=== PATIENT | female | born 1955 | race Caucasian/White ===

== ENCOUNTER 2022-09-27 15:37 | Emergency (ER) | payer MEDICAID, SELFPAY ==
[2022-09-27 15:38] VITALS: BP 151/81; PULSE 137; RESP 18; TEMP 36.3; O2SAT 97
[2022-09-27 15:47] VITALS: BMI 43.0
--- NOTE | 2022-09-27 15:49 | EKG12_ITS ---
Test Reason : CP Blood Pressure : / mmHG Vent. Rate : 135 BPM Atrial Rate : 135 BPM P-R Int : 180 ms QRS Dur : 090 ms QT Int : 252 ms P-R-T Axes : 096 -04 092 degrees QTc Int : 378 ms Atrial tachycardia Abnormal ECG Confirmed by PLACIOD NEWELL, GENARO ([id number]), video editor TINY NAJERA ([id number]) on 09/28/2022 12:47:13 PM Referred By: MIKEL Confirmed By:GENARO CUMMINS MD
--- NOTE | 2022-09-27 15:51 | CT_ITS ---
STUDY: CTA CHEST REASON FOR EXAM: Female, 67 years old. Chest pain RADIATION DOSAGE (If Supplied By Facility): CTDIvol = ( 12.66 ) mGy, DLP = ( 566.71 ) mGycm TECHNIQUE: The examination was performed with the intravenous administration of IV 100mL Isovue-370. Post-processing of the angiographic images was performed, with multiplanar reformation and 3D reconstruction. Individualized dose optimization techniques were used for this CT. COMPARISON: Chest x-ray September 27, 2022 FINDINGS: Upper normal caliber. Normal enhancement of the main pulmonary artery and right and left pulmonary arteries. Normal enhancement of the bilateral peripheral pulmonary arteries. There is no demonstrated pulmonary embolism. Normal caliber thoracic aorta and visualized great vessels. No dissection. Mild cardiomegaly. Coronary artery calcification. No pericardial effusion. Left ventricular wall thickening. Mitral valve calcification. Prominent epicardial fat pads bilaterally. 7 mm nodule in the inferior and lateral right upper lobe. No focal airspace consolidation. Subsegmental atelectasis or scarring in the right middle lobe and right lower lobe at the base. No pleural effusion or pneumothorax. Trachea and esophagus are unremarkable. Several subcentimeter mediastinal lymph nodes. Mildly prominent hilar lymph nodes. Subcentimeter axillary lymph nodes bilaterally. No acute abnormality in the visualized upper abdomen. Bilateral low-attenuation adrenal nodules, adenomas. Degenerative changes of the thoracic spine without acute osseous injury. CT/CTA Chest W/WO Contrast IMPRESSION: No pulmonary embolism or aortic dissection. Electronically Signed: Beka Webb MD at 17:33 EDT ,
--- NOTE | 2022-09-27 15:53 | EDS_ITS ---
HPI <TRACIE Tipton - Last Filed: 09/27/22 19:24> History of Present Illness Chief Complaint: Palpitations Narrative Narrative: 67-year-old female with PMH of HTN, DVT, PAD, lung cancer on radiation, tobacco use presents with 2 weeks of exertional chest pain and shortness of breath. It seems worse since 1 AM this morning. She felt nauseated but has no vomiting. No diaphoresis. No radiation of pain. She smokes 1/2 PPD. States she is cut down since her lung cancer diagnosis a couple months ago. She just completed a cycle of palliative radiation and is not a chemotherapy candidate. She is compliant with Xarelto. She is having an increased productive cough but denies fever or chills. She wears 3 L of O2 at baseline. PFSH <TRACIE Tipton - Last Filed: 09/27/22 19:24> [facility] Medical History (Updated 09/27/22 @ 20:[address] Maximus Vasuqez DO) Afib CHF (congestive heart failure) COPD (chronic obstructive pulmonary disease) DVT (deep venous thrombosis) Lung cancer Home Medications doxycycline hyclate 100 mg capsule 100 mg PO BID 7 days #14 caps 09/27/22 [Rx Last Taken Unknown] prednisone 20 mg tablet 40 mg PO DAILY 5 days #10 tabs 09/27/22 [Rx Last Taken Unknown] Allergy/AdvReac Type Severity Reaction Status Date / Time No Known Allergies Allergy Verified 09/27/22 15:37 Social History Smoking Status: Current every day smoker tobacco type: cigarettes ROS <TRACIE Tipton - Last Filed: 09/27/22 19:24> ROS ED ROS Narrative Constitutional: Negative for fever, chills, malaise. CVS: Positive for chest pain. Negative for syncope, palpitations. Respiratory: Positive for shortness of breath, cough. GI: Positive for nausea. Negative for abdominal pain, vomiting, melena, hematochezia. Neuro: Negative for headache. Skin: Negative for rash, abscess, or wound. Musc: Negative for joint pain, swelling, trauma. EXAM <TRACIE Tipton - Last Filed: 09/27/22 19:24> Physical Exam Narrative Exam Narrative: CONST: Patient sitting in no acute distress. EYES: Normal inspection. NECK: Normal inspection. RESP: No respiratory distress, diminished lung sounds. CVS: Rapid but regular rhythm, no murmur, no gallop. ABD: Soft and nontender, no guarding or rebound. Back: Normal inspection. SKIN: Color normal, no rash, warm, dry, intact. EXTREMITIES: Normal appearance, changes of chronic venous stasis bilateral legs, no edema or calf tenderness. NEURO: Oriented x4. PSYCH: Normal affect. Const Vital Signs: 09/27/22 15:38 09/27/22 16:55 09/27/22 17:43 Temperature 97.3 F L Temperature Source Temporal Pulse Rate 137 H 125 H Respiratory Rate 18 Blood Pressure 151/81 H 126/88 H Blood Pressure Mean 104 100 Pulse Ox 97 96 Oxygen Delivery Method Room Air Nasal Cannula Oxygen Flow Rate (L/min) 3 09/27/22 17:43 09/27/22 18:41 Temperature Temperature Source Pulse Rate 124 H 82 Respiratory Rate 20 H 17 Blood Pressure 129/71 H 139/84 H Blood Pressure Mean 90 Pulse Ox 97 95 Oxygen Delivery Method Nasal Cannula Oxygen Flow Rate (L/min) 3 <Dr. Maximus Vasquez DO - Last Filed: 09/27/22 20:03> Physical Exam Const Vital Signs: 09/27/22 15:38 09/27/22 16:55 09/27/22 17:43 Temperature 97.3 F L Temperature Source Temporal Pulse Rate 137 H 125 H Respiratory Rate 18 Blood Pressure 151/81 H 126/88 H Blood Pressure Mean 104 100 Pulse Ox 97 96 Oxygen Delivery Method Room Air Nasal Cannula Oxygen Flow Rate (L/min) 3 09/27/22 17:43 09/27/22 18:41 Temperature Temperature Source Pulse Rate 124 H 82 Respiratory Rate 20 H 17 Blood Pressure 129/71 H 139/84 H Blood Pressure Mean 90 Pulse Ox 97 95 Oxygen Delivery Method Nasal Cannula Oxygen Flow Rate (L/min) 3 MDM <TRACIE Tipton - Last Filed: 09/27/22 19:24> MDM MDM Narrative Medical decision making narrative: History gathered from: Patient and family members patient here with 2 weeks of chest pressure, dyspnea, recent cough with sputum production. Has a history of COPD and lung cancer status postradiation. Chronic 3 L. Still using tobacco. She appears well and nontoxic. Initially was tachycardic in the 130s and was started Tilofyl sinus rhythm versus a flutter. Given IV metoprolol and it slowed down and does appear to be sinus tach. Improving after Lopressor and fluids. Lung sounds are diminished. No signs of lower extremity edema. EKG is nonischemic and troponin x2 negative. CTA shows no acute findings. With recent increased cough and sputum she will be treated for COPD exacerbation with doxycycline and prednisone. First dose is given here. Patient is comfortable going home and was discharged in stable condition. Differential: ACS, PE, pneumonia, COPD I considered admission but she is at her baseline oxygen requirements is appropriate for outpatient management of COPD exacerbation. Interventions / MDM: Differential diagnosis: Sinus tach, atrial flutter, chest pain, ACS, pulmonary embolism, stage III lung cancer Diagnosis considered but do not suspect: N/A My EKG interpretation: Narrow complex tachycardia 137, sinus versus atrial flutter. Imaging independently reviewed and interpreted by myself: Chest x-ray 1 view: No acute process. CTA chest: External documents reviewed: N/A Test considered but not ordered:N/A ED course: Attending note: Patient seen and evaluated with coordinator of evaluation. I perform my own [id number] evaluation. I agree with the plan of work-up. 2-week history of cough sputum chest discomfort with dyspnea. Recent diagnosis stage III lung cancer with tobacco history. Chronic 3 L oxygen with COPD. She followed by [facility] Dr. Segura for oncology. She just finished radiation therapy, states not a candidate for chemotherapy. Nonvaccinated for COVID. States home COVID testing has been negative. She is on Xarelto history of paroxysmal A-fib along with DVT. She states she is compliant. She has been cardioverted at outside hospitals due to being on Xarelto. She currently does not follow cardiology. She is tolerating oral fluids denies recent vomiting or diarrhea. Exam stable on 3 L of oxygen, heart was tachycardic and lungs are clear. EKG sinus tachycardia versus a flutter. She was given fluids we will give a beta-jeramy for further evaluation of the heart rhythm. Cardiac work-up along with CT angiogram for further evaluation and rule outs. Re-evaluation: stable Disposition discussed with patient/family/significant other: Case discussed with consulting clinician: N/A Lab Data Attestation: I reviewed the patient's lab results. Labs: Laboratory Results - last 24 hr 09/27/22 09/27/22 09/27/22 15:50 15:50 18:00 WBC 8.1 RBC 4.61 Hgb 13.4 Hct 43.2 MCV 93.7 MCH 29.1 MCHC 31.0 L RDW Std Deviation 55.3 H RDW Coeff of Baltazar 16.2 H Plt Count 354 MPV 10.1 Immature Gran % (Auto) 0.500 Neut % (Auto) 80.2 H Lymph % (Auto) 13.2 L Barrow % (Auto) 4.1 Eos % (Auto) 1.6 Baso % (Auto) 0.4 Absolute Neuts (auto) 6.5 Absolute Lymphs (auto) 1.06 Nucleated RBC % 0 Sodium 134 L Potassium 4.3 Chloride 100 Carbon Dioxide 29.0 Anion Gap 5 BUN 19 H Creatinine 1.20 H Estim Creat Clear Calc 39.28 Est GFR (MDRD) Af Amer 58 L Est GFR (MDRD) Non-Af 48 L BUN/Creatinine Ratio 15.8 Glucose 127 H Calcium 9.0 Troponin I High Sens 14 14 Radiography Diagnostic Testing: Clinical Impression(s) from Imaging Studies Chest CTA 09/27/22 15:51 IMPRESSION: No pulmonary embolism or aortic dissection. Electronically Signed: Beka Webb MD at 17:33 EDT , Chest X-Ray 09/27/22 16:00 IMPRESSION: No acute cardiopulmonary disease. CTA chest has been ordered. Electronically Signed: Beka Webb MD at 16:22 EDT , EKG Initial EKG: Attestation: I personally reviewed and interpreted this EKG as follows: Comments: ED attending interpretation of EKG is possibly atrial flutter versus sinus tachycardia at 135 bpm, no acute ischemic changes, machine read as STEMI but I disagree with this interpretation <Dr. Maximus Vasquez, DO - Last Filed: 09/27/22 20:03> [facility] MDM Narrative Medical decision making narrative: History gathered from: Patient and family members patient here with 2 weeks of chest pressure, dyspnea, recent cough with sputum production. Has a history of COPD and lung cancer status postradiation. Chr onic 3 L. Still using tobacco. She appears well and nontoxic. Initially was tachycardic in the 130s and was started Tilofyl sinus rhythm versus a flutter. Given IV metoprolol and it slowed down and does appear to be sinus tach. Improving after Lopressor and fluids. Lung sounds are diminished. No signs of lower extremity edema. EKG is nonischemic and troponin x2 negative. CTA shows no acute findings. With recent increased cough and sputum she will be treated for COPD exacerbation with doxycycline and prednisone. First dose is given here. Patient is comfortable going home and was discharged in stable condition. Differential: ACS, PE, pneumonia, COPD I considered admission but she is at her baseline oxygen requirements is appropriate for outpatient management of COPD exacerbation. Interventions / MDM: Differential diagnosis: Sinus tach, atrial flutter, chest pain, ACS, pulmonary embolism, stage III lung cancer Diagnosis considered but do not suspect: N/A My EKG interpretation: Narrow complex tachycardia 137, sinus versus atrial flutter. Imaging independently reviewed and interpreted by myself: Chest x-ray 1 view: No acute process. CTA chest: No pulmonary embolism no infiltrates no masses. Nodules were noted. This is read by radiology. External documents reviewed: N/A Test considered but not ordered:N/A ED course: Attending note: Patient seen and evaluated with coordinator of evaluation. I perform my own [id number] evaluation. I agree with the plan of work-up. 2-week history of cough sputum chest discomfort with dyspnea. Recent diagnosis stage III lung cancer with tobacco history. Chronic 3 L oxygen with COPD. She followed by [facility] Dr. Segura for oncology. She just finished radiation therapy, states not a candidate for chemotherapy. Nonvaccinated for COVID. States home COVID testing has been negative. She is on Xarelto history of paroxysmal A-fib along with DVT. She states she is compliant. She has been cardioverted at outside hospitals due to being on Xarelto. She currently does not follow cardiology. She is tolerating oral fluids denies recent vomiting or diarrhea. Exam stable on 3 L of oxygen, heart was tachycardic and lungs are clear. EKG sinus tachycardia versus a flutter. She was given fluids we will give a beta-jeramy for further evaluation of the heart rhythm. Cardiac work-up along with CT angiogram for further evaluation and rule outs. Re-evaluation: stable, heart rate was 120s appears more sinus rhythm on the monitor she continued to get fluids. CT scan negative for PE. History of COPD with productive cough reported wheezing at home. We will treat antibiotics steroids according to golds criteria. She agreed with this. Antibiotic started in the ED prescriptions were written. Prior to discharge heart rate improved down to 82. Return precautions. Disposition discussed with patient/family/significant other: Patient and family Case discussed with consulting clinician: N/A Lab Data Labs: Laboratory Results - last 24 hr 09/27/22 09/27/22 09/27/22 15:50 15:50 18:00 WBC 8.1 RBC 4.61 Hgb 13.4 Hct 43.2 MCV 93.7 MCH 29.1 MCHC 31.0 L RDW Std Deviation 55.3 H RDW Coeff of Baltazar 16.2 H Plt Count 354 MPV 10.1 Immature Gran % (Auto) 0.500 Neut % (Auto) 80.2 H Lymph % (Auto) 13.2 L Barrow % (Auto) 4.1 Eos % (Auto) 1.6 Baso % (Auto) 0.4 Absolute Neuts (auto) 6.5 Absolute Lymphs (auto) 1.06 Nucleated RBC % 0 Sodium 134 L Potassium 4.3 Chloride 100 Carbon Dioxide 29.0 Anion Gap 5 BUN 19 H Creatinine 1.20 H Estim Creat Clear Calc 39.28 Est GFR (MDRD) Af Amer 58 L Est GFR (MDRD) Non-Af 48 L BUN/Creatinine Ratio 15.8 Glucose 127 H Calcium 9.0 Troponin I High Sens 14 14 Radiography Diagnostic Testing: Clinical Impression(s) from Imaging Studies Chest CTA 09/27/22 15:51 IMPRESSION: No pulmonary embolism or aortic dissection. Electronically Signed: Beka Webb MD at 17:33 EDT , Chest X-Ray 09/27/22 16:00 IMPRESSION: No acute cardiopulmonary disease. CTA chest has been ordered. Electronically Signed: Beka Webb MD at 16:22 EDT , Discharge Plan Triage Chief Complaint: Palpitations ED Midlevel Provider: Gay Ibarra ED Provider: Maximus Vasquez Dx/Rx/DC Orders Clinical Impression: Acute exacerbation of chronic obstructive pulmonary disease, Chest pressure, History of lung cancer Instructions: COPD Quit Smoking Prescriptions: New prednisone 20 mg tablet 40 mg PO DAILY 5 Days Qty: 10 0RF doxycycline hyclate 100 mg capsule 100 mg PO BID 7 Days Qty: 14 0RF Primary Care Provider: Josesito Guthrie Referrals: Josesito Guthrie MD [Primary Care Provider] - Activity Restrictions/Additional Instructions: You are being treated for COPD exacerbation with doxycycline which is an antibiotic and steroids. Please follow-up with your primary care doctor this week. Return to the ER if symptoms worsen. Disposition Disposition: Home, Self Care Discharge Date/Time: 09/27/22 18:46
--- NOTE | 2022-09-27 15:57 | NURSING ---
NO OLD EKGS
--- NOTE | 2022-09-27 16:00 | RAD_ITS ---
INDICATION: Chest pain, palpitations. EXAMINATION/TECHNIQUE: X-RAY - XR Chest 1 View COMPARISON: None. FINDINGS: AP view, lordotic technique, mild rotation to the right. LINES/DEVICES: None. LUNGS: No consolidation, edema or effusion. Prominent right epicardial fat pad. No pneumothorax. MEDIASTINUM AND CARDIOVASCULAR STRUCTURES: Cardiac silhouette borderline enlarged. Central airways and mediastinal contour are unremarkable. BONES AND SOFT TISSUES: Degenerative changes. No acute osseous injury. RAD/Chest 1 View (Portable) IMPRESSION: No acute cardiopulmonary disease. CTA chest has been ordered. Electronically Signed: Beka Webb MD at 16:22 EDT ,
[2022-09-27] MEDS: 0.9% Normal Saline 1,000 ML 999 ML IV (16:01)
[2022-09-27] MEDS: Aspirin 81 MG TAB.CHEW 324 MG PO (16:03)
[2022-09-27] MEDS: Metoprolol Tartrate 5 MG/5 ML Vial IV (16:03)
[2022-09-27 16:10] LABS: Absolute Lymphocyte Count 1.06 X10^3/uL (0.83-4.51); Absolute Neutrophil Count 6.5 X10^3/uL (2.0-7.7); Basophil# 0.03 X10^3/uL; Basophil% 0.4 % (0-1); Eosinophil# 0.13 X10^3/uL; Eosinophils% 1.6 % (0-5); Hematocrit 43.2 % (37-47); Hemoglobin 13.4 g/dL (12.0-15.0); Lymphocyte # 1.06 X10^3/ul (0.83-4.51); Lymphocyte % 13.2 % (19-41); Mean Corpuscular Hgb 29.1 pg (27.0-32.0); Mean Corpuscular Volume 93.7 fL (81-99); Mean Platelet Vol. 10.1 fl (6.2-12.0); Monocyte# 0.33 X10^3/uL; Monocyte% 4.1 % (0-10); NRBC Flagged by Analyzer 0 % (0-5); Neutrophil # 6.47 X10^3/uL (2.7-7.7); Neutrophil % 80.2 % (47-70); Platelet Count 354 K/mm3 (150-450); RBC Distribution Width CV 16.2 % (11.6-14.6); RBC Distribution Width SD 55.3 fl (35.1-43.9); Red Blood Count 4.61 M/mm3 (4.2-5.4); White Blood Count 8.1 K/mm3 (4.4-11.0)
[2022-09-27 16:24] LABS: Anion Gap 5 (5-15); BUN 19 mg/dL (7-18); BUN/Creat Ratio 15.8 RATIO (10-20); Chloride 100 mmol/L (98-107); EST Glomerular Filtration Rate 48 mL/min (>60); Est Glom Filt Rate - Afr Amer 58 mL/min (>60); Estimated Creatinine Clearance 39.28 ml/min; Glucose 127 mg/dL (74-106); Potassium 4.3 mmol/L (3.5-5.1); Sodium Level 134 mmol/L (136-145); Troponin-I HS (w/2H Reflex) 14 pg/mL (3.0-54.0)
[2022-09-27] MEDS: Morphine 4 MG/ML Syringe IV (16:27)
[2022-09-27] MEDS: Ondansetron 4 MG/2 ML Vial IV (16:28)
[2022-09-27 16:55] VITALS: BP 126/88; PULSE 125
[2022-09-27] MEDS: predniSONE 20 MG Tablet 60 MG PO (17:42)
[2022-09-27] MEDS: Doxycycline 100 MG CAPSULE PO (17:42)
[2022-09-27 17:43] VITALS: BP 129/71; PULSE 124; RESP 20; O2SAT 96; O2SAT 97
[2022-09-27 17:59] LABS: Reflex Troponin-HS? (from REC) Y
[2022-09-27 18:32] LABS: Troponin-I HS 14 pg/mL (3.0-54.0)
[2022-09-27 18:41] VITALS: BP 139/84; PULSE 82; RESP 17; O2SAT 95
== END 2022-09-27 18:46 | disposition home or self-care (01) ==
PROVIDERS: Physician Assistant; Emergency Provider Emergency Medicine; PCP Internal Medicine; Visit Provider Emergency Medicine
DX: J44.1 Chronic obstructive pulmonary disease with (acute) exacerbation (principal); I50.9 Heart failure, unspecified; R07.89 Other chest pain; F17.210 Nicotine dependence, cigarettes, uncomplicated; Z86.718 Personal history of other venous thrombosis and embolism; Z79.01 Long term (current) use of anticoagulants
CPT/HCPCS: 71045; 71275; 80048; 84484; 85025; 87811; 93005; 96374; 96375; 99285; J7030; Q9967; A4216; J2405

== ENCOUNTER → 2022-10-14 | Outpatient (CLI) | payer MEDICAID, SELFPAY ==
--- NOTE | 2022-10-14 12:18 | MRI_ITS ---
EXAM: MR brain with and without contrast. HISTORY: UNEXPLAINED VISION LOSS TECHNIQUE: MR Brain WO/W Contrast COMPARISON: None. LIMITATIONS: Motion artifact. BRAIN: Normal cespedes/white matter differentiation. No diffusion abnormalities. No enhancing lesions. VENTRICLES: No hydrocephalus. EXTRA-AXIAL SPACES: No hemorrhages, fluid collections, or masses. CALVARIUM/SKULL BASE: Normal. FACE/SINUSES: Mucosal thickening of the left maxillary sinus with possible mild fluid. Orbits and ocular globes are grossly normal. SOFT TISSUES: Normal. OTHER: None. CONCLUSION: Motion artifact. No significant abnormality. Electronically Signed: Alex Ge MD at 5:43 EDT , MRI/Brain W/WO Contrast IMPRESSION: undefined
== END | disposition home or self-care (01) ==
PROVIDERS: PCP Internal Medicine; Referring Provider Ophthalmology; Visit Provider Ophthalmology
DX: H53.133 Sudden visual loss, bilateral (principal)
CPT/HCPCS: 70553; A9575

== ENCOUNTER 2022-10-24 15:24 | Inpatient (IN) | payer MEDICAID, SELFPAY ==
[2022-10-24] VITALS (15 sets, daily range): BP systolic 141–171; BP diastolic 50–127; PULSE 90–145; RESP 16–30; TEMP 36.6–36.9; O2SAT 96–99; BMI 43.4; BMI 41.6
--- NOTE | 2022-10-24 16:03 | EKG12_ITS ---
Test Reason : EDEMA Blood Pressure : / mmHG Vent. Rate : 141 BPM Atrial Rate : 141 BPM P-R Int : 146 ms QRS Dur : 090 ms QT Int : 248 ms P-R-T Axes : 088 -01 092 degrees QTc Int : 379 ms Atrial flutter with 2:1 AV Block Confirmed by ANDRE HUNTER ([id number]), web editor TINY NAJERA ([id number]) on 10/27/2022 7:29:08 AM Referred By: Confirmed By:ANDRE HUNTER
--- NOTE | 2022-10-24 16:05 | EX.ED.DYSGE1 ---
HPI <JOANNA Mancilla - Last Filed: 10/24/22 18:37> History of Present Illness Chief Complaint: Edema Narrative Narrative: Patient is a 67-year-old female with history of stage III lung cancer, hyperlipidemia, obesity, pulmonary embolus, DVT, COPD on 3 L nasal cannula oxygen daily presents to the emergency department for bilateral leg swelling. Patient was recently admitted to hospice at the end of September 2022. Patient was in hospice for 1 week, did not like that they just gave her pain medicine, she then stopped hospice. Patient is currently not on any of her daily medications. Patient is on no rate control medications, anticoagulation, Plavix, CHF medications. Patient has not seen her PCP and cannot see them until December 2022. Patient is here with her daughter concerning about her ongoing symptoms with her legs. Patient denies any worsening chest pain or shortness of breath. Patient has baseline on her 3 L PFSH <JOANNA Mancilla - Last Filed: 10/24/22 18:37> [facility] Medical History (Updated 10/24/22 @ 18:[address] Dixon Barboza MD) Afib CHF (congestive heart failure) COPD (chronic obstructive pulmonary disease) DVT (deep venous thrombosis) Lung cancer Home Medications NK 10/24/22 [History Last Taken Unknown] Allergy/AdvReac Type Severity Reaction Status Date / Time No Known Allergies Allergy Verified 10/24/22 15:28 Social History Smoking Status: Current every day smoker tobacco type: cigarettes ROS <JOANNA Mancilla - Last Filed: 10/24/22 18:37> ROS ED ROS Narrative Constitutional: Negative for fever, chills, weight loss. Positive for weakness Eyes: Negative for vision loss, vision change, double vision ENT: Negative for any sore throat, ear pain, congestion Cardiovascular: Negative for any chest pain, tightness, palpitations Respiratory: Negative for any cough, sputum production, hemoptysis, dyspnea on exertion, orthopnea. Positive dyspnea Gastrointestinal: Negative for any abdominal pain, nausea, vomiting, diarrhea, constipation, blood in stool, blood in vomit : Negative for any urinary frequency, dysuria, retention, blood in urine Muscle skeletal: Negative for any muscle joint pain, stiffness, myalgias, arthralgias, neck pain, back pain. Positive for bilateral lower extremity swelling, redness. Neurological: Negative for any headache, syncope, numbness or tingling, dizziness Skin: Negative for any rashes, lumps, itching, abrasions, lacerations Psychiatric: Negative for any depression, anxiety, stress, suicidal ideation, homicidal ideation Hematologic: Negative for any easy bruising, excessive bruising, easy bleeding Allergies: Negative for any eczema, hives, rash EXAM <Beka OsborneJOANNA - Last Filed: 10/24/22 18:37> Physical Exam Narrative Exam Narrative: Vital signs reviewed. Patient on her 3 L of oxygen is baseline. Patient alert and orient x4. HEET: Head normocephalic atraumatic, TMs clear bilaterally. Posterior pharynx is clear, moist mucous membranes. Nares clear bilaterally. Neck: Supple with no lymphadenopathy or tenderness. No signs of meningismus, negative jolt sign. Cardiac: Regular rate and rhythm no murmurs gallops or rubs, equal peripheral pulses bilaterally. Respiratory: Bilateral lung sounds were diminished. Patient is chronic COPD.. No chest tenderness. Abdomen: Soft, nontender, nondistended. No abdominal bruit or pulsatile masses. No hepatosplenomegaly Extremities: Patient has bilateral lower edema to the lower legs. Patient does have some redness around some superficial wounds to the right leg. Patient has obvious vascular dermatitis. Bilateral lower extremities are warm. The toes are red. The right leg is slightly larger than the left leg. Active full range of motion of all extremities. Neuro: Cranial nerves II through XII intact, no focal neurological deficits. Skin: Clean dry and intact with no rash, purpura, petechiae, vesicles or pustules. Backs/flank: No CVA tenderness, no midline spinal tenderness, no deformity. Psych: Normal mood and affect. No SI, HI or acute psychosis. Const Vital Signs: 10/24/22 15:25 10/24/22 16:01 10/24/22 16:13 Temperature 98.3 F Temperature Source Temporal Pulse Rate 144 H Respiratory Rate 18 Respiratory Effort Short of Breath Labored Respiratory Pattern Tachypnea Blood Pressure 165/90 H Blood Pressure Mean 115 Pulse Ox 97 Oxygen Delivery Method Room Air Nasal Cannula Oxygen Flow Rate (L/min) 2 10/24/22 17:15 10/24/22 17:49 Temperature Temperature Source Pulse Rate 94 142 H Respiratory Rate Respiratory Effort Respiratory Pattern Blood Pressure Blood Pressure Mean Pulse Ox Oxygen Delivery Method Oxygen Flow Rate (L/min) Positive obese Nutritional Appearance: obese <Dr. Dixon Barboza MD - Last Filed: 10/24/22 18:44> Physical Exam Const Vital Signs: 10/24/22 15:25 10/24/22 16:01 10/24/22 16:13 Temperature 98.3 F Temperature Source Temporal Pulse Rate 144 H Respiratory Rate 18 Respiratory Effort Short of Breath Labored Respiratory Pattern Tachypnea Blood Pressure 165/90 H Blood Pressure Mean 115 Pulse Ox 97 Oxygen Delivery Method Room Air Nasal Cannula Oxygen Flow Rate (L/min) 2 10/24/22 17:15 10/24/22 17:49 Temperature Temperature Source Pulse Rate 94 142 H Respiratory Rate Respiratory Effort Respiratory Pattern Blood Pressure Blood Pressure Mean Pulse Ox Oxygen Delivery Method Oxygen Flow Rate (L/min) MDM <JOANNA Mancilla - Last Filed: 10/24/22 18:37> MDM Lab Data Labs: Laboratory Results - last 24 hr 10/24/22 10/24/22 10/24/22 15:45 15:45 15:45 WBC 5.8 RBC 4.06 L Hgb 12.1 Hct 38.7 MCV 95.3 MCH 29.8 MCHC 31.3 L RDW Std Deviation 57.0 H RDW Coeff of [place]tazar 16.2 H Plt Count 319 MPV 10.0 Immature Gran % (Auto) 0.500 Neut % (Auto) 73.5 H Lymph % (Auto) 17.4 L [place] % (Auto) 6.2 Eos % (Auto) 1.9 Baso % (Auto) 0.5 Absolute Neuts (auto) 4.3 Absolute Lymphs (auto) 1.01 Nucleated RBC % 0 PT INR Sodium 139 Potassium 3.9 Chloride 108 H Carbon Dioxide 27.0 Anion Gap 4 L BUN 12 Creatinine 1.21 H Estim Creat Clear Calc 37.32 Est GFR (MDRD) Af Amer 57 L Est GFR (MDRD) Non-Af 47 L BUN/Creatinine Ratio 9.9 L Glucose 116 H Calcium 9.4 B-Natriuretic Peptide 61.0 10/24/22 15:45 WBC RBC Hgb Hct MCV MCH MCHC RDW Std Deviation RDW Coeff of [place] Plt Count MPV Immature Gran % (Auto) Neut % (Auto) Lymph % (Auto) [place] % (Auto) Eos % (Auto) Baso % (Auto) Absolute Neuts (auto) Absolute Lymphs (auto) Nucleated RBC % PT 13.1 INR 1.0 Sodium Potassium Chloride Carbon Dioxide Anion Gap BUN Creatinine Estim Creat Clear Calc Est GFR (MDRD) Af Amer Est GFR (MDRD) Non-Af BUN/Creatinine Ratio Glucose Calcium B-Natriuretic Peptide Radiography Diagnostic Testing: Clinical Impression(s) from Imaging Studies Chest X-Ray 10/24/22 16:20 IMPRESSION: No radiographic evidence of acute cardiopulmonary disease. Electronically Signed: Beka Mercado MD at 16:50 EDT , Treatment and Re-Evaluation :: All radiologic examinations were read, reviewed by the emergency department attending. From these reads, a plan of care will be put in place. Patient arrives in mild distress, patient's oxygen is baseline on 3 L nasal cannula. Patient presents to the emergency department with bilateral lower leg edema, right leg worse than left. She was recently on hospice, left now she is currently not on any medicines. Patient was on medication for her CHF, CAD, Xarelto for her history of DVT as well as a flutter. Patient is currently in a flutter with a rate of 140. She did receive a full work-up. Patient CBC was unremarkable, patient's chemistries show slight renal dysfunction which is chronic. Patient's BNP was 61 which is negative. Patient received a chest x-ray, this showed no radiographic evidence of acute cardiopulmonary disease. Patient's heart rate was 144, verified by EKG, consistent with atrial flutter which she has a history of. She was given 20 mg Cardizem bolus, this did little to help the patient's rate, she was then placed on a Cardizem drip and will be admitted to the hospital. Patient needs to be admitted for multiple diagnoses. Patient needs to be placed on anticoagulation, needs rate control, she will be admitted by Dr. Herrera. Patient and daughter are both happy with the plan of care, patient stable for admission. <Dr. Dixon Barboza MD - Last Filed: 10/24/22 18:44> [facility] Narrative Medical decision making narrative: I have personally performed a face to face assessment of the patient and have reviewed the JOSE Note. I performed a substantive portion of the visit including all aspects of the following. My carlin findings include: History is remarkable for stage III lung cancer. Review of outside records was undertaken. No path report was found to determine if this is small cell or non-small cell carcinoma. Patient was in hospice. She revoked her hospice status 1 week ago. She states she revoked it because she was doped up and asleep all the time. She is presently on no medication. Exam is remarkable for her not appear well. She is tachycardic and tachypneic and spite of vital signs documented by nursing staff. HEENT exam reveals pink conjunctive a. Heart is rapid and regular. Lungs reveal end inspiratory rales. There is no rhonchi or wheezing noted. Patient has no JVD. Patient has significant edema lower extremity exam right lower extremity is larger in size than left. There is evidence of acute venous stasis dermatitis. Patient has superficial wounds noted. Do not suspect these to be infected. There is no lymphangitis. There is no popliteal angle lymphadenopathy. Medical Decision Making patient EKG is suggestive of atrial flutter. We will need to give meds for rate control. Chest x-ray reveals no acute pathology. BBC markable. Electrolyte panel is as unremarkable mild renal insufficiency. Suspect patient has a DVT of the left lower extremity. Will need to place on anticoagulant. Presume her dyspnea may be due to PE and the fact that she has chronic diastolic heart failure and is presently in atrial flutter. Other additions or changes: [None] History & Record Review Additional record(s) reviewed:: Prior inpatient record, Prior outpatient record, Prior ED visit and Prior labs Lab Data Attestation: I reviewed the patient's lab results. Lab results narrative: CBC is normal. Coags normal. Basic metabolic panel reveals slight elevation of creatinine of 1.21 with a GFR of 47. Labs: Laboratory Results - last 24 hr 10/24/22 10/24/22 10/24/22 15:45 15:45 15:45 WBC 5.8 RBC 4.06 L Hgb 12.1 Hct 38.7 MCV 95.3 MCH 29.8 MCHC 31.3 L RDW Std Deviation 57.0 H RDW Coeff of Baltazar 16.2 H Plt Count 319 MPV 10.0 Immature Gran % (Auto) 0.500 Neut % (Auto) 73.5 H Lymph % (Auto) 17.4 L [place] % (Auto) 6.2 Eos % (Auto) 1.9 Baso % (Auto) 0.5 Absolute Neuts (auto) 4.3 Absolute Lymphs (auto) 1.01 Nucleated RBC % 0 PT INR Sodium 139 Potassium 3.9 Chloride 108 H Carbon Dioxide 27.0 Anion Gap 4 L BUN 12 Creatinine 1.21 H Estim Creat Clear Calc 37.32 Est GFR (MDRD) Af Amer 57 L Est GFR (MDRD) Non-Af 47 L BUN/Creatinine Ratio 9.9 L Glucose 116 H Calcium 9.4 B-Natriuretic Peptide 61.0 10/24/22 15:45 WBC RBC Hgb Hct MCV MCH MCHC RDW Std Deviation RDW Coeff of [place] Plt Count MPV Immature Gran % (Auto) Neut % (Auto) Lymph % (Auto) [place] % (Auto) Eos % (Auto) Baso % (Auto) Absolute Neuts (auto) Absolute Lymphs (auto) Nucleated RBC % PT 13.1 INR 1.0 Sodium Potassium Chloride Carbon Dioxide Anion Gap BUN Creatinine Estim Creat Clear Calc Est GFR (MDRD) Af Amer Est GFR (MDRD) Non-Af BUN/Creatinine Ratio Glucose Calcium B-Natriuretic Peptide Radiography Chest X-Ray - ED: Read by ED Physician (Histex reveals increased interstitial markings right lower lobe. Cardiac size is within normal limits. Hilar regions unremarkable. [place] structures unremarkable.) Diagnostic Testing: Clinical Impression(s) from Imaging Studies Chest X-Ray 10/24/22 16:20 IMPRESSION: No radiographic evidence of acute cardiopulmonary disease. Electronically Signed: Beka Mercado MD at 16:50 EDT , EKG Initial EKG: Attestation: I personally reviewed and interpreted this EKG as follows: Interpretation: Atrial Flutter (Rate is 141. There were no ossific ST-T wave changes most likely due to rate.) Management Discussion w/another healthcare provider: Hospitalist <Dr. Dixon Barboza MD - Last Filed: 10/24/22 18:44> Critical Care Time Critical Care Time: Yes Critical care time (excluding procedures): 30-74 minutes (32 minutes), Including time spent: (History, physical, documentation, review of prior records, discussion with patient regarding CODE STATUS, treatment for a flutter with RVR), Discussing w/Patient &/or Family/Supply Cataloguer, Discussing w/Consultants and Arranging Admission or Transfer Discharge Plan Dx/Rx/DC Orders Clinical Impression: Atrial fibrillation and flutter, Noncompliance with medication regimen, Leg edema, History of deep vein thrombosis, Lung cancer, Right leg DVT Disposition Disposition: Acute Care Hospital [facility]
[2022-10-24 16:20] LABS: Absolute Lymphocyte Count 1.01 X10^3/uL (0.83-4.51); Absolute Neutrophil Count 4.3 X10^3/uL (2.0-7.7); Basophil# 0.03 X10^3/uL; Basophil% 0.5 % (0-1); Eosinophil# 0.11 X10^3/uL; Eosinophils% 1.9 % (0-5); Hematocrit 38.7 % (37-47); Hemoglobin 12.1 g/dL (12.0-15.0); Lymphocyte # 1.01 X10^3/ul (0.83-4.51); Lymphocyte % 17.4 % (19-41); Mean Corp Hgb Conc 31.3 g/dL (32-36); Mean Corpuscular Hgb 29.8 pg (27.0-32.0); Mean Corpuscular Volume 95.3 fL (81-99); Monocyte# 0.36 X10^3/uL; Monocyte% 6.2 % (0-10); NRBC Flagged by Analyzer 0 % (0-5); Neutrophil # 4.28 X10^3/uL (2.7-7.7); Neutrophil % 73.5 % (47-70); Platelet Count 319 K/mm3 (150-450); RBC Distribution Width CV 16.2 % (11.6-14.6); Red Blood Count 4.06 M/mm3 (4.2-5.4); White Blood Count 5.8 K/mm3 (4.4-11.0)
--- NOTE | 2022-10-24 16:20 | RAD_ITS ---
INDICATION: Chest pain EXAMINATION/TECHNIQUE: X-RAY - XR Chest 2 Views COMPARISON: 09/27/2022 FINDINGS: LUNGS: Right lower lung scarring. No consolidation, edema or effusion. No pneumothorax. MEDIASTINUM AND CARDIOVASCULAR STRUCTURES: Cardiac silhouette borderline enlarged. Prominent epicardial fat. Central airways and mediastinal contour are unremarkable. RAD/Chest PA and Lateral IMPRESSION: No radiographic evidence of acute cardiopulmonary disease. Electronically Signed: Beka Mercado MD at 16:50 EDT ,
[2022-10-24 16:26] LABS: Prothrombin Time (Protime)PT. 13.1 SECONDS (11.7-14.9)
[2022-10-24 16:28] LABS: Anion Gap 4 (5-15); BUN 12 mg/dL (7-18); BUN/Creat Ratio 9.9 RATIO (10-20); Calcium,Total 9.4 mg/dL (8.5-10.1); Chloride 108 mmol/L (98-107); Creatinine, Serum 1.21 mg/dL (0.55-1.02); EST Glomerular Filtration Rate 47 mL/min (>60); Est Glom Filt Rate - Afr Amer 57 mL/min (>60); Estimated Creatinine Clearance 37.32 ml/min; Glucose 116 mg/dL (74-106); Potassium 3.9 mmol/L (3.5-5.1); Sodium Level 139 mmol/L (136-145)
[2022-10-24] MEDS: dilTIAZem 25 MG/5 ML Vial 20 MG IV BOLUS (17:12)
[2022-10-24] MEDS: dilTIAZem 25 MG/5 ML Vial IV BOLUS (18:38)
[2022-10-24] MEDS: APIXABAN 5 MG TABLET 10 MG PO (19:10)
[2022-10-24 19:47] LABS: Magnesium 2.3 mg/dL (1.6-2.6)
[2022-10-24 19:54] LABS: D-Dimer Quantitative (DVT/PE) 0.89 FEU/ug/m (0.27-0.49)
[2022-10-24 19:58] LABS: Erythrocyte Sedimentation Rate 68 mm/hr (0-30)
[2022-10-24 19:59] LABS: AST(SGOT) 21 U/L (15-37); Alanine Aminotransfer ALT/SGPT 26 U/L (13-56); Alkaline Phosphatase 72 U/L (45-117); Bilirubin, Direct 0.12 mg/dL (0.00-0.30); Cholesterol 148 mg/dL (200); Globulin 4.4 g/dL (2.2-4.2); High Density Lipoprotein 48 mg/dL; Protein, Total 7.4 g/dL (6.4-8.2); T4 Free Direct 0.97 ng/dL (0.76-1.46); Triglycerides 106 mg/dL; Very Low Density Lipoprotein 21 mg/dL (5-40)
--- NOTE | 2022-10-24 20:13 | PCM.HP.STD ---
HPI - General General Date of Admission: 10/24/22 Date of Service: 10/24/22 Chief Complaint: Leg pain and swelling HPI Narrative HAWA PARKER, is a 67 F with a history of PAD, CHF, DVT, lung cancer, atrial fibrillation, COPD on 3 L of O2 who presented to [facility] 10/24/2022 with increasing leg pain and swelling. She had been on hospice from the end of September 2022 and was on for 1 week when she elected to stop as she felt she was overly groggy and that the morphine and Ativan and lack of heart medication was making her feel much worse. Since that time she has been off of all of her medications and has not seen her PCP. Her main concern is leg swelling and erythema which is why she presented to the ED. In the ED however she was found to be in a flutter with a heart rate in the 150s. Slow down initially with Cardizem bolus and then required a second bolus and drip to keep heart rate close to 100. Hospitalist consulted for admission for her atrial flutter. Blood pressure stable and on her 3 L in ED with good O2 sat. Patient seen in her room and she was sitting up in her chair upset that she was being considered for admission. She was on Cardizem drip with heart rate between 90s to 140s but primarily close to 100. She reports history as above and that her main complaint is that she has been having increasing pain and redness in her legs for 1 week with swelling, the right leg also had some drainage yesterday. Due to the pain and worsening she presented to the hospital. She reports chronic cough and shortness of breath, shortness of breath is not worse than usual but does have cough and occasional hemoptysis. She reports her lung cancer was treated with radiation and she is supposed to have a PET scan in 2 months, she is unsure what type of lung cancer she has or any further information about this. She denies chest pain and cannot tell when her heart is racing quickly. Does have some constipation. Endorses she does not wish to go back on hospice and she wants to get back on her home medications as she endorses that she felt better that way. [facility] Medical History (Updated 10/24/22 @ 20:[address] Tania Herrera MD) Afib CHF (congestive heart failure) COPD (chronic obstructive pulmonary disease) DVT (deep venous thrombosis) Lung cancer PAD (peripheral artery disease) Home Medications NK 10/24/22 [History Last Taken Unknown] Allergy/AdvReac Type Severity Reaction Status Date / Time No Known Allergies Allergy Verified 10/24/22 15:28 Social History Smoking Status: Current every day smoker tobacco type: cigarettes ROS ROS Narrative General: Denies fever/chills HENT: Denies headache, denies stuffy nose, denies sore throat EYES: Chronic vision changes Resp: Chronic shortness of breath, has chronic cough that waxes and wanes with intensity and occasional hemoptysis Cardiac: Denies chest pain GI: Denies abdominal pain, some constipation denies nausea/vomiting : Denies changes in urination Extremity: Swelling in her legs with erythema right greater than left MSK: Denies weakness Neuro: Denies any numbness/tingling Heme: Denies any bleeding or bruising Skin: Erythema in her lower extremities with right leg having a spot that broke open and drained a day ago that is scabbed over, pain in her legs Psychiatric: Angry that she has been evaluated for admission Vital Signs Vital Signs Vital Signs: 10/24/22 15:25 10/24/22 16:01 10/24/22 16:13 Temperature 98.3 F Temperature Source Temporal Pulse Rate 144 H Respiratory Rate 18 Respiratory Effort Short of Breath Labored Respiratory Pattern Tachypnea Blood Pressure 165/90 H Blood Pressure Mean 115 Pulse Ox 97 Oxygen Delivery Method Room Air Nasal Cannula Oxygen Flow Rate (L/min) 2 10/24/22 17:15 10/24/22 17:49 10/24/22 19:05 Temperature 98.4 F Temperature Source Oral Pulse Rate 94 142 H 120 H Respiratory Rate 25 H Respiratory Effort Respiratory Pattern Blood Pressure 166/111 H Blood Pressure Mean 129 Pulse Ox 96 Oxygen Delivery Method Nasal Cannula Oxygen Flow Rate (L/min) 2 10/24/22 19:19 Temperature Temperature Source Pulse Rate 145 H Respiratory Rate Respiratory Effort Respiratory Pattern Blood Pressure 145/108 H Blood Pressure Mean 120 Pulse Ox 98 Oxygen Delivery Method Nasal Cannula Oxygen Flow Rate (L/min) 2 Weight Weight: 111.4 kg Body Mass Index (BMI) 43.4 Physical Exam Narrative General: Alert, oriented, no apparent distress HEENT: Atraumatic, normocephalic Eyes: Anicteric, normal conjunctiva, extraocular movements grossly intact Neck: Supple Respiratory: Scattered wheezes, somewhat diminished at the bases but may be in part secondary to body habitus, no significant increase in work of breathing Cardiovascular: Intermittently tachycardic, appears to be going between A-fib and flutter GI: Soft, nontender, nondistended Extremities: Bilateral lower extremity swelling Musculoskeletal: Moving all extremities Neuro: No overt focal neurological deficits Skin: Erythema on bilateral lower extremities right greater than left with a small 0.5 cm lesion scabbed over on anterior mondragon on right leg Psych: Irritable Results Lab / Micro Data Result Diagrams: 10/24/22 15:45 10/24/22 15:45 Labs: Laboratory Results - last 24 hr 10/24/22 15:45: WBC 5.8, RBC 4.06 L, Hgb 12.1, Hct 38.7, MCV 95.3, MCH 29.8, MCHC 31.3 L, RDW Std Deviation 57.0 H, RDW Coeff of Baltazar 16.2 H, Plt Count 319, MPV 10.0, Immature Gran % (Auto) 0.500, Neut % (Auto) 73.5 H, Lymph % (Auto) 17.4 L, [place] % (Auto) 6.2, Eos % (Auto) 1.9, Baso % (Auto) 0.5, Absolute Neuts (auto) 4.3, Absolute Lymphs (auto) 1.01, Nucleated RBC % 0 10/24/22 15:45: Sodium 139, Potassium 3.9, Chloride 108 H, Carbon Dioxide 27.0, Anion Gap 4 L, BUN 12, Creatinine 1.21 H, Estim Creat Clear Calc 37.32, Est GFR (MDRD) Af Amer 57 L, Est GFR (MDRD) Non-Af 47 L, BUN/Creatinine Ratio 9.9 L, Glucose 116 H, Calcium 9.4 10/24/22 15:45: B-Natriuretic Peptide 61.0 10/24/22 15:45: PT 13.1, INR 1.0 10/24/22 15:45: D-Dimer Quant (PE/DVT) 0.89 H* 10/24/22 15:45: Total Bilirubin 0.20, Direct Bilirubin 0.12, AST 21, ALT 26, Alkaline Phosphatase 72, C-React Prot Ext Range 13.10 H, Total Protein 7.4, Albumin 3.0 L, Globulin 4.4 H, Triglycerides 106, Cholesterol 148, LDL Cholesterol 79, VLDL Cholesterol 21, HDL Cholesterol 48, TSH 4.70 H, Free T4 0.97 10/24/22 15:45: Magnesium 2.3 10/24/22 19:50: ESR 68 H Radiology Impression Chest X-Ray 10/24/22 16:20 IMPRESSION: No radiographic evidence of acute cardiopulmonary disease. Electronically Signed: Beka Mercado MD at 16:50 EDT , Assessment & Plan Assessment/Plan (1) Atrial fibrillation and flutter: (2) History of deep vein thrombosis: (3) Lung cancer: (4) PAD (peripheral artery disease): (5) COPD (chronic obstructive pulmonary disease): (6) CHF (congestive heart failure): PLAN: Plan #A flutter seems to be 2:1 block with intermittent atrial fibrillation -Starting to improve with cardizem gtt, will continue -TSH/free T4 -Given 10 mg of Eliquis in the ED, given hemoptysis and unclear if there is DVT will only give 5 twice daily and monitor closely #Right lower extremity cellulitis -Reported she did have some drainage earlier, presently nothing to drain but given history will cover with Unasyn and Doxy #History of CHF -BNP within normal limits -We will obtain echo -Daily weights, I's and O's -We will likely need Lasix prior to discharge but will continue to manage cellulitis and atrial flutter prior to initiating #History of DVT -Ddimer 0.85 -LE duplex -Will determine dose of AC pt requires -Given hemoptysis will opt for 5 twice daily instead of loading dose #Chronic hypoxic respiratory failure on 3 L home O2/chronic COPD/lung cancer with history of radiation/hemoptysis/cough/tobacco use -COVID, flu, respiratory panel -Heparin drip for above to verify she tolerates prior to switching -Will give ipratropium and budesonide, hold on albuterol as needed until heart rate better controlled -Recent CT 09/27/2022 demonstrated mild cardiomegaly, coronary artery calcification, left ventricular wall thickening, 7 mm nodule in the inferior and lateral right upper pole with several subcentimeter mediastinal lymph nodes, mildly prominent hilar lymph nodes, subcentimeter axillary lymph nodes bilaterally. -Incentive spirometry -advise smoking cessation #PAD -Believe she was on Xarelto and Plavix before hospice -We will restart pravastatin, pending how she does with Eliquis can consider resuming Plavix -Lipid panel in the a.m. #Chronic back pain -Pain control as needed #CKD stage IIIb -Appears to be at baseline, avoid nephrotoxic agents #DVT ppx: Lisset Herrera MD Time spent in the patient's overall evaluation,decision-making process, review of diagnostic data, adjustment of management, discussion with other providers, nursing nursing and ancillary staff involved in patient's care documentation, 75 minutes Charges/Coding Visit Charges Inpatient E&M: 25040 Init Hosp L2
[2022-10-24 20:20] LABS: Procalcitonin < 0.01 ng/mL (0.00-0.09)
[2022-10-24 20:21] LABS: Hemoglobin A1c 5.6 % (3.8-5.6)
--- NOTE | 2022-10-24 20:39 | ECHOD_ITS ---
Reason For Study: AFIB Procedure This was a 2D Doppler, Color Flow transthoracic echocardiogram. Exam performed portable in patient room. Left Ventricle Normal left ventricle. The estimated ejection fraction is 55-60 %. Right Ventricle Normal right ventricle. Normal systolic function. Atria Normal left atrium. Normal right atrium. Mitral Valve The mitral valve is structurally normal. No prolapse or stenosis seen. Trivial mitral valve insufficiency. Tricuspid Valve Normal tricuspid valve. No eccentric tricuspid valve insufficiency. Aortic Valve Normal aortic valve. Pulmonic Valve The pulmonic valve is not well visualized. Great Vessels Normal aortic root. Pericardium/Pleural Small pericardial effusion. MMode/2D Measurements & Calculations LAV(MOD-bp): 64.6 ml LVAd ap4: 17.1 cm2 SV(MOD-sp4): 23.3 ml LAV(MOD-bp) Indexed: 31.1 ml/m2 LVLd ap4: 7.0 cm LAV(MOD-sp2): 46.3 ml EDV(MOD-sp4): 35.7 ml LAV(MOD-sp4): 83.4 ml EDV(sp4-el): 35.5 ml LVAs ap4: 8.8 cm2 LVLs ap4: 5.3 cm ESV(MOD-sp4): 12.5 ml ESV(sp4-el): 12.4 ml EF(MOD-sp4): 65.1 % EF(sp4-el): 65.1 % SV(sp4-el): 23.1 ml LA A4 area: 23.6 cm2 LA dimension(2D): 4.8 cm RA A4 area: 23.7 cm2 Doppler Measurements & Calculations MV E max reddy: 138.2 cm/sec MV P1/2t max reddy: 146.4 cm/sec Ao V2 max: 140.4 cm/sec MV P1/2t: 61.6 msec Ao max P.0 mmHg MV dec slope: 695.8 cm/sec2 Ao V2 mean: 105.0 cm/sec MVA(P1/2t): 3.6 cm2 Ao mean P.9 mmHg Ao V2 VTI: 28.6 cm AV (velocity ratio): 0.43 LV V1 max: 83.2 cm/sec PA V2 max: 118.1 cm/sec LV V1 max P.8 mmHg PA V2 mean: 83.1 cm/sec LV V1 mean P.4 mmHg LV V1 mean: 54.1 cm/sec LV V1 VTI: 12.2 cm ECHO/Echo Complete Interpretation Summary The estimated ejection fraction is 55-60 %. Ordering Physician: Tania Herrera Referring Physician: MD Luis Guthrie Performed By: Amara Veliz RCS
--- NOTE | 2022-10-24 20:39 | VDLE_ITS ---
Reason For Study: Swelling RIGHT LEFT GSV is normal. GSV is normal. CFV is compressible, spontaneous, phasic, CFV is compressible, spontaneous, phasic, competent and demonstrates normal competent, and demonstrates normal augmentation. augmentation. FV is compressible, spontaneous, phasic, FV is compressible, spontaneous, phasic, competent and demonstrates normal competent and demonstrates normal augmentation. augmentation. POP V is compressible, spontaneous, phasic, POP V is compressible, spontaneous, phasic, competent and demonstrates normal competent and demonstrates normal augmentation. augmentation. T/P Trunk is compressible. T/P Trunk is compressible. PTV is compressible. PTV is compressible. RT PerV is compressible. LT PerV is compressible. Procedure This is a venous duplex using B-mode, color flow and spectral Doppler. Exam performed portable in patient room. The study was technically difficult. A preliminary report was called and/or faxed to PCU senior sales executive. VL/Venous Duplex US - Trung Extrem Interpretation Summary Deep veins of the bilateral lower extremities are patent and compressible segme ntally. There is no evidence of bilateral lower extremity deep vein thrombosis. The bilateral great saphenous veins appear patent and compressible segmentally. Ordering Physician: Tania Herrera Referring Physician: Josesito Guthrie M.D. Performed By: Radha Dewey RVT
[2022-10-24] MEDS: oxyCODONE 5 MG Tablet PO (21:30)
[2022-10-24] MEDS: Pravastatin 40 MG Tablet PO (21:30)
[2022-10-24] MEDS: Doxycycline 100 MG CAPSULE PO (21:30)
[2022-10-24] MEDS: Ipratropium 0.5 MG/2.5 ML SOLUTION INHALATION (22:18)
[2022-10-24] MEDS: Budesonide Respules 0.5 MG/2 ML AMPUL.NEB. INHALATION (22:18)
[2022-10-25] VITALS (24 sets, daily range): BP systolic 86–168; BP diastolic 53–99; PULSE 78–129; RESP 14–24; TEMP 36.4–36.7; O2SAT 92–96; BMI 40.2; BMI 41.5
[2022-10-25 06:44] LABS: Hematocrit 36.4 % (37-47); Hemoglobin 11.5 g/dL (12.0-15.0); Mean Corp Hgb Conc 31.6 g/dL (32-36); Mean Corpuscular Hgb 30.3 pg (27.0-32.0); Mean Platelet Vol. 9.9 fl (6.2-12.0); Platelet Count 287 K/mm3 (150-450); RBC Distribution Width CV 16.1 % (11.6-14.6); RBC Distribution Width SD 57.5 fl (35.1-43.9); Red Blood Count 3.79 M/mm3 (4.2-5.4)
[2022-10-25 07:06] LABS: ALB/GLOB Ratio 0.6 RATIO (0.9-2.4); AST(SGOT) 22 U/L (15-37); Alanine Aminotransfer ALT/SGPT 22 U/L (13-56); Albumin, Serum 2.7 g/dL (3.2-5.0); Alkaline Phosphatase 69 U/L (45-117); Anion Gap 2 (5-15); BUN 10 mg/dL (7-18); BUN/Creat Ratio 9.4 RATIO (10-20); Calcium,Total 8.8 mg/dL (8.5-10.1); Chloride 109 mmol/L (98-107); Creatinine, Serum 1.06 mg/dL (0.55-1.02); EST Glomerular Filtration Rate 55 mL/min (>60); Est Glom Filt Rate - Afr Amer 67 mL/min (>60); Estimated Creatinine Clearance 44.47 ml/min; Globulin 4.2 g/dL (2.2-4.2); Glucose 119 mg/dL (74-106); Potassium 3.9 mmol/L (3.5-5.1); Protein, Total 6.9 g/dL (6.4-8.2); Sodium Level 136 mmol/L (136-145)
[2022-10-25] MEDS: Ipratropium 0.5 MG/2.5 ML SOLUTION INHALATION ×3 (07:22→19:38)
[2022-10-25] MEDS: Budesonide Respules 0.5 MG/2 ML AMPUL.NEB. INHALATION ×2 (07:22→19:38)
--- NOTE | 2022-10-25 08:56 | EKG12_ITS ---
Test Reason : RHYTHM CHANGE Blood Pressure : / mmHG Vent. Rate : 083 BPM Atrial Rate : 278 BPM P-R Int : 000 ms QRS Dur : 088 ms QT Int : 394 ms P-R-T Axes : 090 002 111 degrees QTc Int : 462 ms Atrial flutter with variable A-V block Abnormal ECG When compared with ECG of 24-OCT-2022 16:15, MANUAL COMPARISON REQUIRED, DATA IS UNCONFIRMED Confirmed by ANDRE HUNTER ([id number]), general expeditor TINY NAJERA ([id number]) on 10/28/2022 10:23:24 AM Referred By: Confirmed By:ANDRE HUNTER
[2022-10-25] MEDS: Doxycycline 100 MG CAPSULE PO ×2 (09:26→20:11)
[2022-10-25] MEDS: dilTIAZem 30 MG Tablet PO (09:26)
[2022-10-25] MEDS: APIXABAN 5 MG TABLET PO ×2 (09:30→20:11)
[2022-10-25] MEDS: 0.9% Saline Lock 10 ML Syringe IV ×2 (10:25→23:21)
[2022-10-25] MEDS: oxyCODONE 5 MG Tablet PO ×2 (12:04→20:11)
[2022-10-25] MEDS: Ensure Plus High Protein 120 ML LIQUID PO ×3 (15:18→20:11)
--- NOTE | 2022-10-25 15:22 | PCM.PN.HOSP ---
Reason for Visit Reason for Visit: Diagnoses Malignant neoplasm of unspecified part of unspecified bronchus or lung (10/24/22) Unspecified atrial fibrillation (10/24/22) Unspecified atrial flutter (10/24/22) Heart failure, unspecified (10/24/22) Peripheral vascular disease, unspecified (10/24/22) Chronic obstructive pulmonary disease, unspecified (10/24/22) Personal history of other venous thrombosis and embolism (10/24/22) Subjective Subjective Legs still hurt but are feeling somewhat better and she is feeling somewhat better overall, was still intermittently in fast rates this morning until rate became well controlled midmorning Objective Data Objective Data Vital Signs: Vital Signs Temp Pulse Resp BP Pulse Ox O2 Del Method O2 Flow Rate 97.7 F L 94 14 159/58 H 94 Nasal Cannula 3 10/25/22 09:39 10/25/22 15:17 10/25/22 09:39 10/25/22 10:15 10/25/22 09:39 10/25/22 15:17 10/25/22 15:17 Oxygen Flow Rate (L/min) 3 Oxygen Delivery Method Nasal Cannula Weight: 106.9 kg Body Mass Index (BMI) 40.2 Intake & Output: Intake and Output for Last 24 Hours 10/23/22 10/24/22 10/25/22 23:59 23:59 23:59 Intake Total 38.66 / 118.66 1581.67 / 1581.67 Balance 38.66 / 118.66 1581.67 / 1581.67 Medical Nutrition Assessment Dietitian: Malnutrition Criteria Met Start: 10/25/22 10:45 Freq: Status: Active Protocol: Document 10/25/22 10:45 SIDNEY (Rec: 10/25/22 10:45 SIDNEY [id number]) Nutrition Malnutrition Evidence of Malnutrition Exists Yes Malnutrition (severe): Chronic Evidenced By Suboptimal Energy Intake ( Severe),Weight Loss (Severe) Clinical Problem Chronic Disease or Condition Related Malnutrition Etiology related lung cancer w/ radiation tx and inadequate energy intake Signs/Symptoms as evidenced by pt meeting <50 % of est nutritional needs and 6.6% wt loss x 1 mo/ 9.4% wt loss x < 6months Status Active Problem Recommendation Dietitian Recommendations/Changes Will liberalize diet to Cardiac Will provide 4 oz ensure plus high protein 4x/day w/ medpass Lab / Micro Data Result Diagrams: 10/25/22 05:27 10/25/22 05:27 Labs: Laboratory Results - last 24 hr 10/24/22 15:45: WBC 5.8, RBC 4.06 L, Hgb 12.1, Hct 38.7, MCV 95.3, MCH 29.8, MCHC 31.3 L, RDW Std Deviation 57.0 H, RDW Coeff of Baltazar 16.2 H, Plt Count 319, MPV 10.0, Immature Gran % (Auto) 0.500, Neut % (Auto) 73.5 H, Lymph % (Auto) 17.4 L, [place] % (Auto) 6.2, Eos % (Auto) 1.9, Baso % (Auto) 0.5, Absolute Neuts (auto) 4.3, Absolute Lymphs (auto) 1.01, Nucleated RBC % 0 10/24/22 15:45: Sodium 139, Potassium 3.9, Chloride 108 H, Carbon Dioxide 27.0, Anion Gap 4 L, BUN 12, Creatinine 1.21 H, Estim Creat Clear Calc 37.32, Est GFR (MDRD) Af Amer 57 L, Est GFR (MDRD) Non-Af 47 L, BUN/Creatinine Ratio 9.9 L, Glucose 116 H, Calcium 9.4 10/24/22 15:45: B-Natriuretic Peptide 61.0 10/24/22 15:45: PT 13.1, INR 1.0 10/24/22 15:45: D-Dimer Quant (PE/DVT) 0.89 H* 10/24/22 15:45: Total Bilirubin 0.20, Direct Bilirubin 0.12, AST 21, ALT 26, Alkaline Phosphatase 72, C-React Prot Ext Range 13.10 H, Total Protein 7.4, Albumin 3.0 L, Globulin 4.4 H, Triglycerides 106, Cholesterol 148, LDL Cholesterol 79, VLDL Cholesterol 21, HDL Cholesterol 48, TSH 4.70 H, Free T4 0.97 10/24/22 15:45: Procalcitonin < 0.01 10/24/22 15:45: Magnesium 2.3 10/24/22 19:50: ESR 68 H 10/24/22 19:50: Hemoglobin A1c 5.6 10/24/22 19:50: Lactic Acid 1.0 10/25/22 05:27: WBC 5.0, RBC 3.79 L, Hgb 11.5 L, Hct 36.4 L, MCV 96.0, MCH 30.3, MCHC 31.6 L, RDW Std Deviation 57.5 H, RDW Coeff of Baltazar 16.1 H, Plt Count 287, MPV 9.9 10/25/22 05:27: Sodium 136, Potassium 3.9, Chloride 109 H, Carbon Dioxide 25.0, Anion Gap 2 L, BUN 10, Creatinine 1.06 H, Estim Creat Clear Calc 44.47, Est GFR (MDRD) Af Amer 67, Est GFR (MDRD) Non-Af 55 L, BUN/Creatinine Ratio 9.4 L, Glucose 119 H, Calcium 8.8, Total Bilirubin 0.40, AST 22, ALT 22, Alkaline Phosphatase 69, Total Protein 6.9, Albumin 2.7 L, Globulin 4.2, Albumin/Globulin Ratio 0.6 L Micro: Microbiology 10/24/22 22:05 Mucosa - Nasopharyngeal Respiratory Panel (PCR) - Final 10/24/22 21:20 Nasal Secretion SARS-CoV-2 & FLU Antigen (Rapid) - Final Radiography Diagnostic Testing: Radiology Impression Chest X-Ray 10/24/22 16:20 IMPRESSION: No radiographic evidence of acute cardiopulmonary disease. Electronically Signed: Beka Mercado MD at 16:50 EDT Reading Location ID and State: [address] [place] [address] Tel , Service support , Physical Exam Narrative General: Alert, oriented, no apparent distress HEENT: Atraumatic, normocephalic Eyes: Anicteric, normal conjunctiva, extraocular movements grossly intact Neck: Supple Respiratory: Somewhat diminished at the bases, slight wheezes in upper lobes, normal respiratory effort Cardiovascular: Rate improved GI: Soft, nontender, nondistended Extremities: Edema bilateral lower extremities, appears slightly better than yesterday Musculoskeletal: Moving all extremities Neuro: No overt focal neurological deficits Skin: Erythema bilateral lower extremities right greater than left, improving Psych: Cooperative Assessment & Plan Assessment/Plan (1) Atrial fibrillation and flutter: (2) History of deep vein thrombosis: (3) Lung cancer: (4) PAD (peripheral artery disease): (5) COPD (chronic obstructive pulmonary disease): (6) CHF (congestive heart failure): PLAN: Plan #A flutter seems to be 2:1 block with intermittent atrial fibrillation -Starting to improve with cardizem gtt, will continue -TSH/free T4 -Given 10 mg of Eliquis in the ED, given hemoptysis and unclear if there is DVT will only give 5 twice daily and monitor closely -10/25: Heart rate now 80s to 90s, transitioned to oral diltiazem and will uptitrate this. Tolerating Eliquis. Echo pending #Right lower extremity cellulitis -Reported she did have some drainage earlier, presently nothing to drain but given history will cover with Unasyn and Doxy -10/25: Is improving, bilateral lower extremity duplex pending as well #History of CHF -BNP within normal limits -We will obtain echo -Daily weights, I's and O's -We will likely need Lasix prior to discharge but will continue to manage cellulitis and atrial flutter prior to initiating -10/25: Continue daily weights, will attempt to add small dose of oral Lasix. Awaiting echo #History of DVT -Ddimer 0.85 -LE duplex -Will determine dose of AC pt requires -Given hemoptysis will opt for 5 twice daily instead of loading dose -10/25: Awaiting lower extremity duplex, is on Eliquis 5 mg twice daily, if DVT read as acute will need to consider increasing to 10 mg for loading as long as she continues to tolerate 5 mg Eliquis #Chronic hypoxic respiratory failure on 3 L home O2/chronic COPD/lung cancer with history of radiation/hemoptysis/cough/tobacco use -COVID, flu, respiratory panel -Heparin drip for above to verify she tolerates prior to switching -Will give ipratropium and budesonide, hold on albuterol as needed until heart rate better controlled -Recent CT 09/27/2022 demonstrated mild cardiomegaly, coronary artery calcification, left ventricular wall thickening, 7 mm nodule in the inferior and lateral right upper pole with several subcentimeter mediastinal lymph nodes, mildly prominent hilar lymph nodes, subcentimeter axillary lymph nodes bilaterally. -Incentive spirometry -advise smoking cessation -10/25: She described her hemoptysis as scant streaks, has not worsened since starting Eliquis or been significant. If new VTE likely okay to increase #PAD -Believe she was on Xarelto and Plavix before hospice -On Eliquis, started pravastatin due to age and comorbidities, if tolerating can consider increasing intensity of statin -We will need to slowly have home medications resumed, unclear when she last took Plavix but can consider prior to discharge again pending on bleeding and how she is doing #Chronic back pain -Pain control as needed #CKD stage IIIb -Appears to be at baseline, avoid nephrotoxic agents -10/25: Improving #DVT ppx: Lisset Herrera MD Time spent in the patient's overall evaluation,decision-making process, review of diagnostic data, adjustment of management, discussion with other providers, nursing nursing and ancillary staff involved in patient's care documentation, 30 minutes Charges/Coding Visit Charges Inpatient E&M: 24856 Subs Hosp L2
[2022-10-25] MEDS: Furosemide 20 MG Tablet PO (15:45)
[2022-10-25] MEDS: Psyllium 1 PACKET PO (15:45)
[2022-10-25] MEDS: dilTIAZem 60 MG Tablet PO ×2 (16:56→23:19)
--- NOTE | 2022-10-25 20:10 | NURSING ---
Pt requesting meds to be given at this time so she can soon go to sleep.
[2022-10-25] MEDS: Polyethylene Glycol 3350 17 GM PACKET PO (20:11)
[2022-10-25] MEDS: MELATONIN 3 MG TABLET PO (20:11)
[2022-10-25] MEDS: Pravastatin 40 MG Tablet PO (20:11)
[2022-10-26] VITALS (7 sets, daily range): BP systolic 130–157; BP diastolic 71–80; PULSE 89–111; RESP 18–20; TEMP 36.7–36.8; O2SAT 80–95; BMI 42.3
[2022-10-26] MEDS: dilTIAZem 60 MG Tablet PO ×2 (05:29→11:59)
--- NOTE | 2022-10-26 06:04 | PCA ---
RN notified of weight differential
[2022-10-26 06:47] LABS: Hematocrit 36.2 % (37-47); Hemoglobin 11.2 g/dL (12.0-15.0); Mean Corp Hgb Conc 30.9 g/dL (32-36); Mean Corpuscular Hgb 29.9 pg (27.0-32.0); Mean Corpuscular Volume 96.8 fL (81-99); Mean Platelet Vol. 9.8 fl (6.2-12.0); Platelet Count 272 K/mm3 (150-450); RBC Distribution Width SD 57.5 fl (35.1-43.9); Red Blood Count 3.74 M/mm3 (4.2-5.4); White Blood Count 5.5 K/mm3 (4.4-11.0)
[2022-10-26 07:22] LABS: ALB/GLOB Ratio 0.6 RATIO (0.9-2.4); AST(SGOT) 23 U/L (15-37); Alanine Aminotransfer ALT/SGPT 25 U/L (13-56); Albumin, Serum 2.6 g/dL (3.2-5.0); Alkaline Phosphatase 68 U/L (45-117); Anion Gap 4 (5-15); BUN 15 mg/dL (7-18); BUN/Creat Ratio 14.4 RATIO (10-20); Calcium,Total 8.6 mg/dL (8.5-10.1); Chloride 105 mmol/L (98-107); Creatinine, Serum 1.04 mg/dL (0.55-1.02); EST Glomerular Filtration Rate 56 mL/min (>60); Est Glom Filt Rate - Afr Amer 68 mL/min (>60); Estimated Creatinine Clearance 45.33 ml/min; Globulin 4.2 g/dL (2.2-4.2); Glucose 117 mg/dL (74-106); Potassium 4.2 mmol/L (3.5-5.1); Protein, Total 6.8 g/dL (6.4-8.2); Sodium Level 136 mmol/L (136-145)
[2022-10-26] MEDS: Ipratropium 0.5 MG/2.5 ML SOLUTION INHALATION ×2 (07:27→13:50)
[2022-10-26] MEDS: Budesonide Respules 0.5 MG/2 ML AMPUL.NEB. INHALATION (07:27)
[2022-10-26] MEDS: Furosemide 20 MG Tablet PO (10:12)
[2022-10-26] MEDS: Polyethylene Glycol 3350 17 GM PACKET PO (10:13)
[2022-10-26] MEDS: Psyllium 1 PACKET PO ×2 (10:13→12:03)
[2022-10-26] MEDS: Doxycycline 100 MG CAPSULE PO (10:13)
[2022-10-26] MEDS: Ensure Plus High Protein 120 ML LIQUID PO ×2 (10:13→12:06)
[2022-10-26] MEDS: APIXABAN 5 MG TABLET PO (10:13)
--- NOTE | 2022-10-26 11:20 | CASEMGMT ---
Addendum entered by Sofi Hough 10/30/22 09:25: On Thursday 10/26, BINA BROWNE informed by Brisa, laboratory secretary, that an appt was made for pt w/STRAPPER OPERATOR @ Dr Guthrie's office for 11/09 as she was not aware of the appt already scheduled w/Dr Guthrie on 11/05. BINA BROWNE called Dr Guthrie's office @ this time to inquire if pt is scheduled for both appts, or just one. Per track man, the appt w/Dr Guthrie for 11/05 has been cancelled and the appt w/STRAPPER OPERATOR on 11/09 is still present. Original Note: RN?CM?COSTUMER?CM?to room to meet with patient for initial transition planning/care coordination?assessment.?RN?CM?introduced self and role at [facility].? Pt voices understanding and consents to?assessment?at this time.? Pt sitting up in chair in room in no distress at this time.? Pt is A/O at this time and answers all questions appropriately.?? Care providers, pharmacy, and demographics verified/updated at this time. PCP: Dr Guthrie. Pt states was not able to get in to an appt w/him until December. Specialists: Oncologist @ [facility]/Jessie, Dr Segura-[facility]-radiation oncology, Dr Easton Rodrigez-[facility] opthalmology, Dr Carter[facility] pulmonology. Preferred Pharmacy:[facility] Retail Insurance: [facility] Prescription Benefit:?Yes Living Will/HPOA:?Pt states she thinks she has done these in the past, but does not know where any copies are and she would like to complete them again. She states would like her son, Eulogio Myers, to be her HCPOA, and her sister, Deanne, to be 1st alternative. MIAN, Sheron, made aware. LNOK: 3 sons. One son is Eulogio Myers. Sister, Deanne. Living Arrangements: Lives w/her nephew and nephew's girlfriend in one-story home w/no steps to enter. Indep w/ADL's and manages her own medications. Nephews GF does home mgmt tasks. Pt's sister, Deanne, lives next door. Transportation: Sister, Deanne. DME: ?Has the following DME:?BSC, shower chair, grab bars, pulse ox, rollator, medical alert button, nebulizer, O2 through [employer] @ 3 l/m continuously. Pt has concentrator and portable O2 tanks and states family can bring one in to go home on @ d/c. Pt states she still has some other medical equipment @ her home from Hospice and states They are supposed to be coming to pick it up.??? Pt states no need for further DME at this time.? HHC/SNF: No hx of either [facility] Home: Pt states she has a CM through [facility], Arianne. She states she receives home delivered meals and has a medical alert button. She states she qualifies for [facility], but they do not have staffing for one at this time. Hospice: Pt states she was on [facility], but revoked it about a month ago. She does not wish to go back on hospice at this time. She is interested in HHC. ADJUNCT BUSINESS INSTRUCTOR CM, Radha, made aware. A list of HHC providers including quality and resource use data and consistent with the patient?s preferred geographic region, medical needs, and insurance network were provided from the [facility] Guide. Pt wishes to return home and states has no concerns with going home at time of discharge.? CM?to follow for any increase in home oxygen needs and any further discharge planning/needs.? Pt voices no further concerns/needs at this time.? Advised pt to ask for?CM?if any further questions/concerns/needs arise.? Voices understanding. PLAN:??Home w/HHC Yung BSN?RN?CM
[2022-10-26] MEDS: 0.9% Saline Lock 10 ML Syringe IV (11:58)
--- NOTE | 2022-10-26 15:17 | CASEMGMT ---
Addendum entered by Radha Pappas 10/26/22 16:12: BINA BROWNE received call back from [facility] and they are able to accept the patient with planned start of care for Wednesday. BINA BROWNE updated the patient, patient had no further questions or concerns at this time. Original Note: BINA CM in to discuss [facility] with patient. Patient reviewed list and would like [facility]. BINA BROWNE placed call to [facility] and awaiting acceptance. CM will continue to follow this patient and plan for a safe discharge.
--- NOTE | 2022-10-26 15:44 | DCINST_ITS ---
Discharge Instructions Diet Discharge Diet: Low fat / Low cholesterol Activity Discharge Activity: Return to Normal Activity Weight Bearing Status: Weight bearing as tolerated Dressing / Incision Call your doctor if you observe: Fever of 101 or Higher, Shortness of breath, Dizziness, Swelling in the ankles, Chest pain and Increased palpitations (irregular heartbeat) Follow Up Care Test Results: Test results from this visit will be discussed in further detail at your follow- up appointment, if applicable. Discharge Plan Admission Admit Date/Time: 10/24/22 19:15 Primary Reason for Your Visit: afib with RVR Attending Provider: Valencia Funes Primary Care Provider: Josesito Guthrie Consulting Providers: Tania Herrera Instructions Patient Instructions: AFib Dc Additional Instructions / Restrictions: Use oxygen for shortness of breath as needed. Discharge Orders/Prescriptions Prescriptions: New doxycycline monohydrate 100 mg Capsule 100 mg PO BID Qty: 10 0RF Eliquis 5 mg Tablet 5 mg PO BID Qty: 60 1RF metoprolol tartrate 50 mg tablet 50 mg PO BID Qty: 60 1RF Referrals / Follow Up: Maury Granados MD [Med Staff - Active Staff] - Within 2 Weeks (see to establish care for afib) Josesito Guthrie MD [Primary Care Provider] - Within 2 Weeks (Please bring Insurance card and photo ID to appt. ) Disposition Disposition (needs filled in before D/C Order can be placed): Home, Self Care
--- NOTE | 2022-10-26 15:49 | PCM.DC.SUM ---
Providers Date of Admission: 10/24/22 Date of Discharge: 10/26/22 Primary Care Physician: Dr. Josesito Guthrie MD Reason For Visit: ACCLERATED AFLUTTER Diagnosis Discharge Diagnosis (1) Atrial fibrillation and flutter: Status: Acute Code(s): I48.91 - Unspecified atrial fibrillation; I48.92 - Unspecified atrial flutter (2) History of deep vein thrombosis: Status: Acute Code(s): Z86.718 - Personal history of other venous thrombosis and embolism (3) Lung cancer: Status: Acute Code(s): C34.90 - Malignant neoplasm of unspecified part of unspecified bronchus or lung (4) PAD (peripheral artery disease): Status: Acute Code(s): I73.9 - Peripheral vascular disease, unspecified (5) COPD (chronic obstructive pulmonary disease): Status: Chronic Code(s): J44.9 - Chronic obstructive pulmonary disease, unspecified (6) CHF (congestive heart failure): Status: Acute Code(s): I50.9 - Heart failure, unspecified Medications at Discharge Home Medications apixaban 5 mg tablet (Eliquis) 5 mg PO BID #60 tabs 10/26/22 doxycycline monohydrate 100 mg capsule 100 mg PO BID #10 caps 10/26/22 furosemide 20 mg tablet 20 mg PO DAILY #30 tabs 10/26/22 metoprolol tartrate 50 mg tablet 50 mg PO BID #60 tabs 10/26/22 Hospital Course Operations None Procedures 2-D Echocardiogram Summary of Care Provided Minutes Spent on Discharge: 50 Hospital Course: Patient is a 67-year-old female with a past medical history as outlined which includes peripheral artery disease, CHF, DVT and lung cancer as well as atrial fibrillation and COPD on 3 L of oxygen. She was admitted through the ED on 10/24/2022 with a complaint of increasing leg pain and swelling. She had been in hospice at the end of September for about a week but subsequently decided to stop as she was feeling overmedicated with the pain meds. She complained of lower leg edema and erythema and so she came into the ED. On admission she was found to be in atrial flutter with heart rate in the 150s. She was given Cardizem bolus. Heart rate subsequently slowed down and she was placed on Cardizem drip. Says she had had some drainage from her right leg. She also had a history of lung cancer and was supposed to have had a PET scanning about 2 months but did not have any more information about this. Patient stated that she did not want to go back to hospice. She was admitted and managed for atrial flutter and A-fib with RVR as well as right lower extremity cellulitis. She was started on Eliquis. Heart rate subsequently improved and she was switched to p.o. Cardizem. She was initially placed on heparin drip but subsequently switched to Eliquis. She had duplex of the lower extremities which was negative for any evidence of DVT. Her heart rate control improved and she felt better. She remained stable and was discharged home on 10/26/2022. She was discharged on p.o. Eliquis 5 mg twice daily as well as p.o. metoprolol 50 mg twice daily for A-fib and also placed on p.o. doxycycline 100 mg twice daily for 5 days to treat lower extremity cellulitis. She is to follow-up with cardiology within 1 to 2 weeks. Patient seen and examined prior to discharge. She felt much better and had no active complaints. She had an uneventful night and review of systems otherwise negative. Labs and vitals reviewed. Home medication reviewed and reconciled. Physical Exam Const alert, oriented x3 and no apparent distress Constitutional Narrative: Obese General Appearance: cooperative, comfortable and well kempt Orientation / Consciousness: awake Exam Limitations: no limitations HEENT normocephalic, head/scalp atraumatic, hearing grossly normal bilaterally and moist oral mucous membranes Mouth: oral and palatal mucosa normal Eyes PERRL, EOMs intact bilaterally and conjunctivae normal Neck no lymphadenopathy and supple Resp normal respiratory effort, no retractions, no use of accessory muscles and clear to auscultation bilaterally Cardio regular rate, regular rhythm, S1 normal heart sound, S2 normal heart sound and no murmurs GI normal to inspection, nondistended, normoactive bowel sounds, soft to palpation, non-tender and non-distended Extremity normal to inspection, full ROM and no clubbing, cyanosis or edema General Extremity: edema Skin no rashes or lesions noted Neuro oriented x3, CN's II-XII intact bilaterally, moves all extremities and no focal motor deficits Sensorium / Orientation: awake and alert Motor Exam: strength 5/5 throughout Psych affect normal Medical Records Data Medical Nutrition Assessment Dietitian: Malnutrition Criteria Met Start: 10/25/22 10:45 Freq: Status: Active Protocol: Document 10/25/22 10:45 SIDNEY (Rec: 10/25/22 10:45 SLA [id number]) Nutrition Malnutrition Evidence of Malnutrition Exists Yes Malnutrition (severe): Chronic Evidenced By Suboptimal Energy Intake ( Severe),Weight Loss (Severe) Clinical Problem Chronic Disease or Condition Related Malnutrition Etiology related lung cancer w/ radiation tx and inadequate energy intake Signs/Symptoms as evidenced by pt meeting <50 % of est nutritional needs and 6.6% wt loss x 1 mo/ 9.4% wt loss x < 6months Status Active Problem Recommendation Dietitian Recommendations/Changes Will liberalize diet to Cardiac Will provide 4 oz ensure plus high protein 4x/day w/ medpass Weight / BMI Weight Weight: 246 lb 4.101 oz Body Mass Index (BMI) 42.3 ABG / Lab / Microbiology Data Result Diagrams: 10/26/22 05:19 10/26/22 05:19 Laboratory: Laboratory Results - last 24 hr 10/26/22 05:19: WBC 5.5, RBC 3.74 L, Hgb 11.2 L, Hct 36.2 L, MCV 96.8, MCH 29.9, MCHC 30.9 L, RDW Std Deviation 57.5 H, RDW Coeff of Baltazar 16.0 H, Plt Count 272, MPV 9.8 10/26/22 05:19: Sodium 136, Potassium 4.2, Chloride 105, Carbon Dioxide 27.0, Anion Gap 4 L, BUN 15, Creatinine 1.04 H, Estim Creat Clear Calc 45.33, Est GFR (MDRD) Af Amer 68, Est GFR (MDRD) Non-Af 56 L, BUN/Creatinine Ratio 14.4, Glucose 117 H, Calcium 8.6, Total Bilirubin 0.30, AST 23, ALT 25, Alkaline Phosphatase 68, Total Protein 6.8, Albumin 2.6 L, Globulin 4.2, Albumin/Globulin Ratio 0.6 L Microbiology: Microbiology 10/24/22 22:05 Mucosa - Nasopharyngeal Respiratory Panel (PCR) - Final 10/24/22 21:20 Nasal Secretion SARS-CoV-2 & FLU Antigen (Rapid) - Final Radiography Diagnostic Testing: Radiology Impression Echocardiogram 10/24/22 20:39 Interpretation Summary The estimated ejection fraction is 55-60 %. Ordering Physician: Tania Herrera Referring Physician: MD Luis Guthrie Performed By: Amara Veliz RCS Venous Doppler Study 10/24/22 20:39 Interpretation Summary Deep veins of the bilateral lower extremities are patent and compressible segmentally. There is no evidence of bilateral lower extremity deep vein thrombosis. The bilateral great saphenous veins appear patent and compressible segmentally. Ordering Physician: Tania Herrera Referring Physician: Josesito Guthrie M.D. Performed By: Radha Dewey RVT D/C Instructions Discharge Diet: Low fat / Low cholesterol Discharge Activity: Return to Normal Activity Weight Bearing Status: Weight bearing as tolerated Call your doctor if you observe: Fever of 101 or Higher, Shortness of breath, Dizziness, Swelling in the ankles, Chest pain and Increased palpitations (irregular heartbeat) Meaningful Use Info Meaningful Use Diagnoses (Choose all that apply): None applicable Discharge Plan Admission Admit Date/Time: 10/24/22 19:15 Primary Reason for Your Visit: afib with RVR Attending Provider: Valencia Funes Primary Care Provider: Josesito Guthrie Consulting Providers: Tania Herrera Instructions Patient Instructions: AFib Dc Additional Instructions / Restrictions: Use oxygen for shortness of breath as needed. Discharge Orders/Prescriptions Prescriptions: New doxycycline monohydrate 100 mg Capsule 100 mg PO BID Qty: 10 0RF Eliquis 5 mg Tablet 5 mg PO BID Qty: 60 1RF metoprolol tartrate 50 mg tablet 50 mg PO BID Qty: 60 1RF furosemide 20 mg tablet 20 mg PO DAILY Qty: 30 1RF Referrals / Follow Up: Maury Granados MD [Med Staff - Active Staff] - 11/09/22 1:45 pm (see to establish care for afib) Josesito Guthrie MD [Primary Care Provider] - 11/09/22 10:45 am (Please bring Insurance card and photo ID to appt. Your appt is with Chloe Sierra) Disposition Disposition (needs filled in before D/C Order can be placed): Home, Self Care Charges/Coding Visit Charges Inpatient E&M: 69085 Disch Hosp >30min
--- NOTE | 2022-10-30 09:36 | NURSING ---
BINA CM Discharge follow-up phone call LACE:11 Strata:3 Date of call:10/30/22 Time of Call:934 Admitting diagnosis:Accelerated AFlutter Summary of call: Spoke with patient regarding recent hospitalization. Pt denies questions or concerns regarding recent care. Pt instructed to contact PCP with any questions or concerns should they arise
== END 2022-10-26 17:10 | disposition home or self-care (01) | DRG 201 ==
LOC: ED 18:37 → PCU 19:54
PROVIDERS: Nurse Practitioner; Admitting Provider Internal Medicine; Emergency Provider Emergency Medicine; PCP Internal Medicine; Visit Provider Student in an Organized Health Care Education/Training Program
DX: I48.91 Unspecified atrial fibrillation (principal); E43 Unspecified severe protein-calorie malnutrition; J96.11 Chronic respiratory failure with hypoxia; L03.115 Cellulitis of right lower limb; C34.90 Malignant neoplasm of unspecified part of unspecified bronchus or lung; I50.32 Chronic diastolic (congestive) heart failure; I48.92 Unspecified atrial flutter; J44.9 Chronic obstructive pulmonary disease, unspecified; I73.9 Peripheral vascular disease, unspecified; N18.32 Chronic kidney disease, stage 3b; Z68.41 Body mass index [BMI] 40.0-44.9, adult; E78.5 Hyperlipidemia, unspecified; F17.210 Nicotine dependence, cigarettes, uncomplicated; I87.2 Venous insufficiency (chronic) (peripheral); E66.9 Obesity, unspecified; Z91.148 Patient's other noncompliance with medication regimen for other reason; Z99.81 Dependence on supplemental oxygen; Z79.01 Long term (current) use of anticoagulants; Z79.899 Other long term (current) drug therapy; Z86.718 Personal history of other venous thrombosis and embolism
CPT/HCPCS: 36415; 71046; 80048; 80053; 80061; 80076; 83036; 83605; 83735; 83880; 84145; 84439; 84443; 85025; 85027; 85379; 85610; 85652; 86140; 87428; 87633; 93005; 93306; 93970; 94640; 94668; 97110; 97162; 97165; 97530; 97535; 97802; 99252; 99284; J7050; Q9957; A4216; G0463; J0295

== ENCOUNTER 2022-12-17 17:55 | Outpatient (RCR) | payer MEDICAID, SELFPAY ==
[2022-12-17 18:16] LABS: Anion Gap 6 (5-15); BUN 17 mg/dL (7-18); BUN/Creat Ratio 16.5 RATIO (10-20); Calcium,Total 9.2 mg/dL (8.5-10.1); Chloride 106 mmol/L (98-107); Creatinine, Serum 1.03 mg/dL (0.55-1.02); EST Glomerular Filtration Rate 57 mL/min (>60); Est Glom Filt Rate - Afr Amer 69 mL/min (>60); Glucose 109 mg/dL (74-106); Potassium 4.4 mmol/L (3.5-5.1); Sodium Level 139 mmol/L (136-145)
== END 2022-12-17 18:00 | disposition home or self-care (01) ==
LOC: HHLAB 17:55
PROVIDERS: PCP Internal Medicine; Visit Provider Internal Medicine Cardiovascular Disease
DX: I48.91 Unspecified atrial fibrillation (principal); I48.92 Unspecified atrial flutter; L03.115 Cellulitis of right lower limb
CPT/HCPCS: 80048

== ENCOUNTER 2022-12-18 10:58 | Day surgery (SDC) | payer MEDICAID, SELFPAY ==
[2022-11-09 15:31] LABS: Anion Gap 4 (5-15); BUN 18 mg/dL (7-18); BUN/Creat Ratio 16.5 RATIO (10-20); Calcium,Total 9.4 mg/dL (8.5-10.1); Chloride 105 mmol/L (98-107); Creatinine, Serum 1.09 mg/dL (0.55-1.02); EST Glomerular Filtration Rate 53 mL/min (>60); Est Glom Filt Rate - Afr Amer 64 mL/min (>60); Glucose 107 mg/dL (74-106); Potassium 4.2 mmol/L (3.5-5.1); Sodium Level 138 mmol/L (136-145)
[2022-11-25 07:19] VITALS: BMI 42.0
--- NOTE | 2022-12-15 15:36 | PCM.HP.BLA ---
History and Physical Date of Admission: 12/18/22 This is a 67-year-old lady who presents to the cardiac cath lab radiological technologist for DC cardioversion. She has a history of paroxysmal palpitations, peripheral vascular disease, congestive heart failure, lung cancer and DVT.? She was admitted to the emergency room on October 24 with leg pain and swelling.? In the emergency room she was noted to be in atrial flutter with a rate of 150 bpm and was given intravenous diltiazem.? Her heart rate slowed and she was managed as atrial fibrillation flutter as well as right lower extremity cellulitis.? She was started on Eliquis and switch to p.o. diltiazem.? She appeared to have tolerated this well.? An echocardiogram was performed which demonstrated an ejection fraction of 55 to 60% and venous duplex studies were performed which demonstrated no evidence of deep vein thrombosis.? She was subsequently discharged home on Eliquis, metoprolol and to follow-up with cardiology.?She has had no dizziness or diaphoresis, no near syncope or syncope.?Her EKG on 11/09/2022 demonstrated atrial flutter with 2-1, heart rate 139 bpm. Intake Vital Signs See EMR Allergies See EMR Medications See EMR Ejection fraction %: 55 to 59 PFS Medical History? Afib Atrial fibrillation and flutter CHF (congestive heart failure) Chronic respiratory failure with hypoxia COPD (chronic obstructive pulmonary disease) DVT (deep venous thrombosis) Essential hypertension History of deep vein thrombosis History of stroke Leg edema Lung cancer Lung cancer Noncompliance with medication regimen PAD (peripheral artery disease) Preoperative cardiovascular examination Right leg DVT Surgical History? History of angioplasty of peripheral vessel History of ankle surgery History of cardioversion (03/03/22) History of hysterectomy History of removal of cyst History of skin graft Family History? Mother Heart disease Hypertension Diabetes DVT (deep venous thrombosis)Father Colon cancer,? Onset Age: 50Brother Colon cancer,? Onset Age: 30 Lung cancerGrandmother Diabetes Social History? Smoking Status:? Current every day smoker tobacco type: cigarettes alcohol intake:? never substance use type:? does not use caffeine:? Yes Type: coffee Number of servings: 4 ROS Const Const: Positive for fatigue and weakness; Negative for headache(s), frequent falls, difficulty sleeping or excessive sweating Eyes Eyes: Negative for loss of peripheral vision, transient loss of vision, blurry vision, double vision or tunnel vision ENT ENT: Positive for balance problems (ambulates with a walker); Negative for headache(s), dizziness or Nosebleed/epistaxis Cardio Chest Pain: Yes Character: other (heaviness) Onset: at rest and exercise Location: other (across the chest) Duration: hours Relieving: rest Palpitations: No Edema: None Muscle aches with walking: Bilateral (HX PAD) Resp Respiratory: Positive for SOB with activity (increased, wears continuous oxygen @ 3LNC), SOB at rest (increased, wears continuous oxygen @ 3LNC), SOB orthopnea\SOB lying down (occasional, wears continuous oxygen @ 3LNC), Cough (moist cough , productive yellowish) and wheezing (occasional); Negative for Coughing up blood/hemoptysis, chest congestion, pain on inspiration, snoring, stridor, crackles, paroxysmal nocturnal dyspnea or other GI GI: Negative nausea, vomiting, heartburn or black,tarry stools : Negative for hematuria Musc Musc: Positive for muscle aches/ myalgia (HX PAD) and balance problems (ambulates with a walker); Negative for muscle weakness or joint pain Skin Skin: Negative non-healing lesions, rash or unusual bruising Neuro Neuro: Positive for lightheadedness (post ambulation, showering) and weakness; Negative for dizziness, near syncope, syncope, frequent falls, headache(s), blurry vision, double vision or lack of coordination Javi Hematologic/Lymphatic: Negative for easy bleeding or easy bruising Endo Endo: Positive for fatigue; Negative for excessive sweating or increased thirst/drinking Psych Psych: Negative for anxiety or depression Allergy Allergy/Immunology: Negative for hives and Negative for rash Cardiology Exam Const Appearance: cooperative, healthy appearing, no acute distress, well developed and well groomed Nutritional Appearance: average body habitus and well nourished Orientation: alert, awake and oriented x3 Head Head: normal to inspection, normocephalic and atraumatic Ears: hearing grossly normal bilaterally and external ears normal Nose: external nose normal, nares normal, nasal mucous membranes and turbinates normal, septum normal and no nasal discharge Face and Sinus: face symmetric Mouth: oral mucosae normal, tongue normal, oropharynx normal and moist mucous membranes Teeth and gingiva: dentition normal Throat: posterior oropharynx normal, tonsils normal and uvula midline Eyes General: appearance normal, both eyes and all related structures Eyelids: eyelids normal Conjunctivae: conjunctivae normal Pupils: PERRL, normal by confrontation and accommodation normal EOM: EOM intact bilaterally Neck Neck: normal visual inspection, trachea midline and no JVD JVD: +5 Carotids: normal carotid upstroke and bounding pulses Chest Chest inspection: normal inspection of the chest, symmetric chest movement and normal respiratory effort Auscultation: Bilateral: Clear to Auscultation Cardio Palpation: normal PMI Rate: tachycardic Rhythm: regular rhythm Heart sounds: S1 normal, S2 normal and normal, physiologic split S2; Negative rub, gallop or murmur GI GI: normal to inspection, soft, no hepatosplenomegaly and bowel sounds present Neuro General: patient alert, patient awake, patient oriented x3, gait normal, moves all extremities and no focal sensory deficit Skin Skin: no rashes or lesions noted Extremities Pulses: Normal: Right Femoral Pulse, Left Femoral Pulse, Right Dorsalis Pedis Pulse, Left Dorsalis Pedis Pulse, Right Posterior Tibial Pulse, Left Posterior Tibial Pulse, Right Radial Pulse and Left Radial Pulse Lower Extremity Edema: +1: Bilateral Musculoskel Musculoskeletal: No joint tenderness Psych Psychological: normal affect Supplemental Info Supplemental Information Echocardiogram 10/24/2022 Interpretation Summary The estimated ejection fraction is 55-60 %. Echocardiogram 03/04/2022 Conclusions: Technically difficult exam due to body habitus, suboptimal positioning and respiratory interference. Exam indication: SVT The left ventricle is normal in size.? There is mild septal left ventricular hypertrophy.? Left ventricular systolic function is normal.? EF equals 69?5% (2D 4?CH.)? Definity contrast used for endocardia border detection.? Normal left ventricular diastolic function. The right ventricle is dilated.? Right ventricular systolic function is normal. Estimated right ventricular systolic pressure is 37 mmHg consistent with mild pulmonary hypertension.? Estimated right atrial pressure is 15 mmHg based on IVC assessment. Exam was compared with the prior outside echocardiographic exam performed on 10/18/2017.? There is no significant change. Venous Doppler Study 10/26/2022 Interpretation Summary Deep veins of the bilateral lower extremities are patent and compressible segmentally. There is no evidence of bilateral lower extremity deep vein thrombosis. The bilateral great saphenous veins appear patent and compressible segmentally. Assessment and Plan Assessment and Plan (1) Atrial fibrillation and flutter: ?Status:?Acute ?Plan: She appears to be in atrial flutter with an uncontrolled ventricular response rate.? She is anticoagulated.? She will proceed with DC cardioversion. Risk benefits alternatives have been explained to her. She understands and agrees to proceed. (2) Essential hypertension: ?Status:?Acute ?Plan: She does have a history of hypertension her blood pressure appears to be under good control at this time I would not recommend that we make any major changes.
--- NOTE | 2022-12-18 12:32 | OP.PCM_ITS ---
Operative Report Date of Procedure: 12/18/22 DC cardio version. 67-year-old lady with a history of atrial flutter. Patient has been on an ticoagulation. The patient was brought to the cardiac catheterization lab in the postabsorptive nonsedated state. The patient was seen by Dr. Song of the critical care division. Informed consent was obtained. Anterior-posterior pads were applied. The patient was then administered 40 mg of intravenous propofol. 200 J of synchronized DC cardioversion energy were applied with prompt reversal to sinus rhythm. Patient tolerated the procedure well. Conclusion: Successful DC cardioversion from atrial flutter to sinus rhythm. Follow-up as per office protocol.
--- NOTE | 2022-12-18 13:03 | PRO.PCM_ITS ---
Assessment & Plan Assessment/Plan (1) Atrial fibrillation and flutter: Procedure Report Date of Procedure: 12/18/22 CONSCIOUS SEDATION REPORT BRIEF HISTORY OF PRESENT ILLNESS: The patient is a 67-year-old female who presented to [facility] for an elective outpatient cardioversion due to underlying atrial fibrillation. The patient reports no PO intake since midnight, but is currently therapeutic on anticoagulation. The patient does have a history of obstructive sleep apnea and was recently diagnosed with lung cancer. The patient reports a history of smoking and COPD. The patient denies any recent constitutional symptoms such as fevers, chills, nausea or vomiting. The patient denies previous applicable anesthetic complications. Patient reports taking Eliquis on the day of the procedure. Patient's last known ejection fraction was 55% PHYSICAL EXAMINATION: VITAL SIGNS: Reviewed and were acceptable. GENERAL: The patient is a female, in no apparent distress, speaking in full sentences. HEENT: Normocephalic, atraumatic. Mucous membranes are moist and pink. Good mouth opening noted. Trachea is midline. Good neck mobility. MP IV CHEST: S1, S2 irregularly irregular. No murmurs, rubs or gallops were noted. LUNGS: Clear to auscultation bilaterally without appreciable wheezes, rales or rhonchi. ABDOMEN: Soft, nontender, nondistended. Positive bowel sounds. EXTREMITIES: There is no clubbing, cyanosis or edema. ASA Class: II DESCRIPTION OF PROCEDURE: After confirmation of informed consent, the patient's anesthesia plan was reviewed in detail. Propofol was chosen. Risks and benefits were reviewed and the patient agreed to proceed. At 12:20 PM, the patient was given 40 mg of propofol. The patient achieved an appropriate level of sedation and received 1 attempt synchronized cardioversion, at [address] Granados at the bedside. This was successful in achieving normal sinus rhythm. The patient was monitored until 12:34 PM, at which time the patient reached their baseline mental status and function. The patient tolerated the procedure well. COMPLICATIONS: None ESTIMATED BLOOD LOSS: None RECOMMENDATIONS: Okay to recover in usual fashion. Procedures Pulmonary 9xxxx: [id number] Con Sedation
== END 2022-12-18 13:30 | disposition home or self-care (01) ==
LOC: CLSP 11:01
PROVIDERS: PCP Internal Medicine; Referring Provider Internal Medicine Cardiovascular Disease; Visit Provider Internal Medicine Cardiovascular Disease
DX: I48.91 Unspecified atrial fibrillation (principal); I50.9 Heart failure, unspecified; I48.92 Unspecified atrial flutter; F17.210 Nicotine dependence, cigarettes, uncomplicated; Z86.718 Personal history of other venous thrombosis and embolism; Z86.73 Personal history of transient ischemic attack (TIA), and cerebral infarction without residual deficits; Z79.01 Long term (current) use of anticoagulants
CPT/HCPCS: 36415; 80048; 92960; 93005; J7040

== ENCOUNTER 2022-12-20 12:30 | Observation (INO) | payer MEDICAID, SELFPAY ==
[2022-12-20] VITALS (10 sets, daily range): BP systolic 110–146; BP diastolic 58–78; PULSE 76–102; RESP 15–100; TEMP 36–36.8; O2SAT 88–100; BMI 43.9; BMI 41.8
--- NOTE | 2022-12-20 12:54 | EKG12_ITS ---
Test Reason : SOB/CP Blood Pressure : / mmHG Vent. Rate : 106 BPM Atrial Rate : 107 BPM P-R Int : 000 ms QRS Dur : 078 ms QT Int : 326 ms P-R-T Axes : 000 077 085 degrees QTc Int : 433 ms Multifocal atrial tachycardia Otherwise normal ECG Confirmed by BEENA NEWELL, ELINA ([id number]), research editor TINY NAJERA ([id number]) on 12/22/2022 7:47:52 AM Referred By: CHANDRAKANT/JOAQUIN Confirmed By:WESLY HARGROVE MD
--- NOTE | 2022-12-20 12:55 | ED.VIS.DYS ---
HPI History of Present Illness Chief Complaint: Shortness of Breath Detail of Chief Complaint: Shortness of breath Informant: patient Narrative Narrative: Patient presents with shortness of breath that started 2 days ago. Patient was seen as an outpatient and was cardioverted from her A-fib by Dr. Maury Granados. Since that time she is complaining of feeling short of breath with chest pressure that radiates into her neck. Patient normally wears 3 to 4 L of home O2 for history of COPD and history of lung cancer. Patient also with prior history of CHF. She describes leg edema that is chronic. She describes exertional dyspnea. She complains of a headache. Patient is on Eliquis. She does have a cough. No fever. Cough mostly nonproductive. [facility] Medical History Afib Atrial fibrillation and flutter CHF (congestive heart failure) Chronic respiratory failure with hypoxia COPD (chronic obstructive pulmonary disease) DVT (deep venous thrombosis) Essential hypertension History of deep vein thrombosis History of stroke Leg edema Lung cancer Lung cancer Noncompliance with medication regimen PAD (peripheral artery disease) Preoperative cardiovascular examination Right leg DVT Home Medications apixaban 5 mg tablet (Eliquis) 5 mg PO BID #60 tabs 10/26/22 [Rx Last Taken 12/18/22] furosemide 20 mg tablet 20 mg PO DAILY #30 tabs 10/26/22 [Rx Last Taken Unknown] metoprolol tartrate 50 mg tablet 50 mg PO BID #60 tabs 10/26/22 [Rx Last Taken 12/18/22] ofloxacin 0.3 % eye drops See Rx Instructions ophthalmic (eye) .COMPLEX 11/09/22 [History Last Taken Unknown] diltiazem HCl 240 mg capsule,24 hr,extended release 240 mg PO DAILY #90 caps 11/24/22 [Rx Last Taken 12/18/22] Allergy/AdvReac Type Severity Reaction Status Date / Time No Known Allergies Allergy Verified 12/20/22 12:31 Family History Mother Heart disease Hypertension Diabetes DVT (deep venous thrombosis) Father Colon cancer, Onset Age: 50 Brother Colon cancer, Onset Age: 30 Lung cancer Grandmother Diabetes Surgical History History of angioplasty of peripheral vessel History of ankle surgery History of cardioversion (03/03/22) History of hysterectomy History of removal of cyst History of skin graft Social History Smoking Status: Current every day smoker tobacco type: cigarettes alcohol intake: never substance use type: does not use caffeine: Yes Type: coffee Number of servings: 4 ROS ROS ED Review of Systems ROS Unobtainable: other Constitutional Constitutional ED: Reports lethargy; Denies chills, fever(s), sweats or weight loss Eyes Eyes: Denies blurry vision, change in vision or diplopia ENT ENT ED: Denies rhinorrhea or sore throat Cardiovascular Cardiovascular: Reports chest pain; Denies orthopnea or racing heartbeat Respiratory/Chest Respiratory/Chest: Reports dyspnea and dyspnea on exertion; Denies cough, orthopnea or sputum Gastrointestinal Gastrointestinal: Denies abdominal pain, diarrhea, nausea or vomiting Genitourinary Genitourinary ED: Denies dysuria, hematuria or urinary frequency Musculoskeletal Musculoskeletal: Denies arthralgias, back pain, myalgias or neck pain Integumentary Reports other Details: Leg edema ; Denies abscess, Abrasions or rash Neurologic Neurologic: Denies headache(s) or weakness Psychiatric Psychiatric: Denies anxiety, depression or suicidal thoughts Endocrine Endocrinology: Denies polydipsia, polyphagia or polyuria Hematologic/Lymphatic Hematologic/Lymphatic: Denies easy bleeding, easy bruising or lymphadenopathy Allergic/Immunologic Allergic/Immunologic ED: Denies mouth swelling, tongue swelling or urticaria EXAM Physical Exam Const Vital Signs: 12/20/22 12:31 12/20/22 12:34 12/20/22 13:03 Temperature 96.8 F L Temperature Source Temporal Pulse Rate 102 H Respiratory Rate 18 Respiratory Effort Short of Breath Respiratory Pattern Blood Pressure 110/76 Blood Pressure Mean 87 Pulse Ox 90 100 Oxygen Delivery Method Room Air Nasal Cannula Oxygen Flow Rate (L/min) 5 12/20/22 13:03 12/20/22 13:12 12/20/22 13:10 Temperature Temperature Source Pulse Rate 101 H Respiratory Rate 23 H Respiratory Effort Respiratory Pattern Blood Pressure Blood Pressure Mean Pulse Ox 97 98 Oxygen Delivery Method Nasal Cannula Nasal Cannula Oxygen Flow Rate (L/min) 3 4 12/20/22 14:06 Temperature Temperature Source Pulse Rate 99 Respiratory Rate 26 H Respiratory Effort Respiratory Pattern Tachypnea Blood Pressure Blood Pressure Mean Pulse Ox Oxygen Delivery Method Oxygen Flow Rate (L/min) Positive well nourished and well developed General Appearance ED: well developed and NAD HEENT Reports TM's clear and moist mucous membranes normocephalic and atraumatic; Negative for trauma or tenderness Tympanic Membrane ED: Yes TM's clear Eyes PERRL and EOMs intact bilaterally General Eye ED: Negative for pale conjunctiva or scleral icterus Neck no lymphadenopathy, supple and no JVD General: Negative for tenderness Chest Wall inspection of chest normal and palpation of chest normal Chest: Negative for tenderness Resp Resp Narrative: Patient with tachypnea and mild conversational dyspnea. Patient has diminished breath sounds bilaterally with rales and faint expiratory wheezes bilaterally. Effort and Inspection: Negative for respiratory distress or pain with movement Auscultation: Negative for rhonchi, wheezes or diminished lung sounds Cardio regular rate, regular rhythm, S1 normal heart sound, S2 normal heart sound and no murmurs Peripheral Pulses: pulses 2+ throughout GI normal to inspection, nondistended, normoactive bowel sounds, soft to palpation, non-tender, non-distended and no masses Back/Spine no CVA tenderness and no thoracic nor lumbar tenderness Extremity normal to inspection Extremity Narrative: +2 edema both lower extremities. General Extremety ED: Negative for edema General Extremity: Negative for edema Neuro oriented x3, CN's II-XII intact bilaterally, no sensory deficits noted and gait normal Sensorium / Orientation: awake, alert, oriented to person, oriented to place and oriented to time Motor Exam: strength 5/5 throughout and strength abnormal Psych mental status grossly normal Skin no rashes or lesions noted and no wounds MDM MDM MDM Narrative Medical decision making narrative: Patient presents with chest pain and shortness of breath. Recent cardioversion for A-fib. Initial EKG obtained on arrival showed a sinus rhythm with a rate of 106 bpm with no acute ST segment changes. Clinically concern for CHF versus COPD exacerbation versus acute coronary syndrome. Less likely PE given that she is anticoagulated. Patient was given a DuoNeb aerosol. Lab work up will be undertaken and chest x-ray will be obtained. Chest x-ray initially interpreted by myself as pulmonary congestion although radiology felt there was no acute disease process. Patient CBC with differential showed a white count of 12.5 with hemoglobin 12.3 and platelet count of 321. Chemistries unremarkable. Lactate normal at 0.8. Troponin was normal at 29. BNP elevated 189. Being that patient is anticoagulated felt PE was not likely. Patient received DuoNeb aerosol and did have some improvement but continues to feel tachypneic. She was then given albuterol aerosols and was started on Solu-Medrol. Patient also given Lasix 40 mg IV. Case discussed with hospitalist to evaluate patient for admission as she continues to feel dyspneic. Patient continues with some tachypnea. I suspect she has exacerbation of COPD as well as a component of CHF. Lab Data Attestation: I reviewed the patient's lab results. Labs: Laboratory Results - last 24 hr 12/20/22 12/20/22 12/20/22 12:55 12:55 12:55 WBC 12.5 H RBC 4.03 L Hgb 12.3 Hct 38.2 MCV 94.8 MCH 30.5 MCHC 32.2 RDW Std Deviation 49.1 H RDW Coeff of Baltazar 14.1 Plt Count 321 MPV 9.6 Immature Gran % (Auto) 0.400 Neut % (Auto) 88.7 H Lymph % (Auto) 5.5 L [place] % (Auto) 4.5 Eos % (Auto) 0.6 Baso % (Auto) 0.3 Absolute Neuts (auto) 11.1 H Absolute Lymphs (auto) 0.69 L Nucleated RBC % 0 Sodium 136 Potassium 4.2 Chloride 102 Carbon Dioxide 32.0 Anion Gap 2 L BUN 14 Creatinine 0.91 Est GFR (MDRD) Af Amer 79 Est GFR (MDRD) Non-Af 65 BUN/Creatinine Ratio 15.3 Glucose 132 H Lactic Acid Calcium 9.1 Troponin I High Sens 29 B-Natriuretic Peptide 189.0 H 12/20/22 13:00 WBC RBC Hgb Hct MCV MCH MCHC RDW Std Deviation RDW Coeff of Baltazar Plt Count MPV Immature Gran % (Auto) Neut % (Auto) Lymph % (Auto) [place] % (Auto) Eos % (Auto) Baso % (Auto) Absolute Neuts (auto) Absolute Lymphs (auto) Nucleated RBC % Sodium Potassium Chloride Carbon Dioxide Anion Gap BUN Creatinine Est GFR (MDRD) Af Amer Est GFR (MDRD) Non-Af BUN/Creatinine Ratio Glucose Lactic Acid 0.8 Calcium Troponin I High Sens B-Natriuretic Peptide Radiography Diagnostic Testing: Clinical Impression(s) from Imaging Studies Chest X-Ray 12/20/22 13:15 IMPRESSION: Degenerative changes, as described above. No demonstrated acute cardiopulmonary process. Electronically Signed: Dontae Jones MD at 14:04 EDT , 1 view chest x-ray obtained interpreted by myself is vascular congestion with some mild cardiomegaly. Radiology felt there was no acute cardiopulmonary process. EKG Initial EKG: Attestation: I personally reviewed and interpreted this EKG as follows: Comments: Sinus rhythm with a rate of 106 bpm with no acute ST segment changes. Patient had occasional PACs Discharge Plan Dx/Rx/DC Orders Clinical Impression: Dyspnea, Asthma exacerbation in COPD, CHF (congestive heart failure) Disposition Disposition: Acute Care Hospital [facility]
[2022-12-20] MEDS: Ipratropium/Albuterol Sulfate 3 ML AMPUL.NEB INHALATION ×2 (13:02→20:11)
[2022-12-20 13:03] LABS: Absolute Lymphocyte Count 0.69 X10^3/uL (0.83-4.51); Absolute Neutrophil Count 11.1 X10^3/uL (2.0-7.7); Basophil# 0.04 X10^3/uL; Basophil% 0.3 % (0-1); Eosinophil# 0.07 X10^3/uL; Eosinophils% 0.6 % (0-5); Hematocrit 38.2 % (37-47); Hemoglobin 12.3 g/dL (12.0-15.0); Lymphocyte # 0.69 X10^3/ul (0.83-4.51); Lymphocyte % 5.5 % (19-41); Mean Corp Hgb Conc 32.2 g/dL (32-36); Mean Corpuscular Hgb 30.5 pg (27.0-32.0); Mean Corpuscular Volume 94.8 fL (81-99); Mean Platelet Vol. 9.6 fl (6.2-12.0); Monocyte# 0.56 X10^3/uL; Monocyte% 4.5 % (0-10); NRBC Flagged by Analyzer 0 % (0-5); Neutrophil # 11.11 X10^3/uL (2.7-7.7); Neutrophil % 88.7 % (47-70); Platelet Count 321 K/mm3 (150-450); RBC Distribution Width CV 14.1 % (11.6-14.6); RBC Distribution Width SD 49.1 fl (35.1-43.9); Red Blood Count 4.03 M/mm3 (4.2-5.4); White Blood Count 12.5 K/mm3 (4.4-11.0)
--- NOTE | 2022-12-20 13:15 | RAD_ITS ---
STUDY: X-RAY CHEST REASON FOR EXAM: Female, 67 years old. SOB/chest pain, states was cardioverted for afib on wednesday and has been SOB since. daughter reports she keeps passing out HX LUNG CA TECHNIQUE: Single AP portable view of the chest. COMPARISON: October 24, 2022 FINDINGS: There are interstitial fibrotic changes of the lungs. There is no demonstrated pleural abnormality. Normal size heart. Normal mediastinum and mario alberto. Normal visualized pulmonary arteries. There is atherosclerotic calcification of the aortic arch with tortuosity. Normal visualized thoracic spine. Normal visualized ribs, clavicles, and shoulders. There is no demonstrated abnormality of the visualized soft tissue structures of the upper abdomen. RAD/Chest 1 View (Portable) IMPRESSION: Degenerative changes, as described above. No demonstrated acute cardiopulmonary process. Electronically Signed: Dontae Jones MD at 14:04 EDT ,
[2022-12-20 13:21] LABS: Anion Gap 2 (5-15); BUN 14 mg/dL (7-18); BUN/Creat Ratio 15.3 RATIO (10-20); Calcium,Total 9.1 mg/dL (8.5-10.1); Chloride 102 mmol/L (98-107); Creatinine, Serum 0.91 mg/dL (0.55-1.02); EST Glomerular Filtration Rate 65 mL/min (>60); Est Glom Filt Rate - Afr Amer 79 mL/min (>60); Glucose 132 mg/dL (74-106); Potassium 4.2 mmol/L (3.5-5.1); Sodium Level 136 mmol/L (136-145); Troponin-I HS 29 pg/mL (3.0-54.0)
[2022-12-20 13:35] LABS: Lactic Acid 0.8 mmol/L (0.4-1.9)
[2022-12-20] MEDS: Albuterol 2.5 MG/3 ML VIAL.NEB. INHALATION ×2 (14:04→14:06)
[2022-12-20] MEDS: Furosemide 40 MG/4 ML Vial IV (14:13)
[2022-12-20] MEDS: Acetaminophen 500 MG Tablet 1000 MG PO (14:13)
[2022-12-20] MEDS: MethylPREDNISolone 125 MG/2 ML Vial IV (14:13)
--- NOTE | 2022-12-20 15:31 | PCM.HP.STD ---
HPI - General General Date of Admission: 12/20/22 HPI Narrative HAWA PARKER, is a 67 F who presents to the hospital with increased shortness of breath. She is on her baseline oxygen however she says that she feels very short of breath with ambulation. On 09/17/2022 she did have an outpatient procedure for cardioversion for A-fib which was successful. In the ER her BNP was a little bit elevated to 189 and she was given a dose of IV Lasix, she does have a history of COPD and was also given a dose of Solu-Medrol and DuoNebs. She denies any fevers or chills recently and no one is sick at home. She states that she started feeling more short of breath since she had the cardioversion. EKG is rate controlled and appears to have intermittent PACs. [facility] Medical History Afib Atrial fibrillation and flutter CHF (congestive heart failure) Chronic respiratory failure with hypoxia COPD (chronic obstructive pulmonary disease) DVT (deep venous thrombosis) Essential hypertension History of deep vein thrombosis History of stroke Leg edema Lung cancer Lung cancer Noncompliance with medication regimen PAD (peripheral artery disease) Preoperative cardiovascular examination Right leg DVT Home Medications apixaban 5 mg tablet (Eliquis) 5 mg PO BID #60 tabs 10/26/22 [Rx Last Taken 12/19/22] ofloxacin 0.3 % eye drops See Rx Instructions ophthalmic (eye) .COMPLEX 11/09/22 [History Last Taken Unknown] diltiazem HCl 240 mg capsule,24 hr,extended release 240 mg PO DAILY heart 12/20/22 [History Last Taken Unknown] furosemide 20 mg tablet 20 mg PO DAILY water pill 12/20/22 [History Last Taken Unknown] metoprolol tartrate 50 mg tablet 50 mg PO BID heart 12/20/22 [History Last Taken 12/20/22] Allergy/AdvReac Type Severity Reaction Status Date / Time No Known Allergies Allergy Verified 12/20/22 12:31 Family History Mother Heart disease Hypertension Diabetes DVT (deep venous thrombosis) Father Colon cancer, Onset Age: 50 Brother Colon cancer, Onset Age: 30 Lung cancer Grandmother Diabetes Surgical History History of angioplasty of peripheral vessel History of ankle surgery History of cardioversion (03/03/22) History of hysterectomy History of removal of cyst History of skin graft Social History Smoking Status: Current every day smoker tobacco type: cigarettes alcohol intake: never substance use type: does not use caffeine: Yes Type: coffee Number of servings: 4 ROS Constitutional Constitutional: Denies chills, fatigue, fever(s) or malaise Eyes Eyes: Denies blurry vision ENT HEENT: Denies headache(s) or nasal discharge Cardiovascular Cardiovascular: Denies chest pain, dyspnea on exertion or syncope Respiratory/Chest Respiratory/Chest: Reports dyspnea and shortness of breath at rest; Denies cough or shortness of breath with exertion Gastrointestinal Gastrointestinal: Denies constipation, diarrhea, nausea or vomiting Genitourinary Genitourinary: Denies dysuria Neurologic Neurologic: Denies focal weakness, numbness or tremor(s) Psychiatric Psychiatric: Denies anxiety or depression Vital Signs Vital Signs Vital Signs: 12/20/22 12:31 12/20/22 12:34 12/20/22 13:03 Temperature 96.8 F L Temperature Source Temporal Pulse Rate 102 H Respiratory Rate 18 Respiratory Effort Short of Breath Respiratory Pattern Blood Pressure 110/76 Blood Pressure Mean 87 Blood Pressure Source Blood Pressure Position Blood Pressure Location Pulse Ox 90 100 Oxygen Delivery Method Room Air Nasal Cannula Oxygen Flow Rate (L/min) 5 12/20/22 13:03 12/20/22 13:12 12/20/22 13:10 Temperature Temperature Source Pulse Rate 101 H Respiratory Rate 23 H Respiratory Effort Respiratory Pattern Blood Pressure Blood Pressure Mean Blood Pressure Source Blood Pressure Position Blood Pressure Location Pulse Ox 97 98 Oxygen Delivery Method Nasal Cannula Nasal Cannula Oxygen Flow Rate (L/min) 3 4 12/20/22 14:06 12/20/22 14:57 12/20/22 15:12 Temperature 97.8 F 98.3 F Temperature Source Temporal Temporal Pulse Rate 99 76 100 Respiratory Rate 26 H 16 18 Respiratory Effort Respiratory Pattern Tachypnea Blood Pressure 146/78 H 131/78 H Blood Pressure Mean 100 95 Blood Pressure Source Monitor Blood Pressure Position Semi-Fowlers Blood Pressure Location Left Arm Pulse Ox 97 97 Oxygen Delivery Method Nasal Cannula Nasal Cannula Oxygen Flow Rate (L/min) 3 4 Weight Weight: 243 lb 6.245 oz Body Mass Index (BMI) 41.8 Physical Exam Narrative General: Alert, Oriented x3, Cooperative, No apparent distress HEENT: Atraumatic, PERRLA, EOMI, Normocephalic Oral: Moist Mucosa Neck: Supple, No JVD Lungs: Diminished, Normal air movement, No rhonchi, bilateral wheeze, No rales Cardiovascular: Tachycardic, irregular rhythm, Normal S1, Normal S2, No murmurs Abdomen: Soft, Non Tender, Non-Distended, No Hepato-splenomegaly Extremities: Edema, Capillary Refill Less than 3 Seconds Skin: No rashes, No breakdown Musculoskeletal: No Tenderness to Palpation of Joints or Extremities Neurological: Motor Exam 5/5 strength throughout, Sensory exam intact to light touch and pain Psych/Mental Status: Normal Affect, Appropriate Results Lab / Micro Data Result Diagrams: 12/20/22 12:55 12/20/22 12:55 Labs: Laboratory Results - last 24 hr 12/20/22 12:55: WBC 12.5 H, RBC 4.03 L, Hgb 12.3, Hct 38.2, MCV 94.8, MCH 30.5, MCHC 32.2, RDW Std Deviation 49.1 H, RDW Coeff of Baltazar 14.1, Plt Count 321, MPV 9.6, Immature Gran % (Auto) 0.400, Neut % (Auto) 88.7 H, Lymph % (Auto) 5.5 L, Cotton % (Auto) 4.5, Eos % (Auto) 0.6, Baso % (Auto) 0.3, Absolute Neuts (auto) 11.1 H, Absolute Lymphs (auto) 0.69 L, Nucleated RBC % 0 12/20/22 12:55: Sodium 136, Potassium 4.2, Chloride 102, Carbon Dioxide 32.0, Anion Gap 2 L, BUN 14, Creatinine 0.91, Est GFR (MDRD) Af Amer 79, Est GFR (MDRD) Non-Af 65, BUN/Creatinine Ratio 15.3, Glucose 132 H, Calcium 9.1, Troponin I High Sens 29 12/20/22 12:55: B-Natriuretic Peptide 189.0 H 12/20/22 13:00: Lactic Acid 0.8 Micro: Microbiology 12/20/22 13:30 Nasal Secretion SARS-CoV-2 & FLU Antigen (Rapid) - Final Radiology Impression Chest X-Ray 12/20/22 13:15 IMPRESSION: Degenerative changes, as described above. No demonstrated acute cardiopulmonary process. Electronically Signed: Dontae Jones MD at 14:04 EDT Reading Location ID and State: [facility] / [place] , Service support , Assessment & Plan Assessment/Plan (1) CHF (congestive heart failure): (2) Chronic respiratory failure with hypoxia: (3) COPD (chronic obstructive pulmonary disease): PLAN: Plan 1. Increased shortness of breath and chronic hypoxia secondary to COPD exacerbation versus CHF exacerbation/A-fib/HTN ? Echo on 10/24/2022 with an EF of 55 to 60% ? She is on a daily Lasix, she did receive IV Lasix in the ER will increase her daily Lasix from 20 mg to 40 mg p.o. ? We will continue with her blood pressure medications ? Continue with Eliquis ? We will also place her on a daily steroid and DuoNebs ? She is not requiring increased oxygen requirements and chest x-ray today is not abnormal DVT: [place] 55 minutes was spent on direct patient care as well as chart review and collaboration with colleagues Charges/Coding Visit Charges Inpatient E&M: 60113 Init Hosp L2
[2022-12-20] MEDS: APIXABAN 5 MG TABLET PO (21:20)
[2022-12-20] MEDS: Metoprolol Tartrate 50 MG Tablet PO (21:20)
[2022-12-21] VITALS (8 sets, daily range): BP systolic 135–153; BP diastolic 49–66; PULSE 77–119; RESP 18–20; TEMP 36.8; O2SAT 92–99; BMI 42.0
[2022-12-21 05:56] LABS: Absolute Lymphocyte Count 0.39 X10^3/uL (0.83-4.51); Absolute Neutrophil Count 10.3 X10^3/uL (2.0-7.7); Basophil# 0.01 X10^3/uL; Basophil% 0.1 % (0-1); Hematocrit 35.4 % (37-47); Lymphocyte # 0.39 X10^3/ul (0.83-4.51); Lymphocyte % 3.6 % (19-41); Mean Corp Hgb Conc 31.1 g/dL (32-36); Mean Corpuscular Hgb 30.1 pg (27.0-32.0); Mean Corpuscular Volume 96.7 fL (81-99); Mean Platelet Vol. 9.9 fl (6.2-12.0); Monocyte% 0.9 % (0-10); NRBC Flagged by Analyzer 0 % (0-5); Neutrophil # 10.34 X10^3/uL (2.7-7.7); Neutrophil % 94.8 % (47-70); POSITIVE DIFFERENTIAL YES; Platelet Count 335 K/mm3 (150-450); RBC Distribution Width CV 13.8 % (11.6-14.6); RBC Distribution Width SD 49.2 fl (35.1-43.9); Red Blood Count 3.66 M/mm3 (4.2-5.4); White Blood Count 10.9 K/mm3 (4.4-11.0)
[2022-12-21 06:11] LABS: Differential Indicated SCAN CRITERIA MET
[2022-12-21 06:28] LABS: Anion Gap 4 (5-15); BUN 22 mg/dL (7-18); BUN/Creat Ratio 22.1 RATIO (10-20); Calcium,Total 8.6 mg/dL (8.5-10.1); Chloride 101 mmol/L (98-107); EST Glomerular Filtration Rate 59 mL/min (>60); Est Glom Filt Rate - Afr Amer 72 mL/min (>60); Estimated Creatinine Clearance 47.14 ml/min; Glucose 178 mg/dL (74-106); Potassium 4.3 mmol/L (3.5-5.1); Sodium Level 136 mmol/L (136-145)
[2022-12-21 06:51] LABS: Differential Comment SCANNED
[2022-12-21] MEDS: Ipratropium/Albuterol Sulfate 3 ML AMPUL.NEB INHALATION ×2 (07:05→13:00)
[2022-12-21] MEDS: Metoprolol Tartrate 50 MG Tablet PO (09:34)
[2022-12-21] MEDS: APIXABAN 5 MG TABLET PO (09:34)
[2022-12-21] MEDS: predniSONE 20 MG Tablet 40 MG PO (09:34)
[2022-12-21] MEDS: Furosemide 40 MG Tablet PO (09:34)
[2022-12-21] MEDS: dilTIAZem CD 240 MG Capsule PO (09:34)
[2022-12-21] MEDS: Acetaminophen 325 MG Tablet 650 MG PO (10:38)
--- NOTE | 2022-12-21 13:05 | DS.PCM_ITS ---
Providers Date of Admission: 12/20/22 Primary Care Physician: Dr. Josesito Guthrie MD Reason For Visit: CHF VS COPD Diagnosis Discharge Diagnosis (1) CHF (congestive heart failure): Status: Acute Code(s): I50.9 - Heart failure, unspecified (2) Chronic respiratory failure with hypoxia: Status: Chronic Code(s): J96.11 - Chronic respiratory failure with hypoxia (3) COPD (chronic obstructive pulmonary disease): Status: Chronic Code(s): J44.9 - Chronic obstructive pulmonary disease, unspecified Medications at Discharge Home Medications apixaban 5 mg tablet (Eliquis) 5 mg PO BID #60 tabs 10/26/22 ofloxacin 0.3 % eye drops See Rx Instructions ophthalmic (eye) .COMPLEX 11/09/22 diltiazem HCl 240 mg capsule,24 hr,extended release 240 mg PO DAILY heart 12/20/22 metoprolol tartrate 50 mg tablet 50 mg PO BID heart 12/20/22 furosemide 40 mg tablet 40 mg PO DAILY #90 tabs 12/21/22 Hospital Course Summary of Care Provided Minutes Spent on Discharge: 35 Hospital Course: Patient is a 67-year-old lady with multiple comorbidities including chronic hypoxic respiratory failure secondary to COPD on baseline home oxygen presented with shortness of breath 1. Acute on chronic congestive heart failure with preserved ejection fraction ? Chest a monitored bed managed with diuretics patient did improve with therapy 2. Paroxysmal A-fib ? Rate controlled on metoprolol and diltiazem did continue also on systemic anticoagulation with apixaban 3. Chronic hypoxic respiratory failure ? Secondary to COPD patient is on baseline home oxygen 3 L at rest 4. Hypertension - Blood pressure controlled, home medications continued with dose adjustment as needed 5. Class III obesity with BMI of 42.1 ? Complicating patient's care 6. History of previous DVT ? On apixaban 7. History of lung cancer ? Apparently remission 8. Peripheral arterial disease ? Per history 9. DVT prophylaxis ? On apixaban Physical Exam Narrative GENERAL: cooperative HEENT: Atraumatic; normocephalic EYES; Anicteric, Normal Conjunctiva NECK; supple, normal thyroid, RESPIRATORY: Diminished to auscultation CARDIOVASCULAR: Regular S1 S2, GI: soft, normoactive bowel sounds, : No Renal angle tenderness; EXTREMITIES: No edema, no clubbing, MUSCULOSKELETAL: no muscle wasting NEURO: Awake; no lateralizing signs. SKIN: No Rash PSYCH; Flat affect Weight / BMI Weight Weight: 111.2 kg Body Mass Index (BMI) 42.0 ABG / Lab / Microbiology Data Result Diagrams: 12/21/22 05:35 12/21/22 05:35 Laboratory: Laboratory Results - last 24 hr 12/20/22 12:55: Sodium 136, Potassium 4.2, Chloride 102, Carbon Dioxide 32.0, Anion Gap 2 L, BUN 14, Creatinine 0.91, Est GFR (MDRD) Af Amer 79, Est GFR (MDRD) Non-Af 65, BUN/Creatinine Ratio 15.3, Glucose 132 H, Calcium 9.1, Troponin I High Sens 29 12/20/22 12:55: B-Natriuretic Peptide 189.0 H 12/20/22 13:00: Lactic Acid 0.8 12/21/22 05:35: WBC 10.9, RBC 3.66 L, Hgb 11.0 L, Hct 35.4 L, MCV 96.7, MCH 30.1, MCHC 31.1 L, RDW Std Deviation 49.2 H, RDW Coeff of Baltazar 13.8, Plt Count 335, MPV 9.9, Immature Gran % (Auto) 0.600, Neut % (Auto) 94.8 H, Lymph % (Auto) 3.6 L, [place] % (Auto) 0.9, Eos % (Auto) 0.0, Baso % (Auto) 0.1, Absolute Neuts (auto) 10.3 H, Absolute Lymphs (auto) 0.39 L, Nucleated RBC % 0, Differential Comment SCANNED 12/21/22 05:35: Sodium 136, Potassium 4.3, Chloride 101, Carbon Dioxide 31.0, Anion Gap 4 L, BUN 22 H, Creatinine 1.00, Estim Creat Clear Calc 47.14, Est GFR (MDRD) Af Amer 72, Est GFR (MDRD) Non-Af 59 L, BUN/Creatinine Ratio 22.1 H, Glucose 178 H, Calcium 8.6 Microbiology: Microbiology 12/20/22 13:30 Nasal Secretion SARS-CoV-2 & FLU Antigen (Rapid) - Final Radiography Diagnostic Testing: Radiology Impression Chest X-Ray 12/20/22 13:15 IMPRESSION: Degenerative changes, as described above. No demonstrated acute cardiopulmonary process. Electronically Signed: Dontae Jones MD at 14:04 EDT Reading Location ID and State: [address] [place] [address] , Service support , D/C Instructions Discharge Diet: 8 Cup Fluid Restriction and 2000 mg Sodium Diet Discharge Activity: Return to Normal Activity Call your doctor if you observe: Fever of 101 or Higher, Shortness of breath, Fainting spells and Chest pain Meaningful Use Info Meaningful Use Diagnoses (Choose all that apply): CHF CHF TATA/ARB ordered at discharge?: Yes Reason TATA/ARB not ordered?: Normal EF Documented LVEF (%): 55 Discharge Plan Admission Admit Date/Time: 12/20/22 14:20 Attending Provider: Luis Lemus Primary Care Provider: Josesito Guthrie Consulting Providers: Pro Paz Discharge Orders/Prescriptions Prescriptions: New furosemide 40 mg Tablet 40 mg PO DAILY Qty: 90 0RF Continued ofloxacin 0.3 % drops See Rx Instructions ophthalmic (eye) .COMPLEX Rx Instructions: put 1-2 drps into affected eye(s) every 2-4 h x 2 days, then 1-2 drps 4 times/day days 3-7 ophthalmic (eye) Eliquis 5 mg Tablet 5 mg PO BID Qty: 60 1RF diltiazem HCl 240 mg capsule,extended release 24 hr 240 mg PO DAILY metoprolol tartrate 50 mg tablet 50 mg PO BID Discontinued furosemide 20 mg tablet 20 mg PO DAILY Referrals / Follow Up: Josesito Guthrie MD [Primary Care Provider] - Within 1 Week Disposition Disposition (needs filled in before D/C Order can be placed): Home, Self Care Charges/Coding Visit Charges Inpatient E&M: 32844 Disch Hosp >30min
--- NOTE | 2022-12-21 13:29 | PHA.DC.MR ---
Pharmacy Service has performed discharge medication reconciliation for this patient. The patient's discharge medication list was reviewed for discrepancies and discrepancies were resolved. Home Medications apixaban 5 mg tablet (Eliquis) 5 mg PO BID #60 tabs 10/26/22 ofloxacin 0.3 % eye drops See Rx Instructions ophthalmic (eye) .COMPLEX 11/09/22 diltiazem HCl 240 mg capsule,24 hr,extended release 240 mg PO DAILY heart 12/20/22 metoprolol tartrate 50 mg tablet 50 mg PO BID heart 12/20/22 furosemide 40 mg tablet 40 mg PO DAILY #90 tabs 12/21/22
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
--- NOTE | 2022-12-21 14:14 | CHAPLAIN ---
Type of Pastoral Visit _x__ Initial Visit ___ Follow-up Visit ___ On-call Visit ___ General Patient Visit ___ Spiritual Assessment ___ Family Conference ___ Bereavement ___ Rapid Response ___ Code Blue ___ Other (describe below) Pastoral Care Referral From _x__ Patient ___ Family ___ Nurse ___ Physician ___ Clinical Dietician ___ Financial Operations Consultant ___ Other (describe below) Sacrament/Intervention _x__ Active listening ___ Anointing ___ Mandaeism ___ Bereavement ___ Communion ___ Hermila exploration ___ ___ Life review ___ Prayer ___ Reconciliation ___ Sacrament of Sick ___ Supportive presence ___ Wedding ___ Other (describe below) Pastoral Comments patient states that she is feeling better and expects to be discharged today; pt says she has help at home and no concerns at this time
[2022-12-21] MEDS: Menthol/Lanolin/Calamine/Znox 113 GM Tube 1 APPLIC TOPICAL (14:44)
[2022-12-21] MEDS: Nystatin Powder 15gm Bottle 1 APPLIC TOPICAL (14:45)
--- NOTE | 2022-12-21 16:00 | NURSING ---
This RN went to prepare pt for DC, asked pt about her home o2 as her son came up to get her. Pt and son replied that he didn't bring it and that pt never wears in the car. This RN replied you came to the hospital for sob but you didn't bring your oxygen to the hospital to DC, pt stated she will be going home without oxygen and she takes full responsibility she doesn't care what any of us say that's what she does all the time, her home is only 15 minutes away and she will be fine. This RN asked pt to sit without oxygen for 20 to 30 minutes while watching her oxygen, lowest o2 got was 89% while coughing but maintained 94%. Wheeled down to vehicle on oxygen from hospital and let pt get into truck on oxygen and then let pt go without o2 as again pt and pts son refused to go get oxygen.
== END 2022-12-21 13:13 | disposition home or self-care (01) ==
LOC: ED 14:23 → PCU 14:57
PROVIDERS: Admitting Provider Family Medicine; Emergency Provider Emergency Medicine; PCP Internal Medicine; Visit Provider Internal Medicine
DX: I11.0 Hypertensive heart disease with heart failure (principal); J44.9 Chronic obstructive pulmonary disease, unspecified; I50.33 Acute on chronic diastolic (congestive) heart failure; I73.9 Peripheral vascular disease, unspecified; J96.11 Chronic respiratory failure with hypoxia; I48.0 Paroxysmal atrial fibrillation; Z68.41 Body mass index [BMI] 40.0-44.9, adult; Z79.01 Long term (current) use of anticoagulants; Z79.899 Other long term (current) drug therapy; Z86.718 Personal history of other venous thrombosis and embolism; Z99.81 Dependence on supplemental oxygen; F17.210 Nicotine dependence, cigarettes, uncomplicated; E66.9 Obesity, unspecified
CPT/HCPCS: 36415; 71045; 80048 ×2; 83605; 83880; 84484; 85025 ×2; 87040; 87428; 93005; 94640 ×4; 96374; 96375; 99285; A4216; G0378 ×2; J1940; 99221

== ENCOUNTER 2022-12-24 14:14 | Inpatient (IN) | payer MEDICAID, SELFPAY ==
[2022-12-24] VITALS (16 sets, daily range): BP systolic 114–145; BP diastolic 54–131; PULSE 77–96; RESP 18–33; TEMP 36.1–36.8; O2SAT 94–99; BMI 42.2; BMI 41.2
--- NOTE | 2022-12-24 14:28 | EKG12_ITS ---
Test Reason : SOB/CP Blood Pressure : / mmHG Vent. Rate : 081 BPM Atrial Rate : 081 BPM P-R Int : 162 ms QRS Dur : 070 ms QT Int : 354 ms P-R-T Axes : 059 042 085 degrees QTc Int : 411 ms Normal sinus rhythm Nonspecific ST and T wave abnormality Abnormal ECG Confirmed by BEENA NEWELL, ELINA ([id number]), associate entertainment editor TINY NAJERA ([id number]) on 12/28/2022 10:42:14 A M Referred By: KYLIE Confirmed By:WESLY HARGROVE MD
--- NOTE | 2022-12-24 14:31 | ED.VIS.DYS ---
HPI History of Present Illness Chief Complaint: Shortness of Breath Informant: patient and family (multiple) Narrative Narrative: 67-year-old female progressively worsening chest heaviness nonpleuritic and dyspnea over the past month. Several ER visits, was in A-fib and cardioverted at cardiology office, was admitted here for acute on chronic hypoxic respiratory failure thought to be more due to her heart failure with preserved ejection fraction and has been diuresed, has had no steroids or antibiotics recently. She states that she has been coughing a lot with increased sputum and color change as well for the past 3 to 4 weeks, now it is dark color, she has seen very small amounts of blood but nothing major with regards to the bleeding. No fevers or chills. She is completely out of breath, even at rest but much worse with any little attempted exertion. The last time she was here was about 2 or 3 days ago, and things are worse now including her leg edema which is worse. She is urinating a lot due to the diuretic, and occasionally incontinent of urine but without dysuria or hematuria. She is anticoagulated on Eliquis because of the history of A-fib. She continues to take that. She is chronically on 3 L of oxygen at home. She has been extremely short of breath and worsening despite using her oxygen as directed. [facility] Medical History Afib Atrial fibrillation and flutter CHF (congestive heart failure) Chronic respiratory failure with hypoxia COPD (chronic obstructive pulmonary disease) DVT (deep venous thrombosis) Essential hypertension History of deep vein thrombosis History of stroke Leg edema Lung cancer Lung cancer Noncompliance with medication regimen PAD (peripheral artery disease) Preoperative cardiovascular examination Right leg DVT Home Medications apixaban 5 mg tablet (Eliquis) 5 mg PO BID #60 tabs 10/26/22 [Rx Last Taken 12/24/22] diltiazem HCl 240 mg capsule,24 hr,extended release 240 mg PO DAILY heart 12/20/22 [History Last Taken 12/24/22] metoprolol tartrate 50 mg tablet 50 mg PO BID heart 12/20/22 [History Last Taken 12/24/22] furosemide 40 mg tablet 40 mg PO DAILY #90 tabs 12/21/22 [Rx Last Taken 12/24/22] acetaminophen 500 mg tablet 1,000 mg PO DAILY PRN Pain 12/24/22 [History Last Taken 12/24/22] dextromethorphan polistirex 30 mg/5 mL oral susp ext.release 12hr (Delsym 12 hour) 5 ml PO Q12H PRN Cough 12/24/22 [History Last Taken 12/24/22] Allergy/AdvReac Type Severity Reaction Status Date / Time No Known Allergies Allergy Verified 12/24/22 15:20 Family History Mother Heart disease Hypertension Diabetes DVT (deep venous thrombosis) Father Colon cancer, Onset Age: 50 Brother Colon cancer, Onset Age: 30 Lung cancer Grandmother Diabetes Surgical History History of angioplasty of peripheral vessel History of ankle surgery History of cardioversion (03/03/22) History of hysterectomy History of removal of cyst History of skin graft Social History Smoking Status: Current every day smoker tobacco type: cigarettes alcohol intake: never substance use type: does not use caffeine: Yes Type: coffee Number of servings: 4 ROS ROS ED Constitutional Constitutional ED: Reports fatigue; Denies chills or fever(s) Eyes Eyes: Denies change in vision or diplopia ENT ENT ED: Denies rhinorrhea or sore throat Cardiovascular Cardiovascular: Reports chest pain, orthopnea and pedal edema; Denies palpitations Respiratory/Chest Respiratory/Chest: Reports cough, dyspnea, dyspnea on exertion, hemoptysis, orthopnea and sputum Gastrointestinal Gastrointestinal: Denies abdominal pain, diarrhea, nausea or vomiting Genitourinary Genitourinary ED: Reports urinary frequency; Denies dysuria or hematuria Musculoskeletal Musculoskeletal: Denies back pain or neck pain Integumentary Denies abscess or rash Neurologic Neurologic: Denies headache(s), paresthesias or weakness Psychiatric Psychiatric: Reports anxiety; Denies suicidal thoughts EXAM Physical Exam Const Vital Signs: 12/24/22 14:14 12/24/22 14:38 12/24/22 14:38 Temperature 96.9 F L Temperature Source Temporal Pulse Rate 79 84 Respiratory Rate 22 H 19 H Respiratory Effort Respiratory Depth Respiratory Pattern Blood Pressure 125/79 H Blood Pressure Mean 94 Pulse Ox 98 98 Oxygen Delivery Method Nasal Cannula Nasal Cannula Oxygen Flow Rate (L/min) 4 5 12/24/22 15:13 12/24/22 15:08 12/24/22 15:12 Temperature Temperature Source Pulse Rate 78 Respiratory Rate 18 Respiratory Effort Short of Breath Labored Respiratory Depth Normal Respiratory Pattern Tachypnea Blood Pressure 132/54 H Blood Pressure Mean 80 Pulse Ox 98 97 Oxygen Delivery Method Nasal Cannula Nasal Cannula Nasal Cannula Oxygen Flow Rate (L/min) 4 4 4 12/24/22 16:07 12/24/22 16:08 12/24/22 16:00 Temperature Temperature Source Pulse Rate 77 90 Respiratory Rate 20 H Respiratory Effort Respiratory Depth Respiratory Pattern Blood Pressure 134/63 H Blood Pressure Mean 86 Pulse Ox 95 97 Oxygen Delivery Method Nasal Cannula Room Air Oxygen Flow Rate (L/min) 3 Positive well nourished and well developed Constitutional Narrative: Morbidly obese; mild respiratory distress General Appearance ED: well developed HEENT Reports moist mucous membranes normocephalic and atraumatic Eyes PERRL and EOMs intact bilaterally Neck full ROM, supple and no meningeal signs Neck Narrative: Limited evaluation for JVD due to obesity Resp Resp Narrative: Mild respiratory distress, bibasilar rhonchi, and expiratory wheezes throughout Cardio regular rate and regular rhythm GI non-tender and non-distended Auscultation: normoactive bowel sounds Palpation: soft Back/Spine no CVA tenderness General Back: other FROM Extremity normal to inspection General Extremety ED: Yes edema; Negative for pulses abnormal or tenderness General Extremity: edema bilateral lower extremity Details: moderate; Negative for pulses abnormal Neuro oriented x3, CN's II-XII intact bilaterally and no sensory deficits noted Sensorium / Orientation: awake and alert Motor Exam: strength 5/5 throughout Psych Mood & Affect: anxious Skin no rashes or lesions noted and no wounds MDM MDM MDM Narrative Medical decision making narrative: While working the patient up she was treated with multiple nebulizer treatments, which really seem to help. I gave her a dose of Lasix as well. She is a significant leukocytosis of 19.7, and the 1 view chest x-ray my interpretation shows a new left upper lobe infiltrate. Radiology in agreement. It does not necessarily show fluid overload, and accordingly her BNP is actually lower than the last time she was here and she is breathing worse, suggesting this is not acute decompensated congestive heart failure. She is breathing better on reevaluation, on her home 3 L she is 95%, on ambulation she did not get very far was very dyspneic and dropped to 85% on her 3 L. She is still dyspneic. I think she will benefit from admission, Zosyn started after blood cultures and lactate obtained. Discussed with hospitalist I do not think she needs to be admitted to the ICU right now, her blood pressure has been good and her pulse has been good as well. Lab Data Attestation: I reviewed the patient's lab results. Labs: Laboratory Results - last 24 hr 12/24/22 12/24/22 12/24/22 14:30 14:30 14:30 WBC 19.7 H RBC 3.86 L Hgb 11.7 L Hct 36.6 L MCV 94.8 MCH 30.3 MCHC 32.0 RDW Std Deviation 49.0 H RDW Coeff of Baltazar 14.2 Plt Count 350 MPV 9.5 Immature Gran % (Auto) 0.800 Neut % (Auto) 91.1 H Lymph % (Auto) 4.7 L [place] % (Auto) 2.8 Eos % (Auto) 0.4 Baso % (Auto) 0.2 Absolute Neuts (auto) 18.0 H Absolute Lymphs (auto) 0.92 Nucleated RBC % 0 Sodium 135 L Potassium 3.6 Chloride 101 Carbon Dioxide 30.0 Anion Gap 4 L BUN 22 H Creatinine 1.22 H Estim Creat Clear Calc 38.64 Est GFR (MDRD) Af Amer 57 L Est GFR (MDRD) Non-Af 47 L BUN/Creatinine Ratio 18.0 Glucose 182 H Calcium 9.0 Troponin I High Sens 15 B-Natriuretic Peptide 157.4 H Radiography Diagnostic Testing: Clinical Impression(s) from Imaging Studies Chest X-Ray 12/24/22 15:17 IMPRESSION: New left upper lobe infiltrate. Follow-up is recommended. Increased markings at the right lung base. Electronically Signed: Jake Gonzalez MD at 15:38 EDT , Rhythm Strip Rhythm Strip: Sinus Rhythm Rate: 80 Ectopy: None EKG Initial EKG: Attestation: I personally reviewed and interpreted this EKG as follows: Interpretation: Sinus Rhythm and No Acute Injury Pattern Prior EKG tracings: available for review Prior: Unchanged Discharge Plan Dx/Rx/DC Orders Clinical Impression: Acute on chronic respiratory failure with hypoxia, CHF (congestive heart failure), Pneumonia, Acute exacerbation of chronic obstructive pulmonary disease (COPD) Disposition Disposition: Acute Care Hospital [facility]
[2022-12-24] MEDS: Ipratropium/Albuterol Sulfate 3 ML AMPUL.NEB INHALATION ×2 (14:37→23:47)
[2022-12-24 14:52] LABS: Absolute Lymphocyte Count 0.92 X10^3/uL (0.83-4.51); Basophil# 0.03 X10^3/uL; Basophil% 0.2 % (0-1); Eosinophil# 0.07 X10^3/uL; Eosinophils% 0.4 % (0-5); Hematocrit 36.6 % (37-47); Hemoglobin 11.7 g/dL (12.0-15.0); Lymphocyte # 0.92 X10^3/ul (0.83-4.51); Lymphocyte % 4.7 % (19-41); Mean Corpuscular Hgb 30.3 pg (27.0-32.0); Mean Corpuscular Volume 94.8 fL (81-99); Mean Platelet Vol. 9.5 fl (6.2-12.0); Monocyte# 0.56 X10^3/uL; Monocyte% 2.8 % (0-10); NRBC Flagged by Analyzer 0 % (0-5); Neutrophil # 18.01 X10^3/uL (2.7-7.7); Neutrophil % 91.1 % (47-70); Platelet Count 350 K/mm3 (150-450); RBC Distribution Width CV 14.2 % (11.6-14.6); Red Blood Count 3.86 M/mm3 (4.2-5.4); White Blood Count 19.7 K/mm3 (4.4-11.0)
[2022-12-24] MEDS: Albuterol 2.5 MG/3 ML VIAL.NEB. INHALATION ×2 (15:04→16:06)
[2022-12-24] MEDS: Furosemide 40 MG/4 ML Vial IV (15:06)
[2022-12-24 15:16] LABS: Anion Gap 4 (5-15); BUN 22 mg/dL (7-18); Chloride 101 mmol/L (98-107); Creatinine, Serum 1.22 mg/dL (0.55-1.02); EST Glomerular Filtration Rate 47 mL/min (>60); Est Glom Filt Rate - Afr Amer 57 mL/min (>60); Estimated Creatinine Clearance 38.64 ml/min; Glucose 182 mg/dL (74-106); Potassium 3.6 mmol/L (3.5-5.1); Sodium Level 135 mmol/L (136-145); Troponin-I HS 15 pg/mL (3.0-54.0)
--- NOTE | 2022-12-24 15:17 | RAD_ITS ---
STUDY: X-RAY CHEST REASON FOR EXAM: Female, 67 years old. Dyspnea, cp TECHNIQUE: Single AP portable view of the chest. COMPARISON: Comparison is made with prior study dated 08/22/2022. FINDINGS: EKG electrodes are seen. Infiltrate in the left upper lobe. Radiographic follow-up is recommended. Mild increased markings at the right lung base. There is mild cardiac enlargement. Normal mediastinum and mario alberto. Normal visualized pulmonary arteries. Normal visualized aortic arch and descending thoracic aorta. There are diffuse degenerative changes of the visualized thoracic spine. Normal visualized ribs, clavicles, and shoulders. There is no demonstrated abnormality of the visualized soft tissue structures of the upper abdomen. RAD/Chest 1 View (Portable) IMPRESSION: New left upper lobe infiltrate. Follow-up is recommended. Increased markings at the right lung base. Electronically Signed: Jake Gonzalez MD at 15:38 EDT ,
[2022-12-24 15:24] LABS: BNP,B-Type NATRIURETIC PEPTIDE 157.4 pg/mL (0-100)
--- NOTE | 2022-12-24 17:04 | NURSING ---
DR JAIMES FOR DR ACOSTA
--- NOTE | 2022-12-24 17:16 | NURSING ---
PCU [facility] ACUTE ON CHRONIC HYPOXIC RESP FAILURE, PNEUMONIA, COPD, CHF
--- NOTE | 2022-12-24 17:18 | PCM.HP.STD ---
[facility] - General General Date of Admission: 12/24/22 Date of Service: 12/24/22 Chief Complaint: Worsening or shortness of breath 1 day after discharge. [facility] Narrative HAWA PARKER, is a 67 F who was discharged on 12/21/2022 after 1 day of admission for shortness of breath due to acute on chronic HFpEF came back to ED for shortness of breath. She stated that she was short of breath after 1 day of discharge. She is on 3-4 L of home oxygen 01/02 for history of COPD with lung cancer. She follows Dr. Carter and her oncologist is Dr. Lentz. She also completed radiotherapy by Dr. Segura. She states her shortness of breath is worsened for last 3 days, constantly even on rest. She is also cough which is acute worsening for 3 to 4 weeks on chronic with productive yellowish-brown, thick sputum. Sometimes streak of blood present. She has chest heaviness, feels like elephant with radiation to back for last 3 months. She feels more during cough mainly on anterior and upper abdomen, pleuritic in nature. Denies any fever or chills. She still smokes 3 to 4 cigarettes/day. In ED, patient is on 3 to 4 L of oxygen pulse ox 95%. Tachypneic, labored breathing. No fever. Patient is started on IV Zosyn after blood cultures x2 drawn. Troponin is normal. BNP elevated. Lactic acid normal. Chest x-ray mutilative reviewed and shows left upper lobe infiltrate. Twelve-lead EKG shows normal sinus rhythm at 81 bpm. QTc 411 ms. Her previous EKG was MAT at 106 bpm during previous admission. [facility] Medical History Afib Atrial fibrillation and flutter CHF (congestive heart failure) Chronic respiratory failure with hypoxia COPD (chronic obstructive pulmonary disease) DVT (deep venous thrombosis) Essential hypertension History of deep vein thrombosis History of stroke Leg edema Lung cancer Lung cancer Noncompliance with medication regimen PAD (peripheral artery disease) Preoperative cardiovascular examination Right leg DVT Home Medications apixaban 5 mg tablet (Eliquis) 5 mg PO BID #60 tabs 10/26/22 [Rx Last Taken 12/24/22] diltiazem HCl 240 mg capsule,24 hr,extended release 240 mg PO DAILY heart 12/20/22 [History Last Taken 12/24/22] metoprolol tartrate 50 mg tablet 50 mg PO BID heart 12/20/22 [History Last Taken 12/24/22] furosemide 40 mg tablet 40 mg PO DAILY #90 tabs 12/21/22 [Rx Last Taken 12/24/22] acetaminophen 500 mg tablet 1,000 mg PO DAILY PRN Pain 12/24/22 [History Last Taken 12/24/22] dextromethorphan polistirex 30 mg/5 mL oral susp ext.release 12hr (Delsym 12 hour) 5 ml PO Q12H PRN Cough 12/24/22 [History Last Taken 12/24/22] Allergy/AdvReac Type Severity Reaction Status Date / Time No Known Allergies Allergy Verified 12/24/22 15:20 Family History Mother Heart disease Hypertension Diabetes DVT (deep venous thrombosis) Father Colon cancer, Onset Age: 50 Brother Colon cancer, Onset Age: 30 Lung cancer Grandmother Diabetes Surgical History History of angioplasty of peripheral vessel History of ankle surgery History of cardioversion (03/03/22) History of hysterectomy History of removal of cyst History of skin graft Social History Smoking Status: Current every day smoker tobacco type: cigarettes alcohol intake: never substance use type: does not use caffeine: Yes Type: coffee Number of servings: 4 ROS ROS Narrative Constitutional: Reports fatigue and weakness. No fever. HEENT: Reports systems reviewed and no addt'l complaints, except as documented Respiratory/Chest: As described in HPI. CVS: As described in HPI. Gastrointestinal: Mild upper abdominal pain due to coughing. Denies coffee ground emesis, hematemesis or vomiting Genitourinary: Denies burning urination or new urinary tract symptoms Musculoskeletal: Denies acute joint pain or limited range of motion. No acute injury Neurologic: Denies seizure-like symptoms. No acute strokelike symptoms. skin: No ulcer. No rash Endocrinology: Reports systems reviewed and no addt'l complaints, except as documented Hematologic/Lymphatic: Reports systems reviewed and no addt'l complaints, except as documented Rest 14 ROS are negative except as mentioned in HPI Vital Signs Vital Signs Vital Signs: 12/24/22 14:14 12/24/22 14:38 12/24/22 14:38 Temperature 96.9 F L Temperature Source Temporal Pulse Rate 79 84 Respiratory Rate 22 H 19 H Respiratory Effort Respiratory Depth Respiratory Pattern Blood Pressure 125/79 H Blood Pressure Mean 94 Pulse Ox 98 98 Oxygen Delivery Method Nasal Cannula Nasal Cannula Oxygen Flow Rate (L/min) 4 5 12/24/22 15:13 12/24/22 15:08 12/24/22 15:12 Temperature Temperature Source Pulse Rate 78 Respiratory Rate 18 Respiratory Effort Short of Breath Labored Respiratory Depth Normal Respiratory Pattern Tachypnea Blood Pressure 132/54 H Blood Pressure Mean 80 Pulse Ox 98 97 Oxygen Delivery Method Nasal Cannula Nasal Cannula Nasal Cannula Oxygen Flow Rate (L/min) 4 4 4 12/24/22 16:07 12/24/22 16:08 12/24/22 16:00 Temperature Temperature Source Pulse Rate 77 90 Respiratory Rate 20 H Respiratory Effort Respiratory Depth Respiratory Pattern Blood Pressure 134/63 H Blood Pressure Mean 86 Pulse Ox 95 97 Oxygen Delivery Method Nasal Cannula Room Air Oxygen Flow Rate (L/min) 3 Weight Weight: 246 lb 0.574 oz Body Mass Index (BMI) 42.2 Physical Exam Narrative General: Alert, Oriented x3, Cooperative. BMI obesity grade 3, 42.2 kg per metered square HEENT: Atraumatic, PERRLA, EOMI, Normocephalic Oral: Oral mucosa dry. No Gingival or Mucosal Lesions/ Ulcerations Neck: Supple, No JVD, Negative Carotid Bruits Chest wall/lungs: Reproducible anterior chest wall tenderness. Air entry diminished in bilateral lung bases. Bilateral coarse crepitation and wheezing. Dyspnea at rest. Tachypneic. Cardiovascular: Regular rate, Regular Rhythm, Normal S1, Normal S2, No murmurs Abdomen: Bowel Sounds Present, Soft, Non Tender, Non-Distended : No renal angle tenderness. No suprapubic tenderness. Extremities: Bilateral leg edema, better than before, Capillary Refill Less than 3 Seconds Skin: No rashes, No breakdown Musculoskeletal: No Tenderness to Palpation of Joints or Extremities. ROM full and intact. Bilateral knee joints arthritis. Neurological: Cranial nerves II-XII grossly intact, DTR 2+/4 and Symmetrical, Neuro grossly intact Psych/Mental Status: Flat affect. Results Lab / Micro Data Result Diagrams: 12/24/22 14:30 12/24/22 14:30 Labs: Laboratory Results - last 24 hr 12/24/22 14:30: WBC 19.7 H, RBC 3.86 L, Hgb 11.7 L, Hct 36.6 L, MCV 94.8, MCH 30.3, MCHC 32.0, RDW Std Deviation 49.0 H, RDW Coeff of Baltazar 14.2, Plt Count 350, MPV 9.5, Immature Gran % (Auto) 0.800, Neut % (Auto) 91.1 H, Lymph % (Auto) 4.7 L, [place] % (Auto) 2.8, Eos % (Auto) 0.4, Baso % (Auto) 0.2, Absolute Neuts (auto) 18.0 H, Absolute Lymphs (auto) 0.92, Nucleated RBC % 0 12/24/22 14:30: Sodium 135 L, Potassium 3.6, Chloride 101, Carbon Dioxide 30.0, Anion Gap 4 L, BUN 22 H, Creatinine 1.22 H, Estim Creat Clear Calc 38.64, Est GFR (MDRD) Af Amer 57 L, Est GFR (MDRD) Non-Af 47 L, BUN/Creatinine Ratio 18.0, Glucose 182 H, Calcium 9.0, Troponin I High Sens 15 12/24/22 14:30: B-Natriuretic Peptide 157.4 H Rhythm Strip Rhythm Strip: Sinus Rhythm Rate: 80 Ectopy: None Radiology Impression Chest X-Ray 12/24/22 15:17 IMPRESSION: New left upper lobe infiltrate. Follow-up is recommended. Increased markings at the right lung base. Electronically Signed: Jake Gonzalez MD at 15:38 EDT , Assessment & Plan Assessment/Plan (1) Pneumonia: (2) Acute exacerbation of chronic obstructive pulmonary disease (COPD): PLAN: Plan This 67-year-old female being admitted for COPD exacerbation due to pneumonia 1. COPD exacerbation due to left upper lobe pneumonia: Patient is being admitted in PCU. Patient high risk for Pseudomonas and MRSA because of history of lung cancer and recent admission. Started on IV vancomycin and Zosyn. Chest x-ray individually reviewed and agree with left upper lobe infiltrate. Lactic acid normal. At this time I do not think patient has sepsis with normal lactic acid although she has leukocytosis with neutrophilia. Started on DuoNeb every 4 hourly, IV Solu-Medrol, incentive spirometry, chest physiotherapy and Mucinex DM. 2. Chronic hypoxic respiratory failure: Patient at home on 3 to 4 L of oxygen in ED patient on same amount of oxygen. BiPAP as needed ordered at night and during naps. 3. Chronic congestive heart failure with preserved ejection fraction: Patient leg swelling is better than last admission. Continue home dose of diuretic. Heart failure core measures including intake and output, fluid restriction less than 1500 mL, daily weight monitoring, kidney and electrolytes monitoring 4.? Paroxysmal A-fib on apixaban. Heart rate is controlled currently normal sinus rhythm. Continue metoprolol and Cardizem CD and apixaban. Previous EKG during last admission showed multifocal atrial tachycardia. 5.? Hypertension: Blood pressure in normal range. Continue home medication with lower GI regimen as per BP parameters. 6.? Morbid obesity with BMI 42.2 kg/m?. Weight loss counseling done. Environmental Conservation Professor consult. 7.? History of previous DVT: On apixaban 8.? History of lung cancer: Patient follows Dr. Lentz, trashman Dr. Carter and radiotherapist Dr. Segura. It seems that she is in remission. 9.? Peripheral arterial disease ? DVT prophylaxis ? On apixaban Living will/advanced directive/end of life care: Patient does not have living will or advanced directive. She does not have designated power of disability attorney for health. Her sister is sitting next to her in ED. After discussion of benefits/risks procedures involved with full code, DNR CC arrest and DNR CC, the patient opted for full code but does not want to be in a vegetative condition on life support for long time. Patient does want artificial life support in the beginning including intubation, tube feed, ventilator and/chest compression, central venous catheter, vasopressor and DC shock if needed Total time spent in [id number] encounter in discussion of advanced directive 17 minutes. Clinical Impression(s) from Imaging Studies Chest X-Ray 12/24/22 15:17 IMPRESSION: New left upper lobe infiltrate. Follow-up is recommended. Increased markings at the right lung base. Laboratory Results 12/24/22 14:30: WBC 19.7 H, RBC 3.86 L, Hgb 11.7 L, Hct 36.6 L, MCV 94.8, MCH 30.3, MCHC 32.0, RDW Std Deviation 49.0 H, RDW Coeff of Baltazar 14.2, Plt Count 350, MPV 9.5, Immature Gran % (Auto) 0.800, Neut % (Auto) 91.1 H, Lymph % (Auto) 4.7 L, [place] % (Auto) 2.8, Eos % (Auto) 0.4, Baso % (Auto) 0.2, Absolute Neuts (auto) 18.0 H, Absolute Lymphs (auto) 0.92, Nucleated RBC % 0 12/24/22 14:30: Sodium 135 L, Potassium 3.6, Chloride 101, Carbon Dioxide 30.0, Anion Gap 4 L, BUN 22 H, Creatinine 1.22 H, Estim Creat Clear Calc 38.64, Est GFR (MDRD) Af Amer 57 L, Est GFR (MDRD) Non-Af 47 L, BUN/Creatinine Ratio 18.0, Glucose 182 H, Calcium 9.0, Troponin I High Sens 15 12/24/22 14:30: B-Natriuretic Peptide 157.4 H 12/24/22 16:35: Lactic Acid 1.3 Charges/Coding Visit Charges Inpatient E&M: 80063 Init Hosp L3 Procedures Hospitalists Procedures: 87553 Advncd Care Plan 30 Min
[2022-12-24 17:23] LABS: Lactic Acid 1.3 mmol/L (0.4-1.9)
[2022-12-24] MEDS: MethylPREDNISolone 125 MG/2 ML Vial IV (17:55)
[2022-12-24 18:23] LABS: Magnesium 2.5 mg/dL (1.6-2.6)
[2022-12-24] MEDS: 0.9% Saline Lock 10 ML Syringe IV ×2 (20:25→23:15)
--- NOTE | 2022-12-24 22:06 | CPS ---
Patient refuses to wear hospital bipap H.S. and states she is non-compliant with home Bipap usage
--- NOTE | 2022-12-24 22:45 | PCM.RX.CS ---
Consult Pharmacy has been consulted to manage selected antiobiotic: Vancomycin Type of Consult: New start Labs: Sodium 135 mmol/L (136-145) L 12/24/22 14:30 Potassium 3.6 mmol/L (3.5-5.1) 12/24/22 14:30 Chloride 101 mmol/L (98-107) 12/24/22 14:30 Carbon Dioxide 30.0 mmol/L (21.0-32.0) 12/24/22 14:30 Anion Gap 4 (5-15) L 12/24/22 14:30 BUN 22 mg/dL (7-18) H 12/24/22 14:30 Creatinine 1.22 mg/dL (0.55-1.02) H 12/24/22 14:30 Est GFR (MDRD) Af Amer 57 mL/min (>60) L 12/24/22 14:30 Est GFR (MDRD) Non-Af 47 mL/min (>60) L 12/24/22 14:30 BUN/Creatinine Ratio 18.0 RATIO (10-20) 12/24/22 14:30 Glucose 182 mg/dL (74-106) H 12/24/22 14:30 Microbiology: Microbiology 12/24/22 19:10 Sputum, Expectorated/Coughed Gram Stain - Preliminary Goal Trough: 15-20 mcg/mL Pharmacy Plan for Drug Dosing: Pharmacy Service will continue to monitor and adjust dosing as required. Medications Vancomycin HCl 1,500 mg/ (Sodium Chloride) 530 mls @ 250 mls/hr IV Q24H ALICE Discontinued Medications Vancomycin HCl 1,750 mg/ (Sodium Chloride) 535 mls @ 250 mls/hr IV X1 ONE Stop: 12/24/22 22:38 Last Admin: 12/24/22 22:34 Dose: Infused Follow-Up Labs: Trough Vancomycin Labs to be done on [date and time ordered]: 12/26 @ 1999
[2022-12-24] MEDS: APIXABAN 5 MG TABLET PO (23:14)
[2022-12-24] MEDS: Metoprolol Tartrate 50 MG Tablet PO (23:14)
[2022-12-24] MEDS: guaiFENesin/D-Methorphan TAB.SR.12H 1 TABLET PO (23:14)
[2022-12-24] MEDS: Methylprednisolone Sod Succ 40 MG/ML VIAL IV (23:15)
[2022-12-24 23:19] LABS: Probe Check PASS; Specimen Processing Control PASS
[2022-12-25] VITALS (10 sets, daily range): BP systolic 131–160; BP diastolic 60–80; PULSE 70–89; RESP 18–22; TEMP 36.3–36.8; O2SAT 91–96; BMI 41.2
[2022-12-25] MEDS: 0.9% Saline Lock 10 ML Syringe IV ×4 (05:21→22:47)
[2022-12-25] MEDS: Methylprednisolone Sod Succ 40 MG/ML VIAL IV ×3 (05:21→21:51)
[2022-12-25 05:51] LABS: Absolute Lymphocyte Count 0.47 X10^3/uL (0.83-4.51); Absolute Neutrophil Count 20.6 X10^3/uL (2.0-7.7); Basophil# 0.04 X10^3/uL; Basophil% 0.2 % (0-1); Hematocrit 36.5 % (37-47); Hemoglobin 11.5 g/dL (12.0-15.0); Lymphocyte # 0.47 X10^3/ul (0.83-4.51); Lymphocyte % 2.2 % (19-41); Mean Corp Hgb Conc 31.5 g/dL (32-36); Mean Corpuscular Hgb 30.3 pg (27.0-32.0); Mean Corpuscular Volume 96.1 fL (81-99); Mean Platelet Vol. 9.7 fl (6.2-12.0); Monocyte# 0.15 X10^3/uL; Monocyte% 0.7 % (0-10); NRBC Flagged by Analyzer 0 % (0-5); Neutrophil # 20.61 X10^3/uL (2.7-7.7); Neutrophil % 95.8 % (47-70); POSITIVE DIFFERENTIAL YES; Platelet Count 348 K/mm3 (150-450); RBC Distribution Width CV 14.1 % (11.6-14.6); RBC Distribution Width SD 49.5 fl (35.1-43.9); White Blood Count 21.5 K/mm3 (4.4-11.0)
[2022-12-25 06:19] LABS: Differential Indicated SCAN CRITERIA MET
[2022-12-25 06:23] LABS: Anion Gap 6 (5-15); BUN 22 mg/dL (7-18); Calcium,Total 8.7 mg/dL (8.5-10.1); Chloride 104 mmol/L (98-107); Creatinine, Serum 1.05 mg/dL (0.55-1.02); EST Glomerular Filtration Rate 56 mL/min (>60); Est Glom Filt Rate - Afr Amer 67 mL/min (>60); Glucose 180 mg/dL (74-106); Sodium Level 138 mmol/L (136-145)
[2022-12-25 06:34] LABS: Differential Comment SCANNED
--- NOTE | 2022-12-25 06:54 | PCM.RX.CS ---
Consult Type of Consult: Follow-up Suspected Infection: Pneumonia Labs: Sodium 138 mmol/L (136-145) 12/25/22 05:23 Potassium 4.0 mmol/L (3.5-5.1) 12/25/22 05:23 Chloride 104 mmol/L (98-107) 12/25/22 05:23 Carbon Dioxide 28.0 mmol/L (21.0-32.0) 12/25/22 05:23 Anion Gap 6 (5-15) 12/25/22 05:23 BUN 22 mg/dL (7-18) H 12/25/22 05:23 Creatinine 1.05 mg/dL (0.55-1.02) H 12/25/22 05:23 Est GFR (MDRD) Af Amer 67 mL/min (>60) 12/25/22 05:23 Est GFR (MDRD) Non-Af 56 mL/min (>60) L 12/25/22 05:23 BUN/Creatinine Ratio 21.0 RATIO (10-20) H 12/25/22 05:23 Glucose 180 mg/dL (74-106) H 12/25/22 05:23 Microbiology: Microbiology 12/24/22 22:09 Mucosa - Nasopharyngeal Respiratory Panel (PCR) - Final 12/24/22 19:10 Sputum, Expectorated/Coughed Gram Stain - Preliminary Goal Trough: 15-20 mcg/mL Pharmacy Plan for Drug Dosing: DAILY ASSESSMENT Current Vancomycin Dose: 1500mg Q24H Number of Doses Received: 1750mg x1 loading dose Current Renal Function: sCr 1.05 and CrCl 62.9 ml/min (AdjBW 76.6kg) Renal Function Trend: stable Any Change in Vanc Plan: Yes - adjust Vancomycin dosing regimen to 1000mg Q12H Pending Level: Vancomycin trough @ 0730 12/26/22 Pharmacy Service will continue to monitor and adjust dosing as required. Labs to be done on [date and time ordered]: Vancomycin trough @ 0730 12/26/22
[2022-12-25] MEDS: Ipratropium/Albuterol Sulfate 3 ML AMPUL.NEB INHALATION ×4 (07:07→19:26)
[2022-12-25 07:28] LABS: M R Staph aureus DNA By PCR Negative (Negative); Probe Check PASS; Specimen Processing Control PASS
[2022-12-25] MEDS: CLARIFY ORDER 1 EACH NOTE (08:00)
[2022-12-25] MEDS: Vancomycin IV 1,000 MG/200 ML BAG 200 MG IV ×2 (10:25→21:51)
[2022-12-25] MEDS: dilTIAZem CD 240 MG Capsule PO (10:26)
[2022-12-25] MEDS: guaiFENesin/D-Methorphan TAB.SR.12H 1 TABLET PO ×2 (10:27→21:51)
[2022-12-25] MEDS: APIXABAN 5 MG TABLET PO ×2 (10:27→21:51)
[2022-12-25] MEDS: Furosemide 40 MG Tablet PO (10:27)
[2022-12-25] MEDS: Metoprolol Tartrate 50 MG Tablet PO ×2 (10:28→21:51)
[2022-12-25] MEDS: guaiFENesin/Codeine 5 ML UDC 10 ML PO ×2 (12:16→19:13)
[2022-12-25] MEDS: Benzonatate 100 MG Capsule PO ×3 (12:16→23:46)
[2022-12-25] MEDS: Senna/Docusate Sodium 1 Tablet 2 TABLET PO (13:36)
--- NOTE | 2022-12-25 17:06 | PCM.PROGNOTE ---
Subjective Subjective Patient seen and examined. She was admitted with a complaint of shortness of breath. She has been managed for acute exacerbation of COPD. Patient still feels short of breath. She feels her breathing has started improving a bit. She is coughing. She denies any wheezing, nausea or vomiting or any other symptoms. Review of systems otherwise negative.She is on 3L of oxygen by nasal canula. Objective Data Objective Data Vital Signs: Vital Signs Temp Pulse Resp BP Pulse Ox O2 Del Method O2 Flow Rate 97.4 F L 89 20 H 139/62 H 92 Nasal Cannula 3 12/25/22 11:00 12/25/22 14:59 12/25/22 14:59 12/25/22 11:00 12/25/22 11:00 12/25/22 11:00 12/25/22 13:06 Oxygen Flow Rate (L/min) 3 Oxygen Delivery Method Nasal Cannula Weight: 241 lb 6.499 oz Body Mass Index (BMI) 41.2 Intake & Output: Intake and Output for Last 24 Hours 12/23/22 12/24/22 12/25/22 23:59 23:59 23:59 Intake Total 635 / 635 300 / 300 Output Total 1000 / 1000 Balance 635 / 35 -700 / -700 Lab / Micro Data Result Diagrams: 12/25/22 05:23 12/25/22 05:23 Labs: Laboratory Results - last 24 hr 12/24/22 14:30: Magnesium 2.5 12/24/22 16:35: Lactic Acid 1.3 12/24/22 22:09: COVID-19 (CECILIO) Negative 12/25/22 05:15: MRSA (PCR) Negative 12/25/22 05:23: WBC 21.5 H, RBC 3.80 L, Hgb 11.5 L, Hct 36.5 L, MCV 96.1, MCH 30.3, MCHC 31.5 L, RDW Std Deviation 49.5 H, RDW Coeff of Baltazar 14.1, Plt Count 348, MPV 9.7, Immature Gran % (Auto) 1.100 H, Neut % (Auto) 95.8 H, Lymph % (Auto) 2.2 L, [place] % (Auto) 0.7, Eos % (Auto) 0.0, Baso % (Auto) 0.2, Absolute Neuts (auto) 20.6 H, Absolute Lymphs (auto) 0.47 L, Nucleated RBC % 0, Differential Comment SCANNED 12/25/22 05:23: Sodium 138, Potassium 4.0, Chloride 104, Carbon Dioxide 28.0, Anion Gap 6, BUN 22 H, Creatinine 1.05 H, Estim Creat Clear Calc 44.90, Est GFR (MDRD) Af Amer 67, Est GFR (MDRD) Non-Af 56 L, BUN/Creatinine Ratio 21.0 H, Glucose 180 H, Calcium 8.7 Micro: Microbiology 12/24/22 19:10 Sputum, Expectorated/Coughed Gram Stain - Final 12/24/22 19:10 Sputum, Expectorated/Coughed Respiratory Culture - Preliminary Appears to be normal respiratory oliver. Further studies to follow. 12/24/22 21:50 Urine Catheter - Catheter Legionella Antigen - Final 12/24/22 21:50 Urine Catheter - Catheter Streptococcus pneumoniae Antigen (M - Final 12/24/22 22:09 Mucosa - Nasopharyngeal Respiratory Panel (PCR) - Final Rhythm Strip Rhythm Strip: Sinus Rhythm Rate: 80 Ectopy: None Physical Exam Const alert, oriented x3 and no apparent distress General Appearance: cooperative HEENT normocephalic, head/scalp atraumatic and moist oral mucous membranes Eyes PERRL and EOMs intact bilaterally Neck no lymphadenopathy and supple Lymph Lymphatic: no lymphadenopathy noted and no lymphedema noted Resp Resp Narrative: mildly diminished breath sounds bibasally, mild wheezing, no crackles. On 2L of oxygen. Cardio regular rate, regular rhythm, S1 normal heart sound, S2 normal heart sound and no murmurs GI normal to inspection, nondistended, normoactive bowel sounds, soft to palpation, non-tender and non-distended Extremity normal capillary refill Skin General Skin Exam: no breakdown Neuro CN's II-XII intact bilaterally, no focal motor deficits and no sensory deficits noted Motor Exam: strength 5/5 throughout Psych thought process normal and cooperative Appearance: appropriate Assessment & Plan Assessment/Plan (1) Asthma exacerbation in COPD: (2) Dyspnea: PLAN: Plan #Community acquired pneumonia Has a history of lung cancer and was also recently admitted. Chest x-ray showed left upper lobe infiltrate On IV vancomycin and Zosyn due to concerns about Pseudomonas. Also on IV Solu-Medrol. Breathing treatments of bronchodilators. Titrate oxygen to maintain saturation above 90%. WBC is elevated at 21.5 though steroids also likely playing a role. MRSA PCR was negative so will DC vancomycin Respiratory panel was negative. #Acute COPD exacerbation: On Solu-Medrol and antibiotics as above #Heart failure preserved ejection fraction: Not in exacerbation. Currently on Lasix. Monitor intake and output. #Hypertension: on metoprolol and cardizem #History of afib: on metoprolol and cardizem. On eliquis #History of lung cancer: S/p chemotherapy and radiation. Follow-up with Dr. Lentz oncologist on outpatient basis. DVT prophylaxis: On Eliquis Charges/Coding Visit Charges Inpatient E&M: 39218 Subs Hosp L2
--- NOTE | 2022-12-25 17:20 | CASEMGMT ---
BINA BROWNE Face to Face with patient for initial transition planning/care coordination assessment. RN HOLLIE introduced self and role at [facility]. Patient lying in bed, alert and oriented. Patient willing to participate in assessment and is able to answer all questions appropriately. Care providers, pharmacy, and demographics verified. Patient [facility], RN HOLLIE called and left message on referral line. Patient states she has no further needs or concerns at this time. CM to follow for discharge planning needs that may arise. PCP: [place] Specialists: Darwin, stone mason; Fred Carter tying machine operator Preferred Pharmacy: [facility] Insurance: [employer] Prescription Benefit: yes Living Will/HPOA: yes, loyd Carver LNOK: son, sister Living Arrangements: Patient states she lives with son in a single story home with ramp to enter the home. Patient states she is independent at home. Transportation: son, sister DME/HHC: Patient states she has shower chair, BSC, grab bars, walker, nebulizer, pulse ox and home oxygen through [facility] with portability at 3lpm continuously. No previous SNF. Patient is active with [facility] for SN, will add PT/OT Disposition Plan: Patient to discharge home with resumption of HHC, family support, and follow-up plans in place. Radha PALMA, RN, CM
[2022-12-25] MEDS: Sodium Chloride 0.65% 1 SPRAY SPRAY.BTL 2 SPRAY NASAL (21:52)
[2022-12-25] MEDS: Ondansetron 4 MG/2 ML Vial IV (22:46)
[2022-12-26] VITALS (15 sets, daily range): BP systolic 138–150; BP diastolic 58–95; PULSE 78–92; RESP 16–20; TEMP 36.2–36.9; O2SAT 3–96; BMI 41.6
[2022-12-26] MEDS: Ipratropium/Albuterol Sulfate 3 ML AMPUL.NEB INHALATION ×5 (03:16→19:41)
[2022-12-26 07:06] LABS: Absolute Neutrophil Count 16.6 X10^3/uL (2.0-7.7); Basophil# 0.03 X10^3/uL; Basophil% 0.2 % (0-1); Hematocrit 34.6 % (37-47); Hemoglobin 10.9 g/dL (12.0-15.0); Lymphocyte % 2.8 % (19-41); Mean Corp Hgb Conc 31.5 g/dL (32-36); Mean Corpuscular Hgb 30.3 pg (27.0-32.0); Mean Corpuscular Volume 96.1 fL (81-99); Mean Platelet Vol. 9.6 fl (6.2-12.0); Monocyte# 0.31 X10^3/uL; Monocyte% 1.7 % (0-10); NRBC Flagged by Analyzer 0 % (0-5); Neutrophil # 16.63 X10^3/uL (2.7-7.7); Neutrophil % 93.8 % (47-70); POSITIVE DIFFERENTIAL YES; Platelet Count 386 K/mm3 (150-450); RBC Distribution Width CV 13.9 % (11.6-14.6); RBC Distribution Width SD 49.6 fl (35.1-43.9); White Blood Count 17.7 K/mm3 (4.4-11.0)
[2022-12-26 07:08] LABS: Differential Indicated SCAN CRITERIA MET
[2022-12-26 07:26] LABS: Differential Comment SCANNED
[2022-12-26 07:37] LABS: Anion Gap 4 (5-15); BUN 35 mg/dL (7-18); BUN/Creat Ratio 28.9 RATIO (10-20); Calcium,Total 8.4 mg/dL (8.5-10.1); Chloride 102 mmol/L (98-107); Creatinine, Serum 1.21 mg/dL (0.55-1.02); EST Glomerular Filtration Rate 47 mL/min (>60); Est Glom Filt Rate - Afr Amer 57 mL/min (>60); Estimated Creatinine Clearance 38.96 ml/min; Glucose 179 mg/dL (74-106); Potassium 4.3 mmol/L (3.5-5.1); Sodium Level 135 mmol/L (136-145)
[2022-12-26] MEDS: guaiFENesin/D-Methorphan TAB.SR.12H 1 TABLET PO ×2 (08:46→20:48)
[2022-12-26] MEDS: Metoprolol Tartrate 50 MG Tablet PO ×2 (08:47→20:48)
[2022-12-26] MEDS: dilTIAZem CD 240 MG Capsule PO (08:47)
[2022-12-26] MEDS: Furosemide 40 MG Tablet PO (08:48)
[2022-12-26] MEDS: APIXABAN 5 MG TABLET PO ×2 (08:48→20:48)
[2022-12-26] MEDS: guaiFENesin/Codeine 5 ML UDC 10 ML PO ×2 (08:55→17:34)
[2022-12-26 10:25] LABS: Vancomycin, Trough Level 17.1 ug/mL (5.0-15.0)
[2022-12-26] MEDS: Vancomycin IV 1,000 MG/200 ML BAG 200 MG IV ×2 (12:38→21:27)
--- NOTE | 2022-12-26 13:22 | PCM.RX.CS ---
Consult Pharmacy has been consulted to manage selected antiobiotic: Vancomycin Type of Consult: Follow-up Suspected Infection: Pneumonia Prior Doses of Antibiotics Received/Current Regimen: 1000MG IV Q12H Labs: Sodium 135 mmol/L (136-145) L 12/26/22 06:34 Potassium 4.3 mmol/L (3.5-5.1) 12/26/22 06:34 Chloride 102 mmol/L (98-107) 12/26/22 06:34 Carbon Dioxide 29.0 mmol/L (21.0-32.0) 12/26/22 06:34 Anion Gap 4 (5-15) L 12/26/22 06:34 BUN 35 mg/dL (7-18) H 12/26/22 06:34 Creatinine 1.21 mg/dL (0.55-1.02) H 12/26/22 06:34 Est GFR (MDRD) Af Amer 57 mL/min (>60) L 12/26/22 06:34 Est GFR (MDRD) Non-Af 47 mL/min (>60) L 12/26/22 06:34 BUN/Creatinine Ratio 28.9 RATIO (10-20) H 12/26/22 06:34 Glucose 179 mg/dL (74-106) H 12/26/22 06:34 Vancomycin Trough 17.1 ug/mL (5.0-15.0) H 12/26/22 09:30 Microbiology: Microbiology 12/24/22 19:10 Sputum, Expectorated/Coughed Gram Stain - Final 12/24/22 19:10 Sputum, Expectorated/Coughed Respiratory Culture - Preliminary GNR non ophthalmic pathologist 12/24/22 21:50 Urine Catheter - Catheter Legionella Antigen - Final 12/24/22 21:50 Urine Catheter - Catheter Streptococcus pneumoniae Antigen (M - Final 12/24/22 22:09 Mucosa - Nasopharyngeal Respiratory Panel (PCR) - Final Weight used for dosin kg Estimated Creatinine Clearance: 55 ML/MIN Goal Trough: 15-20 mcg/mL Pharmacy Plan for Drug Dosing: TROUGH TODAY 17.1 AND IN GOAL RANGE OF 15-20 MCG/ML. RENAL FUNCTION REVIEWED. CR CL ~55 USING ADJUSTED BODY WEIGHT 76.8KG. WILL CONTINUE SAME DOSE. REPEAT TROUGH ORDERED FOR 6.18 BEFORE ANOTHER 4TH DOSE PER POLICY. Pharmacy Service will continue to monitor and adjust dosing as required. Follow-Up Labs: Trough Vancomycin - 6.18.23 @2130 BEFORE 2200 DOSE
--- NOTE | 2022-12-26 14:02 | PCM.PROGNOTE ---
Subjective Subjective Patient seen and examined. He states he was feeling better today almost on 3 L of oxygen. She denied any fever, chills, palpitations, dizziness, nausea vomiting or any other symptoms. Review of systems otherwise negative. She has remained hemodynamically stable. Objective Data Objective Data Vital Signs: Vital Signs Temp Pulse Resp BP Pulse Ox O2 Del Method O2 Flow Rate 97.8 F 88 16 146/95 H 94 Nasal Cannula 3 12/26/22 10:44 12/26/22 10:44 12/26/22 10:44 12/26/22 10:44 12/26/22 10:44 12/26/22 10:44 12/26/22 10:44 Oxygen Flow Rate (L/min) [ 5 AMBULATING with Oxygen #3] Oxygen Flow Rate (L/min) [ 4 AMBULATING with Oxygen #2] Oxygen Flow Rate (L/min) [ 3 AMBULATING with Oxygen #1] Oxygen Flow Rate (L/min) [At 3 REST with Oxygen] Oxygen Flow Rate (L/min) 3 Oxygen Delivery Method Nasal Cannula Weight: 242 lb 8.136 oz Body Mass Index (BMI) 41.6 Intake & Output: Intake and Output for Last 24 Hours 12/24/22 12/25/22 12/26/22 23:59 23:59 23:59 Intake Total 635 / 635 1390 / 1390 540 / 540 Output Total 2400 / 2400 1100 / 1100 Balance 635 / 35 -1010 / -1010 -560 / -560 Lab / Micro Data Result Diagrams: 12/26/22 06:34 12/26/22 06:34 Labs: Laboratory Results - last 24 hr 12/26/22 06:34: WBC 17.7 H, RBC 3.60 L, Hgb 10.9 L, Hct 34.6 L, MCV 96.1, MCH 30.3, MCHC 31.5 L, RDW Std Deviation 49.6 H, RDW Coeff of Baltazar 13.9, Plt Count 386, MPV 9.6, Immature Gran % (Auto) 1.500 H, Neut % (Auto) 93.8 H, Lymph % (Auto) 2.8 L, [place] % (Auto) 1.7, Eos % (Auto) 0.0, Baso % (Auto) 0.2, Absolute Neuts (auto) 16.6 H, Absolute Lymphs (auto) 0.50 L, Nucleated RBC % 0, Differential Comment SCANNED 12/26/22 06:34: Sodium 135 L, Potassium 4.3, Chloride 102, Carbon Dioxide 29.0, Anion Gap 4 L, BUN 35 H, Creatinine 1.21 H, Estim Creat Clear Calc 38.96, Est GFR (MDRD) Af Amer 57 L, Est GFR (MDRD) Non-Af 47 L, BUN/Creatinine Ratio 28.9 H, Glucose 179 H, Calcium 8.4 L 12/26/22 09:30: Vancomycin Trough 17.1 H Micro: Microbiology 12/24/22 19:10 Sputum, Expectorated/Coughed Gram Stain - Final 12/24/22 19:10 Sputum, Expectorated/Coughed Respiratory Culture - Preliminary GNR non personnel adviser 12/24/22 21:50 Urine Catheter - Catheter Legionella Antigen - Final 12/24/22 21:50 Urine Catheter - Catheter Streptococcus pneumoniae Antigen (M - Final 12/24/22 22:09 Mucosa - Nasopharyngeal Respiratory Panel (PCR) - Final Rhythm Strip Rhythm Strip: Sinus Rhythm Rate: 80 Ectopy: None Physical Exam Const alert, oriented x3 and no apparent distress General Appearance: cooperative HEENT normocephalic, head/scalp atraumatic and moist oral mucous membranes Eyes PERRL and EOMs intact bilaterally Neck no lymphadenopathy and supple Lymph Lymphatic: no lymphadenopathy noted and no lymphedema noted Resp Resp Narrative: mildly diminished breath sounds bibasally, mild wheezing, no crackles. On 2L of oxygen. Cardio regular rate, regular rhythm, S1 normal heart sound, S2 normal heart sound and no murmurs GI normal to inspection, nondistended, normoactive bowel sounds, soft to palpation, non-tender and non-distended Extremity normal capillary refill Skin General Skin Exam: no breakdown Neuro CN's II-XII intact bilaterally, no focal motor deficits and no sensory deficits noted Motor Exam: strength 5/5 throughout Psych thought process normal and cooperative Appearance: appropriate Assessment & Plan Assessment/Plan (1) Asthma exacerbation in COPD: (2) Dyspnea: PLAN: Plan #Community acquired pneumonia Has a history of lung cancer. Chest x-ray showed left upper lobe infiltrate On IV vancomycin and Zosyn due to concerns about Pseudomonas. Also on IV Solu-Medrol. Breathing treatments of bronchodilators. Titrate oxygen to maintain saturation above 90%. WBC is down to 17 today MRSA PCR was negative so will DC vancomycin Respiratory panel was negative. Sputum cultures growing gram-negative rods none personnel adviser, speciation is pending. Urine for strep and Legionella negative Continue IV Zosyn today. She did have a walking pulse ox which showed that required up to 5 L of oxygen with ambulation. We will therefore continue treatment today to optimize her further. #Acute COPD exacerbation: On Solu-Medrol and antibiotics as above #Heart failure preserved ejection fraction: Not in exacerbation. Currently on Lasix. Monitor intake and output. #Hypertension: on metoprolol and cardizem #History of afib: on metoprolol and cardizem. On eliquis #History of lung cancer: S/p chemotherapy and radiation. Follow-up with Dr. Lentz oncologist on outpatient basis. DVT prophylaxis: On Eliquis Charges/Coding Visit Charges Inpatient E&M: 65499 Subs Hosp L2
[2022-12-26] MEDS: Senna/Docusate Sodium 1 Tablet 2 TABLET PO (18:05)
[2022-12-26] MEDS: 0.9% Saline Lock 10 ML Syringe IV (20:49)
[2022-12-26] MEDS: Ondansetron 4 MG/2 ML Vial IV (20:49)
[2022-12-27] VITALS (7 sets, daily range): BP systolic 141–150; BP diastolic 54–56; PULSE 77–92; RESP 16–24; TEMP 36.6–36.7; O2SAT 91–98; BMI 42.6
[2022-12-27 06:12] LABS: Absolute Lymphocyte Count 1.08 X10^3/uL (0.83-4.51); Absolute Neutrophil Count 9.1 X10^3/uL (2.0-7.7); Basophil# 0.07 X10^3/uL; Basophil% 0.6 % (0-1); Eosinophil# 0.01 X10^3/uL; Eosinophils% 0.1 % (0-5); Hematocrit 36.4 % (37-47); Lymphocyte # 1.08 X10^3/ul (0.83-4.51); Lymphocyte % 9.6 % (19-41); Mean Corp Hgb Conc 30.2 g/dL (32-36); Mean Corpuscular Hgb 29.8 pg (27.0-32.0); Mean Corpuscular Volume 98.6 fL (81-99); Mean Platelet Vol. 9.7 fl (6.2-12.0); Monocyte# 0.58 X10^3/uL; Monocyte% 5.1 % (0-10); NRBC Flagged by Analyzer 0 % (0-5); Neutrophil # 9.07 X10^3/uL (2.7-7.7); Neutrophil % 80.4 % (47-70); Platelet Count 401 K/mm3 (150-450); RBC Distribution Width CV 14.1 % (11.6-14.6); RBC Distribution Width SD 51.3 fl (35.1-43.9); Red Blood Count 3.69 M/mm3 (4.2-5.4); White Blood Count 11.3 K/mm3 (4.4-11.0)
[2022-12-27 06:38] LABS: Anion Gap 4 (5-15); BUN 37 mg/dL (7-18); BUN/Creat Ratio 32.7 RATIO (10-20); Calcium,Total 8.2 mg/dL (8.5-10.1); Chloride 103 mmol/L (98-107); Creatinine, Serum 1.13 mg/dL (0.55-1.02); EST Glomerular Filtration Rate 51 mL/min (>60); Est Glom Filt Rate - Afr Amer 62 mL/min (>60); Estimated Creatinine Clearance 41.72 ml/min; Glucose 197 mg/dL (74-106); Potassium 4.2 mmol/L (3.5-5.1); Sodium Level 136 mmol/L (136-145)
[2022-12-27] MEDS: Ipratropium/Albuterol Sulfate 3 ML AMPUL.NEB INHALATION ×2 (08:37→12:08)
[2022-12-27] MEDS: dilTIAZem CD 240 MG Capsule PO (10:46)
[2022-12-27] MEDS: APIXABAN 5 MG TABLET PO (10:46)
[2022-12-27] MEDS: Furosemide 40 MG Tablet PO (10:46)
[2022-12-27] MEDS: Metoprolol Tartrate 50 MG Tablet PO (10:46)
[2022-12-27] MEDS: guaiFENesin/D-Methorphan TAB.SR.12H 1 TABLET PO (10:47)
[2022-12-27] MEDS: guaiFENesin/Codeine 5 ML UDC 10 ML PO (10:48)
[2022-12-27] MEDS: Vancomycin IV 1,000 MG/200 ML BAG 200 MG IV (10:55)
--- NOTE | 2022-12-27 11:47 | PCM.DC.SUM ---
Providers Date of Admission: 12/24/22 Date of Discharge: 12/27/22 Primary Care Physician: Dr. Josesito Guthrie MD Reason For Visit: ACUTE ON CHR HYPOXIA RESP FAILURE Diagnosis Discharge Diagnosis (1) Asthma exacerbation in COPD: Status: Resolved Code(s): J44.1 - Chronic obstructive pulmonary disease with (acute) exacerbation; J45.901 - Unspecified asthma with (acute) exacerbation (2) Dyspnea: Status: Resolved Code(s): R06.00 - Dyspnea, unspecified Plan #Community acquired pneumonia Has a history of lung cancer. Chest x-ray showed left upper lobe infiltrate On IV vancomycin and Zosyn due to concerns about Pseudomonas. Also on IV Solu-Medrol. Breathing treatments of bronchodilators. Titrate oxygen to maintain saturation above 90%. WBC is down to 17 today MRSA PCR was negative so will DC vancomycin Respiratory panel was negative. Sputum cultures growing gram-negative rods none operations support professionals, speciation is pending. Urine for strep and Legionella negative Continue IV Zosyn today. She did have a walking pulse ox which showed that required up to 5 L of oxygen with ambulation. We will therefore continue treatment today to optimize her further. #Acute COPD exacerbation: On Solu-Medrol and antibiotics as above #Heart failure preserved ejection fraction: Not in exacerbation. Currently on Lasix. Monitor intake and output. #Hypertension: on metoprolol and cardizem #History of afib: on metoprolol and cardizem. On eliquis #History of lung cancer: S/p chemotherapy and radiation. Follow-up with Dr. Lentz oncologist on outpatient basis. DVT prophylaxis: On Eliquis Medications at Discharge Home Medications apixaban 5 mg tablet (Eliquis) 5 mg PO BID #60 tabs 10/26/22 diltiazem HCl 240 mg capsule,24 hr,extended release 240 mg PO DAILY heart 12/20/22 metoprolol tartrate 50 mg tablet 50 mg PO BID heart 12/20/22 furosemide 40 mg tablet 40 mg PO DAILY #90 tabs 12/21/22 acetaminophen 500 mg tablet 1,000 mg PO DAILY PRN Pain 12/24/22 dextromethorphan polistirex 30 mg/5 mL oral susp ext.release 12hr (Delsym 12 hour) 5 ml PO Q12H PRN Cough 12/24/22 cefdinir 300 mg capsule 300 mg PO BID #14 caps 12/27/22 Hospital Course Operations None Procedures None Summary of Care Provided Minutes Spent on Discharge: 45 Hospital Course: Patient is a 67-year-old female with a past medical history as outlined who is on today through the ED on 12/24/2022 with a complaint of shortness of breath. He had just been admitted and discharged the day before after being treated for acute on chronic heart failure preserved ejection fraction. She went home and felt short of breath so she came back to the ED. She had a history of chronic respiratory failure on 3 to 4 L of oxygen at home for COPD and lung cancer. She had completed radiation. Said her shortness of breath had worsened and she had a cough which is productive of yellowish-brown sputum. Chest x-ray showed left upper lobe infiltrates. She was admitted and managed for community-acquired pneumonia. She was started on IV vancomycin and Zosyn due to concerns about Pseudomonas and also placed on breathing treatments with bronchodilators and steroids. Respiratory panel was negative. Sputum culture did grow Proteus mirabilis. His shortness of breath gradually improved and she went down to her baseline requiring 3 L of oxygen with ambulation. She was discharged on 12/27/2022 on p.o. cefdinir 300 mg twice daily for 1 week, based on the sensitivity results from the sputum culture. She is to follow-up with her primary care doctor and her archaeology professor as well as oncologist within 1 to 2 weeks. Patient seen and examined prior to discharge. She felt much better. She felt her breathing had improved and she was ready to go home. Review of systems otherwise negative. Labs and vitals reviewed. Home medication reviewed and reconciled. Physical Exam Const alert, oriented x3 and no apparent distress General Appearance: cooperative, comfortable and well kempt HEENT normocephalic, head/scalp atraumatic, hearing grossly normal bilaterally, moist oral mucous membranes and oropharynx normal Mouth: oral and palatal mucosa normal Eyes PERRL and EOMs intact bilaterally Neck no lymphadenopathy and supple Lymph Lymphatic: no lymphadenopathy noted and no lymphedema noted Resp Resp Narrative: mildly diminished breath sounds bibasally, mild wheezing, no crackles. On 3L of oxygen. Cardio regular rate, regular rhythm, S1 normal heart sound, S2 normal heart sound and no murmurs GI normal to inspection, nondistended, normoactive bowel sounds, soft to palpation, non-tender and non-distended Extremity normal to inspection, full ROM and normal capillary refill Skin no rashes or lesions noted General Skin Exam: no breakdown Neuro oriented x3, CN's II-XII intact bilaterally, moves all extremities, no focal motor deficits and no sensory deficits noted Sensorium / Orientation: awake and alert Motor Exam: strength 5/5 throughout Psych thought process normal and cooperative Appearance: appropriate Weight / BMI Weight Weight: 248 lb 7.375 oz Body Mass Index (BMI) 42.6 ABG / Lab / Microbiology Data Result Diagrams: 12/27/22 05:45 12/27/22 05:45 Laboratory: Laboratory Results - last 24 hr 12/27/22 05:45: WBC 11.3 H, RBC 3.69 L, Hgb 11.0 L, Hct 36.4 L, MCV 98.6, MCH 29.8, MCHC 30.2 L, RDW Std Deviation 51.3 H, RDW Coeff of Baltazar 14.1, Plt Count 401, MPV 9.7, Immature Gran % (Auto) 4.200 H, Neut % (Auto) 80.4 H, Lymph % (Auto) 9.6 L, [place] % (Auto) 5.1, Eos % (Auto) 0.1, Baso % (Auto) 0.6, Absolute Neuts (auto) 9.1 H, Absolute Lymphs (auto) 1.08, Nucleated RBC % 0 12/27/22 05:45: Sodium 136, Potassium 4.2, Chloride 103, Carbon Dioxide 29.0, Anion Gap 4 L, BUN 37 H, Creatinine 1.13 H, Estim Creat Clear Calc 41.72, Est GFR (MDRD) Af Amer 62, Est GFR (MDRD) Non-Af 51 L, BUN/Creatinine Ratio 32.7 H, Glucose 197 H, Calcium 8.2 L Microbiology: Microbiology 12/24/22 19:10 Sputum, Expectorated/Coughed Gram Stain - Final 12/24/22 19:10 Sputum, Expectorated/Coughed Respiratory Culture - Final Proteus mirabilis 12/24/22 16:30 Blood Culture (Wb) - Anticubital Left Blood Culture - Preliminary No growth in 48 hours. 12/24/22 16:35 Blood Culture (Wb) - Anticubital Right Blood Culture - Preliminary No growth in 48 hours. 12/24/22 21:50 Urine Catheter - Catheter Legionella Antigen - Final 12/24/22 21:50 Urine Catheter - Catheter Streptococcus pneumoniae Antigen (M - Final 12/24/22 22:09 Mucosa - Nasopharyngeal Respiratory Panel (PCR) - Final D/C Instructions Discharge Diet: Low fat / Low cholesterol Discharge Activity: Return to Normal Activity Weight Bearing Status: Weight bearing as tolerated Call your doctor if you observe: Fever of 101 or Higher, Shortness of breath, Dizziness, Swelling in the ankles, Chest pain and Increased palpitations (irregular heartbeat) Meaningful Use Info Meaningful Use Diagnoses (Choose all that apply): None applicable Discharge Plan Admission Admit Date/Time: 12/24/22 17:18 Primary Reason for Your Visit: Acute COPD exacerbation, pneumonia Attending Provider: Valencia Funes Primary Care Provider: Josesito Guthrie Consulting Providers: Luis Robledo Instructions Patient Instructions: ED Pneumonia (Adult) Additional Instructions / Restrictions: Patient counseled to quit smoking. Discharge Orders/Prescriptions Prescriptions: New cefdinir 300 mg capsule 300 mg PO BID Qty: 14 0RF Continued Eliquis 5 mg Tablet 5 mg PO BID Qty: 60 1RF diltiazem HCl 240 mg capsule,extended release 24 hr 240 mg PO DAILY metoprolol tartrate 50 mg tablet 50 mg PO BID furosemide 40 mg Tablet 40 mg PO DAILY Qty: 90 0RF dextromethorphan polistirex [Delsym 12 hour] 30 mg/5 mL Suspension,Extended Rel 12 Hr 5 ml PO Q12H PRN (Reason: Cough) acetaminophen 500 mg Tablet 1,000 mg PO DAILY PRN (Reason: Pain) Referrals / Follow Up: Josesito Guthrie MD [Primary Care Provider] - Within 2 Weeks Disposition Disposition (needs filled in before D/C Order can be placed): Home, Self Care Charges/Coding Visit Charges Inpatient E&M: 21501 Disch Hosp >30min
--- NOTE | 2022-12-27 11:50 | NURSING ---
I spoke with Marla at [facility] to inform her that the pt will be d/c today. I also faxed over the d/c instructions.
== END 2022-12-27 14:18 | disposition home or self-care (01) | DRG 137 ==
LOC: ED 16:59 → PCU 18:04
PROVIDERS: Admitting Provider Internal Medicine; Emergency Provider Emergency Medicine; PCP Internal Medicine; Visit Provider Student in an Organized Health Care Education/Training Program
DX: J15.6 Pneumonia due to other Gram-negative bacteria (principal); J96.11 Chronic respiratory failure with hypoxia; I11.0 Hypertensive heart disease with heart failure; I50.32 Chronic diastolic (congestive) heart failure; J44.1 Chronic obstructive pulmonary disease with (acute) exacerbation; J44.0 Chronic obstructive pulmonary disease with (acute) lower respiratory infection; I73.9 Peripheral vascular disease, unspecified; I48.0 Paroxysmal atrial fibrillation; E66.01 Morbid (severe) obesity due to excess calories; Z68.41 Body mass index [BMI] 40.0-44.9, adult; F17.210 Nicotine dependence, cigarettes, uncomplicated; Z79.01 Long term (current) use of anticoagulants; Z99.81 Dependence on supplemental oxygen; Z79.899 Other long term (current) drug therapy; Z85.118 Personal history of other malignant neoplasm of bronchus and lung; Z86.718 Personal history of other venous thrombosis and embolism
CPT/HCPCS: 36415; 51702; 71045; 80048; 80202; 83605; 83735; 83880; 84484; 85025; 87040; 87070; 87077; 87186; 87205; 87428; 87449; 87633; 87635; 87641; 93005; 94640; 94668; 96374; 96375; 97110; 97162; 97166; 97530; 99221; 99285; J7040; A4216; G0378; J1940; J2405

== ENCOUNTER 2023-01-05 18:09 | Outpatient (RCR) | payer MEDICAID, SELFPAY ==
[2023-01-05 18:32] LABS: Color, Urine Yellow (Yellow); Glucose, Dipstick Normal (Normal); Ketone-Dipstick Negative (Negative); Leukocyte Esterase-Dipstick 25 /ul (Negative); Nitrite-Dipstick Negative (Negative); Occult Blood-Urine Negative /ul (Negative); Protein-Dipstick Negative (Negative); Specific Gravity, Urine 1.025 (1.002-1.030); Urine Bilirubin Dipstick Negative (Negative); Urine Clarity Clear (Clear); Urine Urobilinogen Normal (Normal)
== END 2023-01-05 18:30 | disposition home or self-care (01) ==
LOC: HHLAB 18:09
PROVIDERS: PCP Internal Medicine; Visit Provider Internal Medicine
DX: J44.1 Chronic obstructive pulmonary disease with (acute) exacerbation (principal); J44.0 Chronic obstructive pulmonary disease with (acute) lower respiratory infection; J18.9 Pneumonia, unspecified organism
CPT/HCPCS: 81002; 87086; 87088

== ENCOUNTER → 2023-01-06 | Outpatient (CLI) | payer MEDICAID, SELFPAY ==
[2023-01-06 16:23] LABS: Absolute Lymphocyte Count 0.92 X10^3/uL (0.83-4.51); Absolute Neutrophil Count 6.2 X10^3/uL (2.0-7.7); Basophil# 0.03 X10^3/uL; Basophil% 0.4 % (0-1); Eosinophil# 0.08 X10^3/uL; Hematocrit 35.5 % (37-47); Hemoglobin 10.9 g/dL (12.0-15.0); Lymphocyte # 0.92 X10^3/ul (0.83-4.51); Mean Corp Hgb Conc 30.7 g/dL (32-36); Mean Corpuscular Hgb 29.9 pg (27.0-32.0); Mean Corpuscular Volume 97.5 fL (81-99); Mean Platelet Vol. 9.8 fl (6.2-12.0); Monocyte# 0.39 X10^3/uL; Monocyte% 5.1 % (0-10); NRBC Flagged by Analyzer 0 % (0-5); Neutrophil # 6.19 X10^3/uL (2.7-7.7); Neutrophil % 80.8 % (47-70); Platelet Count 382 K/mm3 (150-450); RBC Distribution Width CV 14.3 % (11.6-14.6); RBC Distribution Width SD 50.7 fl (35.1-43.9); Red Blood Count 3.64 M/mm3 (4.2-5.4); White Blood Count 7.7 K/mm3 (4.4-11.0)
[2023-01-06 17:03] LABS: BNP,B-Type NATRIURETIC PEPTIDE 201.3 pg/mL (0-100)
[2023-01-06 17:08] LABS: Anion Gap 2 (5-15); BUN 17 mg/dL (7-18); BUN/Creat Ratio 14.9 RATIO (10-20); Calcium,Total 8.7 mg/dL (8.5-10.1); Chloride 108 mmol/L (98-107); Creatinine, Serum 1.14 mg/dL (0.55-1.02); EST Glomerular Filtration Rate 51 mL/min (>60); Est Glom Filt Rate - Afr Amer 61 mL/min (>60); Glucose 117 mg/dL (74-106); Potassium 4.1 mmol/L (3.5-5.1); Sodium Level 139 mmol/L (136-145)
== END | disposition home or self-care (01) ==
LOC: LAB 15:48
PROVIDERS: PCP Internal Medicine; Referring Provider Nurse Practitioner Gerontology; Visit Provider Nurse Practitioner Gerontology
DX: R06.00 Dyspnea, unspecified (principal)
CPT/HCPCS: 36415; 80048; 83880; 85025

== ENCOUNTER → 2023-03-10 | Outpatient (CLI) | payer MEDICAID, SELFPAY ==
--- NOTE | 2023-03-10 15:20 | RAD_ITS ---
INDICATION: SOB, Cough EXAMINATION/TECHNIQUE: X-RAY - XR Chest 2 Views COMPARISON: 12/24/2022. FINDINGS: LINES/DEVICES: None. LUNGS: No consolidation, edema or effusion. No pneumothorax. MEDIASTINUM AND CARDIOVASCULAR STRUCTURES: Cardiac silhouette mildly enlarged. Central airways and mediastinal contour are unremarkable. Atherosclerosis of aorta. BONES AND SOFT TISSUES: Possible osteopenia with degenerative disease of the spine. RAD/Chest PA and Lateral IMPRESSION: No acute cardiopulmonary disease. Electronically Signed: Lucrecia Donovan MD at 17:23 EDT ,
[2023-03-10 15:54] LABS: Absolute Lymphocyte Count 0.96 X10^3/uL (0.83-4.51); Absolute Neutrophil Count 5.5 X10^3/uL (2.0-7.7); Basophil# 0.04 X10^3/uL; Basophil% 0.6 % (0-1); Eosinophil# 0.14 X10^3/uL; Hemoglobin 11.7 g/dL (12.0-15.0); Lymphocyte # 0.96 X10^3/ul (0.83-4.51); Lymphocyte % 13.8 % (19-41); Mean Corp Hgb Conc 30.8 g/dL (32-36); Mean Corpuscular Hgb 29.1 pg (27.0-32.0); Mean Corpuscular Volume 94.5 fL (81-99); Mean Platelet Vol. 9.9 fl (6.2-12.0); Monocyte# 0.37 X10^3/uL; Monocyte% 5.3 % (0-10); NRBC Flagged by Analyzer 0 % (0-5); Neutrophil # 5.45 X10^3/uL (2.7-7.7); Platelet Count 349 K/mm3 (150-450); RBC Distribution Width CV 15.4 % (11.6-14.6); RBC Distribution Width SD 53.4 fl (35.1-43.9); Red Blood Count 4.02 M/mm3 (4.2-5.4)
[2023-03-10 16:17] LABS: Anion Gap 4 (5-15); BUN 20 mg/dL (7-18); BUN/Creat Ratio 16.7 RATIO (10-20); Calcium,Total 9.1 mg/dL (8.5-10.1); Chloride 100 mmol/L (98-107); EST Glomerular Filtration Rate 48 mL/min (>60); Est Glom Filt Rate - Afr Amer 58 mL/min (>60); Glucose 111 mg/dL (74-106); Potassium 3.7 mmol/L (3.5-5.1); Sodium Level 136 mmol/L (136-145)
[2023-03-10 16:19] LABS: BNP,B-Type NATRIURETIC PEPTIDE 207.7 pg/mL (0-100)
== END | disposition home or self-care (01) ==
PROVIDERS: PCP Internal Medicine; Referring Provider Nurse Practitioner Gerontology; Visit Provider Nurse Practitioner Gerontology
DX: R06.02 Shortness of breath (principal); R05.9 Cough, unspecified
CPT/HCPCS: 36415; 71046; 80048; 83880; 85025

== ENCOUNTER → 2023-03-17 | Outpatient (CLI) | payer MEDICAID, SELFPAY ==
[2023-03-17 16:18] LABS: Anion Gap 5 (5-15); BUN 20 mg/dL (7-18); BUN/Creat Ratio 19.6 RATIO (10-20); Calcium,Total 8.9 mg/dL (8.5-10.1); Chloride 107 mmol/L (98-107); Creatinine, Serum 1.02 mg/dL (0.55-1.02); EST Glomerular Filtration Rate 57 mL/min (>60); Est Glom Filt Rate - Afr Amer 69 mL/min (>60); Glucose 145 mg/dL (74-106); Potassium 3.9 mmol/L (3.5-5.1); Sodium Level 141 mmol/L (136-145)
== END | disposition home or self-care (01) ==
LOC: LAB 14:16
PROVIDERS: PCP Internal Medicine; Referring Provider Nurse Practitioner Gerontology; Visit Provider Nurse Practitioner Gerontology
DX: R06.02 Shortness of breath (principal)
CPT/HCPCS: 36415; 80048

== ENCOUNTER 2023-03-22 10:26 | Day surgery (SDC) | payer MEDICAID, SELFPAY ==
[2023-03-19 09:33] VITALS: BMI 39.4
--- NOTE | 2023-03-22 12:17 | PCM.OP.PRO ---
Procedure Report Date of Procedure: 03/22/23 DC cardioversion 67-year-old lady with a history of atrial fibrillation. It was confirmed that the patient has been on appropriate anticoagulation. She was brought to the cardiac catheterization lab in the postabsorptive nonsedated state. The patient was seen by Dr. Suazo of the pulmonary critical care division. Informed consent was obtained. Anterior-posterior pads were applied. 30 mg of intravenous propofol was administered in 200 J of synchronized DC cardioversion biphasic energy were applied with prompt reversal to sinus rhythm. Patient tolerated the procedure well. Postprocedure EKG demonstrated sinus rhythm. Conclusion: Successful DC cardioversion from atrial fibrillation to sinus rhythm.
--- NOTE | 2023-03-22 12:21 | PRO.PCM_ITS ---
Procedure Report CONSCIOUS SEDATION REPORT BRIEF HISTORY OF PRESENT ILLNESS: The patient is a 67-year-old female who presented to [facility] for an elective outpatient cardioversion due to underlying atrial fibrillation. The patient reports no PO intake since midnight, but is currently therapeutic on anticoagulation. The patient does have a history of obstructive sleep apnea and was recently diagnosed with lung cancer. The patient reports a history of smoking and COPD. The patient denies any recent constitutional symptoms such as fevers, chills, nausea or vomiting. The patient denies previous applicable anesthetic complications. Patient reports taking Eliquis on the day of the procedure. Patient's last known ejection fraction was 55% PHYSICAL EXAMINATION: VITAL SIGNS: Reviewed and were acceptable. GENERAL: The patient is a female, in no apparent distress, speaking in full sentences. HEENT: Normocephalic, atraumatic. Mucous membranes are moist and pink. Good mouth opening noted. Trachea is midline. Good neck mobility. MP IV CHEST: S1, S2 irregularly irregular. No murmurs, rubs or gallops were noted. LUNGS: Clear to auscultation bilaterally without appreciable wheezes, rales or rhonchi. ABDOMEN: Soft, nontender, nondistended. Positive bowel sounds. EXTREMITIES: There is no clubbing, cyanosis or edema. ASA Class: II DESCRIPTION OF PROCEDURE: After confirmation of informed consent, the patient's anesthesia plan was reviewed in detail. Propofol was chosen. Risks and benefits were reviewed and the patient agreed to proceed. At 12:09 PM, the patient was given 40 mg of propofol. The patient achieved an appropriate level of sedation and received 1 attempt synchronized cardioversion, at [address] Granados at the bedside. This was successful in achieving normal sinus rhythm. The patient was monitored until 12:24 PM, at which time the patient reached their baseline mental status and function. The patient tolerated the procedure well. COMPLICATIONS: None ESTIMATED BLOOD LOSS: None RECOMMENDATIONS: Okay to recover in usual fashion. Assessment & Plan Assessment/Plan (1) Atrial fibrillation and flutter: Procedures Pulmonary 9xxxx: [id number] Con Sedation
== END 2023-03-22 13:20 | disposition home or self-care (01) ==
PROVIDERS: PCP Internal Medicine; Referring Provider Internal Medicine Cardiovascular Disease; Visit Provider Internal Medicine Cardiovascular Disease
DX: I48.91 Unspecified atrial fibrillation (principal); I11.0 Hypertensive heart disease with heart failure; I50.9 Heart failure, unspecified; I73.9 Peripheral vascular disease, unspecified; I48.92 Unspecified atrial flutter; I25.10 Atherosclerotic heart disease of native coronary artery without angina pectoris; F17.210 Nicotine dependence, cigarettes, uncomplicated; I25.2 Old myocardial infarction; R06.00 Dyspnea, unspecified; Z79.899 Other long term (current) drug therapy; Z86.718 Personal history of other venous thrombosis and embolism; Z86.73 Personal history of transient ischemic attack (TIA), and cerebral infarction without residual deficits; Z79.01 Long term (current) use of anticoagulants; Z99.81 Dependence on supplemental oxygen
CPT/HCPCS: 92960; 93005; J7040

== ENCOUNTER → 2023-04-02 | Outpatient (CLI) | payer MEDICAID, SELFPAY ==
--- NOTE | 2023-04-02 08:49 | VDLE_ITS ---
Reason For Study: BLE Edema RIGHT LEFT GSV is normal. GSV is normal. CFV is compressible, spontaneous, competent CFV is compressible, spontaneous, competent, and demonstrates pulsatile venous flow. and demonstrates pulsatile venous flow. FV is compressible, spontaneous, competent FV is compressible, spontaneous, competent and demonstrates pulsatile venous flow. and demonstrates pulsatile venous flow. POP V is compressible, spontaneous, competent POP V is compressible, spontaneous, competent and demonstrates pulsatile venous flow. and demonstrates pulsatile venous flow. T/P Trunk is compressible. T/P Trunk is compressible. PTV is compressible. PTV is compressible. RT PerV is compressible. LT PerV is compressible. Proximal calf vessels not visualized due to Proximal calf vessels not visualized due to swelling and edema. swelling and edema. Pitting edema noted in calf. Pitting edema noted in calf. Procedure This is a venous duplex using B-mode, color flow and spectral Doppler. Exam performed in department. The study was technically difficult. A preliminary report was called and/or faxed to Dr Guthrie at [facility]. VL/Venous Duplex US - Trung Extrem Interpretation Summary Deep veins of the bilateral lower extremities are patent and compressible segme ntally. There is no evidence of bilateral lower extremity deep vein thrombosis. The bilateral great saphenous veins appear patent and compressible segmentally. Limited study below knee bilateral Ordering Physician: Josesito Guthrie Referring Physician: Josesito Guthrie Performed By: Trevin Rojas, RVT
== END | disposition home or self-care (01) ==
LOC: CVS 08:47
PROVIDERS: PCP Internal Medicine; Referring Provider Internal Medicine; Visit Provider Internal Medicine
DX: M79.89 Other specified soft tissue disorders (principal)
CPT/HCPCS: 93970

== ENCOUNTER → 2023-04-14 | Outpatient (CLI) | payer MEDICAID, SELFPAY ==
[2023-04-14 12:50] LABS: Anion Gap 3 (5-15); BUN 24 mg/dL (7-18); BUN/Creat Ratio 23.5 RATIO (10-20); Calcium,Total 9.4 mg/dL (8.5-10.1); Chloride 102 mmol/L (98-107); Creatinine, Serum 1.02 mg/dL (0.55-1.02); EST Glomerular Filtration Rate 57 mL/min (>60); Est Glom Filt Rate - Afr Amer 69 mL/min (>60); Glucose 126 mg/dL (74-106); Potassium 3.5 mmol/L (3.5-5.1); Sodium Level 138 mmol/L (136-145); T4 Free Direct 1.04 ng/dL (0.76-1.46); Thyroid Stim Hormone (TSH) 2.64 uIU/mL (0.358-3.74)
== END | disposition home or self-care (01) ==
LOC: LAB 11:14
PROVIDERS: PCP Internal Medicine; Referring Provider Nurse Practitioner Family; Visit Provider Nurse Practitioner Family
DX: Z01.810 Encounter for preprocedural cardiovascular examination (principal); C34.90 Malignant neoplasm of unspecified part of unspecified bronchus or lung; J44.9 Chronic obstructive pulmonary disease, unspecified; I73.9 Peripheral vascular disease, unspecified; J96.11 Chronic respiratory failure with hypoxia; I48.91 Unspecified atrial fibrillation; I48.92 Unspecified atrial flutter; I10 Essential (primary) hypertension; R60.0 Localized edema; Z86.718 Personal history of other venous thrombosis and embolism
CPT/HCPCS: 36415; 80048; 84439; 84443

== ENCOUNTER 2023-04-19 10:14 | Day surgery (SDC) | payer MEDICAID, SELFPAY ==
--- NOTE | 2023-04-15 16:38 | PCM.HP.BLA ---
History and Physical Date of Admission: 04/19/23 This is a 67-year-old lady who presents today for a cardioversion. She underwent a cardioversion on 04/02/2023, unfortunately this was unsuccessful. She has a history of paroxysmal palpitations, peripheral vascular disease, congestive heart failure, lung cancer and DVT. She was admitted to the emergency room on October 24 with leg pain and swelling. In the emergency room she was noted to be in atrial flutter with a rate of 150 bpm and was given intravenous diltiazem. Her heart rate slowed and she was managed as atrial fibrillation flutter as well as right lower extremity cellulitis. She was started on Eliquis and switched to p.o. diltiazem. She appeared to have tolerated this well. An echocardiogram was performed which demonstrated an ejection fraction of 55 to 60% and venous duplex studies were performed which demonstrated no evidence of deep vein thrombosis. She was subsequently discharged home on Eliquis, metoprolol and to follow-up with cardiology. From a cardiac standpoint, the patient is doing well. She denies any palpitations. She does acknowledge chest heaviness. She does have SOB with exertion and at rest. She is on 3-4L of oxygen. She does have a cough. She does have Orthopnea. She denies PND. She does not have bleeding issues; no blood in urine, stool or nosebleeds. She does acknowledge fatigue. She denies myalgias, or claudication. She does acknowledge bilateral lower extremity edema. She denies sudden weight gain. She does have dizziness/lightheadedness with positional changes. She denies syncopal or near syncopal episodes, and headaches. She states that she has not missed any doses of Eliquis. Intake Vital Signs See EMR Allergies See EMR Medications See EMR [facility] Medical History Afib Anxiety Asthma Atrial fibrillation and flutter Cancer Chest pain CHF (congestive heart failure) CHF (congestive heart failure) Chronic respiratory failure with hypoxia COPD (chronic obstructive pulmonary disease) Coronary artery disease Depression DVT (deep venous thrombosis) Essential hypertension History of deep vein thrombosis History of stroke Hypertension Leg edema Lung cancer Lung cancer Myocardial infarct Noncompliance with medication regimen On home oxygen therapy PAD (peripheral artery disease) Pneumonia Preoperative cardiovascular examination Rheumatoid arthritis Right leg DVT Smoker Surgical History History of angioplasty of peripheral vessel History of ankle surgery History of cardioversion (03/03/22) History of hysterectomy History of removal of cyst History of skin graft Family History Mother Heart disease Hypertension Diabetes DVT (deep venous thrombosis)Father Colon cancer, Onset Age: 50Brother Colon cancer, Onset Age: 30 Lung cancerGrandmother Diabetes Social History Smoking Status: Current every day smoker tobacco type: cigarettes alcohol intake: never substance use type: does not use caffeine: Yes Type: coffee Number of servings: 4 ROS Const Const: Positive for fatigue; Negative for weakness, fever(s), headache(s), chills, frequent falls, weight gain or weight loss Eyes Eyes: Negative for blind spots, loss of peripheral vision, transient loss of vision, blurry vision, change in vision, double vision, floaters or tunnel vision ENT ENT: Positive for dizziness; Negative for headache(s), Nosebleed/epistaxis, balance problems or neck pain Cardio Chest Pain: No Frequency: daily Character: other (heaviness) Onset: at rest Location: mid sternal Duration: continuous Palpitations: No Edema: Bilateral Muscle aches with walking: None Resp Respiratory: Positive for SOB with activity, SOB at rest and Cough; Negative for SOB orthopnea\SOB lying down GI GI: Negative nausea, vomiting, heartburn, bloating, vomiting blood/hematemesis, bright, red blood in stools or black,tarry stools Musc Musc: Negative for muscle aches/ myalgia, muscle weakness, joint pain or balance problems Neuro Neuro: Positive for dizziness and lightheadedness (Occasional with positional changes); Negative for near syncope, syncope, orthostatic symptoms, frequent falls, headache(s), weakness, blurry vision or double vision Javi Hematologic/Lymphatic: Negative for easy bleeding or easy bruising Endo Endo: Positive for fatigue Cardiology Exam Const Appearance: cooperative, healthy appearing, no acute distress, well developed and well groomed Nutritional Appearance: average body habitus, well nourished and obese Orientation: alert, awake and oriented x3 Head Head: normal to inspection, normocephalic and atraumatic Ears: hearing grossly normal bilaterally and external ears normal Nose: external nose normal and nares normal Face and Sinus: face symmetric Eyes General: appearance normal, both eyes and all related structures Eyelids: eyelids normal Conjunctivae: conjunctivae normal Pupils: PERRL, normal by confrontation and accommodation normal EOM: EOM intact bilaterally Neck Neck: normal visual inspection, trachea midline and no JVD JVD: +5 Carotids: normal carotid upstroke and bounding pulses Chest Chest inspection: normal inspection of the chest, symmetric chest movement and normal respiratory effort Auscultation: Bilateral: Crackles Cardio Palpation: normal PMI Rate: regular rate Rhythm: irregularly irregular Heart sounds: S1 normal, S2 normal and normal, physiologic split S2; Negative rub, gallop or murmur GI GI: normal to inspection, soft and obese Neuro General: patient alert, patient awake, patient oriented x3, gait normal, moves all extremities and no focal sensory deficit Skin Skin: no rashes or lesions noted Extremities Pulses: Normal: Right Posterior Tibial Pulse, Left Posterior Tibial Pulse, Right Radial Pulse and Left Radial Pulse Lower Extremity Edema: +2: Bilateral and Color Changes: Bilateral Musculoskel Musculoskeletal: No joint tenderness Psych Psychological: normal affect Supplemental Info Supplemental Information Echocardiogram 10/24/2022 Interpretation Summary The estimated ejection fraction is 55-60 %. Echocardiogram 03/04/2022 Conclusions: Technically difficult exam due to body habitus, suboptimal positioning and respiratory interference. Exam indication: SVT The left ventricle is normal in size. There is mild septal left ventricular hypertrophy. Left ventricular systolic function is normal. EF equals 69?5% (2D 4?CH.) Definity contrast used for endocardia border detection. Normal left ventricular diastolic function. The right ventricle is dilated. Right ventricular systolic function is normal. Estimated right ventricular systolic pressure is 37 mmHg consistent with mild pulmonary hypertension. Estimated right atrial pressure is 15 mmHg based on IVC assessment. Exam was compared with the prior outside echocardiographic exam performed on 10/18/2017. There is no significant change. Venous Doppler Study 10/26/2022 Interpretation Summary Deep veins of the bilateral lower extremities are patent and compressible segmentally. There is no evidence of bilateral lower extremity deep vein thrombosis. The bilateral great saphenous veins appear patent and compressible segmentally. ? Assessment and Plan Assessment and Plan (1) Atrial fibrillation and flutter: Status: Acute Plan: Patient has a history of atrial fibrillation/flutter. Her echocardiogram from 10/24/2022 demonstrated an ejection fraction of 55 to 60%, and normal atrial size. She underwent a cardioversion on 04/02/2023, and unfortunately this was unsuccessful. Her EKG from 04/14/2023 demonstrated atrial fibrillation at a rate of 147 bpm. She was started on amiodarone 200mg twice daily x 1 week at that time. She will proceed with a cardioversion to attempt to maintain sinus rhythm. She has remained on Eliquis, without any missed doses.
[2023-04-19 10:37] VITALS: BMI 45.4
--- NOTE | 2023-04-19 11:08 | PCM.OP.PRO ---
Procedure Report Date of Procedure: 04/19/23 DC cardioversion. 67-year-old lady with a history of significant pulmonary disease with persistent atrial fibrillation which is symptomatic. Patient is here for DC cardioversion from atrial fibrillation. The patient was seen by Dr. Carter of the critical care division. Informed consent was obtained. Anterior-posterior pads were applied. The patient was then administered 40 mg of intravenous propofol and 200 J of synchronized DC biphasic cardioversion energy were applied which was unsuccessful in restoring sinus rhythm. 300 J of DC cardioversion energy were applied which was also unsuccessful. An additional 30 mg for a total of 70 mg of propofol was given and then 360 J of biphasic DC cardioversion energy were also applied which was unsuccessful in restoring sinus rhythm. Conclusion: Unsuccessful DC cardioversion from atrial fibrillation to sinus rhythm. Continue current medical therapy. We will continue amiodarone for rate control only. Consider pulmonary optimization and then further recommendations will be made regarding atrial fibrillation. For now we will relegated to rate control and anticoagulation.
--- NOTE | 2023-04-19 11:53 | PRO.PCM_ITS ---
Procedure Report Date of Procedure: 04/19/23 CONSCIOUS SEDATION REPORT DATE OF SERVICE: April 19, 2023 BRIEF HISTORY OF PRESENT ILLNESS: The patient is a 67-year-old female who presented to [facility] for an elective outpatient cardioversion due to underlying atrial fibrillation. The patient did undergo a prior cardioversion in March 2023, during which time, the patient required 40 mg of propofol to achieve an appropriate level of sedation. The patient has a known history of COPD and chronic hypoxemic respi ratory failure with a baseline 3 L/min oxygen requirement. In addition, she stated that she has been diagnosed with obstructive sleep apnea, but does not currently utilize any form of nocturnal PAP therapy. She is systemically anticoagulated on Eliquis. Her last surface echocardiogram demonstrated an ejection fraction of 55 to 60%. PHYSICAL EXAMINATION: VITAL SIGNS: Reviewed and were acceptable. GENERAL: The patient is an obese female, in no apparent distress, speaking in full sentences. HEENT: Normocephalic, atraumatic. Mucous membranes are moist and pink. Good mouth opening noted. Trachea is midline. CHEST: S1, S2 irregularly irregular. No murmurs, rubs or gallops were noted. LUNGS: Clear to auscultation bilaterally without appreciable wheezes, rales or rhonchi. ABDOMEN: Soft, nontender, nondistended. Positive bowel sounds. EXTREMITIES: There is no clubbing, cyanosis or edema. ASA Class: II DESCRIPTION OF PROCEDURE: After confirmation of informed consent, the patient's anesthesia plan was reviewed in detail. Propofol was chosen. Risks and benefits were reviewed and the patient agreed to proceed. At 1100, the patient was given her first bolus of propofol. In total, the patient required 70 mg of propofol to facilitate 3 separate attempts at cardioversion, the first at 200 J, the second at 300 J and the third at 360 J. Unfortunately, none of the aforementioned interventions was successful in restoring normal sinus rhythm. The patient was monitored until 1113, at which time she reached her baseline mental status and function. The patient tolerated the procedure well. COMPLICATIONS: None ESTIMATED BLOOD LOSS: None RECOMMENDATIONS: Okay to recover in usual fashion. Procedures Pulmonary 9xxxx: [id number] Con Sedation
== END 2023-04-19 12:10 | disposition home or self-care (01) ==
LOC: CLSP 10:17
PROVIDERS: PCP Internal Medicine; Referring Provider Internal Medicine Cardiovascular Disease; Visit Provider Internal Medicine Cardiovascular Disease
DX: I48.91 Unspecified atrial fibrillation (principal); I11.0 Hypertensive heart disease with heart failure; I50.9 Heart failure, unspecified; I25.10 Atherosclerotic heart disease of native coronary artery without angina pectoris; I25.2 Old myocardial infarction; F17.210 Nicotine dependence, cigarettes, uncomplicated; Z79.899 Other long term (current) drug therapy; Z79.01 Long term (current) use of anticoagulants; Z86.718 Personal history of other venous thrombosis and embolism; Z86.73 Personal history of transient ischemic attack (TIA), and cerebral infarction without residual deficits; Z99.81 Dependence on supplemental oxygen
CPT/HCPCS: 92960; 93005; J7040

== ENCOUNTER 2023-04-26 12:26 | Inpatient (IN) | payer MEDICAID, SELFPAY ==
[2023-04-26] VITALS (12 sets, daily range): BP systolic 128–154; BP diastolic 72–88; PULSE 78–136; RESP 14–28; TEMP 36.4–36.7; O2SAT 94–98; BMI 44.1; BMI 44.0
--- NOTE | 2023-04-26 12:39 | EDS_ITS ---
HPI History of Present Illness Chief Complaint: Shortness of Breath Informant: patient Onset/Context/Timing Onset: Days Context: gradual Timing: Continuous Quality: Positive for Wheezing Worsened by: Exertion Relieved by: Nothing Associated Symptoms cough, subjective, chills and yellow sputum; Negative for rhinorrhea, post nasal drip, ear pain, fever, sore throat, sweats, clear sputum, white sputum or green sputum Narrative Narrative: Patient presents with shortness of breath that has been getting worse over the past several days. Patient states it is gradually getting worse. Patient states it has been constant. Patient states she feels like she is wheezing. Patient states her breathing is worse with any exertion. Patient states nothing seems to help with it. Patient states she is having some cough with some yellow sputum production. Patient admits to chills but denies any fevers. Patient also admits to some chest heaviness over the substernal area since last night. Patient admits to some pain into her back and a mild headache. Patient denies a ny nausea or vomiting. PE Risk Factors: Positive for Cancer and Prior DVT or PE; Negative for OCP + Smoking + > 35, Recent immobilization or Recent surgery PFSH PFSH Medical History Afib Anxiety Asthma Atrial fibrillation and flutter Cancer Chest pain CHF (congestive heart failure) CHF (congestive heart failure) Chronic respiratory failure with hypoxia COPD (chronic obstructive pulmonary disease) Coronary artery disease Depression DVT (deep venous thrombosis) Essential hypertension History of deep vein thrombosis History of stroke Hypertension Leg edema Lung cancer Lung cancer Myocardial infarct Noncompliance with medication regimen On home oxygen therapy PAD (peripheral artery disease) Pneumonia Preoperative cardiovascular examination Rheumatoid arthritis Right leg DVT Smoker Home Medications diltiazem HCl 240 mg capsule,24 hr,extended release 240 mg PO DAILY heart 12/20/22 [History Last Taken 04/25/23] acetaminophen 500 mg tablet 1,000 mg PO DAILY PRN Pain 12/24/22 [History Last Taken 12/24/22] apixaban 5 mg tablet (Eliquis) 5 mg PO BID #180 tabs 01/06/23 [Rx Last Taken 04/25/23] metoprolol succinate 100 mg tablet,extended release 24 hr 100 mg PO DAILY increased to 100 mg once daily due to insurance #90 tabs 01/08/23 [Rx Last Taken 04/25/23] amiodarone 200 mg tablet 200 mg PO DAILY #90 tabs 04/14/23 [Rx Last Taken 04/25/23] potassium chloride 20 mEq tablet,extended release 20 meq PO DAILY #90 tabs 04/15/23 [Rx Last Taken 04/25/23] cephalexin 500 mg capsule 500 mg PO DAILY 04/26/23 [History Last Taken 04/25/23] furosemide 40 mg tablet 40 mg PO Q8H 04/26/23 [History Last Taken 04/25/23] gabapentin 300 mg capsule 300 mg PO Q8H 04/26/23 [History Last Taken 04/25/23] latanoprost 0.005 % eye drops 1 drp ophthalmic (eye) QPM 04/26/23 [History Last Taken 04/25/23] Allergy/AdvReac Type Severity Reaction Status Date / Time No Known Allergies Allergy Verified 04/26/23 12:26 Family History Mother Heart disease Hypertension Diabetes DVT (deep venous thrombosis) Father Colon cancer, Onset Age: 50 Brother Colon cancer, Onset Age: 30 Lung cancer Grandmother Diabetes Surgical History History of angioplasty of peripheral vessel History of ankle surgery History of cardioversion (03/03/22) History of hysterectomy History of removal of cyst History of skin graft Social History Smoking Status: Current every day smoker tobacco type: cigarettes alcohol intake: never substance use type: does not use caffeine: Yes Type: coffee Number of servings: 4 ROS ROS ED Constitutional Constitutional ED: Reports chills; Denies fever(s) Eyes Eyes: Denies blurry vision or change in vision ENT ENT ED: Denies rhinorrhea or sore throat Cardiovascular Cardiovascular: Reports chest pain; Denies palpitations Respiratory/Chest Respiratory/Chest: Reports cough and dyspnea Gastrointestinal Gastrointestinal: Denies nausea or vomiting Genitourinary Genitourinary ED: Denies dysuria or hematuria Musculoskeletal Musculoskeletal: Reports back pain; Denies neck pain Integumentary Denies abscess or rash Neurologic Neurologic: Reports headache(s); Denies weakness Allergic/Immunologic Allergic/Immunologic ED: Denies mouth swelling or urticaria EXAM Physical Exam Const Vital Signs: 04/26/23 12:26 04/26/23 13:20 04/26/23 13:23 Temperature 97.8 F Temperature Source Temporal Pulse Rate 136 H 99 Respiratory Rate 16 25 H Respiratory Effort Respiratory Depth Respiratory Pattern Tachypnea Blood Pressure 132/85 H Blood Pressure Mean 100 Pulse Ox 98 Oxygen Delivery Method Room Air Room Air Oxygen Flow Rate (L/min) 04/26/23 13:25 04/26/23 15:36 Temperature Temperature Source Pulse Rate 95 Respiratory Rate 19 H Respiratory Effort Short of Breath Respiratory Depth Normal Respiratory Pattern Tachypnea Blood Pressure 154/88 H Blood Pressure Mean 110 Pulse Ox 95 Oxygen Delivery Method Room Air Nasal Cannula Oxygen Flow Rate (L/min) 3 Positive well nourished, well developed and obese General Appearance ED: well developed and NAD Nutritional Appearance: obese HEENT Reports moist mucous membranes Neck supple, no meningeal signs and no JVD Resp Auscultation: wheezes Cardio regular rate Rhythm: abnormal rhythm irregularly irregular GI non-distended Palpation: soft and tender epigastric, LLQ, RLQ, LUQ, RUQ, periumbilical and suprapubic; Negative for guarding or rebound tenderness present Extremity General Extremety ED: Yes edema General Extremity: edema Neuro oriented x3, CN's II-XII intact bilaterally and no sensory deficits noted Min Coma Scale: document GCS findings Spontaneous Obeys Commands Oriented 15 Sensorium / Orientation: alert Speech: speech normal Motor Exam: strength 5/5 throughout Psych mental status grossly normal MDM MDM MDM Narrative Medical decision making narrative: Differential diagnosis includes cardiac dysrhythmia, cardiac ischemia, congestive heart failure, pneumonia, COVID-19 infection, influenza infection, RSV infection, and COPD exacerbation. Chest x-ray will be obtained to assess for pneumonia, pneumothorax, and congestive heart failure. EKG will be obtained to assess for cardiac dysrhythmia and cardiac ischemia. CBC will be obtained to assess for leukocytosis and anemia. Basic metabolic profile will be obtained to assess for electrolyte abnormality and renal function. PT with INR and PTT will be obtained to assess for coagulopathy. BNP will be obtained to assess for congestive heart failure. High-sensitivity troponin will be obtained to assess for cardiac ischemia. 2-hour repeat high-sensitivity troponin will be obtained to assess for ongoing cardiac ischemia. RSV rapid antigen will be obtained to assess for RSV infection. COVID-19 rapid antigen will be obtained to assess for COVID-19 infection. Influenza A and influenza B antigens will be obtained to assess for influenza infection. Lab Data Attestation: I reviewed the patient's lab results. Lab results narrative: CBC was reviewed and showed a mild anemia with a hemoglobin of 11.3. Basic metabolic profile was reviewed and was essentially within normal limits. High- sensitivity troponin was reviewed and was normal at 12. B-natriuretic peptide was reviewed and was normal at 84.1. PT with INR and PTT were reviewed and were within normal limits. Labs: Laboratory Results - last 24 hr 04/26/23 13:15 WBC 8.1 RBC 4.02 L Hgb 11.3 L Hct 37.6 MCV 93.5 MCH 28.1 MCHC 30.1 L RDW Std Deviation 53.5 H RDW Coeff of Baltazar 15.7 H Plt Count 333 MPV 9.7 Immature Gran % (Auto) 0.500 Neut % (Auto) 76.8 H Lymph % (Auto) 13.6 L Esmeralda % (Auto) 6.5 Eos % (Auto) 2.2 Baso % (Auto) 0.4 Absolute Neuts (auto) 6.3 Absolute Lymphs (auto) 1.11 Nucleated RBC % 0 PT 13.1 INR 1.0 APTT 25.3 Sodium 139 Potassium 4.0 Chloride 102 Carbon Dioxide 35.0 H Anion Gap 2 L BUN 22 H Creatinine 1.14 H Estim Creat Clear Calc 41.35 Est GFR (MDRD) Af Amer 61 Est GFR (MDRD) Non-Af 50 L BUN/Creatinine Ratio 19.3 Glucose 105 Calcium 9.0 Troponin I High Sens 12 B-Natriuretic Peptide 84.1 Radiography Chest X-Ray - ED: 1 View, Read by ED Physician, Read by Radiologist and No Acute Disease Diagnostic Testing: Clinical Impression(s) from Imaging Studies Chest X-Ray 04/26/23 13:40 IMPRESSION: No radiographic evidence of acute cardiopulmonary disease. Electronically Signed: Leonard Mcwilliams MD at 14:06 EDT , Portable 1 view chest x-ray was obtained. On my independent interpretation, lung fraser are clear. There is normal cardiac silhouette. Bony thorax is normal. There is no acute process noted. Radiologist also interpreted the x-ray and agrees. EKG Initial EKG: Interpretation: Atrial Fibrillation (103) and Non-Specific ST Changes Comments: EKG was obtained. On my independent interpretation, it shows atrial fibrillation with a rate of 103. QRS interval was normal at 80 ms. QTc interval was normal at 442 ms. [place] was normal at 27. There are nonspecific ST-T wave changes noted. Prior EKG tracings: available for review Prior: Unchanged (04/19/2023) Management Discussion w/another healthcare provider: Hospitalist Treatment and Re-Evaluation :: Patient was given a DuoNeb aerosol here. Patient was given Solu-Medrol. Patient was advised of her findings. Patient ambulated in the room and dropped to 88% saturation on her normal oxygen with brief ambulation. Because of this, I recommended admission to the hospital. Patient is agreeable with this. Case will be discussed with the hospitalist for admission. Patient will be admitted to the hospital. Discharge Plan Dx/Rx/DC Orders Clinical Impression: COPD with acute exacerbation, Chronic respiratory failure with hypoxia, Atrial fibrillation and flutter Disposition Disposition: Acute Care Hospital [facility]
--- NOTE | 2023-04-26 13:01 | EKG12_ITS ---
Test Reason : PALPITATIONS Blood Pressure : / mmHG Vent. Rate : 103 BPM Atrial Rate : 000 BPM P-R Int : 000 ms QRS Dur : 080 ms QT Int : 338 ms P-R-T Axes : 000 027 109 degrees QTc Int : 442 ms Atrial fibrillation with rapid ventricular response Nonspecific ST and T wave abnormality Abnormal ECG When compared with ECG of 19-APR-2023 10:32, No significant change was found Confirmed by PLACIDO NEWELL, GENARO ([id number]), news assignment editor VU ZAMORA ([id number]) on 04/29/2023 1:50:38 PM Referred By: DEANNA Confirmed By:GENARO CUMMINS MD
[2023-04-26] MEDS: Ipratropium/Albuterol Sulfate 3 ML AMPUL.NEB INHALATION (13:18)
[2023-04-26 13:29] LABS: Absolute Lymphocyte Count 1.11 X10^3/uL (0.83-4.51); Absolute Neutrophil Count 6.3 X10^3/uL (2.0-7.7); Basophil# 0.03 X10^3/uL; Basophil% 0.4 % (0-1); Eosinophil# 0.18 X10^3/uL; Eosinophils% 2.2 % (0-5); Hematocrit 37.6 % (37-47); Hemoglobin 11.3 g/dL (12.0-15.0); Lymphocyte # 1.11 X10^3/ul (0.83-4.51); Lymphocyte % 13.6 % (19-41); Mean Corp Hgb Conc 30.1 g/dL (32-36); Mean Corpuscular Hgb 28.1 pg (27.0-32.0); Mean Corpuscular Volume 93.5 fL (81-99); Mean Platelet Vol. 9.7 fl (6.2-12.0); Monocyte# 0.53 X10^3/uL; Monocyte% 6.5 % (0-10); NRBC Flagged by Analyzer 0 % (0-5); Neutrophil # 6.25 X10^3/uL (2.7-7.7); Neutrophil % 76.8 % (47-70); Platelet Count 333 K/mm3 (150-450); RBC Distribution Width CV 15.7 % (11.6-14.6); RBC Distribution Width SD 53.5 fl (35.1-43.9); Red Blood Count 4.02 M/mm3 (4.2-5.4); White Blood Count 8.1 K/mm3 (4.4-11.0)
[2023-04-26 13:37] LABS: Prothrombin Time (Protime)PT. 13.1 SECONDS (11.7-14.9)
[2023-04-26 13:38] LABS: Partial Thromboplast Time 25.3 Seconds (24.1-36.2)
[2023-04-26] MEDS: MethylPREDNISolone 125 MG/2 ML Vial 60 MG IV (13:39)
--- NOTE | 2023-04-26 13:40 | RAD_ITS ---
INDICATION: Dyspnea EXAMINATION/TECHNIQUE: X-RAY - XR Chest 1 View COMPARISON: Prior study dated: 03/10/2023. FINDINGS: LINES/DEVICES: None. LUNGS: No consolidation, edema or effusion. No pneumothorax. MEDIASTINUM AND CARDIOVASCULAR STRUCTURES: Cardiac silhouette not enlarged. Central airways and mediastinal contour are unremarkable. BONES AND SOFT TISSUES: Unremarkable. RAD/Chest 1 View (Portable) IMPRESSION: No radiographic evidence of acute cardiopulmonary disease. Electronically Signed: Leonard Mcwilliams MD at 14:06 EDT ,
[2023-04-26 13:45] LABS: BNP,B-Type NATRIURETIC PEPTIDE 84.1 pg/mL (0-100)
[2023-04-26 13:46] LABS: Anion Gap 2 (5-15); BUN 22 mg/dL (7-18); BUN/Creat Ratio 19.3 RATIO (10-20); Chloride 102 mmol/L (98-107); Creatinine, Serum 1.14 mg/dL (0.55-1.02); EST Glomerular Filtration Rate 50 mL/min (>60); Est Glom Filt Rate - Afr Amer 61 mL/min (>60); Estimated Creatinine Clearance 41.35 ml/min; Glucose 105 mg/dL (74-106); Sodium Level 139 mmol/L (136-145); Troponin-I HS (w/2H Reflex) 12 pg/mL (3.0-54.0)
[2023-04-26 15:26] LABS: Reflex Troponin-HS? (from REC) Y
--- NOTE | 2023-04-26 15:53 | PCM.HP.STD ---
HPI - General General Date of Admission: 04/26/23 Date of Service: 04/26/23 Chief Complaint: Dyspnea, wheezing, productive cough, worsening. HPI Narrative The patient is a 67 y/o F w/ PMHx: BURKE not able to tolerate CPAP/BIPAP, CKD stage III unclear subtype, Chronic anemia, Anxiety and Depression, Chronic BL LE Lymphedema, Morbid Obesity, PAF/Flutter, COPD/Asthma with Chronic Hypoxic Respiratory Failure (3-4L NC), Presumed HFpEF, CAD/PAD s/p angioplasty peripheral vessels, Squamous cell Lung Cancer recently completing radiation therapy and not felt an appropriate candidate for chemotherapy per her report, Hx CVA, Hx VTE (RLE DVT), Tobacco use, recent 04/19/23 cardioversion that was unsuccessful maintained on oral Eliquis and oral diltiazem with eventual addition of metoprolol with persistent issues with dizziness/lightheadedness with positional changes with plan to continue medical therapy with also addition of amiodarone for rate control only and ongoing anticoagulation especially given unsuccessful cardioversion attempts who now presents to the [facility] ED on 04/26/23 with history of worsening dyspnea, productive cough of green and yellow sputum, subjective chills, wheezing, worse with exertion with onset of chest tightness and heaviness sensation over the substernal region starting the evening prior as well as back discomfort and neck strain prompting eventual ED evaluation. She denies any recent ill contacts. Work-up in the ED included T97.8, heart rate initially 136 with most recent repeat 99, BP 132/85, respiratory rate 16, 98% on room air, CBC with WC 8.1, hemoglobin 11.3, platelet 333 without marked shift, unremarkable coags, BMP with 35, BUN/creatinine 22/1.14, troponin 12 with repeat delta pending upon evaluation, BNP 84.1, chest x-ray no acute cardiopulmonary finding, RSV rapid antigen negative, rapid COVID antigen negative, rapid influenza antigen negative, EKG atrial fibrillation with rate 103 however rate had been increased previously with concern for RVR concurrently with nonspecific ST-T wave changes unchanged from previous. In the ED patient ministered DuoNeb therapy as well as Solu-Medrol 60 mg IV x1. PFSH Medical History Afib Anxiety Asthma Atrial fibrillation and flutter Cancer Chest pain CHF (congestive heart failure) CHF (congestive heart failure) Chronic respiratory failure with hypoxia COPD (chronic obstructive pulmonary disease) Coronary artery disease Depression DVT (deep venous thrombosis) Essential hypertension History of deep vein thrombosis History of stroke Hypertension Leg edema Lung cancer Lung cancer Myocardial infarct Noncompliance with medication regimen On home oxygen therapy PAD (peripheral artery disease) Pneumonia Preoperative cardiovascular examination Rheumatoid arthritis Right leg DVT Smoker Home Medications diltiazem HCl 240 mg capsule,24 hr,extended release 240 mg PO DAILY heart 12/20/22 [History Last Taken 04/25/23] acetaminophen 500 mg tablet 1,000 mg PO DAILY PRN Pain 12/24/22 [History Last Taken 12/24/22] apixaban 5 mg tablet (Eliquis) 5 mg PO BID #180 tabs 01/06/23 [Rx Last Taken 04/25/23] metoprolol succinate 100 mg tablet,extended release 24 hr 100 mg PO DAILY increased to 100 mg once daily due to insurance #90 tabs 01/08/23 [Rx Last Taken 04/25/23] amiodarone 200 mg tablet 200 mg PO DAILY #90 tabs 04/14/23 [Rx Last Taken 04/25/23] potassium chloride 20 mEq tablet,extended release 20 meq PO DAILY #90 tabs 04/15/23 [Rx Last Taken 04/25/23] cephalexin 500 mg capsule 500 mg PO DAILY 04/26/23 [History Last Taken 04/25/23] furosemide 40 mg tablet 40 mg PO Q8H 04/26/23 [History Last Taken 04/25/23] gabapentin 300 mg capsule 300 mg PO Q8H 04/26/23 [History Last Taken 04/25/23] latanoprost 0.005 % eye drops 1 drp ophthalmic (eye) QPM 04/26/23 [History Last Taken 04/25/23] Allergy/AdvReac Type Severity Reaction Status Date / Time No Known Allergies Allergy Verified 04/26/23 12:26 Family History Mother Heart disease Hypertension Diabetes DVT (deep venous thrombosis) Father Colon cancer, Onset Age: 50 Brother Colon cancer, Onset Age: 30 Lung cancer Grandmother Diabetes Surgical History History of angioplasty of peripheral vessel History of ankle surgery History of cardioversion (03/03/22) History of hysterectomy History of removal of cyst History of skin graft Social History (Updated 04/26/23 @ 16:[address] Tonya Kimbrough MD) household members: other details: Her nephew lives with her and her sister lives next door. Smoking Status: Current every day smoker tobacco type: cigarettes Smoking packs per day: 0.5 Smoking cigarettes per day: 10.0 alcohol intake: never substance use type: does not use caffeine: Yes Type: coffee Number of servings: 4 ROS ROS Narrative Admission Review of Systems: CONSTITUTIONAL: No weight loss, fever, + chills, weakness or fatigue. HEENT: Eyes: No visual loss, blurred vision, double vision or yellow sclerae. Ears, Nose, Throat: No hearing loss, sneezing, congestion, runny nose or sore throat. SKIN: + Bilateral lower extremity chronic venous stasis skin changes. CARDIOVASCULAR: + Chest heaviness/tightness, chronic edema, chronic lightheadedness/dizziness. No orthopnea, syncopal events. RESPIRATORY: + Shortness of breath, cough with increased sputum, wheezing. No hemoptysis. GASTROINTESTINAL: No anorexia, nausea, vomiting or diarrhea, abdominal pain, melena, BRBPR. GENITOURINARY: No dysuria, frequency, urgency or retention. NEUROLOGICAL: + Chronic LH/Dizziness. No syncope, paralysis, ataxia, numbness or tingling in the extremities, focal weakness, change in bowel or bladder control, seizure. MUSCULOSKELETAL: + muscle, back pain, joint pain or stiffness. HEMATOLOGIC: + anemia, easy bleeding or bruising. LYMPHATICS: No enlarged nodes. No history of splenectomy. PSYCHIATRIC: + history of depression or anxiety. ENDOCRINOLOGIC: No reports of sweating, cold or heat intolerance. No polyuria or polydipsia. ALLERGIES: + history of asthma. Vital Signs Vital Signs Vital Signs: 04/26/23 12:26 04/26/23 13:20 04/26/23 13:23 Temperature 97.8 F Temperature Source Temporal Pulse Rate 136 H 99 Respiratory Rate 16 25 H Respiratory Effort Respiratory Depth Respiratory Pattern Tachypnea Blood Pressure 132/85 H Blood Pressure Mean 100 Pulse Ox 98 Oxygen Delivery Method Room Air Room Air Oxygen Flow Rate (L/min) 04/26/23 13:25 04/26/23 15:36 Temperature Temperature Source Pulse Rate 95 Respiratory Rate 19 H Respiratory Effort Short of Breath Respiratory Depth Normal Respiratory Pattern Tachypnea Blood Pressure 154/88 H Blood Pressure Mean 110 Pulse Ox 95 Oxygen Delivery Method Room Air Nasal Cannula Oxygen Flow Rate (L/min) 3 Weight Weight: 257 lb Body Mass Index (BMI) 44.1 Physical Exam Narrative Physical Examination: General: Awake, alert, oriented x 3 and cooperative, seated upright in the ED bed, fatigued, increased respiratory rate and some accessory muscle usage but no distress noted. Skin: Normal color, normal turgor, no icterus, no cyanosis except BL LE chronic venous stasis skin changes. HEENT: AT/NC, EOMI, PERRLA, mildly dry MM, no carotid bruits, difficult to discern JVD given thickened neck. Lungs: Diffusely diminished, greater bases, very distant, mildly increased respiratory rates and some accessory muscle usage but no distress, and expiratory wheezing, no rales or rhonchi. Heart: Regular, rate currently improved; no gallop, rub audible. Abdomen: Soft, morbidly obese, NTTP, distant normal BS, no obvious evidence of distention or HSM; however habitus makes evaluation difficult. Extremities: No cyanosis, no clubbing, significant bilateral pedal to proximal mondragon chronic pitting edema unchanged as well as chronic venous stasis skin changes Neurological: Patient awake, alert, oriented as noted, cognitive function intact; pupils equally reactive to light and accommodation, cranial nerves II-XII grossly normal, moving all 4 extremities, no focal deficits, strength moderately to severely globally decreased secondary to acute presentation complicated by underlying comorbidities. Psychiatric: Affect appears flat, fatigued, no acute evidence of depressive or anxiety feelings but does have underlying previous chart history reported. Results Lab / Micro Data 04/26/23 13:15 04/26/23 13:15 Labs: Laboratory Results - last 24 hr 04/26/23 13:15: WBC 8.1, RBC 4.02 L, Hgb 11.3 L, Hct 37.6, MCV 93.5, MCH 28.1, MCHC 30.1 L, RDW Std Deviation 53.5 H, RDW Coeff of Baltazar 15.7 H, Plt Count 333, MPV 9.7, Immature Gran % (Auto) 0.500, Neut % (Auto) 76.8 H, Lymph % (Auto) 13.6 L, Hamlin % (Auto) 6.5, Eos % (Auto) 2.2, Baso % (Auto) 0.4, Absolute Neuts (auto) 6.3, Absolute Lymphs (auto) 1.11, Nucleated RBC % 0, PT 13.1, INR 1.0, APTT 25.3, Sodium 139, Potassium 4.0, Chloride 102, Carbon Dioxide 35.0 H, Anion Gap 2 L, BUN 22 H, Creatinine 1.14 H, Estim Creat Clear Calc 41.35, Est GFR (MDRD) Af Amer 61, Est GFR (MDRD) Non-Af 50 L, BUN/Creatinine Ratio 19.3, Glucose 105, Calcium 9.0, Troponin I High Sens 12, B-Natriuretic Peptide 84.1 Micro: Microbiology 04/26/23 13:15 Nasal Secretion SARS-CoV-2 & FLU Antigen (Rapid) - Final 04/26/23 13:15 Interface Orders Rapid RSV (DFA) - Final Radiology Impression Chest X-Ray 04/26/23 13:40 IMPRESSION: No radiographic evidence of acute cardiopulmonary disease. Electronically Signed: Leonard Mcwilliams MD at 14:06 EDT , Assessment & Plan Assessment/Plan (1) COPD with acute exacerbation: PLAN: Plan The patient is a 67 y/o F w/ PMHx: BURKE not able to tolerate CPAP/BIPAP, CKD stage III unclear subtype, Chronic anemia, Anxiety and Depression, Chronic BL LE Lymphedema, Morbid Obesity, PAF/Flutter, COPD/Asthma with Chronic Hypoxic Respiratory Failure (3-4L NC), Presumed HFpEF, CAD/PAD s/p angioplasty peripheral vessels, Squamous cell Lung Cancer recently completing radiation therapy and not felt an appropriate candidate for chemotherapy per her report, Hx CVA, Hx VTE (RLE DVT), Tobacco use, recent 04/19/23 cardioversion that was unsuccessful maintained on oral Eliquis and oral diltiazem with eventual addition of metoprolol with persistent issues with dizziness/lightheadedness with positional changes with plan to continue medical therapy with also addition of amiodarone for rate control only and ongoing anticoagulation especially given unsuccessful cardioversion attempts who now presents to the [facility] ED on 04/26/23 with history of worsening dyspnea, productive cough of green and yellow sputum, subjective chills, wheezing, worse with exertion. #1. Acute on Chronic COPD/Asthma exacerbation w/ Chronic Hypoxic Respiratory Failure (3-4L NC): Will admit to PCU given also #2, maintain on oxygen with wean as tolerated to room air/home oxygen supplementation, continue ATC budesonide especially given #2, if absolutely necessary PRN albuterol, IV methylprednisolone, HOB, IS parameters, will obtain sputum Cx, respiratory viral panel, procalcitonin, will hold on immediately abx therapy but low threshold to add if appropriate. #2. PAF/Flutter with suspected transient RVR, improved in the ED: Likely secondary to acute presentation #1 with aerosol usage as well, improved following initial ED presentation, EKG with rate improved noted to be 103, recent attempted cardioversion as noted which is unsuccessful, we will continue patient home diltiazem, metoprolol, amiodarone, Eliquis regimen, magnesium and TSH level requested, to be cautious will cycle cardiac enzymes, will maintain on telemetry monitoring, will attempt utilization of budesonide only with as needed albuterol only if absolutely necessary. 10/26/2022 echocardiogram with EF 55 to 60% with a small pericardial effusion with no significant valvular disease. #3. Squamous cell carcinoma of the lung, unclear stage: Last note in the system from [facility] hematology/oncology with Dr. Neal with noted squamous cell carcinoma of the lung with pending staging work-up with biomarkers noted PD-L1 50% with history of a 3 cm left lower lobe mass along with indeterminate 5 mm left lower lobe nodules with CT abdomen pelvis with IV contrast with a slight increase in size of the left adrenal nodule compared to 2015 as well as subcentimeter low-density lesions in the liver too small to characterize, MRI of the brain without IV contrast with no acute evidence of any intracranial metastases, bronchoscopy 03/09/2022 with biopsy of the left lower lobe mass consistent with squamous cell carcinoma with planned PET/CT of unclear result, recently completed radiation therapy, not candidate for chemotherapy per her report, encourage continued outpatient follow-up with hematology/oncology. She notes she will have upcoming repeat imaging but that the lesions have enlarged. #4. Presumed HFpEF: Appears compensated, complicated by current presentation, will judiciously hydrate only if necessary, continue apixaban, metoprolol, not on NICOLAS inhibitor/ARB nor statin therapy, following with cardiology, encourage continued outpatient follow-up. #5. PAD: Per records status post previous right common femoral artery, abdominal aortogram and bilateral lower extremity angiograms with previous MAGNETIC LOCATER/stent to the common iliac as well as left SFA, we will continue patient home apixaban, hypertensive regimen, not on statin therapy with no allergy listed but following with cardiology, encourage continued outpatient follow-up with both cardiology and vascular surgery. #6. CAD: From review of records it appears that patient has nonobstructive coronary disease, continue apixaban, hypertensive regimen, not on statin therapy with no allergy listed but following with cardiology, encourage continued outpatient follow-up. #7. Chronic Kidney Disease Stage III, unclear subtype (per review of GFR history): Admission BUN/Cr 22/1.14, baseline renal function primarily 1.0-1.2, repeat CMP in AM. #8. Hypertension: Continue home regimen including diltiazem, metoprolol, PRN hydralazine. #9. Hyperlipidemia: Not on regimen, encourage continued outpatient follow-up. #10. Morbid Obesity: Weight loss and lifestyle changes encouraged. #11. Chronic bilateral extremity lymphedema, chronic venous stasis: Placement Nicolas wraps with bilateral lower extremity elevation, recently treated for bilateral lower extremity cellulitis however suspect this is likely her venous stasis with no obvious evidence currently of cellulitis, will hold any further Keflex at this time. #12. History CVA: Patient with history of remote CVA in the , will continue Eliquis, hypertensive regimen, not on statin therapy with no allergy listed, encourage continued outpatient follow-up. #13. Anxiety and depression: Noted in history, not on regimen, encourage continued outpatient follow-up. #14. History VTE: Patient with history of DVT, right lower extremity noted in history, continue Eliquis regimen. #15. Tobacco Abuse: Encouraged cessation, inpatient consultation per RT, NR if desired. #16. BURKE: Unable to tolerate PAP therapy, uses her chronic oxygen supplementation. #17. DVT Prophylaxis: Continue home eliquis regimen. #17. CODE status: Patient ZAFAR is her son and sister, living will is not currently in place but discussed and she is interested therefore recommended discussions with case management/social work for assistance in setting up. Discussed CODE status at length including difference between FULL code, DNR-CCA and DNR-CC status. Following discussions about the differences in these status, requested DNR-CCA but following lengthy discussion specified only short term intubation to allow her family to arrive and see her before extubating. Advanced Care Planning Face to Face Time: 16 minutes. Charges/Coding Visit Charges Inpatient E&M: 07035 Init Hosp L3 Procedures Hospitalists Procedures: 48544 Advncd Care Plan 30 Min
[2023-04-26 15:59] LABS: Troponin-I HS 12 pg/mL (3.0-54.0)
[2023-04-26 16:22] LABS: Magnesium 2.4 mg/dL (1.6-2.6)
[2023-04-26] MEDS: Budesonide Respules 0.5 MG/2 ML AMPUL.NEB. INHALATION (20:00)
[2023-04-26] MEDS: Albuterol 2.5 MG/3 ML VIAL.NEB. INHALATION (20:00)
[2023-04-26 20:12] LABS: Troponin-I HS 10 pg/mL (3.0-54.0)
[2023-04-26] MEDS: Latanoprost 0.005% 1 Bottle 1 DRP OPHTHALMIC (20:54)
[2023-04-26] MEDS: guaiFENesin 1,200 MG Tablet 1200 MG PO (20:56)
[2023-04-26] MEDS: Miconazole Nitrate 43 GM Bottle 1 APPLIC TOPICAL (21:02)
[2023-04-26] MEDS: Methylprednisolone Sod Succ 40 MG/ML VIAL IV (21:02)
[2023-04-26] MEDS: APIXABAN 5 MG TABLET PO (21:03)
[2023-04-26] MEDS: Furosemide 40 MG Tablet PO (21:03)
[2023-04-26] MEDS: Gabapentin 300 MG Capsule PO (21:15)
[2023-04-27] VITALS (9 sets, daily range): BP systolic 115–157; BP diastolic 79–90; PULSE 99–124; RESP 18–26; TEMP 36.6–36.8; O2SAT 93–96; BMI 43.4
[2023-04-27] MEDS: Miconazole Nitrate 43 GM Bottle 1 APPLIC TOPICAL ×3 (06:22→21:08)
[2023-04-27 06:23] LABS: Absolute Lymphocyte Count 0.44 X10^3/uL (0.83-4.51); Absolute Neutrophil Count 8.5 X10^3/uL (2.0-7.7); Basophil# 0.01 X10^3/uL; Basophil% 0.1 % (0-1); Hematocrit 39.6 % (37-47); Hemoglobin 11.8 g/dL (12.0-15.0); Lymphocyte # 0.44 X10^3/ul (0.83-4.51); Lymphocyte % 4.8 % (19-41); Mean Corp Hgb Conc 29.8 g/dL (32-36); Mean Corpuscular Hgb 28.3 pg (27.0-32.0); Monocyte# 0.06 X10^3/uL; Monocyte% 0.7 % (0-10); NRBC Flagged by Analyzer 0 % (0-5); Neutrophil # 8.54 X10^3/uL (2.7-7.7); Neutrophil % 93.3 % (47-70); POSITIVE DIFFERENTIAL YES; Platelet Count 363 K/mm3 (150-450); RBC Distribution Width CV 15.3 % (11.6-14.6); RBC Distribution Width SD 53.1 fl (35.1-43.9); Red Blood Count 4.17 M/mm3 (4.2-5.4); White Blood Count 9.2 K/mm3 (4.4-11.0)
[2023-04-27] MEDS: Furosemide 40 MG Tablet PO ×3 (06:23→21:08)
[2023-04-27] MEDS: Gabapentin 300 MG Capsule PO ×3 (06:23→21:08)
[2023-04-27] MEDS: Methylprednisolone Sod Succ 40 MG/ML VIAL IV ×3 (06:23→21:09)
[2023-04-27 06:28] LABS: Differential Indicated SCAN CRITERIA MET
[2023-04-27 06:44] LABS: Anisocytosis 1+
[2023-04-27 07:01] LABS: ALB/GLOB Ratio 0.5 RATIO (0.9-2.4); AST(SGOT) 12 U/L (15-37); Alanine Aminotransfer ALT/SGPT 17 U/L (13-56); Albumin, Serum 2.6 g/dL (3.2-5.0); Alkaline Phosphatase 87 U/L (45-117); Anion Gap 3 (5-15); BUN 22 mg/dL (7-18); BUN/Creat Ratio 19.5 RATIO (10-20); Calcium,Total 8.8 mg/dL (8.5-10.1); Chloride 103 mmol/L (98-107); Creatinine, Serum 1.13 mg/dL (0.55-1.02); EST Glomerular Filtration Rate 51 mL/min (>60); Est Glom Filt Rate - Afr Amer 62 mL/min (>60); Estimated Creatinine Clearance 41.72 ml/min; Globulin 5.5 g/dL (2.2-4.2); Glucose 161 mg/dL (74-106); Potassium 4.7 mmol/L (3.5-5.1); Protein, Total 8.1 g/dL (6.4-8.2); Sodium Level 139 mmol/L (136-145); Thyroid Stim Hormone (TSH) 1.33 uIU/mL (0.358-3.74)
[2023-04-27] MEDS: Budesonide Respules 0.5 MG/2 ML AMPUL.NEB. INHALATION ×2 (07:19→18:59)
[2023-04-27] MEDS: guaiFENesin 1,200 MG Tablet 1200 MG PO ×2 (08:37→21:08)
[2023-04-27] MEDS: Potassium Chloride Oral Tablet 20 MEQ PO (08:37)
[2023-04-27] MEDS: Amiodarone 200 MG Tablet PO (08:37)
[2023-04-27] MEDS: dilTIAZem CD 240 MG Capsule PO (08:38)
[2023-04-27] MEDS: Metoprolol(XL)Succ 100 MG Tablet PO (08:38)
[2023-04-27] MEDS: APIXABAN 5 MG TABLET PO ×2 (08:38→21:08)
[2023-04-27] MEDS: Acetaminophen 325 MG Tablet 650 MG PO ×2 (08:58→13:55)
--- NOTE | 2023-04-27 11:00 | CASEMGMT ---
RN?CM?ORDER PICKER/ASSEMBLER?CM?to room to meet with patient for initial transition planning/care coordination?assessment.?RN?CM?introduced self and role at [facility].? Pt voices understanding and consents to?assessment?at this time.? Pt sitting up in chair in room in no distress at this time.? Pt is A/O at this time and answers all questions appropriately.?? Care providers, pharmacy, and demographics verified/updated at this time. PCP: Dr Guthrie Specialists: Dr Granados, feedlot manager; Dr Fred Carter, meat selector; Dr Neal, [facility] heme/onc Preferred Pharmacy: [facility] Insurance: [facility] Prescription Benefit: yes Living Will/HPOA: Has both LW and HCPOA, who is her son, Eulogio Carver. Noted Euloigo is not listed on pt's contact list. Pt was going to have RN CM add him, but she states she does not know his phone number. LNOK: son, Eulogio Carver; sister, Deanne Living Arrangements: Patient states she lives with nephew in a single story home with ramp to enter the home. Pt's sister lives in mobile home in front of pt's home. Patient states she was independent at home up until a few weeks ago and then the past couple of days she has been needing more help. She states her best friend, Kimberly, has been staying w/her for the past few weeks and has been helping to take care of her, stating she has been doing all home mgnt tasks and has been helping her w/getting dressed and managing her medications the past couple of days. She states Kimberly is currently staying @ her home while she is in the hospital, is taking care of her dog while she is away, and will be able to stay w/her to help to take care of her when she returns home. Transportation: son, sister DME: Patient states she has shower chair, BSC, hospital bed, grab bars, rollator, electric W/C, medical alert button, nebulizer, and home oxygen through [facility] with portability at 3lpm continuously. Pt states she had a pulse ox, but it is not working, that she needs a new one, but unable to afford it at this time. Pt provided w/a new pulse ox at this time. SNF/HHC: No previous SNF. Patient is active with [facility] and would like to discharge home w/CRISTIN w/them. She declines wanting list of other HHC options. Pt active w/SN, will add PT/OT, as pt states she is weak and would like therapy again. Maya @ [facility] made aware. Passport: Pt states she has Passport services through [employer] and has a CM, but she does not remember her name. She states she receives 14 home delivered meals Q 2 weeks and that she qualifies for aides, but they do not have any available at this time. MIAN, Sheron aware. Palliative care: Pt states she was active w/[facility] but some narcotics were missing from her home, and they have not f/u with her since then, so she is not sure when they will be coming back. She confirms she would like to have them continue to see her. BINA BROWNE placed call to Fred @ [facility] who verifies pt is active w/them, but state they are not able to prescribe any narcotics to pt. She was made aware pt would like to resume w/them and she states they will schedule an appt w/pt once she is discharged from the hospital. Discussed discharge planning. Pt does not want to go to a SNF, she wishes to return home w/resumption of HHC and states has no concerns with going home at time of discharge.??CM?to follow for any increase in home oxygen needs and any further discharge planning/needs.? Pt voices no further concerns/needs at this time.? Advised pt to ask for?CM?if any further questions/concerns/needs arise.? Voices understanding. PLAN:??Home w/family and friend support and [facility], and resumption of Palliative care. Yung WILSONN?RN?CM
--- NOTE | 2023-04-27 11:28 | CASEMGMT ---
Social Work LW and Healthcare POA both scanned into [email or web address], son Eulogio Myerse Mehul is listed as healthcare POA. BISI Yousif
--- NOTE | 2023-04-27 12:34 | CASEMGMT ---
Discharge Planning Resumption HH referral sent via [employer] to [facility]. Alessia Johnson, Discharge Planning Asst.
[2023-04-27] MEDS: Menthol/Lanolin/Calamine/Znox 113 GM Tube 1 APPLIC TOPICAL ×2 (13:39→21:07)
[2023-04-27] MEDS: 0.9% Saline Lock 10 ML Syringe IV (13:40)
[2023-04-27] MEDS: Flu Vacc QS2023-24(65YR UP)/PF 240 MCG/0.7 ML Syringe IM (13:55)
--- NOTE | 2023-04-27 14:37 | PCM.PROGNOTE ---
Subjective Subjective Patient seen and examined. She still complains of shortness of breath and a cough. She denies any chest pain, palpitations, dizziness, nausea, vomiting or any other symptoms. Review of systems is otherwise negative. Objective Data Objective Data Vital Signs: Vital Signs Temp Pulse Resp BP Pulse Ox O2 Del Method O2 Flow Rate 98.3 F 111 H 18 115/79 94 Nasal Cannula 3 04/27/23 13:46 04/27/23 13:46 04/27/23 13:46 04/27/23 13:46 04/27/23 13:46 04/27/23 13:46 04/27/23 13:46 Oxygen Flow Rate (L/min) 3 Oxygen Delivery Method Nasal Cannula Weight: 253 lb 8.505 oz Body Mass Index (BMI) 43.4 Intake & Output: Intake and Output for Last 24 Hours 04/25/23 04/26/23 04/27/23 23:59 23:59 23:59 Intake Total 360 / 560 300 / 300 Output Total 200 / 200 350 / 350 Balance 160 / 360 -50 / -50 Lab / Micro Data 04/27/23 05:58 04/27/23 05:58 Labs: Laboratory Results - last 24 hr 04/26/23 15:35: Magnesium 2.4, Troponin I High Sens 12 04/26/23 16:10: Procalcitonin 0.10 H 04/26/23 19:30: Troponin I High Sens 10 04/27/23 05:58: WBC 9.2, RBC 4.17 L, Hgb 11.8 L, Hct 39.6, MCV 95.0, MCH 28.3, MCHC 29.8 L, RDW Std Deviation 53.1 H, RDW Coeff of Baltazar 15.3 H, Plt Count 363, MPV 10.0, Immature Gran % (Auto) 1.100 H, Neut % (Auto) 93.3 H, Lymph % (Auto) 4.8 L, [place] % (Auto) 0.7, Eos % (Auto) 0.0, Baso % (Auto) 0.1, Absolute Neuts (auto) 8.5 H, Absolute Lymphs (auto) 0.44 L, Nucleated RBC % 0, Anisocytosis 1+, Sodium 139, Potassium 4.7, Chloride 103, Carbon Dioxide 33.0 H, Anion Gap 3 L, BUN 22 H, Creatinine 1.13 H, Estim Creat Clear Calc 41.72, Est GFR (MDRD) Af Amer 62, Est GFR (MDRD) Non-Af 51 L, BUN/Creatinine Ratio 19.5, Glucose 161 H, Calcium 8.8, Total Bilirubin 0.30, AST 12 L, ALT 17, Alkaline Phosphatase 87, Total Protein 8.1, Albumin 2.6 L, Globulin 5.5 H, Albumin/Globulin Ratio 0.5 L, TSH 1.33 Micro: Microbiology 04/26/23 19:50 Mucosa - Nasopharyngeal Coronavirus COVID-19 PCR - Final 04/26/23 19:50 Mucosa - Nasopharyngeal Respiratory Panel (PCR) - Final 04/26/23 13:15 Nasal Secretion SARS-CoV-2 & FLU Antigen (Rapid) - Final 04/26/23 13:15 Interface Orders Rapid RSV (DFA) - Final Physical Exam Const alert, oriented x3 and no apparent distress Constitutional Narrative: obese General Appearance: cooperative and well developed HEENT normocephalic, head/scalp atraumatic, moist oral mucous membranes and oropharynx normal Eyes PERRL and EOMs intact bilaterally Neck no lymphadenopathy, supple and no JVD Lymph Lymphatic: no lymphadenopathy noted and no lymphedema noted Resp Resp Narrative: diminished breath sounds bibasally, bilateral crackles. On 3L of oxygen by nasal canula Cardio regular rate, regular rhythm, S1 normal heart sound, S2 normal heart sound and no murmurs GI normal to inspection, nondistended, normoactive bowel sounds, soft to palpation, non-tender and non-distended Extremity normal capillary refill, no clubbing, cyanosis or edema and no calf tenderness General Extremity: no tenderness to palpation of joints or extremities Skin General Skin Exam: no breakdown and turgor normal Neuro CN's II-XII intact bilaterally, no focal motor deficits, no sensory deficits noted and deep tendon reflexes 2+ bilaterally Psych thought process normal and cooperative Appearance: appropriate Assessment & Plan Assessment/Plan (1) COPD with acute exacerbation: PLAN: Plan #Acute exacerbation of COPD patient still coughing. on 3L of oxygen. on IV solumedrol. Breathing treatment with bronchodilators. titrate oxygen to maintain sats>90% Respiratory panel is negative. #Paroxysmal afib HR poorly controlle. HR today is 111. Had recent attempt at cardioversion which was unsuccessful. on cardizem, metoprolol, amiodarone and eliquis cardiac enzymes negative had 2D echo from October 2022 which showed EF of 55 to 60% with no evidence of valvular heart disease. #Squamous cell carcinoma of the lung. Follows with [facility] oncology. Has completed radiation therapy. Not a candidate for chemotherapy. Says she is due for follow-up chest CT this week. She is wondering if this imaging can be done while she is in the hospital. Follow-up with oncology on outpatient basis. #Peripheral artery disease: Has had aortogram send angiograms with stent to the, magnetic as well as left SFA. Not on statin. On Eliquis. #Hypertension: On metoprolol and Cardizem. #History of venous thromboembolism: Had previous DVT of the right lower extremity. On Eliquis. #BURKE: Unable to tolerate CPAP: On oxygen supplementation. #Nicotine dependence: Counseled to quit. Nicotine patch as needed. #CKD stage IIIa: Baseline creatinine is in the high 40s and 50s. Stable. DVT prophylaxis: Eliquis Charges/Coding Visit Charges Inpatient E&M: 17891 [facility] Hosp L3
[2023-04-27] MEDS: Albuterol 2.5 MG/3 ML VIAL.NEB. INHALATION (18:59)
[2023-04-27] MEDS: Ibuprofen 600 MG Tablet PO (20:13)
[2023-04-27] MEDS: Latanoprost 0.005% 1 Bottle 1 DRP OPHTHALMIC (20:14)
[2023-04-28] VITALS (11 sets, daily range): BP systolic 133–192; BP diastolic 54–167; PULSE 94–110; RESP 18–20; TEMP 36.6–37.1; O2SAT 90–96; BMI 43.4
[2023-04-28] MEDS: Furosemide 40 MG Tablet PO ×3 (05:50→21:32)
[2023-04-28] MEDS: Methylprednisolone Sod Succ 40 MG/ML VIAL IV ×3 (05:50→21:32)
[2023-04-28] MEDS: Miconazole Nitrate 43 GM Bottle 1 APPLIC TOPICAL ×3 (05:50→21:23)
[2023-04-28] MEDS: Gabapentin 300 MG Capsule PO ×3 (05:50→21:25)
[2023-04-28] MEDS: Menthol/Lanolin/Calamine/Znox 113 GM Tube 1 APPLIC TOPICAL ×3 (05:51→21:23)
[2023-04-28 06:13] LABS: Absolute Lymphocyte Count 0.47 X10^3/uL (0.83-4.51); Absolute Neutrophil Count 15.3 X10^3/uL (2.0-7.7); Basophil# 0.03 X10^3/uL; Basophil% 0.2 % (0-1); Hematocrit 36.1 % (37-47); Hemoglobin 10.7 g/dL (12.0-15.0); Lymphocyte # 0.47 X10^3/ul (0.83-4.51); Lymphocyte % 2.9 % (19-41); Mean Corp Hgb Conc 29.6 g/dL (32-36); Mean Corpuscular Hgb 28.3 pg (27.0-32.0); Mean Corpuscular Volume 95.5 fL (81-99); Mean Platelet Vol. 9.8 fl (6.2-12.0); Monocyte# 0.23 X10^3/uL; Monocyte% 1.4 % (0-10); NRBC Flagged by Analyzer 0 % (0-5); Neutrophil # 15.34 X10^3/uL (2.7-7.7); Neutrophil % 94.9 % (47-70); POSITIVE DIFFERENTIAL YES; Platelet Count 344 K/mm3 (150-450); RBC Distribution Width CV 15.6 % (11.6-14.6); RBC Distribution Width SD 53.6 fl (35.1-43.9); Red Blood Count 3.78 M/mm3 (4.2-5.4); White Blood Count 16.2 K/mm3 (4.4-11.0)
[2023-04-28 06:14] LABS: Differential Indicated SCAN CRITERIA MET
[2023-04-28 06:29] LABS: Anisocytosis 1+
[2023-04-28 06:38] LABS: Anion Gap 3 (5-15); BUN 34 mg/dL (7-18); BUN/Creat Ratio 28.3 RATIO (10-20); Calcium,Total 8.1 mg/dL (8.5-10.1); Chloride 103 mmol/L (98-107); EST Glomerular Filtration Rate 48 mL/min (>60); Est Glom Filt Rate - Afr Amer 58 mL/min (>60); Estimated Creatinine Clearance 39.28 ml/min; Glucose 165 mg/dL (74-106); Potassium 4.4 mmol/L (3.5-5.1); Sodium Level 138 mmol/L (136-145)
[2023-04-28] MEDS: Pantoprazole Sodium 40 MG Tablet PO (08:37)
[2023-04-28] MEDS: dilTIAZem CD 240 MG Capsule PO (08:37)
[2023-04-28] MEDS: Potassium Chloride Oral Tablet 20 MEQ PO (08:37)
[2023-04-28] MEDS: APIXABAN 5 MG TABLET PO ×2 (08:37→21:32)
[2023-04-28] MEDS: Amiodarone 200 MG Tablet PO (08:37)
[2023-04-28] MEDS: guaiFENesin 1,200 MG Tablet 1200 MG PO ×2 (08:37→21:32)
[2023-04-28] MEDS: Metoprolol(XL)Succ 100 MG Tablet PO (08:38)
[2023-04-28] MEDS: Acetaminophen 325 MG Tablet 650 MG PO ×3 (08:38→21:32)
[2023-04-28] MEDS: Furosemide 40 MG/4 ML Vial IV (10:07)
[2023-04-28] MEDS: 0.9% Saline Lock 10 ML Syringe IV ×3 (10:07→21:25)
--- NOTE | 2023-04-28 10:37 | CASEMGMT ---
MIAN received a message from Blaire with [facility]. MIAN called Blaire back. MIAN updated Blaier on patient's admission and diagnosis. MIAN also explained d/c plan is to resume [facility] nursing and add PT and OT. Blaire did share with MIAN that patient's nephew oJe lives with patient. Joe has people in and out of the home all of the time. Patient does not want to move to [place], she is happy where she lives. Sheron Jackson MSW LUZ
--- NOTE | 2023-04-28 14:38 | PN_ITS ---
Subjective Subjective Patient seen and examined. She is still coughing. She has no other active complaints. She feels her breathing is improving. Review of systems otherwise negative. Objective Data Objective Data Vital Signs: Vital Signs Temp Pulse Resp BP Pulse Ox O2 Del Method O2 Flow Rate 98.8 F 94 18 147/78 H 96 Nasal Cannula 3 04/28/23 14:10 04/28/23 14:10 04/28/23 14:10 04/28/23 14:10 04/28/23 14:10 04/28/23 14:10 04/28/23 14:10 Oxygen Flow Rate (L/min) 3 Oxygen Delivery Method Nasal Cannula Weight: 253 lb 8.505 oz Body Mass Index (BMI) 43.4 Intake & Output: Intake and Output for Last 24 Hours 04/26/23 04/27/23 04/28/23 23:59 23:59 23:59 Intake Total 360 / 560 1575 / 2075 1210 / 1210 Output Total 200 / 200 1075 / 1275 1300 / 1300 Balance 160 / 360 500 / 800 -90 / -90 Lab / Micro Data 04/28/23 05:32 04/28/23 05:32 Labs: Laboratory Results - last 24 hr 04/28/23 05:32: WBC 16.2 H, RBC 3.78 L, Hgb 10.7 L, Hct 36.1 L, MCV 95.5, MCH 28.3, MCHC 29.6 L, RDW Std Deviation 53.6 H, RDW Coeff of Baltazar 15.6 H, Plt Count 344, MPV 9.8, Immature Gran % (Auto) 0.600, Neut % (Auto) 94.9 H, Lymph % (Auto) 2.9 L, [place] % (Auto) 1.4, Eos % (Auto) 0.0, Baso % (Auto) 0.2, Absolute Neuts (auto) 15.3 H, Absolute Lymphs (auto) 0.47 L, Nucleated RBC % 0, Anisocytosis 1+, Sodium 138, Potassium 4.4, Chloride 103, Carbon Dioxide 32.0, Anion Gap 3 L, BUN 34 H, Creatinine 1.20 H, Estim Creat Clear Calc 39.28, Est GFR (MDRD) Af Amer 58 L, Est GFR (MDRD) Non-Af 48 L, BUN/Creatinine Ratio 28.3 H, Glucose 165 H, Calcium 8.1 L Micro: Microbiology 04/27/23 19:10 Sputum, Expectorated/Coughed Gram Stain - Final 04/26/23 19:50 Mucosa - Nasopharyngeal Coronavirus COVID-19 PCR - Final 04/26/23 19:50 Mucosa - Nasopharyngeal Respiratory Panel (PCR) - Final 04/26/23 13:15 Nasal Secretion SARS-CoV-2 & FLU Antigen (Rapid) - Final 04/26/23 13:15 Interface Orders Rapid RSV (DFA) - Final Physical Exam Const alert, oriented x3 and no apparent distress Constitutional Narrative: obese General Appearance: cooperative and well developed HEENT normocephalic, head/scalp atraumatic, moist oral mucous membranes and oropharynx normal Eyes PERRL and EOMs intact bilaterally Neck no lymphadenopathy, supple and no JVD Lymph Lymphatic: no lymphadenopathy noted and no lymphedema noted Resp Resp Narrative: diminished breath sounds bibasally, bilateral crackles. On 3L of oxygen by nasal canula Cardio regular rate, regular rhythm, S1 normal heart sound, S2 normal heart sound and no murmurs GI normal to inspection, nondistended, normoactive bowel sounds, soft to palpation, non-tender and non-distended Extremity normal capillary refill, no clubbing, cyanosis or edema and no calf tenderness General Extremity: no tenderness to palpation of joints or extremities Skin General Skin Exam: no breakdown and turgor normal Neuro CN's II-XII intact bilaterally, no focal motor deficits, no sensory deficits noted and deep tendon reflexes 2+ bilaterally Psych thought process normal and cooperative Appearance: appropriate Assessment & Plan Assessment/Plan (1) COPD with acute exacerbation: PLAN: Plan #Acute exacerbation of COPD * patient still coughing and expectorating sputum * on 3L of oxygen. * on IV solumedrol. Breathing treatment with bronchodilators. * titrate oxygen to maintain sats>90% * Respiratory panel is negative. * #Paroxysmal afib * Had recent attempt at cardioversion which was unsuccessful. HR control has improved and HR as 94 at time of review today. * on cardizem, metoprolol, amiodarone and eliquis * cardiac enzymes negative * had 2D echo from October 2022 which showed EF of 55 to 60% with no evidence of valvular heart disease. #Squamous cell carcinoma of the lung. * Follows with [facility] oncology. Has completed radiation therapy. * Not a candidate for chemotherapy. Says she is due for follow-up chest CT this week. * due for Chest CT at [facility] [place] tomorrow. * Follow-up with oncology on outpatient basis. #Peripheral artery disease: Has had aortogram and angiograms with stent to the, magnetic as well as left SFA. Not on statin. On Eliquis. #Hypertension: On metoprolol and Cardizem. #History of venous thromboembolism: Had previous DVT of the right lower ex tremity. On Eliquis. #BURKE: Unable to tolerate CPAP: On oxygen supplementation. #Nicotine dependence: Counseled to quit. Nicotine patch as needed. #CKD stage IIIa: Cr is stable. Will monitor. DVT prophylaxis: Eliquis Disposition: for dc tomorrow if shes medically stable. Charges/Coding Visit Charges Inpatient E&M: 78627 Subs Hosp L2
[2023-04-28] MEDS: Albuterol 2.5 MG/3 ML VIAL.NEB. INHALATION (20:06)
[2023-04-28] MEDS: Budesonide Respules 0.5 MG/2 ML AMPUL.NEB. INHALATION (20:06)
[2023-04-28] MEDS: hydrALAZINE 20 MG/ML Vial 10 MG IV (21:19)
[2023-04-28] MEDS: Latanoprost 0.005% 1 Bottle 1 DRP OPHTHALMIC (21:25)
[2023-04-29] MEDS: MELATONIN 3 MG TABLET PO (00:31)
[2023-04-29 05:00] VITALS: BP 134/52; PULSE 97; RESP 18; TEMP 36.7; O2SAT 98
[2023-04-29 05:43] VITALS: BMI 43.9
[2023-04-29] MEDS: Furosemide 40 MG Tablet PO (06:00)
[2023-04-29] MEDS: Methylprednisolone Sod Succ 40 MG/ML VIAL IV (06:00)
[2023-04-29] MEDS: Menthol/Lanolin/Calamine/Znox 113 GM Tube 1 APPLIC TOPICAL (06:00)
[2023-04-29] MEDS: 0.9% Saline Lock 10 ML Syringe IV ×2 (06:01→09:26)
[2023-04-29] MEDS: Miconazole Nitrate 43 GM Bottle 1 APPLIC TOPICAL (06:01)
[2023-04-29] MEDS: Gabapentin 300 MG Capsule PO (06:07)
[2023-04-29 06:12] LABS: Absolute Neutrophil Count 14.5 X10^3/uL (2.0-7.7); Basophil# 0.02 X10^3/uL; Basophil% 0.1 % (0-1); Hemoglobin 11.2 g/dL (12.0-15.0); Mean Corp Hgb Conc 29.5 g/dL (32-36); Mean Corpuscular Hgb 28.5 pg (27.0-32.0); Mean Corpuscular Volume 96.7 fL (81-99); Mean Platelet Vol. 9.6 fl (6.2-12.0); NRBC Flagged by Analyzer 0 % (0-5); Neutrophil # 14.46 X10^3/uL (2.7-7.7); Neutrophil % 94.1 % (47-70); POSITIVE DIFFERENTIAL YES; Platelet Count 364 K/mm3 (150-450); RBC Distribution Width CV 15.7 % (11.6-14.6); RBC Distribution Width SD 55.1 fl (35.1-43.9); Red Blood Count 3.93 M/mm3 (4.2-5.4); White Blood Count 15.4 K/mm3 (4.4-11.0)
[2023-04-29 06:19] LABS: Differential Indicated SCAN CRITERIA MET
[2023-04-29 06:42] LABS: Anisocytosis 1+
[2023-04-29 06:47] LABS: Anion Gap 3 (5-15); BUN 39 mg/dL (7-18); Calcium,Total 7.9 mg/dL (8.5-10.1); Chloride 98 mmol/L (98-107); Creatinine, Serum 1.26 mg/dL (0.55-1.02); EST Glomerular Filtration Rate 45 mL/min (>60); Est Glom Filt Rate - Afr Amer 54 mL/min (>60); Estimated Creatinine Clearance 37.41 ml/min; Glucose 234 mg/dL (74-106); Potassium 3.9 mmol/L (3.5-5.1); Sodium Level 138 mmol/L (136-145)
[2023-04-29] MEDS: Budesonide Respules 0.5 MG/2 ML AMPUL.NEB. INHALATION (06:59)
[2023-04-29] MEDS: Albuterol 2.5 MG/3 ML VIAL.NEB. INHALATION (06:59)
[2023-04-29 07:00] VITALS: BP 134/84; PULSE 99; RESP 18; TEMP 36.4; O2SAT 94
[2023-04-29 07:23] VITALS: PULSE 106; RESP 20; O2SAT 91
--- NOTE | 2023-04-29 09:17 | DS.PCM_ITS ---
Providers Date of Admission: 04/26/23 Date of Discharge: 04/29/23 Primary Care Physician: Dr. Josesito Guthrie MD Reason For Visit: COPD EXAC, PAF RVR Diagnosis Discharge Diagnosis (1) COPD with acute exacerbation: Status: Chronic Code(s): J44.1 - Chronic obstructive pulmonary disease with (acute) exacerbation Plan #Acute exacerbation of COPD * patient still coughing and expectorating sputum * on 3L of oxygen. * on IV solumedrol. Breathing treatment with bronchodilators. * titrate oxygen to maintain sats>90% * Respiratory panel is negative. * #Paroxysmal afib * Had recent attempt at cardioversion which was unsuccessful. HR control has improved and HR as 94 at time of review today. * on cardizem, metoprolol, amiodarone and eliquis * cardiac enzymes negative * had 2D echo from October 2022 which showed EF of 55 to 60% with no evidence of valvular heart disease. #Squamous cell carcinoma of the lung. * Follows with [facility] oncology. Has completed radiation therapy. * Not a candidate for chemotherapy. Says she is due for follow-up chest CT this week. * due for Chest CT at [facility] [place] tomorrow. * Follow-up with oncology on outpatient basis. #Peripheral artery disease: Has had aortogram and angiograms with stent to the, magnetic as well as left SFA. Not on statin. On Eliquis. #Hypertension: On metoprolol and Cardizem. #History of venous thromboembolism: Had previous DVT of the right lower extremity. On Eliquis. #BURKE: Unable to tolerate CPAP: On oxygen supplementation. #Nicotine dependence: Counseled to quit. Nicotine patch as needed. #CKD stage IIIa: Cr is stable. Will monitor. DVT prophylaxis: Eliquis Disposition: for mo tomorrow if shes medically stable. Medications at Discharge Home Medications diltiazem HCl 240 mg capsule,24 hr,extended release 240 mg PO DAILY heart 12/20/22 acetaminophen 500 mg tablet 1,000 mg PO DAILY PRN Pain 12/24/22 apixaban 5 mg tablet (Eliquis) 5 mg PO BID #180 tabs 01/06/23 metoprolol succinate 100 mg tablet,extended release 24 hr 100 mg PO DAILY increased to 100 mg once daily due to insurance #90 tabs 01/08/23 amiodarone 200 mg tablet 200 mg PO DAILY #90 tabs 04/14/23 potassium chloride 20 mEq tablet,extended release 20 meq PO DAILY #90 tabs 04/15/23 furosemide 40 mg tablet 40 mg PO Q8H 04/26/23 gabapentin 300 mg capsule 300 mg PO Q8H 04/26/23 latanoprost 0.005 % eye drops 1 drp ophthalmic (eye) QPM 04/26/23 levofloxacin 750 mg tablet 750 mg PO Q48@0600 #4 tabs 04/29/23 prednisone 20 mg tablet 40 mg (2 x 20 mg) PO DAILY 5 days #10 tabs 04/29/23 Hospital Course Operations None Procedures None Summary of Care Provided Minutes Spent on Discharge: 55 Hospital Course: Patient is a 67-year-old female with an extensive past medical history as outlined which includes squamous cell lung cancer having recently completed radiation therapy and not felt to be an appropriate candidate for chemotherapy, sleep apnea, paroxysmal A-fib and chronic respiratory failure due to COPD and asthma. She was admitted through the ED on 04/26/2023 with a complaint of worsening shortness of breath and productive cough. Her cough is productive of green and yellow sputum. She had assisted chills and wheezing which worsened with exertion. She denied any ill contacts. Chest x-ray showed no acute cardiopulmonary finding. COVID and RSV as well as flu test were negative. EKG showed A-fib which was fairly rate controlled. She was admitted and managed for hypoxia due to acute on chronic COPD exacerbation. She was started on IV Solu- Medrol. She was also placed on breathing treatments bronchodilators. Her breathing improved and she felt much better. Sputum Gram stain and culture showed 4+ white cell count so she was placed on p.o. levofloxacin 750 mg q. 48 hourly due to her kidney function. Patient usually wore 3 L of oxygen at home. She was ambulatory in the home and community and required oxygen with portability. She was discharged home on 04/29/2023 on p.o. levofloxacin 750 mg every 48 hours for total of 4 doses. She was due to follow-up with her oncology team at [facility]. For follow-up CT chest to be done to evaluate her lung cancer. Patient was to go the to that appointment [facility]. Patient seen and examined prior to discharge. She felt well and had no active complaints. She had an uneventful night and review of systems otherwise negative. Labs and vitals reviewed. Home medication reviewed and reconciled. She was also discharged on p.o. prednisone 40 mg daily for 5 days. Physical Exam Const alert, oriented x3 and no apparent distress Constitutional Narrative: obese General Appearance: cooperative, comfortable, well kempt and well developed HEENT normocephalic, head/scalp atraumatic, hearing grossly normal bilaterally, moist oral mucous membranes and oropharynx normal Mouth: oral and palatal mucosa normal Eyes PERRL and EOMs intact bilaterally Neck no lymphadenopathy, supple and no JVD Lymph Lymphatic: no lymphadenopathy noted and no lymphedema noted Resp Resp Narrative: diminished breath sounds bibasally, bilateral crackles. On 3L of oxygen by nasal canula Cardio regular rate, regular rhythm, S1 normal heart sound, S2 normal heart sound and no murmurs GI normal to inspection, nondistended, normoactive bowel sounds, soft to palpation, non-tender and non-distended Extremity normal capillary refill, no clubbing, cyanosis or edema and no calf tenderness General Extremity: no tenderness to palpation of joints or extremities Skin no rashes or lesions noted General Skin Exam: no breakdown and turgor normal Neuro oriented x3, CN's II-XII intact bilaterally, moves all extremities, no focal motor deficits, no sensory deficits noted and deep tendon reflexes 2+ bilaterally Sensorium / Orientation: awake and alert Psych thought process normal, cooperative and affect normal Appearance: appropriate Weight / BMI Weight Weight: 256 lb 2.834 oz Body Mass Index (BMI) 43.9 ABG / Lab / Microbiology Data 04/29/23 05:41 04/29/23 05:41 Laboratory: Laboratory Results - last 24 hr 04/29/23 05:41: WBC 15.4 H, RBC 3.93 L, Hgb 11.2 L, Hct 38.0, MCV 96.7, MCH 28.5, MCHC 29.5 L, RDW Std Deviation 55.1 H, RDW Coeff of Baltazar 15.7 H, Plt Count 364, MPV 9.6, Immature Gran % (Auto) 1.800 H, Neut % (Auto) 94.1 H, Lymph % (Auto) 2.0 L, [place] % (Auto) 2.0, Eos % (Auto) 0.0, Baso % (Auto) 0.1, Absolute Neuts (auto) 14.5 H, Absolute Lymphs (auto) 0.30 L, Nucleated RBC % 0, Anisocytosis 1+, Sodium 138, Potassium 3.9, Chloride 98, Carbon Dioxide 37.0 H, Anion Gap 3 L, BUN 39 H, Creatinine 1.26 H, Estim Creat Clear Calc 37.41, Est GFR (MDRD) Af Amer 54 L, Est GFR (MDRD) Non-Af 45 L, BUN/Creatinine Ratio 31.0 H , Glucose 234 H, Calcium 7.9 L Microbiology: Microbiology 04/27/23 19:10 Sputum, Expectorated/Coughed Gram Stain - Final 04/27/23 19:10 Sputum, Expectorated/Coughed Respiratory Culture - Preliminary Gram negative mario 04/26/23 19:50 Mucosa - Nasopharyngeal Coronavirus COVID-19 PCR - Final 04/26/23 19:50 Mucosa - Nasopharyngeal Respiratory Panel (PCR) - Final 04/26/23 13:15 Nasal Secretion SARS-CoV-2 & FLU Antigen (Rapid) - Final 04/26/23 13:15 Interface Orders Rapid RSV (DFA) - Final D/C Instructions Discharge Diet: Low fat / Low cholesterol Discharge Activity: Return to Normal Activity Weight Bearing Status: Weight bearing as tolerated Call your doctor if you observe: Fever of 101 or Higher, Shortness of breath, Dizziness, Swelling in the ankles and Chest pain Meaningful Use Info Meaningful Use Diagnoses (Choose all that apply): None applicable Discharge Plan Admission Admit Date/Time: 04/26/23 15:54 Primary Reason for Your Visit: COPD exacerbation Attending Provider: Valencia Funes Primary Care Provider: Josesito Guthrie Consulting Providers: Tonya Kimbrough Instructions Patient Instructions: Discharge Instructions: COPD, COPD: Using Inhalers Additional Instructions / Restrictions: follow up at [facility] for CT chest as scheduled today to follow up on lung cancer Discharge Orders/Prescriptions Prescriptions: New levofloxacin 750 mg Tablet 750 mg PO Q48@0600 Qty: 4 0RF prednisone 20 mg tablet 40 mg PO DAILY 5 Days Qty: 10 0RF Continued Eliquis 5 mg tablet 5 mg PO BID Qty: 180 3RF diltiazem HCl 240 mg capsule,extended release 24 hr 240 mg PO DAILY acetaminophen 500 mg Tablet 1,000 mg PO DAILY PRN (Reason: Pain) furosemide 40 mg Tablet 40 mg PO Q8H latanoprost 0.005 % drops 1 drp ophthalmic (eye) QPM Patient Comments: INSTILL 1 DROP INTO EACH EYE NIGHTLY gabapentin 300 mg capsule 300 mg PO Q8H Patient Comments: TAKE 1 CAPSULE BY MOUTH THREE TIMES DAILY metoprolol succinate 100 mg tablet extended release 24 hr 100 mg PO DAILY Qty: 90 3RF amiodarone 200 mg tablet 200 mg PO DAILY Qty: 90 0RF Rx Instructions: 200mg PO BID x one week followed by 200mg PO daily on week 2 potassium chloride 20 mEq tablet extended release 20 meq PO DAILY Qty: 90 3RF Discontinued cephalexin 500 mg capsule 500 mg PO DAILY Referrals / Follow Up: Josesito Guthrie MD [Primary Care Provider] - 05/05/23 11:20 am Disposition Disposition (needs filled in before D/C Order can be placed): Home, Self Care Charges/Coding Visit Charges Inpatient E&M: 17861 Disch Hosp >30min
[2023-04-29] MEDS: dilTIAZem CD 240 MG Capsule PO (09:26)
[2023-04-29] MEDS: Pantoprazole Sodium 40 MG Tablet PO (09:26)
[2023-04-29] MEDS: Potassium Chloride Oral Tablet 20 MEQ PO (09:26)
[2023-04-29] MEDS: Amiodarone 200 MG Tablet PO (09:26)
[2023-04-29 09:27] VITALS: BP 130/97; PULSE 102
[2023-04-29] MEDS: Metoprolol(XL)Succ 100 MG Tablet PO (09:27)
[2023-04-29] MEDS: guaiFENesin 1,200 MG Tablet 1200 MG PO (09:27)
[2023-04-29] MEDS: APIXABAN 5 MG TABLET PO (09:28)
[2023-04-29] MEDS: levoFLOXacin 750 MG Tablet PO (09:34)
--- NOTE | 2023-04-29 09:34 | CASEMGMT ---
MIAN called Blaire at [facility] ([phone]) and notified her that patient will be discharged today. MIAN told her the plan is home with resumption of [facility] nursing home and additionally PT/OT. Sheron ESCOBAR
[2023-04-29 09:43] VITALS: O2SAT 86; O2SAT 90; O2SAT 91
[2023-04-29 09:45] VITALS: BP 130/97; PULSE 102; RESP 20; TEMP 36.4; O2SAT 94
--- NOTE | 2023-04-29 09:55 | CASEMGMT ---
BINA BROWNE updated that patient will need increase in home oxygen 3lpm at rest, 4lpm with ambulation. Script received and sent to [facility]. Patient has portable tank with her. BINA BROWNE updated [facility] regarding discharge. Planned start of care for tomorrow. BINA BROWNE updated discharge plan.
== END 2023-04-29 09:18 | disposition home health service (06) | DRG 140 ==
LOC: ED 15:46 → PCU 16:11
PROVIDERS: Admitting Provider Family Medicine; Emergency Provider Emergency Medicine; PCP Internal Medicine; Visit Provider Student in an Organized Health Care Education/Training Program
DX: J44.1 Chronic obstructive pulmonary disease with (acute) exacerbation (principal); I13.0 Hypertensive heart and chronic kidney disease with heart failure and stage 1 through stage 4 chronic kidney disease, or unspecified chronic kidney disease; C34.32 Malignant neoplasm of lower lobe, left bronchus or lung; J96.11 Chronic respiratory failure with hypoxia; I50.32 Chronic diastolic (congestive) heart failure; Z99.81 Dependence on supplemental oxygen; I73.9 Peripheral vascular disease, unspecified; E66.01 Morbid (severe) obesity due to excess calories; N18.31 Chronic kidney disease, stage 3a; I48.0 Paroxysmal atrial fibrillation; Z68.41 Body mass index [BMI] 40.0-44.9, adult; I48.92 Unspecified atrial flutter; F32.A Depression, unspecified; I25.10 Atherosclerotic heart disease of native coronary artery without angina pectoris; G47.33 Obstructive sleep apnea (adult) (pediatric); F17.210 Nicotine dependence, cigarettes, uncomplicated; I87.8 Other specified disorders of veins; F41.9 Anxiety disorder, unspecified; I25.2 Old myocardial infarction; Z66 Do not resuscitate; Z79.01 Long term (current) use of anticoagulants; Z79.899 Other long term (current) drug therapy; Z86.718 Personal history of other venous thrombosis and embolism; Z86.73 Personal history of transient ischemic attack (TIA), and cerebral infarction without residual deficits; Z23 Encounter for immunization; Z80.1 Family history of malignant neoplasm of trachea, bronchus and lung
CPT/HCPCS: 36415; 71045; 80048; 80053; 83735; 83880; 84145; 84443; 84484; 85025; 85610; 85730; 87070; 87077; 87186; 87205; 87428; 87633; 87635; 87807; 93005; 94640; 94668; 97162; 99252; 99285; 99406; 90662; A4216; G0463; J1940

== ENCOUNTER 2023-05-11 16:52 | Inpatient (IN) | payer MEDICAID, SELFPAY ==
[2023-05-11] VITALS (12 sets, daily range): BP systolic 106–158; BP diastolic 58–120; PULSE 91–147; RESP 12–100; TEMP 35.8–36.7; O2SAT 19–99; BMI 48.3; BMI 46.9
--- NOTE | 2023-05-11 17:14 | EKG12_ITS ---
Test Reason : SOB Blood Pressure : / mmHG Vent. Rate : 140 BPM Atrial Rate : 000 BPM P-R Int : 000 ms QRS Dur : 070 ms QT Int : 324 ms P-R-T Axes : 000 041 039 degrees QTc Int : 494 ms Critical Test Result: High HR ATRIAL FIBRILLATION Nonspecific ST abnormality Abnormal ECG When compared with ECG of 26-APR-2023 12:34, Sinus rhythm has replaced Atrial fibrillation Nonspecific T wave abnormality no longer evident in Lateral leads Confirmed by PLACIDO NEWELL, GENARO ([id number]), editor in chief VU ZAMORA ([id number]) on 05/12/2023 1:59:57 PM Referred By: Confirmed By:GENARO CUMMINS MD
--- NOTE | 2023-05-11 17:20 | ED.VIS.DYS ---
HPI History of Present Illness Chief Complaint: Shortness of Breath Narrative Narrative: 67-year-old female presenting with shortness of breath. States been worse over the last 3 days. Patient does have chronic shortness of breath. She wears oxygen at home. She has not had to increase her oxygen levels. Patient is an everyday smoker. Has a history of COPD, lung cancer, CHF, A-fib, on Eliquis. Patient states she has chills and body aches but this is baseline for her and is not new. She states her food and nutrition professor is Dr. Singh at [facility] but has not spoken to him. She states she told her primary care physician that her legs are more swollen and she is more short of breath but she states that he did not give her any recommendations. Patient has not had a fever. She not complaining of chest pain. She does have dyspnea with exertion which she states is limiting her to about 5 feet now when she can normally walk 20 feet. She has orthopnea. [facility] Medical History Afib Anxiety Arthritis Asthma Atrial fibrillation and flutter Cancer Chest pain CHF (congestive heart failure) CHF (congestive heart failure) Chronic respiratory failure with hypoxia Congestive heart failure (CHF) COPD (chronic obstructive pulmonary disease) Coronary artery disease CPAP (continuous positive airway pressure) dependence Depression DVT (deep venous thrombosis) Essential hypertension History of deep vein thrombosis History of stroke Hypertension Leg edema Lung cancer Lung cancer Myocardial infarct Noncompliance with medication regimen On home oxygen therapy PAD (peripheral artery disease) Pneumonia Preoperative cardiovascular examination Rheumatoid arthritis Right leg DVT Sleep apnea Smoker TIA (transient ischemic attack) Home Medications diltiazem HCl 240 mg capsule,24 hr,extended release 240 mg PO DAILY heart 12/20/22 [History Last Taken 04/25/23] acetaminophen 500 mg tablet 1,000 mg PO DAILY PRN Pain 12/24/22 [History Last Taken 12/24/22] apixaban 5 mg tablet (Eliquis) 5 mg PO BID #180 tabs 01/06/23 [Rx Last Taken 04/25/23] metoprolol succinate 100 mg tablet,extended release 24 hr 100 mg PO DAILY increased to 100 mg once daily due to insurance #90 tabs 01/08/23 [Rx Last Taken 04/25/23] amiodarone 200 mg tablet 200 mg PO DAILY #90 tabs 04/14/23 [Rx Last Taken 04/25/23] potassium chloride 20 mEq tablet,extended release 20 meq PO DAILY #90 tabs 04/15/23 [Rx Last Taken 04/25/23] furosemide 40 mg tablet 40 mg PO Q8H 04/26/23 [History Last Taken 04/25/23] gabapentin 300 mg capsule 300 mg PO Q8H 04/26/23 [History Last Taken 04/25/23] latanoprost 0.005 % eye drops 1 drp ophthalmic (eye) QPM 04/26/23 [History Last Taken 04/25/23] levofloxacin 750 mg tablet 750 mg PO Q48@0600 #4 tabs 04/29/23 [Rx Last Taken Unknown] prednisone 20 mg tablet 40 mg (2 x 20 mg) PO DAILY 5 days #10 tabs 04/29/23 [Rx Last Taken Unknown] Allergy/AdvReac Type Severity Reaction Status Date / Time No Known Allergies Allergy Verified 05/11/23 16:55 Family History Mother Heart disease Hypertension Diabetes DVT (deep venous thrombosis) Father Colon cancer, Onset Age: 50 Brother Colon cancer, Onset Age: 30 Lung cancer Grandmother Diabetes Surgical History History of angioplasty of peripheral vessel History of ankle surgery History of cardioversion (03/03/22) History of hysterectomy History of removal of cyst History of skin graft Social History (Updated 05/11/23 @ 19:[address] Tonya Kimbrough MD) household members: other details: Her nephew lives with her and her sister lives next door. Smoking Status: Current every day smoker tobacco type: cigarettes alcohol intake: never substance use type: does not use caffeine: Yes Type: coffee Number of servings: 4 ROS ROS ED Constitutional Constitutional ED: Reports chills; Denies fever(s) or sweats Eyes Eyes: Denies blurry vision or change in vision ENT ENT ED: Denies ear pain or sore throat Cardiovascular Cardiovascular: Reports orthopnea and racing heartbeat; Denies chest pain or palpitations Respiratory/Chest Respiratory/Chest: Reports cough, dyspnea, dyspnea on exertion and orthopnea; Denies sputum Gastrointestinal Gastrointestinal: Denies abdominal pain, constipation, diarrhea, nausea or vomiting Genitourinary Genitourinary ED: Denies dysuria, hematuria or urinary frequency Musculoskeletal Musculoskeletal: Reports myalgias; Denies arthralgias or neck pain Integumentary Denies abscess, Abrasions or rash Neurologic Neurologic: Denies headache(s), paresthesias or weakness Psychiatric Psychiatric: Denies anxiety, depression, suicidal ideation or suicidal thoughts Endocrine Endocrinology: Denies polydipsia or polyuria EXAM Physical Exam Const Vital Signs: 05/11/23 16:55 05/11/23 17:37 05/11/23 17:39 Temperature 96.4 F L Temperature Source Temporal Pulse Rate 130 H 132 H Respiratory Rate 30 H 24 H Respiratory Effort Respiratory Depth Respiratory Pattern Tachypnea Blood Pressure 106/79 Blood Pressure Mean 88 Pulse Ox 94 Oxygen Delivery Method Nasal Cannula Nasal Cannula Oxygen Flow Rate (L/min) 3 4 Fraction of Inspired Oxygen (FIO2) 05/11/23 17:40 05/11/23 17:40 05/11/23 17:43 Temperature Temperature Source Pulse Rate 147 H Respiratory Rate 24 H Respiratory Effort Short of Breath Labored Accessory Muscle Use Short of Breath Labored Accessory Muscle Use Respiratory Depth Deep Respiratory Pattern Normal Tachypnea Blood Pressure Blood Pressure Mean Pulse Ox 98 Oxygen Delivery Method Nasal Cannula Nasal Cannula Oxygen Flow Rate (L/min) 4 4 Fraction of Inspired Oxygen (FIO2) 05/11/23 18:12 05/11/23 18:29 05/11/23 18:25 Temperature Temperature Source Pulse Rate 134 H 124 H Respiratory Rate 32 H 29 H Respiratory Effort Respiratory Depth Respiratory Pattern Blood Pressure 148/93 H 155/120 H Blood Pressure Mean 111 131 Pulse Ox 98 98 Oxygen Delivery Method Nasal Cannula Oxygen Flow Rate (L/min) 4 4 Fraction of Inspired Oxygen (FIO2) 30 05/11/23 19:04 Temperature Temperature Source Pulse Rate 113 H Respiratory Rate 22 H Respiratory Effort Respiratory Depth Respiratory Pattern Blood Pressure 158/97 H Blood Pressure Mean 117 Pulse Ox 99 Oxygen Delivery Method Room Air Oxygen Flow Rate (L/min) Fraction of Inspired Oxygen (FIO2) Positive obese and unkempt General Appearance ED: unkempt; Negative for pallor Nutritional Appearance: obese HEENT Reports dry mucous membranes Mouth ED: Yes dry mucous membranes Mouth: dry mucous membranes Eyes PERRL and EOMs intact bilaterally Neck no lymphadenopathy Resp normal respiratory effort Resp Narrative: Decreased breath sounds at right lung base. Auscultation: rales bilateral Cardio regular rate GI non-tender Neuro oriented x3 and CN's II-XII intact bilaterally Sensorium / Orientation: alert Motor Exam: strength 5/5 throughout Psych mental status grossly normal Appearance: unkempt Skin no wounds General Skin Exam: Negative for jaundice or pallor MDM MDM MDM Narrative Medical decision making narrative: Patient presented with dyspnea, orthopnea, noted to be tachycardic, tachypneic. Sepsis work-up was under taken. Patient request breathing treatments and she is given Solu-Medrol. Differential includes ACS, CHF, A-fib, pneumonia, COPD exacerbation, dehydration, electrolyte abnormality, dysrhythmia, anemia, GI bleed, worsening lung cancer. Patient does note that she initially had lung cancer and one lung and had radiation therapy a few months ago. She states that it was noted that she has cancer in her other lung now. She is supposed to be reevaluated for this. She is not on any chemotherapy. CBC within normal limits at 10.8. Hemoglobin stable at 12.6. Platelets normal 333. PT/INR within normal limits. Renal function and electrolytes near baseline. Lactic acid 0.9. LFTs are normal. High-sensitivity troponin is 14. Urinalysis is negative. Chest x-ray my interpretation shows nothing acute. EKG on my interpretation shows A-fib at 140 bpm. Patient initially given amiodarone IV because her blood pressure was a little bit soft at 106/79. On reevaluation her heart rate had improved to 113 and her blood pressure 158/97. Went to discuss her negative work-up with her and her heart rate was 1 30-1 60 in the room. At this point I will give her Cardizem. I spoke with the hospitalist for admission. Impression: 1. A-fib with RVR 2. COPD exacerbation Lab Data Attestation: I reviewed the patient's lab results. Labs: Laboratory Results - last 24 hr 05/11/23 05/11/23 17:30 17:53 WBC 10.8 RBC 4.53 Hgb 12.6 Hct 42.3 MCV 93.4 MCH 27.8 MCHC 29.8 L RDW Std Deviation 54.4 H RDW Coeff of Baltazar 15.9 H Plt Count 334 MPV 9.7 Immature Gran % (Auto) 0.600 Neut % (Auto) 81.1 H Lymph % (Auto) 11.9 L Thurston % (Auto) 4.6 Eos % (Auto) 1.4 Baso % (Auto) 0.4 Absolute Neuts (auto) 8.8 H Absolute Lymphs (auto) 1.29 Nucleated RBC % 0 PT 12.0 INR 0.9 APTT 24.4 Sodium 142 Potassium 4.4 Chloride 105 Carbon Dioxide 35.0 H Anion Gap 2 L BUN 21 H Creatinine 1.00 Estim Creat Clear Calc 45.16 Est GFR (MDRD) Af Amer 71 Est GFR (MDRD) Non-Af 59 L BUN/Creatinine Ratio 21.0 H Glucose 106 Lactic Acid 0.9 Calcium 9.3 Total Bilirubin 0.30 AST 9 L ALT 19 Alkaline Phosphatase 82 Troponin I High Sens 14 Total Protein 7.5 Albumin 3.1 L Globulin 4.4 H Albumin/Globulin Ratio 0.7 L Urine Color Yellow Urine Clarity Clear Urine pH 5.0 Ur Specific [place] 1.025 Urine Protein 15 H Urine Glucose (UA) Normal Urine Ketones 5 H Urine Occult Blood Negative Urine Nitrite Negative Urine Bilirubin Negative Urine Urobilinogen Normal Ur Leukocyte Esterase Negative Urine RBC 0 SEEN Urine WBC 0-5 SEEN Ur Squamous Epith Cells 0-5 SEEN Urine Bacteria 0 SEEN Urine Mucus 0 SEEN Radiography Diagnostic Testing: Clinical Impression(s) from Imaging Studies Chest X-Ray 05/11/23 17:55 IMPRESSION: Degenerative changes, as described above. No demonstrated acute cardiopulmonary process. Electronically Signed: Richard Montes MD at 18:34 EDT Reading Location ID and State: [address] [place] [address] , Service support , Discharge Plan Triage Chief Complaint: Shortness of Breath Other Complaint: Edema ED Provider: Tonny Lopez Dx/Rx/DC Orders Prescriptions: No Action Eliquis 5 mg tablet 5 mg PO BID Qty: 180 3RF diltiazem HCl 240 mg capsule,extended release 24 hr 240 mg PO DAILY acetaminophen 500 mg Tablet 1,000 mg PO DAILY PRN (Reason: Pain) furosemide 40 mg Tablet 40 mg PO Q8H latanoprost 0.005 % drops 1 drp ophthalmic (eye) QPM Patient Comments: INSTILL 1 DROP INTO EACH EYE NIGHTLY gabapentin 300 mg capsule 300 mg PO Q8H Patient Comments: TAKE 1 CAPSULE BY MOUTH THREE TIMES DAILY levofloxacin 750 mg Tablet 750 mg PO Q48@0600 Qty: 4 0RF prednisone 20 mg tablet 40 mg PO DAILY 5 Days Qty: 10 0RF metoprolol succinate 100 mg tablet extended release 24 hr 100 mg PO DAILY Qty: 90 3RF amiodarone 200 mg tablet 200 mg PO DAILY Qty: 90 0RF Rx Instructions: 200mg PO BID x one week followed by 200mg PO daily on week 2 potassium chloride 20 mEq tablet extended release 20 meq PO DAILY Qty: 90 3RF Primary Care Provider: Josesito Guthrie Referrals: Josesito Guthrie MD [Primary Care Provider] -
[2023-05-11] MEDS: Ipratropium/Albuterol Sulfate 3 ML AMPUL.NEB INHALATION (17:35)
[2023-05-11] MEDS: Albuterol 2.5 MG/3 ML VIAL.NEB. INHALATION (17:36)
[2023-05-11 17:40] LABS: Absolute Lymphocyte Count 1.29 X10^3/uL (0.83-4.51); Absolute Neutrophil Count 8.8 X10^3/uL (2.0-7.7); Basophil# 0.04 X10^3/uL; Basophil% 0.4 % (0-1); Eosinophil# 0.15 X10^3/uL; Eosinophils% 1.4 % (0-5); Hematocrit 42.3 % (37-47); Hemoglobin 12.6 g/dL (12.0-15.0); Lymphocyte # 1.29 X10^3/ul (0.83-4.51); Lymphocyte % 11.9 % (19-41); Mean Corp Hgb Conc 29.8 g/dL (32-36); Mean Corpuscular Hgb 27.8 pg (27.0-32.0); Mean Corpuscular Volume 93.4 fL (81-99); Mean Platelet Vol. 9.7 fl (6.2-12.0); Monocyte% 4.6 % (0-10); NRBC Flagged by Analyzer 0 % (0-5); Neutrophil # 8.77 X10^3/uL (2.7-7.7); Neutrophil % 81.1 % (47-70); Platelet Count 334 K/mm3 (150-450); RBC Distribution Width CV 15.9 % (11.6-14.6); RBC Distribution Width SD 54.4 fl (35.1-43.9); Red Blood Count 4.53 M/mm3 (4.2-5.4); White Blood Count 10.8 K/mm3 (4.4-11.0)
[2023-05-11] MEDS: MethylPREDNISolone 125 MG/2 ML Vial IV (17:40)
[2023-05-11 17:54] LABS: International Normalized Ratio 0.9; Partial Thromboplast Time 24.4 Seconds (24.1-36.2)
--- NOTE | 2023-05-11 17:55 | RAD_ITS ---
STUDY: X-RAY CHEST REASON FOR EXAM: Female, 67 years old. Dyspnea TECHNIQUE: Single AP portable view of the chest. COMPARISON: April 26, 2023 FINDINGS: Mild fibrotic densities of the lower lungs There is no demonstrated pleural abnormality. There is mild cardiac enlargement. Normal mediastinum and mario alberto. Normal visualized pulmonary arteries. Normal visualized aortic arch and descending thoracic aorta. Normal visualized thoracic spine. Normal visualized ribs, clavicles, and shoulders. There is no demonstrated abnormality of the visualized soft tissue structures of the upper abdomen. RAD/Chest 1 View (Portable) IMPRESSION: Degenerative changes, as described above. No demonstrated acute cardiopulmonary process. Electronically Signed: Richard Montes MD at 18:34 EDT ,
[2023-05-11 17:57] LABS: ALB/GLOB Ratio 0.7 RATIO (0.9-2.4); AST(SGOT) 9 U/L (15-37); Alanine Aminotransfer ALT/SGPT 19 U/L (13-56); Albumin, Serum 3.1 g/dL (3.2-5.0); Alkaline Phosphatase 82 U/L (45-117); Anion Gap 2 (5-15); BUN 21 mg/dL (7-18); Calcium,Total 9.3 mg/dL (8.5-10.1); Chloride 105 mmol/L (98-107); EST Glomerular Filtration Rate 59 mL/min (>60); Est Glom Filt Rate - Afr Amer 71 mL/min (>60); Estimated Creatinine Clearance 45.16 ml/min; Globulin 4.4 g/dL (2.2-4.2); Glucose 106 mg/dL (74-106); Potassium 4.4 mmol/L (3.5-5.1); Protein, Total 7.5 g/dL (6.4-8.2); Sodium Level 142 mmol/L (136-145); Troponin-I HS 14 pg/mL (3.0-54.0)
[2023-05-11 18:03] LABS: Bacteria 0 SEEN /hpf (None Seen); Mucous, Urine 0 SEEN /hpf (<or=2+); Red Blood Cells-Urine 0 SEEN /hpf (0-5)
[2023-05-11 18:12] LABS: Lactic Acid 0.9 mmol/L (0.4-1.9)
[2023-05-11] MEDS: Amiodarone 150 MG in Dextrose 5%-Water (100mL Bag) 100 ML 600 MG IV BOLUS (18:12)
[2023-05-11 18:22] LABS: Color, Urine Yellow (Yellow); Glucose, Dipstick Normal (Normal); Ketone-Dipstick 5 mg/dl (Negative); Leukocyte Esterase-Dipstick Negative /ul (Negative); Nitrite-Dipstick Negative (Negative); Occult Blood-Urine Negative /ul (Negative); Protein-Dipstick 15 mg/dl (Negative); Specific Gravity, Urine 1.025 (1.002-1.030); Urine Bilirubin Dipstick Negative (Negative); Urine Clarity Clear (Clear); Urine Urobilinogen Normal (Normal)
--- NOTE | 2023-05-11 18:34 | CPS ---
pt did not tolerate bipap -placed back on 4 l/m via nc -dr aware
[2023-05-11 18:36] LABS: Squamous Epithelial Cells - UA 0-5 SEEN /hpf (5-10); White Blood Cells 0-5 SEEN /hpf (0-5)
--- NOTE | 2023-05-11 19:49 | PCM.HP.STD ---
HPI - General General Date of Admission: 05/11/23 Date of Service: 05/11/23 Chief Complaint: Dyspnea. HPI Narrative The patient is a 67 y/o F w/ PMHx: BURKE not able to tolerate CPAP/BIPAP, CKD stage III unclear subtype, Chronic anemia, Anxiety and Depression, Chronic BL LE Lymphedema, Morbid Obesity, PAF/Flutter, COPD/Asthma with Chronic Hypoxic Respiratory Failure (3-4L NC), Presumed HFpEF, CAD/PAD s/p angioplasty peripheral vessels, Squamous cell Lung Cancer recently completing radiation therapy and not felt an appropriate candidate for chemotherapy per her report, Hx CVA, Hx VTE (RLE DVT), Tobacco use, recent 04/19/23 cardioversion attempt unsuccessful maintained on oral Eliquis, oral diltiazem, oral metoprolol regimen, admitted 04/26-04/29/23 for acute COPD exacerbation who now re-presents to the [facility] ED on 05/11/23 with history of increasing dyspnea completing her 5-day prednisone burst therapy however more severe over the last 3 days, worse with any exertion with associated orthopnea and complaint of increased swelling to the legs although unclear if she has had significant weight gain with evaluation by her primary care physician but given stable vital signs with stable oxygen supplementation no further medications were administered at that time but given she is not been improving prompted ED evaluation. She denies any specific fever or chills or productive cough of note. She notes that she has been wheezing however currently she feels more tight with poor air movement. Work-up in the ED included T96.4, heart rate initially 130 increasing up to 147 and most recently 113, BP initially 106/74 with most recent repeat 158/97, initially respiratory rate 30 noted to be 94% on 3 L nasal cannula eventually transition to 4 L nasal cannula noted to be 98%, CBC with WC 10.8, hemoglobin 12.6, platelet 334 with left shift, unremarkable coags, CMP with Comvax at 35, BUN/creatinine 21/1.0, lactic acid 0.9, hepatic profile unremarkable, troponin 14, urinalysis with elevated specific remedy 1.025 otherwise no obvious evidence of UTI, urine culture pending per ED, blood culture x2 pending per ED, rapid influenza and COVID antigens negative, chest x-ray with no acute cardiopulmonary findings, EKG with PAF w/ RVR. In the ED patient administered albuterol, DuoNeb therapy, amiodarone 150 mg IV x1 bolus, Solu-Medrol 125 mg IV x1 bolus and eventually cardizem 20 mg IV bolus x 1. PFSH Medical History Afib Anxiety Arthritis Asthma Atrial fibrillation and flutter Cancer Chest pain CHF (congestive heart failure) CHF (congestive heart failure) Chronic respiratory failure with hypoxia Congestive heart failure (CHF) COPD (chronic obstructive pulmonary disease) Coronary artery disease CPAP (continuous positive airway pressure) dependence Depression DVT (deep venous thrombosis) Essential hypertension History of deep vein thrombosis History of stroke Hypertension Leg edema Lung cancer Lung cancer Myocardial infarct Noncompliance with medication regimen On home oxygen therapy PAD (peripheral artery disease) Pneumonia Preoperative cardiovascular examination Rheumatoid arthritis Right leg DVT Sleep apnea Smoker TIA (transient ischemic attack) Home Medications diltiazem HCl 240 mg capsule,24 hr,extended release 240 mg PO DAILY heart 12/20/22 [History Last Taken 04/25/23] acetaminophen 500 mg tablet 1,000 mg PO DAILY PRN Pain 12/24/22 [History Last Taken 12/24/22] apixaban 5 mg tablet (Eliquis) 5 mg PO BID #180 tabs 01/06/23 [Rx Last Taken 04/25/23] metoprolol succinate 100 mg tablet,extended release 24 hr 100 mg PO DAILY increased to 100 mg once daily due to insurance #90 tabs 01/08/23 [Rx Last Taken 04/25/23] amiodarone 200 mg tablet 200 mg PO DAILY #90 tabs 04/14/23 [Rx Last Taken 04/25/23] potassium chloride 20 mEq tablet,extended release 20 meq PO DAILY #90 tabs 04/15/23 [Rx Last Taken 04/25/23] furosemide 40 mg tablet 40 mg PO Q8H 04/26/23 [History Last Taken 04/25/23] gabapentin 300 mg capsule 300 mg PO Q8H 04/26/23 [History Last Taken 04/25/23] latanoprost 0.005 % eye drops 1 drp ophthalmic (eye) QPM 04/26/23 [History Last Taken 04/25/23] levofloxacin 750 mg tablet 750 mg PO Q48@0600 #4 tabs 04/29/23 [Rx Last Taken Unknown] prednisone 20 mg tablet 40 mg (2 x 20 mg) PO DAILY 5 days #10 tabs 04/29/23 [Rx Last Taken Unknown] Allergy/AdvReac Type Severity Reaction Status Date / Time No Known Allergies Allergy Verified 05/11/23 16:55 Family History Mother Heart disease Hypertension Diabetes DVT (deep venous thrombosis) Father Colon cancer, Onset Age: 50 Brother Colon cancer, Onset Age: 30 Lung cancer Grandmother Diabetes Surgical History History of angioplasty of peripheral vessel History of ankle surgery History of cardioversion (03/03/22) History of hysterectomy History of removal of cyst History of skin graft Social History (Updated 05/11/23 @ 19:[address] Tonya Kimbrough MD) household members: other details: Her nephew lives with her and her sister lives next door. Smoking Status: Current every day smoker tobacco type: cigarettes alcohol intake: never substance use type: does not use caffeine: Yes Type: coffee Number of servings: 4 ROS ROS Narrative Admission Review of Systems: CONSTITUTIONAL: No weight loss, fever, chills, + weakness or fatigue. HEENT: Eyes: No visual loss, blurred vision, double vision or yellow sclerae. Ears, Nose, Throat: No hearing loss, sneezing, congestion, runny nose or sore throat. SKIN: + bilateral lower extremity chronic venous stasis skin changes. CARDIOVASCULAR: + chest tightness, acute on chronic edema, unchanged chronic lightheadedness/dizziness, orthopnea. No syncopal events. RESPIRATORY: + shortness of breath, wheezing. No marked cough or increased sputum, hemoptysis. GASTROINTESTINAL: No anorexia, nausea, vomiting or diarrhea, abdominal pain, melena, BRBPR. GENITOURINARY: No dysuria, frequency, urgency or retention. NEUROLOGICAL: + chronic LH/dizziness. No syncope, paralysis, ataxia, numbness or tingling in the extremities, focal weakness, change in bowel or bladder control, seizure. MUSCULOSKELETAL: + muscle, back pain, joint pain or stiffness. HEMATOLOGIC: + anemia, easy bleeding or bruising. LYMPHATICS: No enlarged nodes. No history of splenectomy. PSYCHIATRIC: + history of depression or anxiety. ENDOCRINOLOGIC: No reports of sweating, cold or heat intolerance. No polyuria or polydipsia. ALLERGIES: + history of asthma. Vital Signs Vital Signs Vital Signs: 05/11/23 16:55 05/11/23 17:37 05/11/23 17:39 Temperature 96.4 F L Temperature Source Temporal Pulse Rate 130 H 132 H Respiratory Rate 30 H 24 H Respiratory Effort Respiratory Depth Respiratory Pattern Tachypnea Blood Pressure 106/79 Blood Pressure Mean 88 Pulse Ox 94 Oxygen Delivery Method Nasal Cannula Nasal Cannula Oxygen Flow Rate (L/min) 3 4 Fraction of Inspired Oxygen (FIO2) 05/11/23 17:40 05/11/23 17:40 05/11/23 17:43 Temperature Temperature Source Pulse Rate 147 H Respiratory Rate 24 H Respiratory Effort Short of Breath Labored Accessory Muscle Use Short of Breath Labored Accessory Muscle Use Respiratory Depth Deep Respiratory Pattern Normal Tachypnea Blood Pressure Blood Pressure Mean Pulse Ox 98 Oxygen Delivery Method Nasal Cannula Nasal Cannula Oxygen Flow Rate (L/min) 4 4 Fraction of Inspired Oxygen (FIO2) 05/11/23 18:12 05/11/23 18:29 05/11/23 18:25 Temperature Temperature Source Pulse Rate 134 H 124 H Respiratory Rate 32 H 29 H Respiratory Effort Respiratory Depth Respiratory Pattern Blood Pressure 148/93 H 155/120 H Blood Pressure Mean 111 131 Pulse Ox 98 98 Oxygen Delivery Method Nasal Cannula Oxygen Flow Rate (L/min) 4 4 Fraction of Inspired Oxygen (FIO2) 30 05/11/23 19:04 Temperature Temperature Source Pulse Rate 113 H Respiratory Rate 22 H Respiratory Effort Respiratory Depth Respiratory Pattern Blood Pressure 158/97 H Blood Pressure Mean 117 Pulse Ox 99 Oxygen Delivery Method Room Air Oxygen Flow Rate (L/min) Fraction of Inspired Oxygen (FIO2) Weight Weight: 272 lb 14.916 oz Body Mass Index (BMI) 48.3 Physical Exam Narrative Physical Examination: General: Awake, alert, oriented x 3 and cooperative, seated upright in the ED bed, fatigued, mildly increased respiratory rate and some accessory muscle usage but no distress noted, attempted BIPAP in the ED she notes and was unable to tolerate. Skin: Normal color, normal turgor, no icterus, no cyanosis except significant BL LE chronic venous stasis skin changes. HEENT: AT/NC, EOMI, PERRLA, mildly dry MM, no carotid bruits, difficult to discern JVD given thickened neck. Lungs: Diffusely diminished, distant, tight, very poor air movement, mildly increased respiratory rates and some accessory muscle usage but no distress, no rales or rhonchi, currently no wheezing but notably poor movement. Heart: Irregular irregular; no gallop, rub audible. Abdomen: Soft, morbidly obese, NTTP, distant normal BS, no obvious evidence of distention or HSM; however habitus makes evaluation difficult. Extremities: No cyanosis, no clubbing, significant 3+ bilateral pedal to proximal, notable chronic venous stasis skin changes Neurological: Patient awake, alert, oriented as noted, cognitive function intact; pupils equally reactive to light and accommodation, cranial nerves II-XII grossly normal, moving all 4 extremities, no focal deficits, strenght severely globally decreased secondary to acute presentation complicated by underlying comorbidities. Psychiatric: Affect appears flat, fatigued, no acute evidence of depressive or anxiety feelings but does have underlying previous chart history reported. Results Lab / Micro Data 05/11/23 17:30 05/11/23 17:30 Labs: Laboratory Results - last 24 hr 05/11/23 17:30: WBC 10.8, RBC 4.53, Hgb 12.6, Hct 42.3, MCV 93.4, MCH 27.8, MCHC 29.8 L, RDW Std Deviation 54.4 H, RDW Coeff of Baltazar 15.9 H, Plt Count 334, MPV 9.7, Immature Gran % (Auto) 0.600, Neut % (Auto) 81.1 H, Lymph % (Auto) 11.9 L, [place] % (Auto) 4.6, Eos % (Auto) 1.4, Baso % (Auto) 0.4, Absolute Neuts (auto) 8.8 H, Absolute Lymphs (auto) 1.29, Nucleated RBC % 0, PT 12.0, INR 0.9, APTT 24.4, Sodium 142, Potassium 4.4, Chloride 105, Carbon Dioxide 35.0 H, Anion Gap 2 L, BUN 21 H, Creatinine 1.00, Estim Creat Clear Calc 45.16, Est GFR (MDRD) Af Amer 71, Est GFR (MDRD) Non-Af 59 L, BUN/Creatinine Ratio 21.0 H, Glucose 106, Lactic Acid 0.9, Calcium 9.3, Total Bilirubin 0.30, AST 9 L, ALT 19, Alkaline Phosphatase 82, Troponin I High Sens 14, Total Protein 7.5, Albumin 3.1 L, Globulin 4.4 H, Albumin/Globulin Ratio 0.7 L 05/11/23 17:53: Urine Color Yellow, Urine Clarity Clear, Urine pH 5.0, Ur Specific [place] 1.025, Urine Protein 15 H, Urine Glucose (UA) Normal, Urine Ketones 5 H, Urine Occult Blood Negative, Urine Nitrite Negative, Urine Bilirubin Negative, Urine Urobilinogen Normal, Ur Leukocyte Esterase Negative, Urine RBC 0 SEEN, Urine WBC 0-5 SEEN, Ur Squamous Epith Cells 0-5 SEEN, Urine Bacteria 0 SEEN, Urine Mucus 0 SEEN Micro: Microbiology 05/11/23 17:25 Nasal Secretion SARS-CoV-2 & FLU Antigen (Rapid) - Final Radiology Impression Chest X-Ray 05/11/23 17:55 IMPRESSION: Degenerative changes, as described above. No demonstrated acute cardiopulmonary process. Electronically Signed: Richard Montes MD at 18:34 EDT Reading Location ID and State: [facility] / [place] , Service support , Assessment & Plan Assessment/Plan (1) COPD exacerbation: PLAN: Plan The patient is a 67 y/o F w/ PMHx: BURKE not able to tolerate CPAP/BIPAP, CKD stage III unclear subtype, Chronic anemia, Anxiety and Depression, Chronic BL LE Lymphedema, Morbid Obesity, PAF/Flutter, COPD/Asthma with Chronic Hypoxic Respiratory Failure (3-4L NC), Presumed HFpEF, CAD/PAD s/p angioplasty peripheral vessels, Squamous cell Lung Cancer recently completing radiation therapy and not felt an appropriate candidate for chemotherapy per her report, Hx CVA, Hx VTE (RLE DVT), Tobacco use, recent 04/19/23 cardioversion attempt unsuccessful maintained on oral Eliquis, oral diltiazem, oral metoprolol regimen, admitted 04/26-04/29/23 for acute COPD exacerbation who now re-presents to the [facility] ED on 05/11/23 with history of increasing dyspnea over the last 3 days, worse with any exertion with associated orthopnea and complaint of increased swelling to the legs although unclear if she has had significant weight gain with evaluation by her primary care physician but given stable vital signs with stable oxygen supplementation no further medications were administered at that time but given she is not been improving prompted ED evaluation. #1. Dyspnea, Multifactorial, secondary to Acute on Chronic COPD/Asthma exacerbation w/ Chronic Hypoxic Respiratory Failure (3-4L NC) and Possible concurrent Acute HFpEF Exacerbation: Will admit to PCU, maintain on oxygen with wean as tolerated to home oxygen 3L NC supplementation, continue ATC budesonide especially given #2, if absolutely necessary PRN albuterol, IV methylprednisolone, HOB, IS parameters, will obtain sputum Cx, respiratory viral panel, procalcitonin, will hold on immediately abx therapy but low threshold to add if appropriate, will continue apixaban, metoprolol, not on NICOLAS inhibitor/ARB nor statin therapy, will pulse dose with IV lasix, place BL LE snug nicolas wraps while awaiting BNP level especially given UA with elevated SG of note and will not aggressively continue IV lasix until assure appropriate course given this finding but may add back if confirmed appropriate. PT/OT/CM consulted for discharge planning. Of note patient was recently discharged on a 5-day burst of prednisone therapy at her most recent discharge as well as Levaquin 750 mg with p.o. every 48 hour dosing with 4 tabs administered at her discharge. #2. PAF/Flutter with transient RVR: Likely secondary to acute presentation #1 with aerosol usage as well, improved following initial ED presentation, recent attempted cardioversion as noted which is unsuccessful, we will continue patient home diltiazem, metoprolol, amiodarone, Eliquis regimen. Recent TSH normal but will request magnesium. To be cautious will cycle cardiac enzymes, will maintain on telemetry monitoring, will attempt utilization of budesonide only with as needed albuterol only if absolutely necessary as noted #1. 10/26/2022 echocardiogram with EF 55 to 60% with a small pericardial effusion with no significant valvular disease. #3. Squamous cell carcinoma of the lung, unclear stage: Last note in the system from [facility] hematology/oncology with Dr. Neal with noted squamous cell carcinoma of the lung with pending staging work-up with biomarkers noted PD-L1 50% with history of a 3 cm left lower lobe mass along with indeterminate 5 mm left lower lobe nodules with CT abdomen pelvis with IV contrast with a slight increase in size of the left adrenal nodule compared to 2015 as well as subcentimeter low-density lesions in the liver too small to characterize, MRI of the brain without IV contrast with no acute evidence of any intracranial metastases, bronchoscopy 03/09/2022 with biopsy of the left lower lobe mass consistent with squamous cell carcinoma with planned PET/CT of unclear result, recently completed radiation therapy, not candidate for chemotherapy per her report, encourage continued outpatient follow-up with hematology/oncology. #4. PAD: Per records status post previous right common femoral artery, abdominal aortogram and bilateral lower extremity angiograms with previous QUILL STRIPPER/stent to the common iliac as well as left SFA, we will continue patient home apixaban, hypertensive regimen, not on statin therapy with no allergy listed but following with cardiology, encourage continued outpatient follow-up with both cardiology and vascular surgery. #5. CAD: Per records presumed nonobstructive coronary disease, continue apixaban, hypertensive regimen, not on statin therapy with no allergy listed but following with cardiology, encourage continued outpatient follow-up. #6. Chronic Kidney Disease Stage III, unclear subtype (per review of GFR history): Admission BUN/Cr 21/1.0, baseline renal function primarily 1.0-1.2, repeat CMP in AM. #7. Hypertension: Continue home regimen including diltiazem, metoprolol, PRN hydralazine. #8. Hyperlipidemia: Not on regimen, encourage continued outpatient follow-up. #9. Morbid Obesity: Weight loss and lifestyle changes encouraged. #10. Chronic bilateral extremity lymphedema, chronic venous stasis: Placement Nicolas wraps with bilateral lower extremity elevation, pulse dosing lasix as noted, elevate BL LE. #11. History CVA: Patient with history of remote CVA in the , will continue Eliquis, hypertensive regimen, not on statin therapy with no allergy listed, encourage continued outpatient follow-up. #12. Anxiety and depression: Noted in history, not on regimen, encourage continued outpatient follow-up. #13. History VTE: Patient with history of DVT, right lower extremity noted in history, continue Eliquis regimen. #14. Tobacco Abuse: Encouraged cessation, inpatient consultation per RT, NR if desired. #15. BURKE: Unable to tolerate PAP therapy, uses her chronic oxygen supplementation. #16. DVT Prophylaxis: Continue home eliquis regimen. #17. CODE status: Patient ZAFAR is her son and sister, living will is not currently in place. DNR-CCA with very specifically short term intubation to allow her family to arrive and see her before extubating. Charges/Coding Visit Charges Inpatient E&M: 28931 Init Hosp L3
[2023-05-11 21:02] LABS: Magnesium 2.3 mg/dL (1.6-2.6)
[2023-05-11] MEDS: dilTIAZem 25 MG/5 ML Vial 20 MG IV BOLUS (21:16)
[2023-05-11 21:30] LABS: BNP,B-Type NATRIURETIC PEPTIDE 164.8 pg/mL (0-100)
[2023-05-11 21:46] LABS: Procalcitonin < 0.01 ng/mL (0.00-0.09)
[2023-05-11] MEDS: dilTIAZem CD 240 MG Capsule PO (22:56)
[2023-05-11] MEDS: guaiFENesin 1,200 MG Tablet 1200 MG PO (22:56)
[2023-05-11] MEDS: Furosemide 40 MG/4 ML Vial IV (22:56)
[2023-05-11] MEDS: APIXABAN 5 MG TABLET PO (22:56)
[2023-05-11] MEDS: Menthol/Lanolin/Calamine/Znox 113 GM Tube 1 APPLIC TOPICAL (22:57)
[2023-05-11] MEDS: Miconazole Nitrate 43 GM Bottle 1 APPLIC TOPICAL (22:57)
[2023-05-11] MEDS: Gabapentin 300 MG Capsule PO (23:03)
[2023-05-11] MEDS: 0.9% Saline Lock 10 ML Syringe IV (23:03)
[2023-05-11 23:07] LABS: Troponin-I HS 13 pg/mL (3.0-54.0)
[2023-05-12] VITALS (18 sets, daily range): BP systolic 102–162; BP diastolic 64–140; PULSE 76–138; RESP 16–30; TEMP 36.4–37.1; O2SAT 94–98; BMI 46.9
[2023-05-12 00:33] LABS: Troponin-I HS 11 pg/mL (3.0-54.0)
[2023-05-12 04:10] LABS: Absolute Lymphocyte Count 0.34 X10^3/uL (0.83-4.51); Absolute Neutrophil Count 9.9 X10^3/uL (2.0-7.7); Basophil# 0.01 X10^3/uL; Basophil% 0.1 % (0-1); Hematocrit 39.7 % (37-47); Hemoglobin 12.2 g/dL (12.0-15.0); Lymphocyte # 0.34 X10^3/ul (0.83-4.51); Lymphocyte % 3.3 % (19-41); Mean Corp Hgb Conc 30.7 g/dL (32-36); Mean Corpuscular Hgb 28.6 pg (27.0-32.0); Mean Platelet Vol. 9.7 fl (6.2-12.0); Monocyte# 0.03 X10^3/uL; Monocyte% 0.3 % (0-10); NRBC Flagged by Analyzer 0 % (0-5); Neutrophil # 9.86 X10^3/uL (2.7-7.7); Neutrophil % 95.8 % (47-70); POSITIVE DIFFERENTIAL YES; Platelet Count 314 K/mm3 (150-450); RBC Distribution Width CV 15.8 % (11.6-14.6); Red Blood Count 4.27 M/mm3 (4.2-5.4); White Blood Count 10.3 K/mm3 (4.4-11.0)
[2023-05-12 04:13] LABS: Differential Indicated SCAN CRITERIA MET
[2023-05-12 04:44] LABS: ALB/GLOB Ratio 0.6 RATIO (0.9-2.4); AST(SGOT) 7 U/L (15-37); Alanine Aminotransfer ALT/SGPT 19 U/L (13-56); Albumin, Serum 2.7 g/dL (3.2-5.0); Alkaline Phosphatase 78 U/L (45-117); Anion Gap 4 (5-15); BUN 23 mg/dL (7-18); BUN/Creat Ratio 20.7 RATIO (10-20); Calcium,Total 8.8 mg/dL (8.5-10.1); Chloride 103 mmol/L (98-107); Creatinine, Serum 1.11 mg/dL (0.55-1.02); EST Glomerular Filtration Rate 52 mL/min (>60); Est Glom Filt Rate - Afr Amer 63 mL/min (>60); Globulin 4.6 g/dL (2.2-4.2); Glucose 191 mg/dL (74-106); Potassium 4.2 mmol/L (3.5-5.1); Protein, Total 7.3 g/dL (6.4-8.2); Sodium Level 138 mmol/L (136-145); Troponin-I HS 10 pg/mL (3.0-54.0)
[2023-05-12 04:58] LABS: Anisocytosis 1+
[2023-05-12] MEDS: Miconazole Nitrate 43 GM Bottle 1 APPLIC TOPICAL ×3 (06:24→20:45)
[2023-05-12] MEDS: Furosemide 40 MG/4 ML Vial IV ×2 (06:24→18:23)
[2023-05-12] MEDS: Gabapentin 300 MG Capsule PO ×3 (06:24→21:03)
[2023-05-12] MEDS: 0.9% Saline Lock 10 ML Syringe IV ×3 (06:25→12:51)
[2023-05-12] MEDS: Amiodarone 200 MG Tablet PO (08:40)
[2023-05-12] MEDS: Potassium Chloride Oral Tablet 20 MEQ PO (08:42)
[2023-05-12] MEDS: Acetaminophen 325 MG Tablet 650 MG PO ×2 (08:45→14:43)
[2023-05-12] MEDS: hydrALAZINE 20 MG/ML Vial 10 MG IV (08:52)
--- NOTE | 2023-05-12 09:25 | PN.HOSP_ITS ---
Reason for Visit Reason for Visit: Diagnoses Chronic obstructive pulmonary disease with (acute) exacerbation (05/11/23) Objective Data Objective Data Vital Signs: Vital Signs Temp Pulse Resp BP Pulse Ox O2 Del Method O2 Flow Rate 98.1 F 131 H 18 162/140 H 94 Nasal Cannula 3 05/12/23 07:05 05/12/23 08:52 05/12/23 07:05 05/12/23 08:52 05/12/23 07:05 05/12/23 07:05 05/12/23 07:05 FiO2 30 05/11/23 18:25 Oxygen Flow Rate (L/min) 3 Oxygen Delivery Method Nasal Cannula Weight: 264 lb 12.403 oz Body Mass Index (BMI) 46.9 Intake & Output: Intake and Output for Last 24 Hours 05/10/23 05/11/23 05/12/23 23:59 23:59 23:59 Intake Total 223 / 223 220 / 220 Output Total 300 / 300 1550 / 1550 Balance -77 / -77 -1330 / -1330 Lab / Micro Data 05/12/23 03:59 05/12/23 03:59 Labs: Laboratory Results - last 24 hr 05/11/23 17:30: WBC 10.8, RBC 4.53, Hgb 12.6, Hct 42.3, MCV 93.4, MCH 27.8, MCHC 29.8 L, RDW Std Deviation 54.4 H, RDW Coeff of Baltazar 15.9 H, Plt Count 334, MPV 9.7, Immature Gran % (Auto) 0.600, Neut % (Auto) 81.1 H, Lymph % (Auto) 11.9 L, [place] % (Auto) 4.6, Eos % (Auto) 1.4, Baso % (Auto) 0.4, Absolute Neuts (auto) 8.8 H, Absolute Lymphs (auto) 1.29, Nucleated RBC % 0, PT 12.0, INR 0.9, APTT 24.4, Sodium 142, Potassium 4.4, Chloride 105, Carbon Dioxide 35.0 H, Anion Gap 2 L, BUN 21 H, Creatinine 1.00, Estim Creat Clear Calc 45.16, Est GFR (MDRD) Af Amer 71, Est GFR (MDRD) Non-Af 59 L, BUN/Creatinine Ratio 21.0 H, Glucose 106, Lactic Acid 0.9, Calcium 9.3, Magnesium 2.3, Total Bilirubin 0.30, AST 9 L, ALT 19, Alkaline Phosphatase 82, Troponin I High Sens 14, B-Natriuretic Peptide 164.8 H, Total Protein 7.5, Albumin 3.1 L, Globulin 4.4 H, Albumin/Globulin Ratio 0.7 L 05/11/23 17:53: Urine Color Yellow, Urine Clarity Clear, Urine pH 5.0, Ur Specific [place] 1.025, Urine Protein 15 H, Urine Glucose (UA) Normal, Urine Ketones 5 H, Urine Occult Blood Negative, Urine Nitrite Negative, Urine Bilirubin Negative, Urine Urobilinogen Normal, Ur Leukocyte Esterase Negative, Urine RBC 0 SEEN, Urine WBC 0-5 SEEN, Ur Squamous Epith Cells 0-5 SEEN, Urine B acteria 0 SEEN, Urine Mucus 0 SEEN 05/11/23 20:50: Procalcitonin < 0.01 05/11/23 22:35: Troponin I High Sens 13 05/12/23 00:05: Troponin I High Sens 11 05/12/23 03:59: WBC 10.3, RBC 4.27, Hgb 12.2, Hct 39.7, MCV 93.0, MCH 28.6, MCHC 30.7 L, RDW Std Deviation 54.0 H, RDW Coeff of Baltazar 15.8 H, Plt Count 314, MPV 9.7, Immature Gran % (Auto) 0.500, Neut % (Auto) 95.8 H, Lymph % (Auto) 3.3 L, [place] % (Auto) 0.3, Eos % (Auto) 0.0, Baso % (Auto) 0.1, Absolute Neuts (auto) 9.9 H, Absolute Lymphs (auto) 0.34 L, Nucleated RBC % 0, Anisocytosis 1+, Sodium 138, Potassium 4.2, Chloride 103, Carbon Dioxide 31.0, Anion Gap 4 L, BUN 23 H, Creatinine 1.11 H, Estim Creat Clear Calc 38.90, Est GFR (MDRD) Af Amer 63, Est GFR (MDRD) Non-Af 52 L, BUN/Creatinine Ratio 20.7 H, Glucose 191 H, Calcium 8.8, Total Bilirubin 0.30, AST 7 L, ALT 19, Alkaline Phosphatase 78, Troponin I High Sens 10, Total Protein 7.3, Albumin 2.7 L, Globulin 4.6 H, Albumin/Globulin Ratio 0.6 L Micro: Microbiology 05/11/23 22:49 Mucosa - Nasopharyngeal Respiratory Panel (PCR) - Final 05/11/23 17:53 Urine Catheter - Catheter Legionella Antigen - Final 05/11/23 17:53 Urine Catheter - Catheter Streptococcus pneumoniae Antigen (M - Final 05/11/23 17:25 Nasal Secretion SARS-CoV-2 & FLU Antigen (Rapid) - Final Radiography Diagnostic Testing: Radiology Impression Chest X-Ray 05/11/23 17:55 IMPRESSION: Degenerative changes, as described above. No demonstrated acute cardiopulmonary process. Electronically Signed: Richard Montes MD at 18:34 EDT , Physical Exam Narrative Patient is short of breath even at rest. Had mild local light chest pain but that has resolved. Probably pleuritic in nature. Has cough and brings up clear phlegm. Patient had interdisciplinary rounds and discussed the course of COPD and heart failure and lung cancer and follow-up with forensic materials engineer railway patrol officer and oncologist. Physical exam General: Alert, Oriented x3, Cooperative HEENT: Atraumatic, PERRLA, EOMI, Normocephalic Oral: Oral mucosa dry. No Gingival or Mucosal Lesions/ Ulcerations Neck: Supple, No JVD, Negative Carotid Bruits Lungs: Air entry diminished in bilateral lung bases. Bilateral gross wheezing and rhonchi. Dyspnea at rest. Cardiovascular: A-fib with RVR heart rate 120 to 150/min, Normal S1, Normal S2, No murmurs Abdomen: Bowel Sounds Present, Soft, Non Tender, Non-Distended : No renal angle tenderness. No suprapubic tenderness. Extremities: Bilateral 2+ pitting ankle edema, Capillary Refill Less than 3 Seconds Skin: No rashes, No breakdown Musculoskeletal: No Tenderness to Palpation of Joints or Extremities Neurological: Cranial nerves II-XII grossly intact, DTR 2+/4. No acute focal neurological deficit. Psych/Mental Status: Flat affect. Assessment & Plan Assessment/Plan (1) COPD exacerbation: PLAN: Plan The patient is a 67 y/o F COPD/Asthma with Chronic Hypoxic Respiratory Failure (3-4L NC) admitted in PCU on 05/11/23 with history of increasing dyspnea over the last 3 days, worse with any exertion with associated orthopnea and complaint of increased swelling to the legs. Patient is being managed on scheduled bronchodilator, IV Solu-Medrol, Mucinex, incentive spirometry and Pep. #1. Dyspnea, Multifactorial, secondary to Acute on Chronic COPD/Asthma exacerbation w/ Chronic Hypoxic Respiratory Failure (3-4L NC) and Possible concurrent Acute HFpEF Exacerbation: Patient baseline 3 L of home oxygen and 4 L on activity. Currently patient is tachypneic on 3 L of oxygen. We will treat the underlying disorder as mentioned below. Heart failure core measures including intake and output, fluid restriction less than 1500 mL, daily weight monitoring, kidney and electrolytes monitoring. Patient on Lasix 40 mg IV every 8 hourly changed to 40 mg twice daily. Patient was recently discharged 5-day burst of prednisone therapy and completed Levaquin 750-minute every 48 hour. Patient was discharged on 04/29/2023 for similar COPD exacerbation. #2. PAF/Flutter with transient RVR most likely due to COPD exacerbation: Patient heart rate went to 150/min. Loading dose of digoxin with 500 mg IV and then 250 mill of 6 hours ordered. Patient also on a admitted on 200 mg daily. Metoprolol 6 increased to 100 mg twice daily. Cardizem CD changed to Cardizem 60 mg p.o. every 6 hourly. Monitor heart rate. Discussed with nursing staff 10/26/2022 echocardiogram with EF 55 to 60% with a small pericardial effusion with no significant valvular disease. #3. Squamous cell carcinoma of the lung, unclear stage: Last note in the system from [facility] hematology/oncology with Dr. Neal with noted squamous cell carcinoma of the lung with pending staging work-up with biomarkers noted PD-L1 50% with history of a 3 cm left lower lobe mass along with indeterminate 5 mm left lower lobe nodules with CT abdomen pelvis with IV contrast with a slight increase in size of the left adrenal nodule compared to 2015 as well as subcentimeter low-density lesions in the liver too small to characterize, MRI of the brain without IV contrast with no acute evidence of any intracranial metastases, bronchoscopy 03/09/2022 with biopsy of the left lower lobe mass consistent with squamous cell carcinoma with planned PET/CT of unclear result, recently completed radiation therapy, not candidate for chemotherapy per her report, encourage continued outpatient follow-up with hematology/oncology. #4. PAD: Per records status post previous right common femoral artery, abdominal aortogram and bilateral lower extremity angiograms with previous EQUITY TRADER/stent to the common iliac as well as left SFA, we will continue patient home apixaban, hypertensive regimen, not on statin therapy with no allergy listed but following with cardiology, encourage continued outpatient follow-up with both cardiology and vascular surgery. #5. CAD: Per records presumed nonobstructive coronary disease, continue apixaban, hypertensive regimen, not on statin therapy with no allergy listed but following with cardiology, encourage continued outpatient follow-up. #6. Chronic Kidney Disease Stage IIIb: Admission BUN/Cr 21/1.0, baseline renal function primarily 1.0-1.2, repeat BMP in AM. #7. Hypertension: Continue home regimen including diltiazem, metoprolol, PRN hydralazine. #8. Hyperlipidemia: Not on regimen, encourage continued outpatient follow-up. #9. Morbid Obesity: Weight loss and lifestyle changes encouraged. #10. Chronic bilateral extremity lymphedema, chronic venous stasis: Placement Nicolas wraps with bilateral lower extremity elevation, pulse dosing lasix as noted, elevate BL LE. #11. History CVA: Patient with history of remote CVA in the , will continue Eliquis, hypertensive regimen, not on statin therapy with no allergy listed, encourage continued outpatient follow-up. #12. Anxiety and depression: Noted in history, not on regimen, encourage continued outpatient follow-up. #13. History VTE: Patient with history of DVT, right lower extremity noted in history, continue Eliquis regimen. #14. Tobacco Abuse: Encouraged cessation, inpatient consultation per RT, NR if desired. #15. BURKE: Unable to tolerate PAP therapy, uses her chronic oxygen supplementation. #16. DVT Prophylaxis: Continue home eliquis regimen. #17. CODE status: Patient ZAFAR is her son and sister, living will is not currently in place. DNR-CCA with very specifically short term intubation to allow her family to arrive and see her before extubating. Total time of the visit including total time spent in counseling or coordination of care, (more than 50% of the total time, spent in obtaining medical information from nurses and other ancillary care providers,explaining to the patient about labs, imaging, diagnosis and management of active complex medical conditions), interdisciplinary round, clinical update given to patient's sister present to the room,, review of labs and imaging is 50 minutes. Clinical Impression(s) from Imaging Studies Chest X-Ray 05/11/23 17:55 IMPRESSION: Degenerative changes, as described above. No demonstrated acute cardiopulmonary process. Charges/Coding Visit Charges Inpatient E&M: 37219 Subs Hosp L3
[2023-05-12] MEDS: Metoprolol(XL)Succ 100 MG Tablet PO ×2 (10:06→20:42)
[2023-05-12] MEDS: Menthol/Lanolin/Calamine/Znox 113 GM Tube 1 APPLIC TOPICAL ×4 (10:06→20:44)
[2023-05-12] MEDS: APIXABAN 5 MG TABLET PO ×2 (10:06→20:44)
[2023-05-12] MEDS: dilTIAZem CD 240 MG Capsule PO (10:06)
[2023-05-12] MEDS: guaiFENesin 1,200 MG Tablet 1200 MG PO ×2 (10:06→20:44)
--- NOTE | 2023-05-12 11:20 | CASEMGMT ---
BINA BROWNE chart review: Patient was admitted 04/26-04/29/23 for COPD exacerbation and PAF RVR. See BINA BROWNE assessment from 04/27/23. Patient was discharged home with [facility] and increase in home oxygen with [employer] to 3lpm with rest and 4lpm with ambulation. Patient returned 05/11/23 to [facility] ED for increase SOB. Patient was admitted for COPD and CHF exacerbation, PAF RVR. Patient was requiring 4lpm of oxygen, started on IV Lasix and IV Solu Medrol. Patient placed on fluid restrictions and low sodium diet. BINA BROWNE in to discuss readmission and discharge plans. Patient states she did not attend PCP appt on 05/05 due to her feet being swollen and not having a ride. RN HOLLIE educated on importance of attending follow-up appts. Patient states she was taking her medications as prescribed. RN HOLLIE inquired if patient follows low sodium diet, patient states no. RN CM encourage patient to follow low sodium diet and to purchase scale to check weights daily. Patient would like SHEET ROCK TAPER added to [facility] services. BINA BROWNE called and sent resumption order to [facility]. Will monitor for increase in home oxygen. CM will continue to follow this patient and plan for a safe discharge.
[2023-05-12] MEDS: Digoxin 250 MCG/ML Ampul 500 MCG IV (12:51)
--- NOTE | 2023-05-12 13:10 | CHAPLAIN ---
Type of Pastoral Visit _x__ Initial Visit ___ Follow-up Visit ___ On-call Visit ___ General Patient Visit ___ Spiritual Assessment ___ Family Conference ___ Bereavement ___ Rapid Response ___ Code Blue ___ Other (describe below) Pastoral Care Referral From _x__ Patient ___ Family ___ Nurse ___ Physician ___ Finance Insurance Manager ___ [place] ___ Other (describe below) Sacrament/Intervention _x__ Active listening ___ Anointing ___ Alevism ___ Bereavement ___ Communion ___ Hermila exploration ___ ___ Life review ___ Prayer ___ Reconciliation ___ Sacrament of Sick _x__ Supportive presence ___ Wedding ___ Other (describe below) Pastoral Comments patient is eating lunch and speaks with some hesitation due to breathing issues; offer of support; pt responds that she is fine; acknowledgement to pt that keeping her calm is important; offer of any future support is given and received
--- NOTE | 2023-05-12 15:03 | CASEMGMT ---
BINA BROWNE chart review: Patient was admitted 04/26/
[2023-05-12] MEDS: Ipratropium 0.5 MG/2.5 ML SOLUTION INHALATION ×3 (15:10→23:19)
[2023-05-12] MEDS: Digoxin 250 MCG/ML Ampul IV (18:22)
[2023-05-12] MEDS: dilTIAZem 60 MG Tablet PO (18:23)
[2023-05-12] MEDS: Latanoprost 0.005% 1 Bottle 1 DRP OPHTHALMIC (20:43)
[2023-05-12] MEDS: Senna/Docusate Sodium 1 Tablet 2 TABLET PO (21:03)
[2023-05-12] MEDS: guaiFENesin/D-Methorphan TAB.SR.12H 2 TABLET PO (21:03)
[2023-05-13] VITALS (13 sets, daily range): BP systolic 121–146; BP diastolic 51–110; PULSE 78–88; RESP 18–24; TEMP 36.1–36.3; O2SAT 92–96; BMI 47.0
[2023-05-13] MEDS: Ipratropium 0.5 MG/2.5 ML SOLUTION INHALATION ×5 (03:16→19:19)
[2023-05-13 05:29] LABS: Absolute Lymphocyte Count 0.29 X10^3/uL (0.83-4.51); Absolute Neutrophil Count 15.2 X10^3/uL (2.0-7.7); Basophil# 0.02 X10^3/uL; Basophil% 0.1 % (0-1); Hematocrit 36.8 % (37-47); Hemoglobin 10.6 g/dL (12.0-15.0); Lymphocyte # 0.29 X10^3/ul (0.83-4.51); Lymphocyte % 1.8 % (19-41); Mean Corp Hgb Conc 28.8 g/dL (32-36); Mean Corpuscular Hgb 27.7 pg (27.0-32.0); Mean Corpuscular Volume 96.3 fL (81-99); Monocyte# 0.07 X10^3/uL; Monocyte% 0.4 % (0-10); NRBC Flagged by Analyzer 0 % (0-5); Neutrophil # 15.22 X10^3/uL (2.7-7.7); Neutrophil % 96.8 % (47-70); POSITIVE DIFFERENTIAL YES; Platelet Count 341 K/mm3 (150-450); RBC Distribution Width CV 15.9 % (11.6-14.6); RBC Distribution Width SD 56.5 fl (35.1-43.9); Red Blood Count 3.82 M/mm3 (4.2-5.4); White Blood Count 15.7 K/mm3 (4.4-11.0)
[2023-05-13] MEDS: dilTIAZem 60 MG Tablet PO ×3 (05:33→17:39)
[2023-05-13 05:34] LABS: Differential Indicated SCAN CRITERIA MET
[2023-05-13] MEDS: Furosemide 40 MG/4 ML Vial IV ×2 (05:41→17:39)
[2023-05-13] MEDS: Gabapentin 300 MG Capsule PO ×3 (05:42→22:22)
[2023-05-13 05:58] LABS: Anisocytosis 1+
[2023-05-13 06:27] LABS: Anion Gap 3 (5-15); BUN 39 mg/dL (7-18); BUN/Creat Ratio 32.2 RATIO (10-20); Chloride 103 mmol/L (98-107); Creatinine, Serum 1.21 mg/dL (0.55-1.02); EST Glomerular Filtration Rate 47 mL/min (>60); Est Glom Filt Rate - Afr Amer 57 mL/min (>60); Estimated Creatinine Clearance 35.68 ml/min; Glucose 213 mg/dL (74-106); Magnesium 2.3 mg/dL (1.6-2.6); Phosphorus 3.2 mg/dL (2.5-4.9); Potassium 4.1 mmol/L (3.5-5.1); Sodium Level 139 mmol/L (136-145)
[2023-05-13] MEDS: Miconazole Nitrate 43 GM Bottle 1 APPLIC TOPICAL ×2 (07:13→22:13)
[2023-05-13] MEDS: Acetaminophen 325 MG Tablet 650 MG PO ×2 (08:01→18:35)
[2023-05-13] MEDS: Menthol/Lanolin/Calamine/Znox 113 GM Tube 1 APPLIC TOPICAL ×4 (08:57→22:11)
[2023-05-13] MEDS: Potassium Chloride Oral Tablet 20 MEQ PO (08:58)
[2023-05-13] MEDS: Amiodarone 200 MG Tablet PO (08:58)
[2023-05-13] MEDS: Metoprolol(XL)Succ 100 MG Tablet PO ×2 (08:59→22:23)
[2023-05-13] MEDS: Senna/Docusate Sodium 1 Tablet 2 TABLET PO ×2 (08:59→22:09)
[2023-05-13] MEDS: APIXABAN 5 MG TABLET PO ×2 (08:59→22:12)
[2023-05-13] MEDS: guaiFENesin/D-Methorphan TAB.SR.12H 2 TABLET PO ×2 (08:59→22:10)
[2023-05-13] MEDS: guaiFENesin 1,200 MG Tablet 1200 MG PO ×2 (09:02→22:12)
--- NOTE | 2023-05-13 13:31 | PCM.PN.HOSP ---
Reason for Visit Reason for Visit: Diagnoses Chronic obstructive pulmonary disease with (acute) exacerbation (05/11/23) Objective Data Objective Data Vital Signs: Vital Signs Temp Pulse Resp BP Pulse Ox O2 Del Method O2 Flow Rate 97.0 F L 85 20 H 124/54 H 93 Nasal Cannula 4 05/13/23 07:58 05/13/23 10:41 05/13/23 10:41 05/13/23 08:59 05/13/23 07:58 05/13/23 09:04 05/13/23 09:04 FiO2 30 05/11/23 18:25 Oxygen Flow Rate (L/min) 4 Oxygen Delivery Method Nasal Cannula Weight: 265 lb 6.985 oz Body Mass Index (BMI) 47.0 Intake & Output: Intake and Output for Last 24 Hours 05/11/23 05/12/23 05/13/23 23:59 23:59 23:59 Intake Total 223 / 223 1220 / 1420 400 / 400 Output Total 300 / 300 3050 / 3600 1600 / 1600 Balance -77 / -77 -1830 / -2180 -1200 / -1200 Lab / Micro Data 05/13/23 04:39 05/13/23 04:39 Labs: Laboratory Results - last 24 hr 05/13/23 04:39: WBC 15.7 H, RBC 3.82 L, Hgb 10.6 L, Hct 36.8 L, MCV 96.3, MCH 27.7, MCHC 28.8 L D, RDW Std Deviation 56.5 H, RDW Coeff of Baltazar 15.9 H, Plt Count 341, MPV 10.0, Immature Gran % (Auto) 0.900, Neut % (Auto) 96.8 H, Lymph % (Auto) 1.8 L, [place] % (Auto) 0.4, Eos % (Auto) 0.0, Baso % (Auto) 0.1, Absolute Neuts (auto) 15.2 H, Absolute Lymphs (auto) 0.29 L, Nucleated RBC % 0, Anisocytosis 1+, Sodium 139, Potassium 4.1, Chloride 103, Carbon Dioxide 33.0 H, Anion Gap 3 L, BUN 39 H, Creatinine 1.21 H, Estim Creat Clear Calc 35.68, Est GFR (MDRD) Af Amer 57 L, Est GFR (MDRD) Non-Af 47 L, BUN/Creatinine Ratio 32.2 H, Glucose 213 H, Calcium 8.0 L, Phosphorus 3.2, Magnesium 2.3 Micro: Microbiology 05/11/23 17:55 Urine, Clean Catch Urine Culture - Final GPC Poss Enterococcus sp 05/11/23 22:49 Mucosa - Nasopharyngeal Respiratory Panel (PCR) - Final 05/11/23 17:53 Urine Catheter - Catheter Legionella Antigen - Final 05/11/23 17:53 Urine Catheter - Catheter Streptococcus pneumoniae Antigen (M - Final 05/11/23 17:25 Nasal Secretion SARS-CoV-2 & FLU Antigen (Rapid) - Final Physical Exam Narrative Seen and examined. Shortness of breath is better. Patient still has dyspnea on mild exertion. Dyspnea at rest has resolved. No acute chest pain last 1 day. Has cough and brings up clear phlegm. Physical exam General: Alert, Oriented x3, Cooperative HEENT: Atraumatic, PERRLA, EOMI, Normocephalic Oral: Oral mucosa dry. No Gingival or Mucosal Lesions/ Ulcerations Neck: Supple, No JVD, Negative Carotid Bruits Lungs: Air entry diminished in bilateral lung bases. Bilateral gross wheezing and rhonchi. Hypoxia Cardiovascular: A-fib with RVR heart rate 120 to 150/min, Normal S1, Normal S2, No murmurs Abdomen: Bowel Sounds Present, Soft, Non Tender, Non-Distended : No renal angle tenderness. No suprapubic tenderness. Extremities: Bilateral 2+ pitting ankle edema, Capillary Refill Less than 3 Seconds Skin: No rashes, No breakdown Musculoskeletal: No Tenderness to Palpation of Joints or Extremities Neurological: Cranial nerves II-XII grossly intact, DTR 2+/4. No acute focal neurological deficit. Psych/Mental Status: Flat affect. Assessment & Plan Assessment/Plan (1) COPD exacerbation: PLAN: Plan The patient is a 67 y/o F COPD/Asthma with Chronic Hypoxic Respiratory Failure (3-4L NC) admitted in PCU on 05/11/23 with history of increasing dyspnea over the last 3 days, worse with any exertion with associated orthopnea and complaint of increased swelling to the legs. Patient is being managed on scheduled bronchodilator, IV Solu-Medrol, Mucinex, incentive spirometry and Pep. #1. Dyspnea, Multifactorial, secondary to Acute on Chronic COPD/Asthma exacerbation w/ Chronic Hypoxic Respiratory Failure (3-4L NC) and Possible concurrent Acute HFpEF Exacerbation: Patient baseline 3 L of home oxygen and 4 L on activity. Currently patient is tachypneic on 3 L of oxygen. We will treat the underlying disorder as mentioned below. Heart failure core measures including intake and output, fluid restriction less than 1500 mL, daily weight monitoring, kidney and electrolytes monitoring. Patient on Lasix 40 mg IV every 8 hourly changed to 40 mg twice daily. Patient was recently discharged 5-day burst of prednisone therapy and completed Levaquin 750-minute every 48 hour. Patient was discharged on 04/29/2023 for similar COPD exacerbation. 05/13: Continue diuretics, bronchodilator, Mucinex DM and Solu-Medrol. #2. PAF/Flutter with transient RVR most likely due to COPD exacerbation: Patient heart rate went to 150/min. Loading dose of digoxin with 500 mg IV and then 250 mill of 6 hours ordered. Patient also on a admitted on 200 mg daily. Metoprolol 6 increased to 100 mg twice daily. Cardizem CD changed to Cardizem 60 mg p.o. every 6 hourly. Monitor heart rate. Discussed with nursing staff 10/26/2022 echocardiogram with EF 55 to 60% with a small pericardial effusion with no significant valvular disease. 05/13: Heart rate is controlled in 80s. Patient is still in A-fib. Yesterday patient was loaded with IV digoxin. #3. Squamous cell carcinoma of the lung, unclear stage: Last note in the system from [facility] hematology/oncology with Dr. Neal with noted squamous cell carcinoma of the lung with pending staging work-up with biomarkers noted PD-L1 50% with history of a 3 cm left lower lobe mass along with indeterminate 5 mm left lower lobe nodules with CT abdomen pelvis with IV contrast with a slight increase in size of the left adrenal nodule compared to 2015 as well as subcentimeter low-density lesions in the liver too small to characterize, MRI of the brain without IV contrast with no acute evidence of any intracranial metastases, bronchoscopy 03/09/2022 with biopsy of the left lower lobe mass consistent with squamous cell carcinoma with planned PET/CT of unclear result, recently completed radiation therapy, not candidate for chemotherapy per her report, encourage continued outpatient follow-up with hematology/oncology. #4. PAD: Per records status post previous right common femoral artery, abdominal aortogram and bilateral lower extremity angiograms with previous ENTERPRISE MANAGER/stent to the common iliac as well as left SFA, we will continue patient home apixaban, hypertensive regimen, not on statin therapy with no allergy listed but following with cardiology, encourage continued outpatient follow-up with both cardiology and vascular surgery. #5. CAD: Per records presumed nonobstructive coronary disease, continue apixaban, hypertensive regimen, not on statin therapy with no allergy listed but following with cardiology, encourage continued outpatient follow-up. #6. Chronic Kidney Disease Stage IIIb: Admission BUN/Cr 21/1.0, baseline renal function primarily 1.0-1.2, repeat BMP in AM. #7. Hypertension: Continue home regimen including diltiazem, metoprolol, PRN hydralazine. #8. Hyperlipidemia: Not on regimen, encourage continued outpatient follow-up. #9. Morbid Obesity: Weight loss and lifestyle changes encouraged. #10. Chronic bilateral extremity lymphedema, chronic venous stasis: Placement Nicolas wraps with bilateral lower extremity elevation, pulse dosing lasix as noted, elevate BL LE. #11. History CVA: Patient with history of remote CVA in the , will continue Eliquis, hypertensive regimen, not on statin therapy with no allergy listed, encourage continued outpatient follow-up. #12. Anxiety and depression: Noted in history, not on regimen, encourage continued outpatient follow-up. #13. History VTE: Patient with history of DVT, right lower extremity noted in history, continue Eliquis regimen. #14. Tobacco Abuse: Encouraged cessation, inpatient consultation per RT, NR if desired. #15. BURKE: Unable to tolerate PAP therapy, uses her chronic oxygen supplementation. #16. DVT Prophylaxis: Continue home eliquis regimen. #17. CODE status: Patient ZAFAR is her son and sister, living will is not currently in place. DNR-CCA with very specifically short term intubation to allow her family to arrive and see her before extubating. Total time of the visit including total time spent in counseling or coordination of care, (more than 50% of the total time, spent in obtaining medical information from nurses and other ancillary care providers,explaining to the patient about labs, imaging, diagnosis and management of active complex medical conditions), interdisciplinary round, clinical update given to patient's sister present to the room,, review of labs and imaging is 50 minutes. Clinical Impression(s) from Imaging Studies Chest X-Ray 05/11/23 17:55 IMPRESSION: Degenerative changes, as described above. No demonstrated acute cardiopulmonary process. Charges/Coding Visit Charges Inpatient E&M: 39305 Subs Hosp L2
[2023-05-13] MEDS: 0.9% Saline Lock 10 ML Syringe IV (17:39)
[2023-05-13] MEDS: Ondansetron 4 MG/2 ML Vial IV (20:02)
[2023-05-13] MEDS: Latanoprost 0.005% 1 Bottle 1 DRP OPHTHALMIC (22:09)
[2023-05-13] MEDS: MELATONIN 3 MG TABLET PO (22:22)
[2023-05-14] VITALS (17 sets, daily range): BP systolic 103–142; BP diastolic 50–96; PULSE 73–88; RESP 17–22; TEMP 36.3–36.6; O2SAT 84–97; BMI 48.1
[2023-05-14] MEDS: dilTIAZem 60 MG Tablet PO ×5 (00:23→23:47)
[2023-05-14] MEDS: Miconazole Nitrate 43 GM Bottle 1 APPLIC TOPICAL ×3 (06:09→21:59)
[2023-05-14] MEDS: Gabapentin 300 MG Capsule PO ×3 (06:09→21:49)
[2023-05-14] MEDS: Ipratropium 0.5 MG/2.5 ML SOLUTION INHALATION ×4 (07:06→19:15)
[2023-05-14 07:35] LABS: Absolute Lymphocyte Count 0.22 X10^3/uL (0.83-4.51); Absolute Neutrophil Count 14.7 X10^3/uL (2.0-7.7); Basophil# 0.02 X10^3/uL; Basophil% 0.1 % (0-1); Hematocrit 38.9 % (37-47); Hemoglobin 11.4 g/dL (12.0-15.0); Lymphocyte # 0.22 X10^3/ul (0.83-4.51); Lymphocyte % 1.5 % (19-41); Mean Corp Hgb Conc 29.3 g/dL (32-36); Mean Corpuscular Hgb 28.8 pg (27.0-32.0); Mean Corpuscular Volume 98.2 fL (81-99); Mean Platelet Vol. 9.6 fl (6.2-12.0); Monocyte% 0.7 % (0-10); NRBC Flagged by Analyzer 0 % (0-5); Neutrophil % 96.9 % (47-70); POSITIVE DIFFERENTIAL YES; Platelet Count 365 K/mm3 (150-450); RBC Distribution Width CV 15.7 % (11.6-14.6); RBC Distribution Width SD 55.9 fl (35.1-43.9); Red Blood Count 3.96 M/mm3 (4.2-5.4); White Blood Count 15.2 K/mm3 (4.4-11.0)
[2023-05-14 07:49] LABS: Differential Indicated SCAN CRITERIA MET
[2023-05-14 07:57] LABS: Anion Gap 4 (5-15); BUN 49 mg/dL (7-18); BUN/Creat Ratio 35.3 RATIO (10-20); Calcium,Total 8.1 mg/dL (8.5-10.1); Chloride 100 mmol/L (98-107); Creatinine, Serum 1.39 mg/dL (0.55-1.02); EST Glomerular Filtration Rate 40 mL/min (>60); Est Glom Filt Rate - Afr Amer 49 mL/min (>60); Estimated Creatinine Clearance 31.06 ml/min; Glucose 190 mg/dL (74-106); Potassium 4.6 mmol/L (3.5-5.1); Sodium Level 137 mmol/L (136-145)
[2023-05-14] MEDS: Potassium Chloride Oral Tablet 20 MEQ PO (08:24)
[2023-05-14] MEDS: Amiodarone 200 MG Tablet PO (08:24)
[2023-05-14 08:38] LABS: Differential Comment SCANNED
[2023-05-14] MEDS: Furosemide 40 MG/4 ML Vial IV ×2 (09:53→17:17)
[2023-05-14] MEDS: APIXABAN 5 MG TABLET PO ×2 (09:53→21:54)
[2023-05-14] MEDS: Acetaminophen 325 MG Tablet 650 MG PO ×3 (09:53→22:05)
[2023-05-14] MEDS: Senna/Docusate Sodium 1 Tablet 2 TABLET PO ×2 (09:54→21:51)
[2023-05-14] MEDS: Menthol/Lanolin/Calamine/Znox 113 GM Tube 1 APPLIC TOPICAL ×3 (09:54→21:59)
[2023-05-14] MEDS: guaiFENesin 1,200 MG Tablet 1200 MG PO ×2 (09:54→21:53)
[2023-05-14] MEDS: guaiFENesin/D-Methorphan TAB.SR.12H 2 TABLET PO ×2 (09:54→21:52)
[2023-05-14] MEDS: Metoprolol(XL)Succ 100 MG Tablet PO ×2 (09:54→21:50)
[2023-05-14] MEDS: 0.9% Saline Lock 10 ML Syringe IV (14:18)
--- NOTE | 2023-05-14 15:54 | PCM.PN.HOSP ---
Reason for Visit Reason for Visit: Diagnoses Chronic obstructive pulmonary disease with (acute) exacerbation (05/11/23) Objective Data Objective Data Vital Signs: Vital Signs Temp Pulse Resp BP Pulse Ox O2 Del Method O2 Flow Rate 97.4 F L 75 20 H 119/96 H 93 Nasal Cannula 5 05/14/23 15:30 05/14/23 15:30 05/14/23 15:30 05/14/23 15:30 05/14/23 15:30 05/14/23 15:30 05/14/23 15:30 FiO2 30 05/11/23 18:25 Oxygen Flow Rate (L/min) [ 6 AMBULATING with Oxygen #3] Oxygen Flow Rate (L/min) [ 5 AMBULATING with Oxygen #2] Oxygen Flow Rate (L/min) [ 4 AMBULATING with Oxygen #1] Oxygen Flow Rate (L/min) 5 Oxygen Delivery Method Nasal Cannula Weight: 271 lb 9.752 oz Body Mass Index (BMI) 48.1 Intake & Output: Intake and Output for Last 24 Hours 05/12/23 05/13/23 05/14/23 23:59 23:59 23:59 Intake Total 1220 / 1420 700 / 700 300 / 300 Output Total 3050 / 3600 2400 / 2800 1450 / 1450 Balance -1830 / -2180 -1700 / -2100 -1150 / -1150 Lab / Micro Data 05/14/23 06:50 05/14/23 06:50 Labs: Laboratory Results - last 24 hr 05/14/23 06:50: WBC 15.2 H, RBC 3.96 L, Hgb 11.4 L, Hct 38.9, MCV 98.2, MCH 28.8, MCHC 29.3 L, RDW Std Deviation 55.9 H, RDW Coeff of Baltazar 15.7 H, Plt Count 365, MPV 9.6, Immature Gran % (Auto) 0.800, Neut % (Auto) 96.9 H, Lymph % (Auto) 1.5 L, [place] % (Auto) 0.7, Eos % (Auto) 0.0, Baso % (Auto) 0.1, Absolute Neuts (auto) 14.7 H, Absolute Lymphs (auto) 0.22 L, Nucleated RBC % 0, Differential Comment SCANNED, Sodium 137, Potassium 4.6, Chloride 100, Carbon Dioxide 33.0 H, Anion Gap 4 L, BUN 49 H, Creatinine 1.39 H, Estim Creat Clear Calc 31.06, Est GFR (MDRD) Af Amer 49 L, Est GFR (MDRD) Non-Af 40 L, BUN/Creatinine Ratio 35.3 H, Glucose 190 H, Calcium 8.1 L Micro: Microbiology 05/11/23 17:35 Blood Culture (Wb) - Left Forearm Blood Culture - Preliminary No growth in 48 hours. 05/11/23 17:30 Blood Culture (Wb) - Anticubital Right Blood Culture - Preliminary No growth in 48 hours. 05/11/23 17:55 Urine, Clean Catch Urine Culture - Final GPC Poss Enterococcus sp 05/11/23 22:49 Mucosa - Nasopharyngeal Respiratory Panel (PCR) - Final 05/11/23 17:53 Urine Catheter - Catheter Legionella Antigen - Final 05/11/23 17:53 Urine Catheter - Catheter Streptococcus pneumoniae Antigen (M - Final 05/11/23 17:25 Nasal Secretion SARS-CoV-2 & FLU Antigen (Rapid) - Final Physical Exam Narrative Seen and examined. Shortness of breath is better at rest but on ambulation she requires 6 L and gets dyspneic. Dyspnea at rest has resolved. No chest pain. Has cough and brings up clear phlegm. Physical exam General: Alert, Oriented x3, Cooperative HEENT: Atraumatic, PERRLA, EOMI, Normocephalic Oral: Oral mucosa dry. No Gingival or Mucosal Lesions/ Ulcerations Neck: Supple, No JVD, Negative Carotid Bruits Lungs: Air entry diminished in bilateral lung bases. Bilateral gross wheezing and rhonchi. Significant hypoxia hypoxia. Dyspnea on exertion Cardiovascular: A-fib with RVR heart rate 120 to 150/min, Normal S1, Normal S2, No murmurs Abdomen: Bowel Sounds Present, Soft, Non Tender, Non-Distended : No renal angle tenderness. No suprapubic tenderness. Extremities: Bilateral 2+ pitting ankle edema, Capillary Refill Less than 3 Seconds Skin: No rashes, No breakdown Musculoskeletal: No Tenderness to Palpation of Joints or Extremities Neurological: Cranial nerves II-XII grossly intact, DTR 2+/4. No acute focal neurological deficit. Psych/Mental Status: Flat affect. Assessment & Plan Assessment/Plan (1) COPD exacerbation: PLAN: Plan The patient is a 67 y/o F COPD/Asthma with Chronic Hypoxic Respiratory Failure (3-4L NC) admitted in PCU on 05/11/23 with history of increasing dyspnea over the last 3 days, worse with any exertion with associated orthopnea and complaint of increased swelling to the legs. Patient is being managed on scheduled bronchodilator, IV Solu-Medrol, Mucinex, incentive spirometry and Pep. #1. Dyspnea, Multifactorial, secondary to Acute on Chronic COPD/Asthma exacerbation w/ Chronic Hypoxic Respiratory Failure (3-4L NC) and Possible concurrent Acute HFpEF Exacerbation: Patient baseline 3 L of home oxygen and 4 L on activity. Currently patient is tachypneic on 3 L of oxygen. We will treat the underlying disorder as mentioned below. Heart failure core measures including intake and output, fluid restriction less than 1500 mL, daily weight monitoring, kidney and electrolytes monitoring. Patient on Lasix 40 mg IV every 8 hourly changed to 40 mg twice daily. Patient was recently discharged 5-day burst of prednisone therapy and completed Levaquin 750-minute every 48 hour. Patient was discharged on 04/29/2023 for similar COPD exacerbation. 05/13: Continue diuretics, bronchodilator, Mucinex DM and Solu-Medrol. 05/14: Despite continuing diuretics bronchodilators Mucinex DM and IV Solu-Medrol patient's oxygenation is constant at 5 to 6 L. #2. PAF/Flutter with transient RVR most likely due to COPD exacerbation: Patient heart rate went to 150/min. Loading dose of digoxin with 500 mg IV and then 250 mg after 6 hours ordered. Patient also on amiodarone 200 mg daily. Metoprolol succinate increased to 100 mg twice daily. Cardizem CD changed to Cardizem 60 mg p.o. every 6 hourly. Monitor heart rate. Discused with nursing staff 10/26/2022 echocardiogram with EF 55 to 60% with a small pericardial effusion with no significant valvular disease. 05/13: Heart rate is controlled in 80s. Patient is still in A-fib. Yesterday patient was loaded with IV digoxin. 05/14: heart rate is controlled. #3. Squamous cell carcinoma of the lung, unclear stage: Last note in the system from [facility] hematology/oncology with Dr. Neal with noted squamous cell carcinoma of the lung with pending staging work-up with biomarkers noted PD-L1 50% with history of a 3 cm left lower lobe mass along with indeterminate 5 mm left lower lobe nodules with CT abdomen pelvis with IV contrast with a slight increase in size of the left adrenal nodule compared to 2015 as well as subcentimeter low-density lesions in the liver too small to characterize, MRI of the brain without IV contrast with no acute evidence of any intracranial metastases, bronchoscopy 03/09/2022 with biopsy of the left lower lobe mass consistent with squamous cell carcinoma with planned PET/CT of unclear result, recently completed radiation therapy, not candidate for chemotherapy per her report, encourage continued outpatient follow-up with hematology/oncology. #4. 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 #5. CAD: Per records presumed nonobstructive coronary disease, continue apixaban, hypertensive regimen, not on statin therapy with no allergy listed but following with cardiology, encourage continued outpatient follow-up. #6. Chronic Kidney Disease Stage IIIb: Admission BUN/Cr 21/1.0, baseline renal function primarily 1.0-1.2, repeat BMP in AM. #7. Hypertension: Continue home regimen including diltiazem, metoprolol, PRN hydralazine. #8. Hyperlipidemia: Not on regimen, encourage continued outpatient follow-up. #9. Morbid Obesity: Weight loss and lifestyle changes encouraged. #10. Chronic bilateral extremity lymphedema, chronic venous stasis: Placement Nicolas wraps with bilateral lower extremity elevation, pulse dosing lasix as noted, elevate BL LE. #11. History CVA: Patient with history of remote CVA in the , will continue Eliquis, hypertensive regimen, not on statin therapy with no allergy listed, encourage continued outpatient follow-up. #12. Anxiety and depression: Noted in history, not on regimen, encourage continued outpatient follow-up. #13. History VTE: Patient with history of DVT, right lower extremity noted in history, continue Eliquis regimen. #14. Tobacco Abuse: Encouraged cessation, inpatient consultation per RT, NR if desired. #15. BURKE: Unable to tolerate PAP therapy, uses her chronic oxygen supplementation. #16. DVT Prophylaxis: Continue home eliquis regimen. #17. CODE status: Patient ZAFAR is her son and sister, living will is not currently in place. DNR-CCA with very specifically short term intubation to allow her family to arrive and see her before extubating. Clinical Impression(s) from Imaging Studies Chest X-Ray 05/11/23 17:55 IMPRESSION: Degenerative changes, as described above. No demonstrated acute cardiopulmonary process. Charges/Coding Visit Charges Inpatient E&M: 33692 Subs Hosp L2
[2023-05-14] MEDS: Latanoprost 0.005% 1 Bottle 1 DRP OPHTHALMIC (21:49)
[2023-05-14] MEDS: MELATONIN 3 MG TABLET PO (22:05)
[2023-05-15 03:56] VITALS: BMI 47.7
[2023-05-15 06:35] VITALS: BP 143/52; PULSE 77; RESP 18; TEMP 36.5; O2SAT 95
[2023-05-15] MEDS: Gabapentin 300 MG Capsule PO ×2 (06:41→14:00)
[2023-05-15] MEDS: dilTIAZem 60 MG Tablet PO ×2 (06:44→12:15)
[2023-05-15] MEDS: Miconazole Nitrate 43 GM Bottle 1 APPLIC TOPICAL ×2 (06:46→13:59)
--- NOTE | 2023-05-15 07:54 | DCINST_ITS ---
Discharge Instructions Diet Discharge Diet: Low fat / Low cholesterol, 6 Cup Fluid Restriction and 2000 mg Sodium Diet Activity Discharge Activity: Return to Normal Activity Weight Bearing Status: Weight bearing as tolerated Dressing / Incision Call your doctor if you observe: Fever of 101 or Higher, Coldness, Increased Pain, Numbness or Tingling, Change in Color, Inability to urinate, Inability to have a bowel movement, Using more than 1 pad per hour, Shortness of breath, Dizziness, Fainting spells, Swelling in the ankles, Chest pain, Prolonged hiccupping, Increased palpitations (irregular heartbeat) and Calf discomfort Follow Up Care When: IN 2 WEEKS Test Results: Test results from this visit will be discussed in further detail at your follow- up appointment, if applicable. Discharge Plan Admission Admit Date/Time: 05/11/23 20:32 Primary Reason for Your Visit: Acute COPD exacerbation, A-fib with RVR, CHF exacerbation Attending Provider: Luis Robledo Primary Care Provider: Josesito Guthrie Consulting Providers: Tonya Kimbrough Discharge Orders/Prescriptions Prescriptions: New nicotine 14 mg/24 hr Patch 24 Hour 14 mg transdermal DAILY PRN PRN (Reason: Nicotine Craving) 28 Days Qty: 28 0RF sennosides-docusate sodium [Stool Softener-Stimulant Laxat] 8.6-50 mg Tablet 2 tab PO BID PRN (Reason: constipation) Qty: 0 0RF diltiazem HCl 360 mg capsule,extended release 24hr 360 mg PO DAILY Qty: 30 2RF guaifenesin [Mucinex] 1,200 mg tablet extended release 12hr 1,200 mg PO BID 7 Days Qty: 14 0RF prednisone 10 mg tablet 10 mg PO DAILY Qty: 30 0RF Rx Instructions: 40 mg for 3 days 30 mg for 3 days, 20 mg for 3 days,and 10 mg for 3 days Continued Eliquis 5 mg tablet 5 mg PO BID Qty: 180 3RF acetaminophen 500 mg Tablet 1,000 mg PO DAILY PRN (Reason: Pain) latanoprost 0.005 % drops 1 drp ophthalmic (eye) QPM Patient Comments: INSTILL 1 DROP INTO EACH EYE NIGHTLY amiodarone 200 mg tablet 200 mg PO DAILY furosemide 40 mg Tablet 40 mg PO Q8H 30 Days Qty: 90 0RF Rx Instructions: Hold for SBP less than 100 mmHg potassium chloride 20 mEq tablet extended release 20 meq PO DAILY Qty: 90 3RF Changed metoprolol succinate 100 mg tablet extended release 24 hr 100 mg PO BID Qty: 90 3RF Rx Instructions: Hold for heart less than 50 or systolic blood pressure less than 100 mmHg. Discontinued diltiazem HCl 240 mg capsule,extended release 24 hr 240 mg PO DAILY Referrals / Follow Up: Maury Granados MD [Med Staff - Active Staff] - Within 1 Month Nabil Carter DO [Med Staff - Active Staff] - Within 2 Weeks Josesito Guthrie MD [Primary Care Provider] - Within 1 Week Disposition Disposition (needs filled in before D/C Order can be placed): Home, Self Care
[2023-05-15 08:18] VITALS: O2SAT 92
[2023-05-15 08:20] LABS: Absolute Lymphocyte Count 0.24 X10^3/uL (0.83-4.51); Absolute Neutrophil Count 9.7 X10^3/uL (2.0-7.7); Basophil# 0.01 X10^3/uL; Basophil% 0.1 % (0-1); Hematocrit 38.9 % (37-47); Lymphocyte # 0.24 X10^3/ul (0.83-4.51); Lymphocyte % 2.3 % (19-41); Mean Corp Hgb Conc 28.3 g/dL (32-36); Mean Corpuscular Hgb 27.8 pg (27.0-32.0); Mean Corpuscular Volume 98.5 fL (81-99); Mean Platelet Vol. 9.9 fl (6.2-12.0); Monocyte# 0.16 X10^3/uL; Monocyte% 1.6 % (0-10); NRBC Flagged by Analyzer 0 % (0-5); Neutrophil # 9.73 X10^3/uL (2.7-7.7); Neutrophil % 94.7 % (47-70); POSITIVE DIFFERENTIAL YES; Platelet Count 323 K/mm3 (150-450); RBC Distribution Width CV 15.4 % (11.6-14.6); RBC Distribution Width SD 55.8 fl (35.1-43.9); Red Blood Count 3.95 M/mm3 (4.2-5.4); White Blood Count 10.3 K/mm3 (4.4-11.0)
[2023-05-15 08:22] LABS: Differential Indicated SCAN CRITERIA MET
[2023-05-15 08:35] LABS: Anion Gap 3 (5-15); BUN 52 mg/dL (7-18); BUN/Creat Ratio 40.6 RATIO (10-20); Calcium,Total 7.9 mg/dL (8.5-10.1); Chloride 98 mmol/L (98-107); Creatinine, Serum 1.28 mg/dL (0.55-1.02); EST Glomerular Filtration Rate 44 mL/min (>60); Est Glom Filt Rate - Afr Amer 53 mL/min (>60); Estimated Creatinine Clearance 33.73 ml/min; Glucose 178 mg/dL (74-106); Magnesium 2.7 mg/dL (1.6-2.6); Potassium 4.8 mmol/L (3.5-5.1); Sodium Level 137 mmol/L (136-145)
[2023-05-15 10:13] VITALS: BP 93/82; PULSE 80; RESP 17; TEMP 36.6; O2SAT 94
[2023-05-15] MEDS: Menthol/Lanolin/Calamine/Znox 113 GM Tube 1 APPLIC TOPICAL ×2 (10:22→14:01)
[2023-05-15] MEDS: Furosemide 40 MG Tablet PO (10:22)
[2023-05-15] MEDS: Amiodarone 200 MG Tablet PO (10:22)
[2023-05-15] MEDS: APIXABAN 5 MG TABLET PO (10:23)
[2023-05-15] MEDS: Potassium Chloride Oral Tablet 20 MEQ PO (10:23)
[2023-05-15] MEDS: Senna/Docusate Sodium 1 Tablet 2 TABLET PO (10:23)
[2023-05-15] MEDS: guaiFENesin/D-Methorphan TAB.SR.12H 2 TABLET PO (10:23)
[2023-05-15 10:43] LABS: Differential Comment SCANNED
[2023-05-15 11:12] VITALS: O2SAT 87; O2SAT 89
[2023-05-15 12:13] VITALS: BP 137/70; PULSE 83; RESP 18; TEMP 36.6; O2SAT 93
[2023-05-15] MEDS: Ipratropium 0.5 MG/2.5 ML SOLUTION INHALATION (13:23)
--- NOTE | 2023-05-15 13:43 | DS.PCM_ITS ---
Providers Date of Admission: 05/11/23 Date of Discharge: 05/15/23 Primary Care Physician: Dr. Josesito Guthrie MD Reason For Visit: COPD EXAC,CHF EXAC,PAF RVR Diagnosis Discharge Diagnosis (1) COPD exacerbation: Status: Chronic Code(s): J44.1 - Chronic obstructive pulmonary disease with (acute) exacerbation Plan The patient is a 67 y/o F COPD/Asthma with Chronic Hypoxic Respiratory Failure (3-4L NC) admitted in PCU on 05/11/23 with history of increasing dyspnea over the last 3 days, worse with any exertion with associated orthopnea and complaint of increased swelling to the legs. Patient is being managed on scheduled bronchodilator, IV Solu-Medrol, Mucinex, incentive spirometry and Pep. #1. Dyspnea, Multifactorial, secondary to Acute on Chronic COPD/Asthma exacerbation w/ Chronic Hypoxic Respiratory Failure (3-4L NC) and Possible concurrent Acute HFpEF Exacerbation: Patient baseline 3 L of home oxygen and 4 L on activity. Currently patient is tachypneic on 3 L of oxygen. We will treat the underlying disorder as mentioned below. Heart failure core measures including intake and output, fluid restriction less than 1500 mL, daily weight monitoring, kidney and electrolytes monitoring. Patient on Lasix 40 mg IV every 8 hourly changed to 40 mg twice daily. Patient was recently discharged 5-day burst of prednisone therapy and completed Levaquin 750-minute every 48 hour. Patient was discharged on 04/29/2023 for similar COPD exacerbation. 05/13: Continue diuretics, bronchodilator, Mucinex DM and Solu-Medrol. 05/14: Despite continuing diuretics bronchodilators Mucinex DM and IV Solu-Medrol patient's oxygenation is constant at 5 to 6 L. 05/15: Home oxygen qualification shows patient requires 3 L at rest and 5 L on ambulation. Her breathing has much improved. Leg swelling has decreased. Patient discharged on furosemide 40 mg p.o. every 8 hourly, potassium supplement, tapering dose of prednisone, Mucinex DM. Follow-up with Dr. Carter in pulmonary clinic. #2. PAF/Flutter with transient RVR most likely due to COPD exacerbation: Patient heart rate went to 150/min. Loading dose of digoxin with 500 mg IV and then 250 mg after 6 hours ordered. Patient also on amiodarone 200 mg daily. Metoprolol succinate increased to 100 mg twice daily. Cardizem CD changed to Cardizem 60 mg p.o. every 6 hourly. Monitor heart rate. Discused with nursing staff 10/26/2022 echocardiogram with EF 55 to 60% with a small pericardial effusion with no significant valvular disease. 05/13: Heart rate is controlled in 80s. Patient is still in A-fib. Yesterday patient was loaded with IV digoxin. 05/14: heart rate is controlled. 05/15: Patient was sent home on metoprolol succinate 100 mg twice daily, Cardizem CD was increased to 360 mg daily and continue amiodarone 200 mg daily. Follow- up with Dr. Granados in cardiology office. #3. Squamous cell carcinoma of the lung, unclear stage: Last note in the system from [facility] hematology/oncology with Dr. Neal with noted squamous cell carcinoma of the lung with pending staging work-up with biomarkers noted PD-L1 50% with history of a 3 cm left lower lobe mass along with indeterminate 5 mm left lower lobe nodules with CT abdomen pelvis with IV contrast with a slight increase in size of the left adrenal nodule compared to 2014 as well as subcentimeter low-density lesions in the liver too small to characterize, MRI of the brain without IV contrast with no acute evidence of any intracranial metastases, bronchoscopy 03/09/2022 with biopsy of the left lower lobe mass consistent with squamous cell carcinoma with planned PET/CT of unclear result, recently completed radiation therapy, not candidate for chemotherapy per her report, encourage continued outpatient follow-up with hematology/oncology. #4. 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 #5. CAD: Per records presumed nonobstructive coronary disease, continue apixaban, hypertensive regimen, not on statin therapy with no allergy listed but following with cardiology, encourage continued outpatient follow-up. #6. Chronic Kidney Disease Stage IIIb: Admission BUN/Cr 21/1.0, baseline renal function primarily 1.0-1.2, repeat BMP in AM. #7. Hypertension: Continue home regimen including diltiazem, metoprolol, PRN hydralazine. #8. Hyperlipidemia: Not on regimen, encourage continued outpatient follow-up. #9. Morbid Obesity: Weight loss and lifestyle changes encouraged. #10. Chronic bilateral extremity lymphedema, chronic venous stasis: Placement Nicolas wraps with bilateral lower extremity elevation, pulse dosing lasix as noted, elevate BL LE. #11. History CVA: Patient with history of remote CVA in the , will continue Eliquis, hypertensive regimen, not on statin therapy with no allergy listed, encourage continued outpatient follow-up. #12. Anxiety and depression: Noted in history, not on regimen, encourage continued outpatient follow-up. #13. History VTE: Patient with history of DVT, right lower extremity noted in history, continue Eliquis regimen. #14. Tobacco Abuse: Encouraged cessation, inpatient consultation per RT, NR if desired. #15. BURKE: Unable to tolerate PAP therapy, uses her chronic oxygen supplementation. #16. DVT Prophylaxis: Continue home eliquis regimen. #17. CODE status: Patient ZAFAR is her son and sister, living will is not cu rrently in place. DNR-CCA with very specifically short term intubation to allow her family to arrive and see her before extubating. Discharge medication reconciliation done. Discharge follow-up instructions completed. Discharge process discussed with the patient and all questions were answered to patient's satisfaction. Follow with PCP in 1 to 2 weeks Total time spent, exact 35 minutes on discharge meds reconciliation, examination, coordination of care with nurses and ancillary staff, review of imaging and blood test and discussion with the patient on follow-up instructions. Clinical Impression(s) from Imaging Studies Chest X-Ray 05/11/23 17:55 IMPRESSION: Degenerative changes, as described above. No demonstrated acute cardiopulmonary process. Medications at Discharge Home Medications acetaminophen 500 mg tablet 1,000 mg PO DAILY PRN Pain 12/24/22 apixaban 5 mg tablet (Eliquis) 5 mg PO BID afib #180 tabs 01/06/23 potassium chloride 20 mEq tablet,extended release 20 meq PO DAILY due to lasix #90 tabs 04/15/23 latanoprost 0.005 % eye drops 1 drp ophthalmic (eye) QPM glaucoma 04/26/23 amiodarone 200 mg tablet 200 mg PO DAILY afib 05/11/23 diltiazem HCl 360 mg capsule,extended release 24 hr 360 mg PO DAILY #30 caps 05/15/23 furosemide 40 mg tablet 40 mg PO Q8H water pill 30 days #90 tabs 05/15/23 guaifenesin 1,200 mg tablet, extended release 12 hr (Mucinex) 1,200 mg PO BID 7 days #14 TABLETS 05/15/23 metoprolol succinate 100 mg tablet,extended release 24 hr 100 mg PO BID increased to 100 mg once daily due to insurance #90 tabs 05/15/23 nicotine 14 mg/24 hr daily transdermal patch 14 mg transdermal DAILY PRN PRN Nicotine Craving 28 days #28 ea 05/15/23 prednisone 10 mg tablet 10 mg PO DAILY #30 tabs 05/15/23 sennosides 8.6 mg-docusate sodium 50 mg tablet (Stool Softener-Stimulant Laxative) 2 tab PO BID PRN constipation #0 tabs 05/15/23 Physical Exam Narrative Seen and examined. Patient states he is feeling better on baseline 3 L of home oxygen. Dyspnea at rest has resolved. She is resting comfortably on the bed. She has already been discussed about low-salt, water restriction and watching her weight. Physical exam General: Alert, Oriented x3, Cooperative HEENT: Atraumatic, PERRLA, EOMI, Normocephalic Oral: Oral mucosa dry. No Gingival or Mucosal Lesions/ Ulcerations Neck: Supple, No JVD, Negative Carotid Bruits Lungs: Air entry diminished in bilateral lung bases. Bilateral wheezing. That is her baseline. On 3 L of oxygen. Cardiovascular: A-fib with RVR heart rate 120 to 150/min, Normal S1, Normal S2, No murmurs Abdomen: Bowel Sounds Present, Soft, Non Tender, Non-Distended : No renal angle tenderness. No suprapubic tenderness. Extremities: Bilateral 1+ pitting ankle edema, Capillary Refill Less than 3 Seconds Skin: No rashes, No breakdown Musculoskeletal: No Tenderness to Palpation of Joints or Extremities Neurological: Cranial nerves II-XII grossly intact, DTR 2+/4. No acute focal neurological deficit. Psych/Mental Status: Flat affect. Weight / BMI Weight Weight: 269 lb 10.005 oz Body Mass Index (BMI) 47.7 ABG / Lab / Microbiology Data 05/15/23 06:39 05/15/23 06:39 Laboratory: Laboratory Results - last 24 hr 05/14/23 06:50: Differential Comment SCANNED, Sodium 137, Potassium 4.6, Chloride 100, Carbon Dioxide 33.0 H, Anion Gap 4 L, BUN 49 H, Creatinine 1.39 H, Estim Creat Clear Calc 31.06, Est GFR (MDRD) Af Amer 49 L, Est GFR (MDRD) Non-Af 40 L, BUN/Creatinine Ratio 35.3 H, Glucose 190 H, Calcium 8.1 L Microbiology: Microbiology 05/11/23 17:35 Blood Culture (Wb) - Left Forearm Blood Culture - Preliminary No growth in 48 hours. 05/11/23 17:30 Blood Culture (Wb) - Anticubital Right Blood Culture - Preliminary No growth in 48 hours. 05/11/23 17:55 Urine, Clean Catch Urine Culture - Final GPC Poss Enterococcus sp 05/11/23 22:49 Mucosa - Nasopharyngeal Respiratory Panel (PCR) - Final 05/11/23 17:53 Urine Catheter - Catheter Legionella Antigen - Final 05/11/23 17:53 Urine Catheter - Catheter Streptococcus pneumoniae Antigen (M - Final 05/11/23 17:25 Nasal Secretion SARS-CoV-2 & FLU Antigen (Rapid) - Final Meaningful Use Info Meaningful Use Diagnoses (Choose all that apply): None applicable Discharge Plan Admission Admit Date/Time: 05/11/23 20:32 Primary Reason for Your Visit: Acute COPD exacerbation, A-fib with RVR, CHF exacerbation Attending Provider: Luis Robledo Primary Care Provider: Josesito Guthrie Consulting Providers: Tonya Kimbrough Discharge Orders/Prescriptions Prescriptions: New nicotine 14 mg/24 hr Patch 24 Hour 14 mg transdermal DAILY PRN PRN (Reason: Nicotine Craving) 28 Days Qty: 28 0RF sennosides-docusate sodium [Stool Softener-Stimulant Laxat] 8.6-50 mg Tablet 2 tab PO BID PRN (Reason: constipation) Qty: 0 0RF diltiazem HCl 360 mg capsule,extended release 24hr 360 mg PO DAILY Qty: 30 2RF guaifenesin [Mucinex] 1,200 mg tablet extended release 12hr 1,200 mg PO BID 7 Days Qty: 14 0RF prednisone 10 mg tablet 10 mg PO DAILY Qty: 30 0RF Rx Instructions: 40 mg for 3 days 30 mg for 3 days, 20 mg for 3 days,and 10 mg for 3 days Continued Eliquis 5 mg tablet 5 mg PO BID Qty: 180 3RF acetaminophen 500 mg Tablet 1,000 mg PO DAILY PRN (Reason: Pain) latanoprost 0.005 % drops 1 drp ophthalmic (eye) QPM Patient Comments: INSTILL 1 DROP INTO EACH EYE NIGHTLY amiodarone 200 mg tablet 200 mg PO DAILY furosemide 40 mg Tablet 40 mg PO Q8H 30 Days Qty: 90 0RF Rx Instructions: Hold for SBP less than 100 mmHg potassium chloride 20 mEq tablet extended release 20 meq PO DAILY Qty: 90 3RF Changed metoprolol succinate 100 mg tablet extended release 24 hr 100 mg PO BID Qty: 90 3RF Rx Instructions: Hold for heart less than 50 or systolic blood pressure less than 100 mmHg. Discontinued diltiazem HCl 240 mg capsule,extended release 24 hr 240 mg PO DAILY Referrals / Follow Up: Maury Granados MD [Med Staff - Active Staff] - Within 1 Month Nabil Carter DO [Med Staff - Active Staff] - Within 2 Weeks Josesito Guthrie MD [Primary Care Provider] - Within 1 Week Disposition Disposition (needs filled in before D/C Order can be placed): Home, Self Care Charges/Coding Visit Charges Inpatient E&M: 69938 Disch Hosp >30min
[2023-05-15 13:49] VITALS: PULSE 81; RESP 19
[2023-05-15] MEDS: 0.9% Saline Lock 10 ML Syringe IV (14:04)
--- NOTE | 2023-05-15 14:11 | NURSING ---
Prescription for increased oxygen demands [facility]
== END 2023-05-15 15:54 | disposition home or self-care (01) | DRG 140 ==
LOC: ED 18:01 → PCU 05-12 07:22
PROVIDERS: Admitting Provider Family Medicine; Emergency Provider Student in an Organized Health Care Education/Training Program; PCP Internal Medicine; Visit Provider Internal Medicine
DX: J44.1 Chronic obstructive pulmonary disease with (acute) exacerbation (principal); I49.02 Ventricular flutter; I50.31 Acute diastolic (congestive) heart failure; C34.90 Malignant neoplasm of unspecified part of unspecified bronchus or lung; J96.11 Chronic respiratory failure with hypoxia; I73.9 Peripheral vascular disease, unspecified; I13.0 Hypertensive heart and chronic kidney disease with heart failure and stage 1 through stage 4 chronic kidney disease, or unspecified chronic kidney disease; E66.01 Morbid (severe) obesity due to excess calories; N18.32 Chronic kidney disease, stage 3b; I48.0 Paroxysmal atrial fibrillation; Z68.42 Body mass index [BMI] 45.0-49.9, adult; F32.A Depression, unspecified; I87.8 Other specified disorders of veins; I89.0 Lymphedema, not elsewhere classified; I25.10 Atherosclerotic heart disease of native coronary artery without angina pectoris; G47.33 Obstructive sleep apnea (adult) (pediatric); Z80.0 Family history of malignant neoplasm of digestive organs; Z79.01 Long term (current) use of anticoagulants; Z72.0 Tobacco use; Z80.1 Family history of malignant neoplasm of trachea, bronchus and lung; Z86.73 Personal history of transient ischemic attack (TIA), and cerebral infarction without residual deficits; Z86.718 Personal history of other venous thrombosis and embolism
CPT/HCPCS: 36415; 51702; 71045; 80048; 80053; 81001; 83605; 83735; 83880; 84100; 84145; 84484; 85025; 85610; 85730; 87040; 87086; 87088; 87428; 87449; 87633; 93005; 94002; 94640; 94668; 97162; 97166; 97530; 97535; 97802; 99285; A4216; J1940; J2405

== ENCOUNTER → 2023-05-22 | Outpatient (CLI) | payer MEDICAID, SELFPAY ==
[2023-05-22 17:54] LABS: Mucous, Urine 0 SEEN /hpf (<or=2+); Red Blood Cells-Urine 0 SEEN /hpf (0-5)
[2023-05-22 18:00] LABS: Color, Urine Yellow (Yellow); Glucose, Dipstick Normal (Normal); Ketone-Dipstick Negative (Negative); Leukocyte Esterase-Dipstick 500 /ul (Negative); Nitrite-Dipstick Positive (Negative); Occult Blood-Urine 50 /ul (Negative); Protein-Dipstick 15 mg/dl (Negative); Specific Gravity, Urine 1.015 (1.002-1.030); Urine Bilirubin Dipstick Negative (Negative); Urine Clarity Sl. Cloudy (Clear); Urine Urobilinogen Normal (Normal); Urine pH 6.5 (5.0 - 8.0)
[2023-05-22 18:07] LABS: White Blood Cells 50-100 SEEN /hpf (0-5)
[2023-05-22 18:08] LABS: Bacteria 2+ /hpf (None Seen); Squamous Epithelial Cells - UA 0-5 SEEN /hpf (5-10)
== END | disposition home or self-care (01) ==
PROVIDERS: PCP Internal Medicine; Visit Provider Internal Medicine
DX: R30.9 Painful micturition, unspecified (principal)
CPT/HCPCS: 81001; 87077; 87086; 87088; 87186